=== PATIENT | female | born 1940 | race Caucasian/White ===

== ENCOUNTER 2016-09-11 12:52 | Inpatient (IN) | payer MEDICARE, OTHER ==
[2016-09-11] MEDS ORDERED: SODIUM CHLORIDE 0.9% 1,000 ML IV STA (12:55)
--- NOTE | 2016-09-11 13:20 | ED ---
General Adult HPI - General Chief complaint: Seizure Stated complaint: seizure Time Seen by Provider: 09/11/16 12:54 Source: patient, family, EMS, RN notes reviewed, old records reviewed Mode of arrival: EMS Limitations: no limitations - History of Present Illness Initial comments: This is a 76-year-old female ER for evaluation of seizure. Patient does have positive seizure in doctor's office earlier today. Patient states may have history of a similar issue before. But no new medications no drugs or alcohol medications no stopping of any recent medications or recent illnesses. No nausea vomiting or diarrhea. Patient states otherwise she feels well. He was a little bit weaker earlier in the day. No nausea vomiting, no headache no fevers - Related Data Home Medications Medication Instructions Recorded Confirmed Aspirin 81 mg PO DAILY 11/12/13 09/11/16 Cyclobenzaprine [Flexeril] 10 mg PO TID 11/12/13 09/11/16 Montelukast [Singulair] 10 mg PO HS 11/12/13 09/11/16 Simvastatin [Zocor] 40 mg PO HS 11/12/13 09/11/16 Budesonide-Formot 160-4.5 Mcg 2 puff INHALATION RT-BID 01/15/14 09/11/16 [Symbicort 160-4.5 Mcg Inhaler] Losartan/Hydrochlorothiazide 1 tab PO DAILY 01/15/14 09/11/16 [Losartan-Hctz 100-25 mg Tab] Albuterol Sulfate [Proair Hfa] 2 puff INHALATION RT-Q4H PRN 03/28/14 09/11/16 Cholecalciferol [Vitamin D3] 1,000 unit PO DAILY 03/28/14 09/11/16 Magnesium Oxide [Mag-Ox] 250 mg PO DAILY 03/28/14 09/11/16 ALPRAZolam [Xanax] 0.25 mg PO DAILY PRN 02/13/16 09/11/16 Atenolol 50 mg PO HS 02/13/16 09/11/16 Calcium Citrate 250 mg PO DAILY 02/13/16 09/11/16 Albuterol Nebulized [Ventolin 2.5 mg INHALATION RT-QID PRN 02/19/16 09/11/16 Nebulized] Multivitamins, Thera [Multivitamin 1 tab PO DAILY 02/19/16 09/11/16 (formulary)] Azithromycin [Zithromax Z-pack] See Taper PO DIRECTED 09/11/16 09/11/16 Col-Rite 100 mg PO BID 09/11/16 09/11/16 Denosumab [Prolia] 60 mg SQ ONCE 09/11/16 09/11/16 Fluticasone Nasal [place] [Flonase 1 spray EA NOSTRIL DAILY PRN 09/11/16 09/11/16 Nasal [place]] Mupirocin 2% Oint [Bactroban 2% 1 applic TOPICAL TID PRN 09/11/16 09/11/16 Oint] Tiotropium 18 Mcg/Puff [Spiriva] 1 cap INHALATION RT-DAILY 09/11/16 09/11/16 Allergies Allergy/AdvReac Type Severity Reaction Status Date / Time bupropion HCl Allergy Severe Rash/Hives Verified 09/11/16 13:42 [From Wellbutrin] Penicillins Allergy Severe Rash/Hives Verified 09/11/16 13:42 Review of Systems ROS Statement: Those systems with pertinent positive or pertinent negative responses have been documented in the HPI. ROS Other: All systems not noted in ROS Statement are negative. Past Medical History Past Medical History: Asthma, Cancer, COPD, GERD/Reflux, Hearing Disorder / Deafness, Hyperlipidemia, Hypertension, Thyroid Disorder Additional Past Medical History / Comment(s): CHRONIC BRONCHITIS-copd, SKIN CANCER- BASAL CELL CANCER, HEARING LOSS LEFT EAR; OSTEOPOROSIS; NODULE ON THYROID,endarterectomy on the left The patient was recently hospitalized on 06/2015 for a COPD exacerbation and left lower lobe pneumonia. Hypertension, hypothyroidism, hyperlipidemia, GE reflux History of Any Multi-Drug Resistant Organisms: None Reported Past Surgical History: Appendectomy, Heart Catheterization, Hysterectomy Additional Past Surgical History / Comment(s): BRONCH 01/2014; LEFT CAROTID ENDARTERECTOMY; LISA CATARACTS Past Anesthesia/Blood Transfusion Reactions: No Reported Reaction, Motion Sickness Past Psychological History: No Psychological Hx Reported Additional Psychological History / Comment(s): LIVES AT HOME WITH SPOUSE, RECENTLY STARTED USING A WALKER. Smoking Status: Current some day smoker Past Alcohol Use History: None Reported Additional Past Alcohol Use History / Comment(s): QUIT SMOKING 02-13-16 Past Drug Use History: None Reported - Past Family History Mother Family Medical History: Seizure Disorder Additional Family Medical History / Comment(s): EPILEPTIC Father Family Medical History: Diabetes Mellitus General Exam Limitations: no limitations General appearance: alert, in no apparent distress Head exam: Present: atraumatic, normocephalic, normal inspection Eye exam: Present: normal appearance, PERRL, EOMI. Absent: scleral icterus, conjunctival injection, periorbital swelling ENT exam: Present: normal exam, mucous membranes moist Neck exam: Present: normal inspection. Absent: tenderness, meningismus, lymphadenopathy Respiratory exam: Present: normal lung sounds bilaterally. Absent: respiratory distress, wheezes, rales, rhonchi, stridor Cardiovascular Exam: Present: regular rate, normal rhythm, normal heart sounds. Absent: systolic murmur, diastolic murmur, rubs, gallop, clicks GI/Abdominal exam: Present: soft, normal bowel sounds. Absent: distended, tenderness, guarding, rebound, rigid Extremities exam: Present: normal inspection, full ROM, normal capillary refill. Absent: tenderness, pedal edema, joint swelling, calf tenderness Back exam: Present: normal inspection Neurological exam: Present: alert, oriented X3, CN II-XII intact Psychiatric exam: Present: normal affect, normal mood Skin exam: Present: warm, dry, intact, normal color. Absent: rash Course Vital Signs 09/11/16 12:56 Temperature 98.2 F Pulse Rate 83 Respiratory 18 Rate Blood Pressure 115/56 O2 Sat by Pulse 99 Oximetry - Reevaluation(s) Reevaluation #1: 09/11/16 16:10 Patient without seizure-like activity at this time Reevaluation #2: 09/11/16 16:[address] Abel Diaz prior to transfer, regarding seizure and symptoms, patient did have generalized seizure, less than 15 seconds postictal. EKG Findings - EKG Comments: EKG Findings:: EKG shows sinus rhythm of 84, NH 150, QRS 90, QTc 470 Medical Decision Making - Medical Decision Making Summary for female here with witnessed seizure, patient symptoms were seizure- like did have loss of bladder and no other injury. Witnessed by the Dr. Abel watts, patient sent to ER for evaluation, patient found be hyponatremic and will admit for sodium replacement - Lab Data Result diagrams: 09/11/16 13:11 09/11/16 13:11 Lab Results 09/11/16 09/11/16 Range/Units 13:11 13:11 WBC 10.6 (3.8-10.6) k/uL RBC 3.79 L (3.80-5.40) m/uL Hgb 11.9 (11.4-16.0) gm/dL Hct 34.4 (34.0-46.0) % MCV 90.7 (80.0-100.0) fL MCH 31.4 (25.0-35.0) pg MCHC 34.6 (31.0-37.0) g/dL RDW 13.0 (11.5-15.5) % Plt Count 405 (150-450) k/uL Neutrophils % 71 % Lymphocytes % 18 % Monocytes % 7 % Eosinophils % 2 % Basophils % 1 % Neutrophils # 7.5 (1.3-7.7) k/uL Lymphocytes # 1.9 (1.0-4.8) k/uL Monocytes # 0.8 (0-1.0) k/uL Eosinophils # 0.2 (0-0.7) k/uL Basophils # 0.1 (0-0.2) k/uL Sodium 123 L (137-145) mmol/L Potassium 4.0 (3.5-5.1) mmol/L Chloride 86 L (98-107) mmol/L Carbon Dioxide 23 (22-30) mmol/L Anion Gap 14 mmol/L BUN 23 H (7-17) mg/dL Creatinine 0.92 (0.52-1.04) mg/dL Est GFR (MDRD) Af Amer >60 (>60 ml/min/1.73 sqM) Est GFR (MDRD) Non-Af 60 (>60 ml/min/1.73 sqM) Glucose 105 H (74-99) mg/dL Calcium 9.3 (8.4-10.2) mg/dL Total Bilirubin 0.7 (0.2-1.3) mg/dL AST 24 (14-36) U/L ALT 25 (9-52) U/L Alkaline Phosphatase 84 (38-126) U/L Total Protein 6.6 (6.3-8.2) g/dL Albumin 3.7 (3.5-5.0) g/dL Salicylates <1.0 mg/dL Acetaminophen <10.0 ug/mL Serum Alcohol <10 mg/dL Disposition Clinical Impression: New onset seizure, Hyponatremia Disposition: ADMITTED IP TO THIS HOSP Condition: Fair Referrals: Yefri Melgoza MD [Primary Care Provider] - 1-2 days
[2016-09-11 13:23] LABS: Basophils # (A) 0.1 k/uL (0-0.2); Basophils % (A) 1 %; CH 32.5; Eosinophils # (A) 0.2 k/uL (0-0.7); Eosinophils % (A) 2 %; HCT 34.4 % (34.0-46.0); HDW 2.58; HGB 11.9 gm/dL (11.4-16.0); Luc # (Auto) 0.25; Luc % (Auto) 2; Lymphocytes # (A) 1.9 k/uL (1.0-4.8); Lymphocytes % (A) 18 %; MCH 31.4 pg (25.0-35.0); MCHC 34.6 g/dL (31.0-37.0); MCV 90.7 fL (80.0-100.0); Mean Platelet Volume 7.4; Monocytes # (A) 0.8 k/uL (0-1.0); Monocytes % (A) 7 %; Neutrophils # (A) 7.5 k/uL (1.3-7.7); Neutrophils % (A) 71 %; RBC 3.79 m/uL (3.80-5.40); WBC 10.6 k/uL (3.8-10.6); WBC (Perox) 11.21
[2016-09-11 14:07] LABS: ALT 25 U/L (9-52); AST 24 U/L (14-36); Acetaminophen <10.0 ug/mL; Alcohol <10 mg/dL; Alkaline Phosphatase 84 U/L (38-126); Anion Gap 14 mmol/L; Blood Urea Nitrogen 23 mg/dL (7-17); Calcium 9.3 mg/dL (8.4-10.2); Carbon Dioxide 23 mmol/L (22-30); Chloride 86 mmol/L (98-107); Glucose 105 mg/dL (74-99); Non-African American GFR(MDRD) 60 (>60 ml/min/1.73 sqM); Salicylate <1.0 mg/dL; Sodium 123 mmol/L (137-145); Total Bilirubin 0.7 mg/dL (0.2-1.3); Total Protein 6.6 g/dL (6.3-8.2)
--- NOTE | 2016-09-11 15:08 | CT ---
EXAMINATION TYPE: CT brain wo con DATE OF EXAM: 09/11/2016 3:01 PM COMPARISON: NONE HISTORY: Pt states of PAUL to frontal lobe area. CT DLP: 1022 mGycm Automated exposure control for dose reduction was used. FINDINGS: There are mild, generalized changes of sulcal prominence and ventriculomegaly, compatible with atroph ic change. There is diffuse periventricular white matter lucency, compatible with chronic white matte r ischemic change. There is no acute focal lesion, mass effect or midline shift identified. I do not see evidence of intracranial blood. Visualized portions of the paranasal sinuses and mastoids are clear. No depressed skull fracture is s een. IMPRESSION: 1. NO ACUTE INTRACRANIAL ABNORMALITY. 2. MILD ATROPHIC CHANGE. 3. CHRONIC WHITE MATTER ISCHEMIC CHANGE.
[2016-09-11] MEDS ORDERED: SODIUM CHLORIDE 0.9% 1,000 ML IV ONE (16:08)
[2016-09-11 17:21] LABS: Appearance,Urine Clear (Clear); Bilirubin,Urine Negative (Negative); Glucose,Urine (UA) Negative (Negative); Ketones,Urine Negative (Negative); Leukocyte Esterase,Urine Negative (Negative); Nitrite,Urine Negative (Negative); PH, Urine 6.5 (5.0-8.0); Protein,Urine Negative (Negative); Specific Gravity,Urine 1.005 (1.001-1.035); UA Billing (MACRO vs. MICRO) CHEM; Urobilinogen,Urine <2.0 mg/dL (<2.0)
[2016-09-11] MEDS ORDERED: FLUTICASONE 50MCG/SPRAY NASAL 16GM EA NOSTRIL PRN (17:38)
[2016-09-11] MEDS ORDERED: ALPRAZolam 0.25 MG TAB PO PRN (17:38)
[2016-09-11] MEDS ORDERED: ALBUTEROL NEBULIZED 2.5 MG/3 ML INHALATION PRN (17:38)
[2016-09-11] MEDS: SYMBICORT 160-4.5 MCG INHALER INHALATION SCH (20:14)
[2016-09-11] MEDS: DOCUSATE 100 MG CAP PO SCH (20:28)
[2016-09-11] MEDS: CYCLOBENZAPRINE 10 MG TAB PO SCH (20:28)
[2016-09-11] MEDS: ATORVASTATIN 20 MG TAB PO SCH (20:28)
[2016-09-11] MEDS: ATENOLOL 50 MG TAB PO SCH (20:28)
[2016-09-11] MEDS: MONTELUKAST 10 MG TAB PO SCH (20:28)
--- NOTE | 2016-09-11 20:53 | P.CNNES ---
History of Present Illness Consult date: 09/11/16 Reason for Consult: New onset seizure and hyponatremia. History of Present Illness: This patient is a 76-year-old right-handed white female who was recently diagnosed as having a possible lump in the breast. She was referred to Dr. Abel Diaz for further evaluation. Patient went today to see her surgeon and apparently well in the exam room suddenly developed a new onset of seizure. This was witnessed by Dr. Diaz. Apparently the seizure lasted 1-2 minutes in duration. Patient did not have any bowel or bladder incontinence. Patient was advised to go directly to the emergency room for further evaluation. On further questioning the patient has no memory of this seizure event. She does remember being taken to the hospital today for admission. Patient does mention that she is not feeling well for about a week or 2 prior to this event. She states she has been having diarrhea and sinus problems. Her diarrhea has been ongoing for over a week. Patient was brought into the emergency room at [facility] for further evaluation today. She was seen in the ER by Dr. King. Laboratory testing was done and she was found to have a serum sodium level of 123 suggesting acute hyponatremia. She was started on normal saline by IV drip and admitted to the hospital. Apparently her seizure was generalized as noted by the ER physician. It lasted at least a minute or 2 in duration. Apparently she was postictal for about 20 seconds following the event. Patient denies any previous history of seizures or head injury. She was sent for a computed tomography scan of the brain which revealed no acute intracranial abnormality. There was evidence of mild atrophy noted. Patient is now admitted and neurology has been consulted for further evaluation and recommendations. Review of Systems Constitutional: Denies chills, Denies fever Eyes: denies blurred vision, denies pain Ears, nose, mouth and throat: Denies headache, Denies sore throat Cardiovascular: Denies chest pain, Denies shortness of breath Respiratory: Denies cough Gastrointestinal: Denies abdominal pain, Denies diarrhea, Denies nausea, Denies vomiting Genitourinary: Denies dysuria, Denies hematuria Musculoskeletal: Denies myalgias Integumentary: Denies pruritus, Denies rash Neurological: Reports convulsions, Reports seizures, Denies numbness, Denies weakness Psychiatric: Denies anxiety, Denies depression Endocrine: Denies fatigue, Denies weight change Past Medical History Past Medical History: Asthma, Cancer, COPD, GERD/Reflux, Hearing Disorder / Deafness, Hyperlipidemia, Hypertension, Pneumonia, Thyroid Disorder Additional Past Medical History / Comment(s): 09-11-16-SEIZURE, CHRONIC BRONCHITIS-copd, SKIN CANCER- BASAL CELL CANCER, HEARING LOSS LT EAR; OSTEOPOROSIS; NODULE ON THYROID,endarterectomy on the left The patient was recently hospitalized on 02/13/2016 for a COPD exacerbation and left lower lobe pneumonia. Hypertension, hypothyroidism, hyperlipidemia, GE reflux History of Any Multi-Drug Resistant Organisms: None Reported Past Surgical History: Appendectomy, Heart Catheterization, Hysterectomy Additional Past Surgical History / Comment(s): BRONCH 01/2014; LEFT CAROTID ENDARTERECTOMY; LISA CATARACTS Past Anesthesia/Blood Transfusion Reactions: No Reported Reaction, Motion Sickness Past Psychological History: No Psychological Hx Reported Additional Psychological History / Comment(s): LIVES AT HOME WITH SPOUSE, RECENTLY STARTED USING A WALKER. Smoking Status: Former smoker Past Alcohol Use History: None Reported Additional Past Alcohol Use History / Comment(s): STARTED SMOKING A TEEN, QUIT SMOKING 02-13-16, 1 PPD Past Drug Use History: None Reported - Past Family History Mother Family Medical History: Seizure Disorder Additional Family Medical History / Comment(s): EPILEPTIC Father Family Medical History: Diabetes Mellitus Medications and Allergies Home Medications Medication Instructions Recorded Confirmed Type Aspirin 81 mg PO DAILY 11/12/13 09/11/16 History Cyclobenzaprine [Flexeril] 10 mg PO TID 11/12/13 09/11/16 History Montelukast [Singulair] 10 mg PO HS 11/12/13 09/11/16 History Simvastatin [Zocor] 40 mg PO HS 11/12/13 09/11/16 History Budesonide-Formot 160-4.5 Mcg 2 puff INHALATION RT-BID 01/15/14 09/11/16 History [Symbicort 160-4.5 Mcg Inhaler] Losartan/Hydrochlorothiazide 1 tab PO DAILY 01/15/14 09/11/16 History [Losartan-Hctz 100-25 mg Tab] Albuterol Sulfate [Proair Hfa] 2 puff INHALATION RT-Q4H PRN 03/28/14 09/11/16 History Cholecalciferol [Vitamin D3] 1,000 unit PO DAILY 03/28/14 09/11/16 History Magnesium Oxide [Mag-Ox] 250 mg PO DAILY 03/28/14 09/11/16 History ALPRAZolam [Xanax] 0.25 mg PO DAILY PRN 02/13/16 09/11/16 History Atenolol 50 mg PO HS 02/13/16 09/11/16 History Calcium Citrate 250 mg PO DAILY 02/13/16 09/11/16 History Albuterol Nebulized [Ventolin 2.5 mg INHALATION RT-QID PRN 02/19/16 09/11/16 History Nebulized] Multivitamins, Thera [Multivitamin 1 tab PO DAILY 02/19/16 09/11/16 History (formulary)] Azithromycin [Zithromax Z-pack] See Taper PO DIRECTED 09/11/16 09/11/16 History Col-Rite 100 mg PO BID 09/11/16 09/11/16 History Denosumab [Prolia] 60 mg SQ ONCE 09/11/16 09/11/16 History Fluticasone Nasal [place] [Flonase 1 spray EA NOSTRIL DAILY PRN 09/11/16 09/11/16 History Nasal [place]] Mupirocin 2% Oint [Bactroban 2% 1 applic TOPICAL TID PRN 09/11/16 09/11/16 History Oint] Tiotropium 18 Mcg/Puff [Spiriva] 1 cap INHALATION RT-DAILY 09/11/16 09/11/16 History Allergies Allergy/AdvReac Type Severity Reaction Status Date / Time bupropion HCl Allergy Severe Rash/Hives Verified 09/11/16 13:42 [From Wellbutrin] Penicillins Allergy Severe Rash/Hives Verified 09/11/16 13:42 Physical Examination - Vital Signs Vital Signs: Vital Signs Temp Pulse Pulse Resp BP BP Pulse Ox 09/11/16 17:24 97.9 F 84 20 130/74 99 09/11/16 16:42 98.2 F 90 18 136/66 98 Intake and Output 09/11/16 09/11/16 09/11/16 06:59 14:59 22:59 Other: Voiding Method Toilet - Constitutional General appearance: average body habitus, cooperative - EENT EENT: PERRL, mucous membranes moist - Respiratory Respiratory: lungs clear, normal breath sounds - Cardiovascular Cardiovascular: regular rate, normal S1, normal S2 Extremities: no peripheral edema bilaterally - Gastrointestinal Gastrointestinal: normoactive bowel sounds - Integumentary Integumentary: normal - Neurologic Cranial nerve examination: PERRL, EOMI, VFF, V1/V2/V3 grossly intact, face symmetric, tongue midline, intact gag reflex, intact corneal reflex, normal palatal elevation Speech examination: intact Sensorimotor examination: intact Detailed motor examination: grossly full strength in all extremities Detailed sensory examination: intact Reflex and gait examination: intact Reflexes: 1+: ankle, bicep, knee, tricep - Musculoskeletal Musculoskeletal: no pain - Psychiatric Psychiatric: mood/affect appropriate, cooperative Results - Laboratory Findings CBC and BMP: 09/11/16 13:11 09/11/16 13:11 Assessment and Plan (1) Hyponatremia Status: Acute Code(s): E87.1 - HYPO-OSMOLALITY AND HYPONATREMIA (2) New onset seizure Status: Acute Code(s): R56.9 - UNSPECIFIED CONVULSIONS Plan: This patient is a 76-year-old female who was admitted to hospital today after having a generalized tonic-clonic seizure in her doctor's office this morning. She is being evaluated for recent breast lump. She was seen by Dr. Abel Diaz and apparently had a 1-2 minute seizure. She was postictal for about 20 seconds following this event. She was advised to go directly to the emergency room and was seen in the ER today at [facility] by Dr. King. She underwent computed tomography scan of the brain which failed to reveal any acute changes. Laboratory testing in the ER revealed her to have severe hyponatremia with a serum sodium of 123. She was started on normal saline and admitted to the hospital. Her neurological examination at this time is nonfocal. This patient has had secondary seizure likely from severe hyponatremia. She has no previous history of seizures or head injury. We will obtain a routine EEG for further evaluation. CAT scan of the brain was reviewed and failed to reveal any acute changes. She will require a slow replacement of her sodium level with close monitoring of her electrolyte over the next 24 hours. Her overall prognosis at this time remains guarded. She was advised of the [place] driving law which states she cannot drive for appeared of 6 months following a seizure. She was updated on this restriction. We will continue close neurological follow-up with this patient during this admission. Her overall prognosis at this time remains guarded. Time with Patient: Greater than 30
[2016-09-12] MEDS: DOCUSATE 100 MG CAP PO SCH ×2 (08:43→21:27)
[2016-09-12] MEDS: AZITHROMYCIN 250 MG TAB PO SCH (08:43)
[2016-09-12] MEDS: CALCIUM CARBONATE 500 MG CHEWABLE PO SCH (08:43)
[2016-09-12] MEDS: ENOXAPARIN 40 MG/0.4 ML SYRINGE SQ SCH (08:43)
[2016-09-12] MEDS: MAGNESIUM OXIDE 400 MG TAB PO SCH (08:43)
[2016-09-12] MEDS: CYCLOBENZAPRINE 10 MG TAB PO SCH ×3 (08:43→21:27)
[2016-09-12] MEDS: ASPIRIN 81 MG CHEW PO SCH (08:44)
[2016-09-12] MEDS: SYMBICORT 160-4.5 MCG INHALER INHALATION SCH ×2 (08:54→20:55)
[2016-09-12] MEDS: TIOTROPIUM 18 MCG/PUFF INHALER INHALATION SCH (08:54)
[2016-09-12] MEDS ORDERED: LOSARTAN-HCTZ 50-12.5 MG 1 EACH TAB PO SCH (09:00)
[2016-09-12 09:45] LABS: Anion Gap 9 mmol/L; Blood Urea Nitrogen 12 mg/dL (7-17); Calcium 8.6 mg/dL (8.4-10.2); Carbon Dioxide 25 mmol/L (22-30); Chloride 96 mmol/L (98-107); Glucose 87 mg/dL (74-99); Non-African American GFR(MDRD) >60 (>60 ml/min/1.73 sqM); Potassium 3.8 mmol/L (3.5-5.1); Sodium 130 mmol/L (137-145)
[2016-09-12] MEDS: MULTIVITAMINS, THERA 1 EACH TAB PO SCH (13:45)
[2016-09-12] MEDS: CHOLECALCIFEROL 1,000 UNIT TAB PO SCH (13:45)
[2016-09-12] MEDS: ALBUTEROL NEBULIZED 2.5 MG/3 ML INHALATION PRN (17:05)
--- NOTE | 2016-09-12 19:08 | P.PN ---
Subjective This patient is a 76-year-old female who was admitted to hospital yesterday with new onset seizure and hyponatremia. She was with her primary care physician who referred her to Gen. surgery for evaluation of breast lump. While in the waiting room the patient had a generalized tonic-clonic seizure. She was brought into the emergency room yesterday and was noted to have significant hyponatremia with a serum sodium of 123. She was admitted to hospital for further management. Her serum sodium today is 1:30. She does seem to be doing better in terms of her mental status. She is awaiting EEG testing to be completed. She denies any headache or focal weakness. She has no previous history of seizures. We will continue close neurological follow-up of this patient. Her overall prognosis at this time remains guarded. Objective - Vital Signs Vital signs: Vital Signs Temp 98.2 F 09/12/16 15:00 Pulse 85 09/12/16 17:07 Resp 16 09/12/16 16:00 BP 116/79 09/12/16 15:00 Pulse Ox 96 09/12/16 17:07 Intake & Output 09/12/16 09/12/16 09/13/16 06:59 18:59 06:59 Other: # Voids 3 4 - Exam Physical examination: PHYSICAL EXAMINATION: Patient is resting comfortably in bed. VITAL SIGNS: Blood pressure is [116/79]. Heart rate is [85]. Respiration is [16] . Temperature is [98.2]. HEENT: Head is atraumatic, neck is supple, there were no carotid bruits. CHEST: Lungs are clear to auscultation and percussion. CARDIAC: S1, S2 normal rate and rhythm. There is no murmur. ABDOMEN: Soft and nontender. Bowel sounds are present. EXTREMITIES: There is no pedal edema. Peripheral pulses are present. Neurological examination: Patient has a nonfocal neurological examination. Exam is unchanged from yesterday. - Labs CBC & Chem 7: 09/11/16 13:11 09/12/16 09:09 Labs: Abnormal Lab Results - Last 24 Hours (Table) 09/12/16 Range/Units 09:09 Sodium 130 L (137-145) mmol/L Chloride 96 L (98-107) mmol/L Assessment and Plan (1) Hyponatremia Status: Acute Code(s): E87.1 - HYPO-OSMOLALITY AND HYPONATREMIA (2) New onset seizure Status: Acute Code(s): R56.9 - UNSPECIFIED CONVULSIONS Plan: This patient is a 76-year-old female who was admitted to hospital yesterday with new onset seizure and hyponatremia. She underwent computed tomography scan of the brain which was reported negative for any acute changes. She was treated for the hyponatremia. Her serum sodium today is 1:30. She is awaiting EEG testing to be completed. Her neurological examination at this time is nonfocal. She is once again advised of the [place] driving law which states she cannot drive for 6 months. We will continue close neurological follow-up for the patient during this admission.
--- NOTE | 2016-09-12 21:00 | HP ---
DATE OF ADMISSION: 09/11/2016 H&P and discharge summary: Patient is a 76-year-old gentleman came in after he had a seizure which was evidenced ( ) and the patient had another seizure apparently which appeared to be tonic-clonic activity with postictal confusion lasting for 30 seconds and patient was evaluated by Neurology already. The patient's sodium was found to be 123. Patient had a recent breast lumpectomy although head CT did not show any masses. Neurology believes the patient's seizures are secondary to low sodium, which improved at this point of time. Low sodium with IV fluids and patient low sodium secondary to hydrochlorothiazide on his medication regimen, which is being discontinued. On exam patient was found to be wheezing. Patient does have history of COPD . We will ambulate the patient, if the patient is able to saturate well upon ambulation, we will give him a few doses of tapering dose of steroids and patient will be discharged to follow with Dr. Yefri Melgoza as an outpatient if cleared by neurology. Appreciate their recommendations. REVIEW OF SYSTEMS: CONSTITUTIONAL: No fever, no malaise, no fatigue. HEENT: No recent visual problems or hearing problems. Denied any sore throat. CARDIOVASCULAR: No chest pain, orthopnea, PND, no palpitations, no syncope. PULMONARY: As described in HPI. GASTROINTESTINAL: No diarrhea, no nausea, no vomiting, no abdominal pain. Normoactive bowel sounds. NEUROLOGICAL: As described in HPI. HEMATOLOGICAL: Denies any bleeding or petechiae. GENITOURINARY: Denies any burning micturition, frequency, or urgency. MUSCULOSKELETAL/RHEUMATOLOGICAL: Denies any joint pain, swelling, or any muscle pain. ENDOCRINE: Denies any polyuria or polydipsia. The rest of the 14 point review of systems is negative. PAST MEDICAL HISTORY: Significant for COPD, gastroesophageal reflux disease, hyperlipidemia, hypertension, pneumonia, hypothyroidism, patient had a recent breast lumpectomy, appendectomy, cardiac catheterization, hysterectomy, left carotid surgery, endarterectomy, in the past. SOCIAL HISTORY: Former smoker. Quit smoking in 2015, February 2016, used to smoke 1 pack per day. Denied any alcohol abuse or drug abuse. FAMILY HISTORY: Mother had seizure disorder and father had diabetes mellitus. Home medications are: 1. Aspirin. 2. ( ). 3. Montelukast. 4. Simvastatin. 5. Budesonide. 6. Formoterol. 7. Losartan. 8. Hydrochlorothiazide. 9. Albuterol. 10. Cholecalciferol. 11. Magnesium. 12. Alprazolam. 13. Atenolol. 14. Calcium citrate. 15. Albuterol. 16. Multivitamin. 17. Azithromycin. 18. ( ). 19. Fluticasone. 20. Mupirocin. 21. Tiotropium. ALLERGIES: ALLERGIC TO BUPROPION PENICILLINS. PHYSICAL EXAMINATION: Temperature 97.9, pulse of 85, respiratory rate of 16, blood pressure is 116/70, saturating at 98% on room air. GENERAL: Thin built female, alert and oriented x3. HEENT: Pupils are round and equally reacting to light. EOMI. No scleral icterus. No conjunctival pallor. Normocephalic, atraumatic. No pharyngeal erythema. No thyromegaly. CARDIOVASCULAR: S1 and S2 present. No murmurs, rubs, or gallops. PULMONARY: Lung examination patient has significant expiratory wheezing. No crackles were appreciated. Fairly good air entry into bilateral lung enriquez. ABDOMEN: Soft, nontender, nondistended, normoactive bowel sounds. No palpable organomegaly. MUSCULOSKELETAL: No joint swelling or deformity. EXTREMITIES: No cyanosis, clubbing, or pedal edema. NEUROLOGICAL: Gross neurological examination did not reveal any focal deficits. SKIN: No rashes. LABORATORY DATA: CBC, CMP when she came in her sodium is 123, now 130. ASSESSMENT AND PLAN: 1. New onset seizures believed to be secondary to hyponatremia. Patient is getting an EEG. Further hydrochlorothiazide will be discontinued. 2. Hyponatremia secondary to hydrochlorothiazide. 3. Chronic obstructive pulmonary disease with mild acute exacerbation. 4. Hypertension. 5. Hyperlipidemia. 6. Hypothyroidism. 7. Recent history of breast cancer, status post lumpectomy. For the above mentioned chronic medical problems, patient will continue her home medications. Patient will be discharged today if patient is saturating well and is clear. Patient is cleared by neurology, patient will follow with Dr. Yefri Melgoza in 3 to 7 days. Follow up with neurology as an outpatient. Activity as tolerated. Cardiac diet. This dictation is both H&P and discharge summary.
[2016-09-12] MEDS: MONTELUKAST 10 MG TAB PO SCH (21:27)
[2016-09-12] MEDS: ATORVASTATIN 20 MG TAB PO SCH (21:27)
[2016-09-12] MEDS: ATENOLOL 50 MG TAB PO SCH (21:27)
[2016-09-13] MEDS: CALCIUM CARBONATE 500 MG CHEWABLE PO SCH (08:27)
[2016-09-13] MEDS: AZITHROMYCIN 250 MG TAB PO SCH (08:27)
[2016-09-13] MEDS: CYCLOBENZAPRINE 10 MG TAB PO SCH ×3 (08:27→20:35)
[2016-09-13] MEDS: ASPIRIN 81 MG CHEW PO SCH (08:27)
[2016-09-13] MEDS: DOCUSATE 100 MG CAP PO SCH ×2 (08:28→20:35)
[2016-09-13] MEDS: MAGNESIUM OXIDE 400 MG TAB PO SCH (08:28)
[2016-09-13] MEDS: ENOXAPARIN 40 MG/0.4 ML SYRINGE SQ SCH (08:28)
[2016-09-13] MEDS: TIOTROPIUM 18 MCG/PUFF INHALER INHALATION SCH (08:35)
[2016-09-13] MEDS: SYMBICORT 160-4.5 MCG INHALER INHALATION SCH ×2 (08:35→20:43)
[2016-09-13 10:59] LABS: CHCM 34.9; HCT 30.5 % (34.0-46.0); HGB 10.5 gm/dL (11.4-16.0); MCH 31.8 pg (25.0-35.0); MCHC 34.5 g/dL (31.0-37.0); Mean Platelet Volume 6.8; RBC 3.32 m/uL (3.80-5.40); RDW 12.9 % (11.5-15.5); WBC 7.9 k/uL (3.8-10.6)
[2016-09-13 11:11] LABS: Anion Gap 10 mmol/L; Blood Urea Nitrogen 13 mg/dL (7-17); Calcium 8.8 mg/dL (8.4-10.2); Carbon Dioxide 24 mmol/L (22-30); Chloride 91 mmol/L (98-107); Glucose 127 mg/dL (74-99); Non-African American GFR(MDRD) >60 (>60 ml/min/1.73 sqM); Potassium 3.8 mmol/L (3.5-5.1); Sodium 125 mmol/L (137-145)
[2016-09-13] MEDS: CHOLECALCIFEROL 1,000 UNIT TAB PO SCH (11:57)
[2016-09-13] MEDS: MULTIVITAMINS, THERA 1 EACH TAB PO SCH (11:57)
--- NOTE | 2016-09-13 14:09 | P.PN ---
Subjective This patient is a 76-year-old female who was admitted to hospital yesterday with new onset seizure and hyponatremia. She was with her primary care physician who referred her to Gen. surgery for evaluation of breast lump. While in the waiting room the patient had a generalized tonic-clonic seizure. She was brought into the emergency room yesterday and was noted to have significant hyponatremia with a serum sodium of 123. She was admitted to hospital for further management. Her serum sodium today is 130. She does seem to be doing better in terms of her mental status. She is awaiting EEG testing to be completed. She denies any headache or focal weakness. She has no previous history of seizures. Patient underwent repeat blood testing today revealing her serum sodium to drop began to 125. We are recommending her admitting physician to reevaluate the hyponatremia. She may be considered for possible SIADH. We will continue monitoring the patient closely and will attempt to have EEG testing done tomorrow for further assessment of her new onset seizure. We will continue close neurological follow-up of this patient. Her overall prognosis at this time remains guarded. Objective - Vital Signs Vital signs: Vital Signs Temp 98.5 F 09/13/16 07:00 Pulse 82 09/13/16 07:00 Resp 18 09/13/16 07:00 BP 95/56 09/13/16 07:00 Pulse Ox 95 09/13/16 07:00 Intake & Output 09/12/16 09/13/16 09/13/16 18:59 06:59 18:59 Other: Voiding Method Toilet Toilet # Voids 4 2 - Exam Physical examination: PHYSICAL EXAMINATION: Patient is resting comfortably in bed. VITAL SIGNS: Blood pressure is [95/56]. Heart rate is [82]. Respiration is [18] . Temperature is [98.5]. HEENT: Head is atraumatic, neck is supple, there were no carotid bruits. CHEST: Lungs are clear to auscultation and percussion. CARDIAC: S1, S2 normal rate and rhythm. There is no murmur. ABDOMEN: Soft and nontender. Bowel sounds are present. EXTREMITIES: There is no pedal edema. Peripheral pulses are present. Neurological examination: Patient has a nonfocal neurological examination. Exam is unchanged from yesterday. - Labs CBC & Chem 7: 09/13/16 10:28 09/13/16 10:28 Labs: Abnormal Lab Results - Last 24 Hours (Table) 09/13/16 09/13/16 09/13/16 Range/Units 10:28 10:28 10:28 RBC 3.32 L (3.80-5.40) m/uL Hgb 10.5 L (11.4-16.0) gm/dL Hct 30.5 L (34.0-46.0) % Sodium 125 L (137-145) mmol/L Chloride 91 L (98-107) mmol/L Glucose 127 H (74-99) mg/dL Osmolality 258 L (280-301) mosm/kg Assessment and Plan (1) Hyponatremia Status: Acute Code(s): E87.1 - HYPO-OSMOLALITY AND HYPONATREMIA (2) New onset seizure Status: Acute Code(s): R56.9 - UNSPECIFIED CONVULSIONS Plan: This patient is a 76-year-old female who was admitted to Hospital with new onset seizure activity. She was in her doctor's office and had a witnessed generalized tonic-clonic seizure lasting several minutes. She was slightly postictal. She was subtotally admitted to Hospital. She was found to have evidence of severe hyponatremia with an initial sodium of 123. Was felt that she likely had new onset seizures secondary to the hyponatremia. She is being evaluated for underlying seizure disorder as well. Routine EEG has been ordered and will be done only tomorrow. Her repeat serum sodium today has dropped to 125 from yesterday. We are recommending further evaluation for other causes of hyponatremia in this patient. We will obtain EEG tomorrow for further assessment of underlying seizure disorder. Her overall prognosis at this time remains guarded. We will continue close neurological follow-up of this patient during this admission.
[2016-09-13] MEDS: predniSONE 20 MG TAB PO SCH (14:38)
[2016-09-13] MEDS: SODIUM CHLORIDE 0.9% 1,000 ML IV SCH ×2 (14:38→20:35)
[2016-09-13 15:07] LABS: Creatinine,Urine Random 32.6 mg/dL
[2016-09-13] MEDS: ALBUTEROL NEBULIZED 2.5 MG/3 ML INHALATION PRN (15:58)
--- NOTE | 2016-09-13 17:05 | PN ---
A 76-year-old admitted with seizure secondary to what is believed to hyponatremia. Patient remains hyponatremic today with 125 serum sodium, because I believe it is secondary to hydrochlorothiazide she ended up receiving yesterday morning. Will start her on IV fluids today. Repeat labs for tomorrow and will also do urine osmolality, serum osmolality, urine sodium and urine random creatinine and patient is still wheezing but wheezing improved, though. Patient will be started on low dose of prednisone today. REVIEW OF SYSTEMS: CARDIOVASCULAR: No chest pain, no orthopnea, no PND, no palpitations. PULMONARY: Denied any shortness of breath. No cough or hemoptysis. GASTROINTESTINAL: No diarrhea, nausea or vomiting. No abdominal pain. Normoactive bowel sounds. NEUROLOGIC: No headaches, no weakness, no numbness. Medications were reviewed. PHYSICAL EXAMINATION: Temperature 98.5, pulse of 82, respiratory rate of 18, blood pressure 95/56, saturating at 95% on room air. RESPIRATORY: Minimal expiratory wheezing was appreciated. No crackles were appreciated and fairly good air entry into bilateral lung enriquez. GENERAL: The patient is alert and oriented x3, not in any acute distress. Well developed, well nourished. HEENT: Pupils are round and equally reacting to light. EOMI. No scleral icterus. No conjunctival pallor. Normocephalic, atraumatic. No pharyngeal erythema. No thyromegaly. CARDIOVASCULAR: S1 and S2 present. No murmurs, rubs, or gallops. ABDOMEN: Soft, nontender, nondistended, normoactive bowel sounds. No palpable organomegaly. MUSCULOSKELETAL: No joint swelling or deformity. EXTREMITIES: No cyanosis, clubbing, or pedal edema. NEUROLOGICAL: Gross neurological examination did not reveal any focal deficits. SKIN: No rashes. LABORATORY DATA: Sodium is 125. ASSESSMENT AND PLAN: 1. New onset seizures believed secondary to hyponatremia which is again believed to be secondary to hydrochlorothiazide. Patient may have hypovolemic hyponatremia. Further evaluation of hyponatremia as mentioned above. 2. Chronic obstructive pulmonary disease with mild acute exacerbation, management as mentioned above. 3. Hypertension. 4. Hyperlipidemia. 5. Hypothyroidism. 6. Recent surgery for breast cancer, post lumpectomy. No evidence of brain metastasis at this time. 7. For above mentioned chronic medical problems, will go ahead and continue her home medications.
[2016-09-13] MEDS: MONTELUKAST 10 MG TAB PO SCH (20:35)
[2016-09-13] MEDS: ATORVASTATIN 20 MG TAB PO SCH (20:35)
[2016-09-13] MEDS: ATENOLOL 50 MG TAB PO SCH (20:35)
[2016-09-14] MEDS: SODIUM CHLORIDE 0.9% 1,000 ML IV SCH ×2 (06:04→15:15)
[2016-09-14 07:44] VITALS: BP 129/62; RESP 18; TEMP 97.2
[2016-09-14] MEDS: MAGNESIUM OXIDE 400 MG TAB PO SCH (08:07)
[2016-09-14] MEDS: ASPIRIN 81 MG CHEW PO SCH (08:07)
[2016-09-14] MEDS: CALCIUM CARBONATE 500 MG CHEWABLE PO SCH (08:07)
[2016-09-14] MEDS: predniSONE 20 MG TAB PO SCH (08:07)
[2016-09-14] MEDS: ENOXAPARIN 40 MG/0.4 ML SYRINGE SQ SCH (08:07)
[2016-09-14] MEDS: AZITHROMYCIN 250 MG TAB PO SCH (08:07)
[2016-09-14] MEDS: CYCLOBENZAPRINE 10 MG TAB PO SCH (08:07)
[2016-09-14] MEDS: ALBUTEROL NEBULIZED 2.5 MG/3 ML INHALATION PRN (08:16)
[2016-09-14] MEDS: TIOTROPIUM 18 MCG/PUFF INHALER INHALATION SCH (08:17)
[2016-09-14] MEDS: SYMBICORT 160-4.5 MCG INHALER INHALATION SCH (08:17)
[2016-09-14 08:31] VITALS: PULSE 88
[2016-09-14 09:00] LABS: Anion Gap 11 mmol/L; Blood Urea Nitrogen 11 mg/dL (7-17); Calcium 8.6 mg/dL (8.4-10.2); Carbon Dioxide 21 mmol/L (22-30); Chloride 104 mmol/L (98-107); Glucose 105 mg/dL (74-99); Non-African American GFR(MDRD) >60 (>60 ml/min/1.73 sqM); Sodium 136 mmol/L (137-145)
[2016-09-14] MEDS: DOCUSATE 100 MG CAP PO SCH (09:32)
[2016-09-14 09:57] LABS: CH 31.9; CHCM 34.3; HCT 30.4 % (34.0-46.0); HDW 2.58; HGB 10.6 gm/dL (11.4-16.0); MCH 32.5 pg (25.0-35.0); MCHC 34.7 g/dL (31.0-37.0); MCV 93.4 fL (80.0-100.0); RBC 3.26 m/uL (3.80-5.40); RDW 12.8 % (11.5-15.5)
[2016-09-14] MEDS: CHOLECALCIFEROL 1,000 UNIT TAB PO SCH (14:01)
[2016-09-14] MEDS: MULTIVITAMINS, THERA 1 EACH TAB PO SCH (14:02)
--- NOTE | 2016-09-15 19:55 | DS ---
DATE OF ADMISSION: 09/11/2016 DATE OF DISCHARGE: 09/14/2016 The patient is a 76 -year-old lady admitted secondary to seizures, new onset and the patient was ( ) hypernatremia, improved with discontinuation of hydrochlorothiazide and IV fluids. The patient is being discharged today. Patient has chronic obstructive pulmonary disease with acute exacerbation. Patient is still wheezing, but wanted to go home. ( ) discharge ( ) on systemic steroids with close follow-up with primary care physician. The patient was seen and examined on the day of discharge. Vital signs stable. PHYSICAL EXAMINATION: GENERAL: The patient is alert and oriented x3, not in any acute distress. Well developed, well nourished. HEENT: Pupils are round and equally reacting to light. EOMI. No scleral icterus. No conjunctival pallor. Normocephalic, atraumatic. No pharyngeal erythema. No thyromegaly. CARDIOVASCULAR: S1 and S2 present. No murmurs, rubs, or gallops. PULMONARY: Decreased air entry into bilateral lung enriquez with expiratory wheezing on exam. ABDOMEN: Soft, nontender, nondistended, normoactive bowel sounds. No palpable organomegaly. MUSCULOSKELETAL: No joint swelling or deformity. EXTREMITIES: No cyanosis, clubbing, or pedal edema. NEUROLOGICAL: Gross neurological examination did not reveal any focal deficits. SKIN: No rashes. ASSESSMENT AND PLAN: 1. New onset seizures ( ) secondary to hyponatremia, chronic obstructive pulmonary disease with acute exacerbation. 2. Hypertension. 3. Hyperlipidemia. 4. Hypothyroidism. 5. Recent history of breast cancer with no evidence of brain metastasis. Please refer to my depart for further details of discharge medications. Activity as tolerated. Cardiac diet. Extensive counselling regarding nicotine cessation was provided.
--- NOTE | 2016-09-18 21:51 | EEG ---
DATE OF SERVICE: 09/14/2016 INDICATION FOR EXAMINATION: This patient is a 76-year-old female being evaluated for possible hyponatremic seizure. Patient had generalized seizure lasting 1 to 2 minutes in duration with postictal state. AGE: 76 years. EEG FINDINGS: A routine 21-channel awake digital EEG recording was accomplished utilizing the 10-20 international system with bipolar and referential montages. The background activity in the most alert resting state consists of a low to medium amplitude, fairly well-developed and well-sustained 6-7 Hz activity over the posterior head regions. This posterior rhythm attenuates to eye opening. There is a small amount of low amplitude 18-20 Hz beta activity seen maximally over the anterior head regions. Muscle and movement artifact was observed on a few occasions during the tracing. Hyperventilation was not performed. Photic stimulation at flash frequencies of 2-30 Hz produced a good symmetrical occipital driving response. No epileptiform discharges were seen. IMPRESSION: This EEG is mildly abnormal in diffuse fashion due to slight slowing of the EEG background. The EEG failed to reveal any focal, lateralized or epileptiform abnormalities. Clinical correlation is recommended.
== END 2016-09-14 15:46 | disposition home or self-care (01) | DRG 641 ==
LOC: EC 12:52 → 4MS4W 16:08
PROVIDERS: ADMIT Hospitalist; ATTEND Hospitalist
DX: E87.1 Hypo-osmolality and hyponatremia (principal); G40.89 Other seizures; J44.1 Chronic obstructive pulmonary disease with (acute) exacerbation; I10 Essential (primary) hypertension; E03.9 Hypothyroidism, unspecified; E78.5 Hyperlipidemia, unspecified; F17.200 Nicotine dependence, unspecified, uncomplicated; H91.92 Unspecified hearing loss, left ear; J45.909 Unspecified asthma, uncomplicated; K21.9 Gastro-esophageal reflux disease without esophagitis; M81.0 Age-related osteoporosis without current pathological fracture; T50.2X5A Adverse effect of carbonic-anhydrase inhibitors, benzothiadiazides and other diuretics, initial encounter; E04.1 Nontoxic single thyroid nodule; Z79.82 Long term (current) use of aspirin; Z79.899 Other long term (current) drug therapy; Z85.3 Personal history of malignant neoplasm of breast; Z85.828 Personal history of other malignant neoplasm of skin; Z88.0 Allergy status to penicillin; Z88.8 Allergy status to other drugs, medicaments and biological substances
CPT/HCPCS: 36415; 70450; 80048; 80053; 80306; 80320; 81003; 82570; 83520; 83930; 83935; 84300; 85025; 85027; 93005; 94640; 95816; 96360; 99285

== ENCOUNTER → 2016-10-05 | Outpatient (CLI) | payer MEDICARE, OTHER ==
--- NOTE | 2016-10-05 15:34 | US ---
EXAMINATION TYPE: US thyroid st tissue head/neck DATE OF EXAM: 10/05/2016 3:16 PM COMPARISON: US thyroid ultrasound April 16, 2016. CLINICAL HISTORY: Thyroid nodule E04.1. F/U nodules GLAND SIZE: Right Lobe: 3.7 x 1.4 x 1.4 cm Overall Parenchyma: heterogenous Left Lobe: 3.4 x 1.1 x 1.0 cm Overall Parenchyma: heterogeneous Isthmus Thickness: 0.3 cm NODULES RIGHT: # of nodules measured on right: 1 1. 1.6 X 0.9 x 1.2 cm hypoechoic mixed nodule at the mid pole with well-defined margins This nodul e is wider than tall and shows intranodular vascularity. Prior size: 1.4 x 0.9 x 1.3 cm Other, multiple sub-centimeter nodules visualized LEFT: # of nodules measured on left: 1 1. 0.5 X 0.3 x 0.5 cm hypoechoic mixed nodule at the upper pole with well-defined margins; This no dule is wider than tall and shows no intranodular vascularity. Prior size: 0.8 x 0.3 x 0.5 cm Other, multiple sub-centimeter nodules visualized ISTHMUS: # of nodules measured in the isthmus: 1 1. 0.8 X 0.5 x 0.9 cm cystic nodule with well-defined margins; This nodule is wider than tall and shows no intranodular vascularity. Prior size: 0.9 x 1.0 x 0.6 cm Bilateral neck scanned, no evidence of lymphadenopathy/ Essentially unchanged nodules bilaterally Thyroid gland remains normal in size and heterogeneous appearance, there are stable nodules identifie d bilaterally. IMPRESSION: Thyroid gland is normal in size and heterogeneous in appearance with scattered stable nodules, no new suspicious greater than 1 cm solid or cystic nodules are seen.
== END | disposition home or self-care (01) ==
LOC: RADUSWWP 14:52
PROVIDERS: ATTEND Otolaryngology
DX: E04.2 Nontoxic multinodular goiter (principal)
CPT/HCPCS: 76536

== ENCOUNTER → 2016-10-14 | Day surgery (SDC) | payer MEDICARE, OTHER ==
--- NOTE | 2016-10-14 14:59 | USB ---
EXAMINATION TYPE: US discontinued breast core RT DATE OF EXAM: 10/14/2016 1:15 PM CLINICAL HISTORY: 76-year-old female abnormal mammogram, referred for ultrasound-guided right breast biopsy. TECHNIQUE: The right breast biopsy target was scanned as well as the 6:00 position in the region of t he mammographic finding. COMPARISON: Outside exams were reviewed including ultrasound 09/03/2016 and outside mammograms 09/01/19 17 and 07/22/2015 FINDINGS: Redemonstrated is the heterogeneous, shadowing mass at the 3:00 position for which the patient was re ferred for biopsy. This measures 8 x 7 x 5 mm and contains calcifications. 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 Biopsy is not performe d of this area. Scanning at the 6:00 position shows a 5 x 3 x 4 mm ovoid circumscribed cyst at the 6:00 position clos e to the nipple. This also correlates very well with the questioned new focal asymmetry on patient's mammogram. A six-month mammogram can be performed. Findings and impression were discussed with the patient. IMPRESSION: 1. BI-RADS 3-probably benign. RECOMMENDATION: 1. Six-month follow-up diagnostic right breast mammogram for new anterior 6:00 nodularity which likel y corresponds to a benign 5 mm cyst on ultrasound. 2. The 3:00 shadowing left breast mass was not biopsied as this correlates well with the patient's de generating fibroadenoma. 3. Patient should continue monthly self breast exam. 4. This exam should not preclude additional follow-up of suspicious palpable abnormalities.
== END ==
LOC: RADUSWWP 11:37
PROVIDERS: ATTEND Surgery
DX: R92.8 Other abnormal and inconclusive findings on diagnostic imaging of breast (principal); Z88.0 Allergy status to penicillin; Z88.2 Allergy status to sulfonamides; Z88.8 Allergy status to other drugs, medicaments and biological substances

== ENCOUNTER → 2016-10-30 | Outpatient (CLI) | payer MEDICARE, OTHER ==
[2016-10-30 14:14] LABS: Blood Urea Nitrogen 24 mg/dL (7-17); Non-African American GFR(MDRD) 58 (>60 ml/min/1.73 sqM)
--- NOTE | 2016-10-30 18:16 | CT ---
EXAMINATION TYPE: CT chest w con DATE OF EXAM: 10/30/2016 2:45 PM COMPARISON: 02/24/2016 HISTORY: Difficulty breathing CT DLP: 142.2 mGycm, Automated exposure control for dose reduction was used. CONTRAST: Performed injected with 80 mL of Visipaque 320. TECHNIQUE: Axial images were obtained at 5 mm thick sections. Reconstructed images are reviewed on [employer] computer in the coronal plane. FINDINGS: There is a hypodensity within the anterior right mid thyroid lobe. Additional evaluation wi th ultrasound is recommended. There is a spiculated area of increased density in the posterior lateral left apex. Pneumonitis and u nderlying mass could be considered. On lung windows this measures 2.8 x 1.8 cm. Series 4 image 11. Th is was present on the comparison of 02/24/2016. Previous left lower lobe consolidation is resolved. Th e thickening at the posterior left lung may be residual. Emphysematous changes are present throughout the lung enriquez. Small left area of atelectasis within the lung bases present. No enlarged mediastinal or hilar adenopathy is evident. The ascending aorta diameter at the level o f the main pulmonary artery is 3.7 cm. The main pulmonary artery diameter at the bifurcation is 2.5 cm. There is some fusiform dilatation of the distal descending thoracic aorta with an AP diameter of 3.8 cm. This tapers at the diaphragm. This was present previously. Limited CT sections are obtained through the upper abdomen. There is a 2.0 cm cyst superior pole left kidney measuring 6 Hounsfield units. Tortuosity of the aorta with vascular calcification is noted in the upper abdomen within the [id number]. IMPRESSIONS: 1. Resolution previous left lower lobe consolidation. Mild residual may remain present. 2. Stable right apical scarring. 3. Fusiform prominence of the descending thoracic aorta is stable from prior study.
== END | disposition home or self-care (01) ==
LOC: RADCTMAIN 13:25
PROVIDERS: ATTEND Internal Medicine Hematology & Oncology
DX: J98.4 Other disorders of lung (principal); R06.02 Shortness of breath
CPT/HCPCS: 82565; 84520; 71260; 36415; Q9967

== ENCOUNTER → 2016-11-27 | Outpatient (CLI) | payer MEDICARE, OTHER ==
--- NOTE | 2016-11-28 08:19 | ECHOF ---
Referral Reason:R06.02 Dyspnea MEASUREMENTS -------- HEIGHT: 160.0 cm WEIGHT: 53.5 kg BP: IVSd: 1.2 cm (0.6 - 1.1) LVIDd: 4.3 cm (3.9 - 5.3) LVPWd: 1.1 cm (0.6 - 1.1) IVSs: 1.8 cm LVIDs: 1.7 cm LVPWs: 1.6 cm Ao Diam: 3.4 cm (2.0 - 3.7) AV Cusp: 1.5 cm (1.5 - 2.6) LA Diam: 2.9 cm (2.7 - 3.8) MV EXCURSION: 13.189 mm (> 18.000) MV EF SLOPE: 55 mm/s (70 - 150) EPSS: 0.5 cm MV E Benny: 0.57 m/s MV DecT: 228 ms MV A Benny: 1.01 m/s MV E/A Ratio: 0.56 AR PHT: 3493 ms RAP: 5.00 mmHg RVSP: 29.15 mmHg FINDINGS -------- Sinus rhythm. This was a technically good study. There is mild concentric left ventricular hypertrophy. Overall left ventricular systolic function is normal with, an EF between 55 - 60 %. The right ventricle is normal in size and function. The left atrium is normal in size. The right atrium is normal in size. Aortic valve is trileaflet and is moderately thickened. Trace amount of aortic regurgitation. The mitral valve leaflets are mildly thickened. Mild mitral annular calcification present. Mild mitral regurgitation is present. Moderate tricuspid regurgitation present. The right ventricular systolic pressure, as measured by Doppler, is 29.15mmHg. Pulmonic valve appears structurally normal. The aortic root size is normal. The pericardium is normal. CONCLUSIONS -------- 1. Sinus rhythm. 2. The mitral valve leaflets are mildly thickened. 3. Mild mitral annular calcification present. 4. Mild mitral regurgitation is present. 5. Moderate tricuspid regurgitation present. 6. The right ventricular systolic pressure, as measured by Doppler, is 29.15mmHg. 7. Pulmonic valve appears structurally normal. 8. The aortic root size is normal. 9. The pericardium is normal. 10. This was a technically good study. 11. There is mild concentric left ventricular hypertrophy. 12. Overall left ventricular systolic function is normal with, an EF between 55 - 60 %. 13. The right ventricle is normal in size and function. 14. The left atrium is normal in size. 15. The right atrium is normal in size. 16. Aortic valve is trileaflet and is moderately thickened. 17. Trace amount of aortic regurgitation. DIPLOMATIC COURIER: Betzaida Villa RDCS
== END | disposition home or self-care (01) ==
LOC: RADECHMAIN 12:57
PROVIDERS: ATTEND Family Medicine
DX: I08.3 Combined rheumatic disorders of mitral, aortic and tricuspid valves (principal)
CPT/HCPCS: 93306

== ENCOUNTER 2017-03-28 13:36 | Emergency (ER) | payer MEDICARE, OTHER ==
[2017-03-28 14:06] VITALS: BP 186/86
[2017-03-28] MEDS ORDERED: LIDOCAINE/EPINEPHR/TETRACAINE 5 ML BOTTLE TOPICAL ONE ×2 (14:47)
--- NOTE | 2017-03-28 15:38 | XR ---
EXAMINATION TYPE: XR chest 2V DATE OF EXAM: 03/28/2017 COMPARISON: Chest x-ray October 30, 2016. HISTORY: Pain after fall TECHNIQUE: Frontal and lateral views of the chest are obtained. FINDINGS: There is chronic emphysematous change without suspicious focal air space opacity, pleural effusion, or pneumothorax seen. The cardiac silhouette size is within normal limits with atheroscler otic change in aortic knob. The osseous structures are demineralized. There are mild chronic compre ssion type fractures in the lower thoracic spine. There is displaced fracture through left humeral he ad noted. IMPRESSION: Chronic emphysematous change without acute pulmonary process. Acute left humeral head fr acture noted.
--- NOTE | 2017-03-28 15:41 | XR ---
EXAMINATION TYPE: XR shoulder complete LT DATE OF EXAM: 03/28/2017 CLINICAL HISTORY: Pain after fall TECHNIQUE: Three views of the left shoulder are obtained. COMPARISON: None. FINDINGS: Osseous structures are demineralized. There is acute comminuted minimally displaced fractur e through proximal metaphysis or surgical neck of left proximal humerus. The acromioclavicular and g lenohumeral joint spaces are maintained. The visualized ribs are intact and unremarkable. IMPRESSION: There is acute comminuted minimally displaced fracture through proximal metaphysis or zamarripa rgical neck of left humerus. (Initial encounter closed type post traumatic fracture)
--- NOTE | 2017-03-28 15:48 | CT ---
EXAMINATION TYPE: CT brain cspine wo con, CT facial bones wo con DATE OF EXAM: 03/28/2017 COMPARISON: CT brain September 11, 2016 HISTORY: fell today/swollen nose/bruising headache and neck pain. CT DLP: 1353.50 (accession [id number]), 489.60 (accession [id number]) mGycm. Automated Exposure Control f or Dose Reduction was Utilized. TECHNIQUE: CT scan of the head , facial bones, and cervical spine are all performed without contrast. FINDINGS: There is no acute intracranial hemorrhage or midline shift identified. Mild ventricular a nd sulcal prominence is again seen. Low-attenuation in the deep and periventricular white matter is redemonstrated . The calvarium is intact. There is acute comminuted minimally displaced fracture through nasal bridge. Fracture does extend int o nasal septum which is deviated to right of midline. Zygomatic arches are intact bilaterally. The pterygoid plates are intact bilaterally. The orbital seema ors and fulton are intact bilaterally. The globes are intact bilaterally. Intraconal fat is preserved. The visualized portion of mandible is intact. Temporomandibular joints are maintained bilaterally. There is opacification or hemorrhage into the inferior right ethmoid sinuses and small air-fluid leve l or hemorrhage in the right maxillary sinus. There is fluid or blood product in the posterior nasoph arynx. Vascular calcification of distal internal carotid arteries bilaterally is incidentally noted. Cervical spine is visualized in its entirety from C1 through upper thoracic levels and demonstrates s atisfactory alignment without evidence of acute fracture or dislocation. Prevertebral soft tissue ap pears within normal limits. The C1-C2 articulation is within normal limits on the coronal images. Osseous structures are demineralized. Vertebral body heights and disc space heights are maintained. S ge[place] canal is preserved. Review of axial images shows mild to moderate emphysematous change with mil d to moderate right greater than left apical pleural/parenchymal scarring. There is some low dense no dularity of somewhat small thyroid, greater than 1 cm mid to lower pole nodule is suspected on the ri ght. This correlates with thyroid ultrasound October 05, 2016. IMPRESSION: 1. There is no acute fracture or dislocation evident in the cervical spine. 2. No acute intracranial hemorrhage or midline shift is seen. There is mild diffuse cerebral atrophy and moderate to severe and chronic small vessel ischemic change redemonstrated. 3. Acute comminuted minimally displaced fractures of nasal bones including involvement of septum, shirley e right-sided paranasal sinus hemorrhage is noted as detailed above.
--- NOTE | 2017-03-28 16:06 | ED ---
General Adult HPI - General Chief complaint: Fall Stated complaint: Fell down/Arm Pain Time Seen by Provider: 03/28/17 14:30 Source: patient, RN notes reviewed Mode of arrival: wheelchair Limitations: no limitations - History of Present Illness Initial comments: Patient is a 76-year-old female who presents emergency room today with a chief complaint of fall that occurred just prior to arrival. She does not that she was rushing through her house when she tripped falling forward and landed on the left shoulder and side. Denies denies any loss conscious. Does admit that she did hit her nose and has a little cut over the nasal bridge. Does admit that she had some bleeding coming from left and right side of her nose as well. Patient mitts that she does have some skin abrasions to her right knee. She states she did not lose consciousness was able to get herself back up and has been ambulatory since. This pain greatest in the left shoulder area. Denies any neck or back pain. Denies any other complaints currently. Patient denies any recent fever, chills, shortness of breath, chest pain, back pain, abdominal pain, nausea or vomiting, numbness or tingling, dysuria or hematuria, constipation or diarrhea, headaches or visual changes, or any other complaints. - Related Data Home Medications Medication Instructions Recorded Confirmed Aspirin 81 mg PO DAILY 11/12/13 03/28/17 Cyclobenzaprine [Flexeril] 10 mg PO TID PRN 11/12/13 03/28/17 Montelukast [Singulair] 10 mg PO HS 11/12/13 03/28/17 Simvastatin [Zocor] 40 mg PO HS 11/12/13 03/28/17 Budesonide-Formot 160-4.5 Mcg 2 puff INHALATION RT-BID 01/15/14 03/28/17 [Symbicort 160-4.5 Mcg Inhaler] Albuterol Sulfate [Proair Hfa] 2 puff INHALATION RT-Q4H PRN 03/28/14 03/28/17 Magnesium Oxide [Mag-Ox] 250 mg PO DAILY 03/28/14 03/28/17 ALPRAZolam [Xanax] 0.25 mg PO DAILY PRN 02/13/16 03/28/17 Atenolol 50 mg PO HS 02/13/16 03/28/17 Calcium Citrate 250 mg PO DAILY 02/13/16 03/28/17 Albuterol Nebulized [Ventolin 2.5 mg INHALATION RT-QID PRN 02/19/16 03/28/17 Nebulized] Multivitamins, Thera [Multivitamin 1 tab PO DAILY 02/19/16 03/28/17 (formulary)] Col-Rite 100 mg PO BID 09/11/16 03/28/17 Denosumab [Prolia] 60 mg SQ Q180D 09/11/16 03/28/17 Fluticasone Nasal [place] [Flonase 1 spray EA NOSTRIL DAILY PRN 09/11/16 03/28/17 Nasal [place]] Tiotropium 18 Mcg/Puff [Spiriva] 1 cap INHALATION RT-DAILY 09/11/16 03/28/17 Esomeprazole Magnesium [NexIUM] 40 mg PO DAILY 03/28/17 03/28/17 Losartan Potassium 50 mg PO DAILY 03/28/17 03/28/17 Previous Rx's Medication Instructions Recorded Acetaminophen-Codeine 300-30mg 1 each PO Q6H PRN #20 tablet 03/28/17 [Tylenol #3] Cephalexin [Keflex] 500 mg PO Q12HR 10 Days 03/28/17 Allergies Allergy/AdvReac Type Severity Reaction Status Date / Time bupropion HCl Allergy Severe Rash/Hives Verified 03/28/17 15:34 [From Wellbutrin] Penicillins Allergy Severe Rash/Hives Verified 03/28/17 15:34 Review of Systems ROS Statement: Those systems with pertinent positive or pertinent negative responses have been documented in the HPI. ROS Other: All systems not noted in ROS Statement are negative. Past Medical History Past Medical History: Asthma, Cancer, COPD, GERD/Reflux, Hearing Disorder / Deafness, Hyperlipidemia, Hypertension, Pneumonia, Thyroid Disorder Additional Past Medical History / Comment(s): 09-11-16-SEIZURE, CHRONIC BRONCHITIS-copd, SKIN CANCER- BASAL CELL CANCER, HEARING LOSS LT EAR; OSTEOPOROSIS; NODULE ON THYROID,endarterectomy on the left The patient was recently hospitalized on 02/13/2016 for a COPD exacerbation and left lower lobe pneumonia. Hypertension, hypothyroidism, hyperlipidemia, GE reflux History of Any Multi-Drug Resistant Organisms: None Reported Past Surgical History: Appendectomy, Heart Catheterization, Hysterectomy Additional Past Surgical History / Comment(s): BRONCH 01/2014; LEFT CAROTID ENDARTERECTOMY; LISA CATARACTS Past Anesthesia/Blood Transfusion Reactions: No Reported Reaction, Motion Sickness Past Psychological History: No Psychological Hx Reported Smoking Status: Former smoker Past Alcohol Use History: None Reported Past Drug Use History: None Reported - Past Family History Mother Family Medical History: Seizure Disorder Additional Family Medical History / Comment(s): EPILEPTIC Father Family Medical History: Diabetes Mellitus General Exam Limitations: no limitations Course Vital Signs 03/28/17 14:01 Temperature 98.0 F Pulse Rate 83 Respiratory 18 Rate Blood Pressure 186/86 O2 Sat by Pulse 99 Oximetry Medical Decision Making - Medical Decision Making Patient's CT reviewed and shows 1. No acute fracture-dislocation abdomen cervical spine. 2. No acute intracranial hemorrhage or midline shift seen. There is mild diffuse cerebral atrophy and moderate severe and chronic small vessel ischemic change redemonstrated. 3. Acute comminuted minimally displaced fracture of the nasal bones including involvement of the septum, some right-sided. Nasal sinus hemorrhage. Patient's x-ray of the left shoulder does show comminuted humerus fracture. Results were discussed with the patient. She does see a ENT Dr. Hook. She is advised follow-up with him tomorrow for follow-up appointment. Patient was her on antibiotic. Patient given shoulder sling in the emergency room. She does have a abrasion to the nasal bridge which is been cleaned and has had ointment placed over top. Patient does have a skin tear to the left knee which is superficial cleaned and dressed by nursing staff in the emergency room. Skin tear to the right knee as well was cleaned dressed and closed with Steri-Strips as the skin is too thin for sutures. Patient. To watch for any signs of infection in these areas. Advised follow-up with orthopedics as well tomorrow for follow-up appointment.. Use arm sling when up and moving around. Given pain medication of Tylenol with codeine to use she states she's used this in the past. Patient is advised return to emergency room if any symptoms increase worsen or for any other concerns. Disposition Clinical Impression: Proximal humerus fracture, Nasal fracture, Fall, Skin tear Narrative: Bilateral knee skin tear. Nasal bridge abrasion Disposition: HOME SELF-CARE Condition: Good Instructions: Arm Fracture in Adults (ED) Additional Instructions: Please use medication as discussed. Please follow-up with orthopedics and ENT tomorrow for follow-up appointments. Please use arm sling when up and moving around. Please return to emergency room if the symptoms increase or worsen or for any other concerns. Prescriptions: Acetaminophen-Codeine 300-30mg [Tylenol #3] 1 each PO Q6H PRN #20 tablet PRN Reason: Pain Cephalexin [Keflex] 500 mg PO Q12HR 10 Days Referrals: Yefri Melgoza MD [Primary Care Provider] - 1-2 days Time of Disposition: 16:27
[2017-03-28 16:48] VITALS: PULSE 75; RESP 16; TEMP 98.8
== END 2017-03-28 17:30 | disposition home or self-care (01) ==
LOC: EC 13:36 → SUPCPDRO 13:36 → EC 17:30
DX: S42.202A Unspecified fracture of upper end of left humerus, initial encounter for closed fracture (principal); S02.2XXA Fracture of nasal bones, initial encounter for closed fracture; S81.011A Laceration without foreign body, right knee, initial encounter; S81.012A Laceration without foreign body, left knee, initial encounter; J44.9 Chronic obstructive pulmonary disease, unspecified; E78.5 Hyperlipidemia, unspecified; I10 Essential (primary) hypertension; K21.9 Gastro-esophageal reflux disease without esophagitis; Z85.828 Personal history of other malignant neoplasm of skin; Z87.891 Personal history of nicotine dependence; Z79.51 Long term (current) use of inhaled steroids; Z79.1 Long term (current) use of non-steroidal anti-inflammatories (NSAID); Z88.8 Allergy status to other drugs, medicaments and biological substances; Z88.0 Allergy status to penicillin; Z79.82 Long term (current) use of aspirin; Z79.899 Other long term (current) drug therapy; W01.198A Fall on same level from slipping, tripping and stumbling with subsequent striking against other object, initial encounter; Y92.009 Unspecified place in unspecified non-institutional (private) residence as the place of occurrence of the external cause
CPT/HCPCS: 70450; 70486; 71020; 72125; 99284

== ENCOUNTER → 2017-04-20 | Outpatient (CLI) | payer MEDICARE, OTHER ==
--- NOTE | 2017-04-20 11:31 | MM ---
Reason for exam: follow-up at short interval from prior study. Last mammogram was performed 8 months ago. History: US discontinued breast core RT of the right breast, October 14, 2016. Physical Findings: Nurse did not find any significant physical abnormalities on exam. MG 3D Diag Mammo W/Cad RT CC, MLO, and ML view(s) were taken of the right breast. Prior study comparison: August 31, 2016, mammogram. August 11, 2015, mammogram. There are scattered fibroglandular densities. Degenerating fibroadenoma 3 o'clock position is stable and benign. The 6 mm mass anterior 6 o'clock position in unchanged from 08/31/16 and likely corresponds to a cyst seen on ultrasound at that time. As the mammographic finding was not present on older priors, additional follow up is recommended. These results were verbally communicated with the patient and result sheet given to the patient on 04/20/17. ASSESSMENT: Probably benign, BI-RAD 3 RECOMMENDATION: Follow-up diagnostic mammogram of both breasts in 4 months. Back on schedule August 2017.
== END | disposition home or self-care (01) ==
LOC: RADMAMWWP 10:28
PROVIDERS: ATTEND Surgery
DX: R92.8 Other abnormal and inconclusive findings on diagnostic imaging of breast (principal)
CPT/HCPCS: G0206; G0279

== ENCOUNTER 2017-04-30 12:38 | Inpatient (IN) | payer MEDICARE, OTHER ==
--- NOTE | 2017-04-30 13:23 | ED ---
Wound/Laceration HPI - General Chief Complaint: Wound/Laceration Stated Complaint: Poss Infection on Right Knee Time Seen by Provider: 04/30/17 13:01 Source: patient, RN notes reviewed Mode of arrival: ambulatory Limitations: no limitations - History of Present Illness Initial Comments: This is a 76-year-old female presented to the emergency department with chief complaint of right knee infection. Patient states that she fell approximate 4 weeks ago and had a cut to her right knee. Patient states that she's been receiving home health care nursing for the wound and states that they felt that was worse today and case discussed with Dr. Melgoza her PCP who sent her to the emergency department. Patient does have some discomfort with range of motion. She states there is some increased redness to the surrounding area. She states the wound itself seems similar in size. Patient denies fever, chills. Patient states that she was on oral antibiotics for 10 days but recently's has stopped after completing course - Related Data Home Medications Medication Instructions Recorded Confirmed Aspirin 81 mg PO DAILY 11/12/13 04/30/17 Cyclobenzaprine [Flexeril] 10 mg PO TID PRN 11/12/13 04/30/17 Montelukast [Singulair] 10 mg PO HS 11/12/13 04/30/17 Simvastatin [Zocor] 40 mg PO HS 11/12/13 04/30/17 Budesonide-Formot 160-4.5 Mcg 2 puff INHALATION RT-BID 01/15/14 04/30/17 [Symbicort 160-4.5 Mcg Inhaler] Albuterol Sulfate [Proair Hfa] 2 puff INHALATION RT-Q4H PRN 03/28/14 04/30/17 Magnesium Oxide [Mag-Ox] 250 mg PO DAILY 03/28/14 04/30/17 ALPRAZolam [Xanax] 0.25 mg PO DAILY PRN 02/13/16 04/30/17 Atenolol 50 mg PO HS 02/13/16 04/30/17 Calcium Citrate 250 mg PO DAILY 02/13/16 04/30/17 Albuterol Nebulized [Ventolin 2.5 mg INHALATION RT-QID PRN 02/19/16 04/30/17 Nebulized] Multivitamins, Thera [Multivitamin 1 tab PO DAILY 02/19/16 04/30/17 (formulary)] Col-Rite 100 mg PO BID 09/11/16 04/30/17 Denosumab [Prolia] 60 mg SQ Q180D 09/11/16 04/30/17 Fluticasone Nasal [place] [Flonase 1 spray EA NOSTRIL DAILY PRN 09/11/16 04/30/17 Nasal [place]] Tiotropium 18 Mcg/Puff [Spiriva] 1 cap INHALATION RT-DAILY 09/11/16 04/30/17 Esomeprazole Magnesium [NexIUM] 40 mg PO DAILY 03/28/17 04/30/17 Losartan Potassium 50 mg PO DAILY 03/28/17 04/30/17 Acetaminophen-Codeine 300-30mg 1 tab PO Q6H PRN 04/30/17 04/30/17 [Tylenol #3] Allergies Allergy/AdvReac Type Severity Reaction Status Date / Time bupropion HCl Allergy Severe Rash/Hives Verified 04/30/17 13:06 [From Wellbutrin] Penicillins Allergy Severe Rash/Hives Verified 04/30/17 13:06 Review of Systems ROS Statement: Those systems with pertinent positive or pertinent negative responses have been documented in the HPI. ROS Other: All systems not noted in ROS Statement are negative. Past Medical History Past Medical History: Asthma, Cancer, COPD, GERD/Reflux, Hearing Disorder / Deafness, Hyperlipidemia, Hypertension, Pneumonia, Thyroid Disorder Additional Past Medical History / Comment(s): 09-11-16-SEIZURE, CHRONIC BRONCHITIS-copd, SKIN CANCER- BASAL CELL CANCER, HEARING LOSS LT EAR; OSTEOPOROSIS; NODULE ON THYROID,endarterectomy on the left The patient was recently hospitalized on 02/13/2016 for a COPD exacerbation and left lower lobe pneumonia. Hypertension, hypothyroidism, hyperlipidemia, GE reflux History of Any Multi-Drug Resistant Organisms: None Reported Past Surgical History: Appendectomy, Heart Catheterization, Hysterectomy Additional Past Surgical History / Comment(s): BRONCH 01/2014; LEFT CAROTID ENDARTERECTOMY; LISA CATARACTS Past Anesthesia/Blood Transfusion Reactions: No Reported Reaction, Motion Sickness Past Psychological History: No Psychological Hx Reported Smoking Status: Former smoker Past Alcohol Use History: None Reported Past Drug Use History: None Reported - Past Family History Mother Family Medical History: Seizure Disorder Additional Family Medical History / Comment(s): EPILEPTIC Father Family Medical History: Diabetes Mellitus General Exam Limitations: no limitations General appearance: alert, in no apparent distress Respiratory exam: Present: normal lung sounds bilaterally. Absent: respiratory distress, wheezes, rales, rhonchi, stridor Cardiovascular Exam: Present: regular rate, normal rhythm, normal heart sounds. Absent: systolic murmur, diastolic murmur, rubs, gallop, clicks Extremities exam: Present: other (Right knee there is a wound that is irregular at the borders approximately 2 x 3 cm with surrounding erythema patient has some discomfort range of motion though has full range of motion, neurovascular intact) Skin exam: Present: warm, dry, intact, normal color. Absent: rash Course Vital Signs 04/30/17 12:49 Temperature 97.6 F Pulse Rate 91 Respiratory 16 Rate Blood Pressure 139/68 O2 Sat by Pulse 96 Oximetry Medical Decision Making - Lab Data Result diagrams: 04/30/17 13:24 04/30/17 13:24 Lab Results 04/30/17 04/30/17 04/30/17 Range/Units 13:24 13:24 13:24 WBC 16.2 H (3.8-10.6) k/uL RBC 3.98 (3.80-5.40) m/uL Hgb 12.3 (11.4-16.0) gm/dL Hct 38.2 (34.0-46.0) % MCV 95.9 (80.0-100.0) fL MCH 30.9 (25.0-35.0) pg MCHC 32.2 (31.0-37.0) g/dL RDW 14.5 (11.5-15.5) % Plt Count 354 (150-450) k/uL Neutrophils % 89 % Lymphocytes % 5 % Monocytes % 4 % Eosinophils % 0 % Basophils % 0 % Neutrophils # 14.5 H (1.3-7.7) k/uL Lymphocytes # 0.9 L (1.0-4.8) k/uL Monocytes # 0.7 (0-1.0) k/uL Eosinophils # 0.1 (0-0.7) k/uL Basophils # 0.0 (0-0.2) k/uL Sodium 130 L (137-145) mmol/L Potassium 4.5 (3.5-5.1) mmol/L Chloride 95 L (98-107) mmol/L Carbon Dioxide 23 (22-30) mmol/L Anion Gap 12 mmol/L BUN 18 H (7-17) mg/dL Creatinine 1.19 H (0.52-1.04) mg/dL Est GFR (MDRD) Af Amer 54 (>60 ml/min/1.73 sqM) Est GFR (MDRD) Non-Af 44 (>60 ml/min/1.73 sqM) Glucose 150 H (74-99) mg/dL Plasma Lactic Acid Ravindra 2.2 H* (0.7-2.0) mmol/L Calcium 9.6 (8.4-10.2) mg/dL Total Bilirubin 0.5 (0.2-1.3) mg/dL AST 23 (14-36) U/L ALT 24 (9-52) U/L Alkaline Phosphatase 108 (38-126) U/L Total Protein 6.7 (6.3-8.2) g/dL Albumin 3.8 (3.5-5.0) g/dL Disposition Clinical Impression: Cellulitis of right knee, Failure of outpatient treatment Disposition: ADMITTED IP TO THIS [facility] Condition: Stable Referrals: Yefri Melgoza MD [Primary Care Provider] - 1-2 days
[2017-04-30 13:37] LABS: Basophils % (A) 0 %; CHCM 32.5; Eosinophils # (A) 0.1 k/uL (0-0.7); Eosinophils % (A) 0 %; HCT 38.2 % (34.0-46.0); HDW 2.51; HGB 12.3 gm/dL (11.4-16.0); Luc # (Auto) 0.07; Luc % (Auto) 0; Lymphocytes # (A) 0.9 k/uL (1.0-4.8); Lymphocytes % (A) 5 %; MCH 30.9 pg (25.0-35.0); MCHC 32.2 g/dL (31.0-37.0); MCV 95.9 fL (80.0-100.0); Mean Platelet Volume 7.4; Monocytes # (A) 0.7 k/uL (0-1.0); Monocytes % (A) 4 %; Neutrophils # (A) 14.5 k/uL (1.3-7.7); Neutrophils % (A) 89 %; RBC 3.98 m/uL (3.80-5.40); RDW 14.5 % (11.5-15.5); WBC 16.2 k/uL (3.8-10.6); WBC (Perox) 16.86
--- NOTE | 2017-04-30 13:46 | XR ---
Right knee HISTORY: Pain, erythema, fall 4 weeks ago 3 views of the right knee No comparisons Mineralization is reduced. Vascular calcifications are noted incidentally. Alignment and joint spaces are maintained. No sizable joint effusion. Soft tissue swelling noted. No fracture or dislocation. IMPRESSION: Osteopenia, soft tissue swelling.
[2017-04-30 13:49] LABS: Calcium 9.6 mg/dL (8.4-10.2); Potassium 4.5 mmol/L (3.5-5.1); Total Bilirubin 0.5 mg/dL (0.2-1.3); Total Protein 6.7 g/dL (6.3-8.2)
[2017-04-30] MEDS ORDERED: VANCOMYCIN IV PER PHARMACY 1 EACH MISC MISCELLANE PRN (14:27)
[2017-04-30] MEDS ORDERED: VANCOMYCIN 1,000 MG in SODIUM CHLORIDE 0.9% 250 ML IVPB STA (14:33)
[2017-04-30] MEDS ORDERED: LEVOFLOXACIN 750MG-D5W PMX 750 MG in DEXTROSE/WATER 1 150ML.BAG IVPB STA (14:39)
[2017-04-30] MEDS ORDERED: ACETAMINOPHEN TAB 325 MG TAB PO PRN (14:45)
[2017-04-30] MEDS ORDERED: NALOXONE 0.4 MG/ML 1 ML VIAL IV PRN (14:45)
[2017-04-30] MEDS ORDERED: ALPRAZolam 0.25 MG TAB PO PRN (14:46)
[2017-04-30] MEDS ORDERED: Acetaminophen-Codeine 300-30mg TAB PO PRN (14:46)
[2017-04-30] MEDS ORDERED: CYCLOBENZAPRINE 10 MG TAB PO PRN (14:46)
[2017-04-30] MEDS ORDERED: FLUTICASONE 50MCG/SPRAY NASAL 16GM EA NOSTRIL PRN (14:46)
[2017-04-30] MEDS ORDERED: ALBUTEROL NEBULIZED 2.5 MG/3 ML INHALATION PRN (14:46)
--- NOTE | 2017-04-30 19:50 | HP ---
HISTORY AND PHYSICAL DATE OF ADMISSION: 04/30/2017 PRESENTING COMPLAINT: Right knee wound. HISTORY OF PRESENTING COMPLAINT: This is a very pleasant 76-year-old patient of Dr. Melgoza. Chronic stable medical conditions include seizures, hypertension, hyperlipidemia, thyroid nodule, COPD and GERD. Short while ago patient tripped in the living room and fell with injury to her left shoulder and had a gash in the right knee. Over a period of time it has not really improved and getting worse, being followed by family doctor. She had a nurse visiting her. Today the nurse took pictures and sent it to the family doctor, Dr. Melgoza, who directed the patient come down to the ER. The patient has some local pain. No fever. Slight drainage is present. The patient's left arm is in a sling. REVIEW OF SYSTEMS: CONSTITUTIONAL: None. HEENT: Decreased hearing. RESPIRATORY: Baseline some shortness of breath. CARDIOVASCULAR: None. GASTROINTESTINAL: None. GENITOURINARY: None. MUSCULOSKELETAL: Aches and pains in different joints. DERMATOLOGICAL: Some diffuse bruising and as above. LYMPHATICS: None. PSYCHIATRY: None. NEUROLOGICAL: None. PAST HISTORY: Seizures, hypertension, hyperlipidemia, breast cancer, COPD, thyroid nodule, GERD and chronic bronchitis, basal cell cancer, hearing loss in the left ear, osteoporosis. PAST SURGICAL HISTORY: Appendectomy, cardiac catheterization, hysterectomy, left carotid endarterectomy, bilateral cataract. SOCIAL HISTORY: . The patient smoked for about 45 years, stopped 16 years ago. Alcohol none. FAMILY HISTORY: Seizures. HOME MEDICATIONS: 1. Atenolol 50 mg p.o. q.h.s. 2. Ventolin 2.5 q.i.d. p.r.n. 3. Tylenol 3 one tab q.6h p.r.n. 4. Xanax 0.25 p.o. daily p.r.n. 5. 1 capsule p.o. daily. 6. Zocor 40 mg q.h.s. 7. Multivitamin 1 tab p.o. daily. 8. Singulair 10 mg q.h.s. 9. Magnesium oxide 250 mg p.o. daily. 10.Losartan 50 mg p.o. daily. 11.Flonase 1 spray each nostril daily p.r.n. 12.Nexium 40 mg p.o. daily. 13.Flexeril 10 mg p.o. daily p.r.n. 14.Folate 100 mg p.o. b.i.d. 15.Calcium 250 mg p.o. daily. 16.Symbicort 160/4.5, 2 puffs b.i.d. 17.ProAir 2 puffs q.4 p.r.n. 18.Prolia 60 mg subcu every 180 days. ALLERGIES: WELLBUTRIN and PENICILLIN. PHYSICAL EXAMINATION: Temperature 97.6, pulse 91, respirations 16, blood pressure 136/80, pulse ox 96% on room air. GENERAL APPEARANCE: Sitting up awake. EYES: Pupils equal. Conjunctivae normal. HEENT: Oral cavity normal. The patient has some periorbital bruising from the previous fall. NECK: JVD not raised. Mass not palpable. RESPIRATORY: Effort, lungs decreased breath sounds. CARDIOVASCULAR: 1st and 2nd sounds, no edema. ABDOMEN: Soft, nontender. Liver and spleen not palpable. LYMPHATIC: No lymph palpable in neck and axillae. PSYCHIATRY: Alert and oriented x3. Mood and affect normal. NEUROLOGICAL: Pupils equal. Cranial nerves grossly intact. Power and sensation grossly intact. EXTREMITIES: Left arm in a sling. Extremity slight DERMATOLOGICAL: Patient has wound on top of the right knee with slight granulation tissue and some discharge is present. There is also redness around the wound. Wound is about 2 cm x 2 cm. INVESTIGATIONS: White count 16.2, hemoglobin 12.3, potassium 4.5, sodium 130, BUN 8, creatinine 1.19. Lactic acid 2.2. ASSESSMENT: 1. Right knee wound from recent local trauma from fall, infected, having failed outpatient treatment. 2. Seizure disorder. 3. Hypoosmolar hyponatremia. 4. Essential hypertension. 5. Hyperlipidemia. 6. Chronic obstructive pulmonary disease in an ex-smoker. 7. Thyroid nodule. 8. Gastroesophageal reflux disease. 9. Left arm in a sling. 10.Lactic acidosis from above. PLAN: Patient is put on IV vancomycin, Levaquin from the ER. Home medications resumed. Dr. Khan, Infectious Disease, was consulted. So will be Orthopedics in case this wound needs to be debrided because it is not necessarily near the joint but is on top of the patella. Care was discussed with the patient. Questions were answered. MMODL / IJN: [id number] /
[2017-04-30] MEDS: SYMBICORT 160-4.5 MCG INHALER INHALATION SCH (20:24)
[2017-04-30] MEDS: ATENOLOL 50 MG TAB PO SCH (21:44)
[2017-04-30] MEDS: ATORVASTATIN 20 MG TAB PO SCH (21:44)
[2017-04-30] MEDS: DOCUSATE 100 MG CAP PO SCH (21:44)
[2017-04-30] MEDS: ENOXAPARIN 40 MG/0.4 ML SYRINGE SQ SCH (21:44)
[2017-04-30] MEDS: MONTELUKAST 10 MG TAB PO SCH (21:45)
[2017-05-01] MEDS: HYDROcodone/APAP 5-325MG 1 EACH TAB PO PRN ×3 (07:36→23:13)
[2017-05-01] MEDS: LOSARTAN 50 MG TAB PO SCH (07:36)
[2017-05-01] MEDS: PANTOPRAZOLE 40 MG TABLET PO SCH (07:36)
[2017-05-01] MEDS: ASPIRIN 81 MG PO SCH (07:36)
[2017-05-01] MEDS: ENOXAPARIN 40 MG/0.4 ML SYRINGE SQ SCH (07:37)
[2017-05-01] MEDS: VANCOMYCIN 1,000 MG in SODIUM CHLORIDE 0.9% 250 ML IVPB SCH (07:37)
[2017-05-01] MEDS: SYMBICORT 160-4.5 MCG INHALER INHALATION SCH ×2 (08:38→20:01)
[2017-05-01] MEDS: IPRATROPIUM 0.5 MG/2.5 ML NEBU INHALATION SCH ×3 (08:38→15:25)
[2017-05-01] MEDS: DOCUSATE 100 MG CAP PO SCH ×2 (09:44→23:14)
[2017-05-01] MEDS: CALCIUM CARBONATE 500 MG CHEWABLE PO SCH (11:05)
[2017-05-01] MEDS: MAGNESIUM OXIDE 400 MG TAB PO SCH (11:05)
--- NOTE | 2017-05-01 12:21 | PN ---
PROGRESS NOTE DATE OF SERVICE: 05/01/2017 PRESENTING COMPLAINT: Right knee wound. INTERVAL HISTORY: This is a patient with the right knee wound following local trauma, has not healed over a period of time, looking infected. Pain is present. Left arm is in a sling from recent injury. Did tolerate some breakfast. Some family is present at the bedside. REVIEW OF SYSTEMS: Done for constitutional, cardiovascular, GI, pulmonary, dermatological; relevant findings as above. CURRENT MEDICATIONS: Reviewed that include IV vancomycin. PHYSICAL EXAMINATION: Temperature 97.3 pulse 82, respirations 16, blood pressure 130/76, pulse ox 96% on room air. GENERAL APPEARANCE; Lying in bed, tired-appearing. EYES: Pupils equal, conjunctivae normal. HEENT: Oral cavity normal. NECK: JVD not raised. Mass not palpable. RESPIRATORY: Effort normal. Lungs slightly decreased breath sounds. Left arm in a sling. There is bruising from the fall. Right knee wound is present with some staining of the dressing. INVESTIGATIONS: Blood work is pending from today. ASSESSMENT: 1. Right knee wound from recent local trauma from fall, infected having failed outpatient treatment, slow to respond. 2. Seizure disorder. 3. Hypoosmolar hyponatremia. 4. Essential hypertension. 5. Hyperlipidemia. 6. Chronic obstructive pulmonary disease in an ex-smoker. 7. Thyroid nodule. 8. Gastroesophageal reflux disease. 9. Left arm in a sling. 10.Lactic acidosis from above, improved. PLAN: Care was discussed with the patient. Await input from Orthopedics to see if this needs to be debrided. Also await Dr. Khan input. Will also add ceftriaxone for gram- negative coverage. Will follow. MMODL / IJN: [id number] /
[2017-05-01] MEDS: cefTRIAXone IN SWFI 1,000 MG/10 ML SYRINGE IVP SCH (12:45)
[2017-05-01] MEDS ORDERED: IPRATROPIUM-ALBUTEROL 3 ML NEB INHALATION PRN (15:31)
[2017-05-01] MEDS: IPRATROPIUM-ALBUTEROL 3 ML NEB INHALATION SCH (20:01)
[2017-05-01] MEDS: MONTELUKAST 10 MG TAB PO SCH (22:34)
[2017-05-01] MEDS: ATENOLOL 50 MG TAB PO SCH (22:34)
[2017-05-01] MEDS: ATORVASTATIN 20 MG TAB PO SCH (22:34)
--- NOTE | 2017-05-02 01:31 | P.CONS ---
History of Present Illness - Reason for Consult Consult date: 05/01/17 - Chief Complaint Fall - History of Present Illness 76-year-old female relates that now several weeks ago she suffered a fall. This resulted in facial trauma, left humerus fracture, and injury to her right knee resulting in a nonhealing ulceration. For the outpatient setting. The site has worsened. She developed some cellulitis at that area. In consequently she was admitted to the hospital for further evaluation. She's been seen by orthopedics and infectious diseases consult was requested because of a large open ulceration and concerns for wound care and antibiotic therapy. The patient relates that the site is painful. She is still somewhat miserable from the fall. Denies a loss of consciousness as the etiology of her fall. She believes she just tripped. Review of Systems HEENT:Denies headache or acute visual change. Denies sinus or mouth discomforts. Denies neck stiffness or pain. Denies significant oral cavity pain. Denies difficulty on swallowing. Lungs: Denies significant shortness of breath, cough, sputum production, or hemoptysis. Cardiovascular: Denies significant shortness of breath, chest pain, chest wall pain, orthopnea, dyspnea on exertion, syncope Gastrointestinal:Denies nausea, vomiting, diarrhea, constipation, hematemesis, melena, hematochezia. No no significant change of bowel habit noticed. Musculoskeletal: denies significant myalgias or arthralgias. No new joint swelling. Denies new back pain. Skin: As per the HPI Neuro: Denies headache or visual change. Denies any new onset weakness or difficulty with ambulation. Denies falls or seizures. Psychiatric:Denies anxiety or depression. Endocrine: Patient relates that she does have fatigue and malaise but no weight loss. Past Medical History Past Medical History: Asthma, Cancer, COPD, GERD/Reflux, Hearing Disorder / Deafness, Hyperlipidemia, Hypertension, Pneumonia, Thyroid Disorder Additional Past Medical History / Comment(s): 09-11-16-SEIZURE, CHRONIC BRONCHITIS-copd, SKIN CANCER- BASAL CELL CANCER, HEARING LOSS LT EAR; OSTEOPOROSIS; NODULE ON THYROID,endarterectomy on the left The patient was recently hospitalized on 02/13/2016 for a COPD exacerbation and left lower lobe pneumonia. Hypertension, hypothyroidism, hyperlipidemia, GE reflux, fall-fx lt elbow wearing sling and wound rt knee History of Any Multi-Drug Resistant Organisms: None Reported Past Surgical History: Appendectomy, Heart Catheterization, Hysterectomy Additional Past Surgical History / Comment(s): BRONCH 01/2014; LEFT CAROTID ENDARTERECTOMY; LISA CATARACTS Past Anesthesia/Blood Transfusion Reactions: No Reported Reaction, Motion Sickness Additional Psychological History / Comment(s): . Lives with children. Stopped smoking several years ago. 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 No experience. Travel history. Son has a pet dog Smoking Status: Former smoker - Past Family History Mother Family Medical History: Seizure Disorder Additional Family Medical History / Comment(s): EPILEPTIC Father Family Medical History: Diabetes Mellitus Medications and Allergies Home Medications and Allergies Comment(s): Current Medications Acetaminophen (Tylenol Tab) 650 mg PO Q6HR PRN PRN Reason: Mild Pain or Fever > 100.5 Acetaminophen/Codeine Phosphate (Tylenol #3) 1 each PO Q6H PRN PRN Reason: Pain Hydrocodone Bitart/Acetaminophen (Carroll 5-325) 1 each PO Q4HR PRN PRN Reason: Moderate Pain Last Admin: 05/01/17 23:13 Dose: 1 each Albuterol/Ipratropium (Duoneb 0.5 Mg-3 Mg/3 Ml Soln) 3 ml INHALATION RT-QID [facility] Last Admin: 05/01/17 20:01 Dose: 3 ml Albuterol/Ipratropium (Duoneb 0.5 Mg-3 Mg/3 Ml Soln) 3 ml INHALATION RT-Q2H PRN PRN Reason: Shortness Of Breath Or Wheezing Alprazolam (Xanax) 0.25 mg PO DAILY PRN PRN Reason: Anxiety Last Admin: 04/30/17 23:05 Dose: 0.25 mg Aspirin (Aspirin) 81 mg PO DAILY [facility] Last Admin: 05/01/17 07:36 Dose: 81 mg Atenolol (Tenormin) 50 mg PO HS [facility] Last Admin: 05/01/17 22:34 Dose: 50 mg Atorvastatin Calcium (Lipitor) 20 mg PO HS [facility] Last Admin: 05/01/17 22:34 Dose: 20 mg Budesonide/Formoterol Fumarate (Symbicort 160-4.5 Mcg Inhaler) 2 puff INHALATION RT-BID [facility] Last Admin: 05/01/17 20:01 Dose: 2 puff Calcium Carbonate/Glycine (Tums) 500 mg PO 1200 [facility] Last Admin: 05/01/17 11:05 Dose: 500 mg Ceftriaxone Sodium (Rocephin) 1,000 mg IVP Q24HR [facility] Last Admin: 05/01/17 12:45 Dose: 1,000 mg Cyclobenzaprine HCl (Flexeril) 10 mg PO TID PRN PRN Reason: BACK PAIN Docusate Sodium (Colace) 100 mg PO BID [facility] Last Admin: 05/01/17 23:14 Dose: 100 mg Enoxaparin Sodium (Lovenox) 40 mg SQ DAILY [facility] Last Admin: 05/01/17 07:37 Dose: 40 mg Fluticasone Propionate (Flonase Nasal [place]) 1 spray EA NOSTRIL DAILY PRN PRN Reason: Allergy Symptoms Vancomycin HCl 1,000 mg/ (Sodium Chloride) 250 mls @ 125 mls/hr IVPB Q24HR [facility] Last Admin: 05/01/17 07:37 Dose: 125 mls/hr Losartan Potassium (Cozaar) 50 mg PO DAILY [facility] Last Admin: 05/01/17 07:36 Dose: 50 mg Magnesium Oxide (Mag-Ox) 400 mg PO 1200 [facility] Last Admin: 05/01/17 11:05 Dose: 400 mg Montelukast Sodium (Singulair) 10 mg PO [facility] Last Admin: 05/01/17 22:34 Dose: 10 mg Naloxone HCl (Narcan) 0.2 mg IV Q2M PRN PRN Reason: Opioid Reversal Pantoprazole Sodium (Protonix) 40 mg PO AC-BRKFST [facility] Last Admin: 05/01/17 07:36 Dose: 40 mg Silver Sulfadiazine (Silvadene Cream) 1 applic TOPICAL BID [facility] Last Admin: 05/01/17 22:35 Dose: 1 applic Home Medications Medication Instructions Recorded Confirmed Type Aspirin 81 mg PO DAILY 11/12/13 04/30/17 History Cyclobenzaprine [Flexeril] 10 mg PO TID PRN 11/12/13 04/30/17 History Montelukast [Singulair] 10 mg PO HS 11/12/13 04/30/17 History Simvastatin [Zocor] 40 mg PO HS 11/12/13 04/30/17 History Budesonide-Formot 160-4.5 Mcg 2 puff INHALATION RT-BID 01/15/14 04/30/17 History [Symbicort 160-4.5 Mcg Inhaler] Albuterol Sulfate [Proair Hfa] 2 puff INHALATION RT-Q4H PRN 03/28/14 04/30/17 History Magnesium Oxide [Mag-Ox] 250 mg PO DAILY 03/28/14 04/30/17 History ALPRAZolam [Xanax] 0.25 mg PO DAILY PRN 02/13/16 04/30/17 History Atenolol 50 mg PO HS 02/13/16 04/30/17 History Calcium Citrate 250 mg PO DAILY 02/13/16 04/30/17 History Albuterol Nebulized [Ventolin 2.5 mg INHALATION RT-QID PRN 02/19/16 04/30/17 History Nebulized] Multivitamins, Thera [Multivitamin 1 tab PO DAILY 02/19/16 04/30/17 History (formulary)] Col-Rite 100 mg PO BID 09/11/16 04/30/17 History Denosumab [Prolia] 60 mg SQ Q180D 09/11/16 04/30/17 History Fluticasone Nasal [place] [Flonase 1 spray EA NOSTRIL DAILY PRN 09/11/16 04/30/17 History Nasal [place]] Tiotropium 18 Mcg/Puff [Spiriva] 1 cap INHALATION RT-DAILY 09/11/16 04/30/17 History Esomeprazole Magnesium [NexIUM] 40 mg PO DAILY 03/28/17 04/30/17 History Losartan Potassium 50 mg PO DAILY 03/28/17 04/30/17 History Acetaminophen-Codeine 300-30mg 1 tab PO Q6H PRN 04/30/17 04/30/17 History [Tylenol #3] Allergies Allergy/AdvReac Type Severity Reaction Status Date / Time bupropion HCl Allergy Severe Rash/Hives Verified 04/30/17 13:06 [From Wellbutrin] Penicillins Allergy Severe Rash/Hives Verified 04/30/17 13:06 Physical Exam Vitals: Vital Signs Temp Pulse Pulse Resp BP Pulse Ox 05/01/17 20:13 82 05/01/17 20:02 80 05/01/17 15:36 82 05/01/17 15:25 81 05/01/17 15:00 98.0 F 81 16 131/69 97 05/01/17 12:24 86 05/01/17 12:17 82 05/01/17 08:50 82 05/01/17 08:40 80 05/01/17 07:00 97.3 F L 82 16 138/76 96 Intake and Output 05/01/17 05/01/17 05/02/17 14:59 22:59 06:59 Intake Total 240 Balance 240 Intake: Oral 240 Other: Voiding Method Toilet Toilet # Voids 2 76 woman who looks older than her stated age. As evidence of the facial ecchymosis that's improving. Sling is in place to her left arm where the fractures been. HEENT: Anicteric conjunctiva are pink and moist nasal mucosa grossly intact without significant lesions, there is no thrush. Dentures in place evidence of cataract surgery Neck: The neck is supple without significant lymphadenopathy or thyromegaly. Lungs: Symmetrical air entry with expiratory wheezes no rene bronchial sounds Heart: Regular rate and rhythm with an audible S1-S2, no S3 no S4. There is no significant murmur click or rub, PMI was nondisplaced. Abdomen: Positive bowel sounds soft and nontender without palpable masses or organomegaly. There was no guarding or rebound. Extremities: The left arm is in the sling because of the fracture from her recent fall. Right arm without acute changes. The lower extremities show evidence of the lower extremity edema bilaterally. the right knee shows No expressible purulence.evidence of the ulceration. Measuring 3 x 3 x 0.centimeters with 1 cm of undermining between 3 and 9 o'clock positio Neuro: Awake alert oriented to person place and time. There are no acute new gross focal sensory motor deficits. Results CBC & Chem 7: 04/30/17 13:24 04/30/17 13:24 Labs: Microbiology - Last 24 Hours (Table) 04/30/17 13:24 Blood Culture - Preliminary Blood No Growth after 24 hours Laboratory Results WBC 16.2 k/uL (3.8-10.6) H 04/30/17 13:24 RBC 3.98 m/uL (3.80-5.40) 04/30/17 13:24 Hgb 12.3 gm/dL (11.4-16.0) 04/30/17 13:24 Hct 38.2 % (34.0-46.0) 04/30/17 13:24 MCV 95.9 fL (80.0-100.0) 04/30/17 13:24 MCH 30.9 pg (25.0-35.0) 04/30/17 13:24 MCHC 32.2 g/dL (31.0-37.0) 04/30/17 13:24 RDW 14.5 % (11.5-15.5) 04/30/17 13:24 Plt Count 354 k/uL (150-450) 04/30/17 13:24 Neutrophils % 89 % 04/30/17 13:24 Lymphocytes % 5 % 04/30/17 13:24 Monocytes % 4 % 04/30/17 13:24 Eosinophils % 0 % 04/30/17 13:24 Basophils % 0 % 04/30/17 13:24 Neutrophils # 14.5 k/uL (1.3-7.7) H 04/30/17 13:24 Lymphocytes # 0.9 k/uL (1.0-4.8) L 04/30/17 13:24 Monocytes # 0.7 k/uL (0-1.0) 04/30/17 13:24 Eosinophils # 0.1 k/uL (0-0.7) 04/30/17 13:24 Basophils # 0.0 k/uL (0-0.2) 04/30/17 13:24 Sodium 130 mmol/L (137-145) L 04/30/17 13:24 Potassium 4.5 mmol/L (3.5-5.1) 04/30/17 13:24 Chloride 95 mmol/L (98-107) L 04/30/17 13:24 Carbon Dioxide 23 mmol/L (22-30) 04/30/17 13:24 Anion Gap 12 mmol/L 04/30/17 13:24 BUN 18 mg/dL (7-17) H 04/30/17 13:24 Creatinine 1.19 mg/dL (0.52-1.04) H 04/30/17 13:24 Est GFR (MDRD) Af Amer 54 (>60 ml/min/1.73 sqM) 04/30/17 13:24 Est GFR (MDRD) Non-Af 44 (>60 ml/min/1.73 sqM) 04/30/17 13:24 Glucose 150 mg/dL (74-99) H 04/30/17 13:24 Lactic Ac Sepsis Rflx Y 04/30/17 14:20 Plasma Lactic Acid Ravindra 1.7 mmol/L (0.7-2.0) 04/30/17 19:10 Calcium 9.6 mg/dL (8.4-10.2) 04/30/17 13:24 Total Bilirubin 0.5 mg/dL (0.2-1.3) 04/30/17 13:24 AST 23 U/L (14-36) 04/30/17 13:24 ALT 24 U/L (9-52) 04/30/17 13:24 Alkaline Phosphatase 108 U/L (38-126) 04/30/17 13:24 Total Protein 6.7 g/dL (6.3-8.2) 04/30/17 13:24 Albumin 3.8 g/dL (3.5-5.0) 04/30/17 13:24 Microbiology 04/30/17 13:24 Blood Blood Culture - Preliminary No Growth after 24 hours Assessment and Plan (1) Fall Narrative/Plan: 76-year-old woman who suffered a fall several weeks ago. She's has taken difficulties including the fracture to the left humerus. However she is presenting with worsening difficulties to the right knee. She has an ulceration this posttraumatic it is nonhealing. She been seen by orthopedics and no plan for surgical intervention. The plan at this time will be to follow the cultures. Local wound care with the up to sell silver will be utilized. Elevate the leg while she is at rest. Surgical input we'll determine her ability to mobilize the knee. Limited use will help the ulceration heal more quickly. She should follow wound healing center after discharge to help with the significant issue. Currently antibiotic saline utilize with vancomycin and Rocephin pending culture results. Evaluation for depression infection is in process. Current Visit: No Status: Acute Code(s): W19.XXXA - UNSPECIFIED FALL, INITIAL ENCOUNTER SNOMED Code(s): 0484286 (2) Leukocytosis Current Visit: Yes Status: Acute Code(s): D72.829 - ELEVATED WHITE BLOOD CELL COUNT, UNSPECIFIED SNOMED Code(s): 326577363
[2017-05-02 07:51] LABS: Basophils # (A) 0.1 k/uL (0-0.2); Basophils % (A) 1 %; CH 30.9; CHCM 31.1; Eosinophils # (A) 0.1 k/uL (0-0.7); Eosinophils % (A) 1 %; HCT 40.6 % (34.0-46.0); HDW 2.54; HGB 12.7 gm/dL (11.4-16.0); Hypochromasia Slight; Luc # (Auto) 0.15; Luc % (Auto) 1; Lymphocytes # (A) 3.2 k/uL (1.0-4.8); Lymphocytes % (A) 29 %; MCH 31.2 pg (25.0-35.0); MCHC 31.2 g/dL (31.0-37.0); Macrocytosis Slight; Mean Platelet Volume 7.7; Monocytes # (A) 0.9 k/uL (0-1.0); Monocytes % (A) 8 %; Neutrophils # (A) 6.4 k/uL (1.3-7.7); Neutrophils % (A) 60 %; RBC 4.06 m/uL (3.80-5.40); RDW 14.8 % (11.5-15.5); WBC 10.8 k/uL (3.8-10.6); WBC (Perox) 11.04
[2017-05-02 08:04] LABS: Anion Gap 11 mmol/L; Blood Urea Nitrogen 17 mg/dL (7-17); Calcium 9.3 mg/dL (8.4-10.2); Carbon Dioxide 21 mmol/L (22-30); Chloride 103 mmol/L (98-107); Glucose 94 mg/dL (74-99); Non-African American GFR(MDRD) 55 (>60 ml/min/1.73 sqM); Potassium 4.6 mmol/L (3.5-5.1); Sodium 135 mmol/L (137-145)
[2017-05-02] MEDS: cefTRIAXone IN SWFI 1,000 MG/10 ML SYRINGE IVP SCH (08:06)
[2017-05-02] MEDS: LOSARTAN 50 MG TAB PO SCH (08:06)
[2017-05-02] MEDS: VANCOMYCIN 1,000 MG in SODIUM CHLORIDE 0.9% 250 ML IVPB SCH (08:06)
[2017-05-02] MEDS: ENOXAPARIN 40 MG/0.4 ML SYRINGE SQ SCH (08:07)
[2017-05-02] MEDS: PANTOPRAZOLE 40 MG TABLET PO SCH (08:07)
[2017-05-02] MEDS: DOCUSATE 100 MG CAP PO SCH ×2 (08:07→22:01)
[2017-05-02] MEDS: ASPIRIN 81 MG PO SCH (08:07)
[2017-05-02] MEDS: SYMBICORT 160-4.5 MCG INHALER INHALATION SCH ×2 (08:16→20:28)
[2017-05-02] MEDS: IPRATROPIUM-ALBUTEROL 3 ML NEB INHALATION SCH ×4 (08:16→20:29)
[2017-05-02] MEDS: HYDROcodone/APAP 5-325MG 1 EACH TAB PO PRN ×2 (08:45→22:01)
[2017-05-02] MEDS: CALCIUM CARBONATE 500 MG CHEWABLE PO SCH (11:09)
[2017-05-02] MEDS: MAGNESIUM OXIDE 400 MG TAB PO SCH (11:09)
--- NOTE | 2017-05-02 17:40 | P.PN ---
Progress Note - Text Progress Note Date: 05/02/17 DATE OF SERVICE: 05/02/2017 PRESENTING COMPLAINT: Right knee wound HISTORY OF PRESENT ILLNESS: 76-year-old female who has a right knee wound following trauma after a fall, wound has not healed well over a period of time, looks infected. Admitted for the same area INTERVAL HISTORY: 05/02/2017: Patient lying in bed appears comfortable. Afebrile, tolerating her diet ambulatory with some assistance, knee is bothersome but not unbearable. Moved her bowels today. REVIEW OF SYSTEMS: Done for constitutional ,cardiovascular, GI, pulmonary integument, musculoskeletal with relevant findings as above. CURRENT MEDICATIONS Tylenol, Tylenol No. 3, [place], DuoNeb, Xanax 0.25 mg by mouth daily when necessary, aspirin 81 mg by mouth daily, Tenormin 50 mg by mouth at bedtime, Lipitor 20 mg by mouth at bedtime, Symbicort 2 puffs inhalation twice a day, Tums 500 mg by mouth 12 noon, Rocephin 1 g IV piggyback, Flexeril 10 mg by mouth 3 times a day when necessary, Colace 100 mg by mouth twice a day, Lovenox 40 mg subcu daily, Cozaar 50 g by mouth daily, mag oxide 400 mg by mouth 12 noon , Singulair 10 mg by mouth at bedtime, Protonix 40 mg by mouth before meals breakfast, so eating cream 1 application twice a day, vancomycin 1 g IV piggyback. PHYSICAL EXAM VITAL SIGNS: Temperature 96.6, pulse 96, respiratory rate 20, blood pressure 128/81, oxygen saturation 96% on room air. GENERAL APPEARANCE: Lying in bed, not in distress. EYES: Pupils equal. Conjunctiva normal. NECK: JVD not raised. Mass not palpable. RESPIRATORY: Respiratory effort normal. Lungs diminished to auscultation. CARDIOVASCULAR: First and second sounds normal. No edema. ABDOMEN: Soft. Liver and spleen not palpable. No tenderness. No mass palpable. PSYCHIATRY: Alert and oriented x3. Mood and affect normal. Musculoskeletal: Left arm in sling from previous fall. INTEGUMENT: Ecchymosis on the right side of the face around the eye from a fall , right knee looks infected, draining, wound dressing has staining from drainage on it. INVESTIGATIONS: White blood cell count 10.8, sodium 135, carbon dioxide 21 ASSESSMENT: -Right knee wound from recent local trauma from a fall, infected having failed outpatient treatment, slow to respond. -Seizure disorder. -Hypoosmolar hyponatremia. -Essential hypertension. -Hyperlipidemia. -Chronic obstructive pulmonary disease in an ex-smoker. -Thyroid nodule. -Gastroesophageal reflux disease. -Left arm in a sling. -Lactic acidosis from above, resolved. PLAN: Await additional input from orthopedic surgery regarding the wound on the right knee. Continue current antibiotic therapy of Rocephin and vancomycin await culture results. Local wound care Aquasol Silver. Plan of care discussed with the patient the bedside we will follow closely. CUSTOMER ENGAGEMENT MANAGER statement: Patient was seen and examined by nurse practitioner Kat Kaufman and all elements of the case discussed with attending Dr. Molina
--- NOTE | 2017-05-02 20:20 | P.PN ---
Subjective Progress Note Date: 05/02/17 Principal diagnosis: Right knee wound Patient is 76 yo female seen at bedside this am. Orthopedics was consulted for her right knee wound. Dr. Murdock saw her yesterday, May 01 and doesn't feel that she requires surgical intervention. She has no new complaints today. She has mild pain at the right knee. She is denying fever, chills, calf pain or other. Objective - Vital Signs Vital signs: Vital Signs Temp 98.4 F 05/02/17 14:57 Pulse 84 05/02/17 16:06 Resp 20 05/02/17 14:57 BP 128/66 05/02/17 14:57 Pulse Ox 97 05/02/17 14:57 Intake & Output 05/02/17 05/02/17 05/03/17 06:59 18:59 06:59 Intake Total 500 480 Balance 500 480 Intake: Oral 500 480 Other: Voiding Method Toilet # Voids 2 3 # Bowel Movements 0 - Exam Inspection of the right knee shows a granulating ulceration type wound with no active bleeding or drainage. There is no progressing erythema. There is no joint pain with ROM of the knee. The knee is ligamentously stable. Calf is soft and nontender. 2+ DP pulse and capillary refill is present. NVI throughout the RLE. - Constitutional General appearance: Present: no acute distress - Labs CBC & Chem 7: 05/02/17 07:01 05/02/17 07:01 Labs: Abnormal Lab Results - Last 24 Hours (Table) 05/02/17 05/02/17 Range/Units 07:01 07:01 WBC 10.8 H (3.8-10.6) k/uL Sodium 135 L (137-145) mmol/L Carbon Dioxide 21 L (22-30) mmol/L Microbiology - Last 24 Hours (Table) 04/30/17 13:24 Blood Culture - Preliminary Blood No Growth after 48 hours Assessment and Plan (1) Cellulitis of right knee Narrative/Plan: Currently no orthopedic surgical intervention required. Recommend continued wound care and antibiotics per infectious disease. Will sign off for now. Current Visit: Yes Status: Acute Priority: Medium Code(s): L03.115 - CELLULITIS OF RIGHT LOWER LIMB SNOMED Code(s): 90650637 Time with Patient: Less than 30
[2017-05-02] MEDS: ATENOLOL 50 MG TAB PO SCH (22:01)
[2017-05-02] MEDS: ATORVASTATIN 20 MG TAB PO SCH (22:01)
[2017-05-02] MEDS: MONTELUKAST 10 MG TAB PO SCH (22:01)
--- NOTE | 2017-05-02 22:51 | PN ---
PROGRESS NOTE DATE OF SERVICE: May 02, 2017. ATTENDING NOTE: This patient is seen and examined by me. I discussed with nurse practitioner, Ms. Kaufman. The patient is seen and examined by me. The patient is getting wound care to the right knee, per surgery, not for any intervention. PHYSICAL EXAMINATION: Afebrile. Lungs fair entry. Cardiovascular first and second sounds normal. INVESTIGATIONS: Blood cultures pending. ASSESSMENT: Right knee wound from local trauma, failed outpatient treatment, not for surgical intervention. PLAN: Continue antibiotic as per Dr. Khan. Care was discussed. Patient's sodium has come up to 135. White count is 10.8. MMODL / IJN: [id number] /
--- NOTE | 2017-05-03 00:59 | P.PN ---
Subjective Progress Note Date: 05/02/17 Principal diagnosis: Fall 76-year-old female relates that now several weeks ago she suffered a fall. This resulted in facial trauma, left humerus fracture, and injury to her right knee resulting in a nonhealing ulceration. For the outpatient setting. The site has worsened. She developed some cellulitis at that area. In consequently she was admitted to the hospital for further evaluation. She's been seen by orthopedics and infectious diseases consult was requested because of a large open ulceration and concerns for wound care and antibiotic therapy. The patient relates that the site is painful. She is still somewhat miserable from the fall. Denies a loss of consciousness as the etiology of her fall. She believes she just tripped. She has no new complaints today. Is tolerating the local wound care to the right knee ulceration well. Drainage is improved Objective - Vital Signs Vital signs: Vital Signs Temp 99.8 F H 05/02/17 23:00 Pulse 101 H 05/02/17 23:00 Resp 16 05/02/17 23:00 BP 139/59 05/02/17 23:00 Pulse Ox 94 L 05/02/17 23:00 Intake & Output 05/02/17 05/02/17 05/03/17 06:59 18:59 06:59 Intake Total 500 480 Balance 500 480 Intake: Oral 500 480 Other: Voiding Method Toilet # Voids 2 3 1 # Bowel Movements 0 - Exam 76 woman who looks older than her stated age. As evidence of the facial ecchymosis that's improving. Sling is in place to her left arm where the fractures been. HEENT: Anicteric conjunctiva are pink and moist nasal mucosa grossly intact without significant lesions, there is no thrush. Dentures in place evidence of cataract surgery Neck: The neck is supple without significant lymphadenopathy or thyromegaly. Lungs: Symmetrical air entry with expiratory wheezes no rene bronchial sounds Heart: Regular rate and rhythm with an audible S1-S2, no S3 no S4. There is no significant murmur click or rub, PMI was nondisplaced. Abdomen: Positive bowel sounds soft and nontender without palpable masses or organomegaly. There was no guarding or rebound. Extremities: The left arm is in the sling because of the fracture from her recent fall. Right arm without acute changes. The lower extremities show evidence of the lower extremity edema bilaterally. the right knee shows No expressible purulence.evidence of the ulceration. Measuring 3 x 3 x 0.centimeters with 1 cm of undermining between 3 and 9 o'clock position Neuro: Awake alert oriented to person place and time. There are no acute new gross focal sensory motor deficits. - Labs CBC & Chem 7: 05/02/17 07:01 05/02/17 07:01 Labs: Abnormal Lab Results - Last 24 Hours (Table) 05/02/17 05/02/17 Range/Units 07:01 07:01 WBC 10.8 H (3.8-10.6) k/uL Sodium 135 L (137-145) mmol/L Carbon Dioxide 21 L (22-30) mmol/L Microbiology - Last 24 Hours (Table) 04/30/17 13:24 Blood Culture - Preliminary Blood No Growth after 48 hours Laboratory Results WBC 10.8 k/uL (3.8-10.6) H 05/02/17 07:01 RBC 4.06 m/uL (3.80-5.40) 05/02/17 07:01 Hgb 12.7 gm/dL (11.4-16.0) 05/02/17 07:01 Hct 40.6 % (34.0-46.0) 05/02/17 07:01 MCV 100.0 fL (80.0-100.0) 05/02/17 07:01 MCH 31.2 pg (25.0-35.0) 05/02/17 07:01 MCHC 31.2 g/dL (31.0-37.0) 05/02/17 07:01 RDW 14.8 % (11.5-15.5) 05/02/17 07:01 Plt Count 352 k/uL (150-450) 05/02/17 07:01 Neutrophils % 60 % 05/02/17 07:01 Lymphocytes % 29 % 05/02/17 07:01 Monocytes % 8 % 05/02/17 07:01 Eosinophils % 1 % 05/02/17 07:01 Basophils % 1 % 05/02/17 07:01 Neutrophils # 6.4 k/uL (1.3-7.7) 05/02/17 07:01 Lymphocytes # 3.2 k/uL (1.0-4.8) 05/02/17 07:01 Monocytes # 0.9 k/uL (0-1.0) 05/02/17 07:01 Eosinophils # 0.1 k/uL (0-0.7) 05/02/17 07:01 Basophils # 0.1 k/uL (0-0.2) 05/02/17 07:01 Hypochromasia Slight 05/02/17 07:01 Macrocytosis Slight 05/02/17 07:01 Sodium 135 mmol/L (137-145) L 05/02/17 07:01 Potassium 4.6 mmol/L (3.5-5.1) 05/02/17 07:01 Chloride 103 mmol/L (98-107) 05/02/17 07:01 Carbon Dioxide 21 mmol/L (22-30) L 05/02/17 07:01 Anion Gap 11 mmol/L 05/02/17 07:01 BUN 17 mg/dL (7-17) 05/02/17 07:01 Creatinine 0.99 mg/dL (0.52-1.04) 05/02/17 07:01 Est GFR (MDRD) Af Amer >60 (>60 ml/min/1.73 sqM) 05/02/17 07:01 Est GFR (MDRD) Non-Af 55 (>60 ml/min/1.73 sqM) 05/02/17 07:01 Glucose 94 mg/dL (74-99) 05/02/17 07:01 Lactic Ac Sepsis Rflx Y 04/30/17 14:20 Plasma Lactic Acid Ravindra 1.7 mmol/L (0.7-2.0) 04/30/17 19:10 Calcium 9.3 mg/dL (8.4-10.2) 05/02/17 07:01 Total Bilirubin 0.5 mg/dL (0.2-1.3) 04/30/17 13:24 AST 23 U/L (14-36) 04/30/17 13:24 ALT 24 U/L (9-52) 04/30/17 13:24 Alkaline Phosphatase 108 U/L (38-126) 04/30/17 13:24 Total Protein 6.7 g/dL (6.3-8.2) 04/30/17 13:24 Albumin 3.8 g/dL (3.5-5.0) 04/30/17 13:24 Microbiology 04/30/17 13:24 Blood Blood Culture - Preliminary No Growth after 48 hours Assessment and Plan (1) Fall Narrative/Plan: 76-year-old woman who suffered a fall several weeks ago. She's has taken difficulties including the fracture to the left humerus. However she is presenting with worsening difficulties to the right knee. She has an ulceration this posttraumatic it is nonhealing. She been seen by orthopedics and no plan for surgical intervention. The plan at this time will be to follow the cultures. Local wound care with the up to sell silver will be utilized. Elevate the leg while she is at rest. Surgical input we'll determine her ability to mobilize the knee. Limited use will help the ulceration heal more quickly. She should follow wound healing center after discharge to help with the significant issue. Currently antibiotic saline utilize with vancomycin and Rocephin pending culture results. Evaluation for infection is in process. Current Visit: No Status: Acute Code(s): W19.XXXA - UNSPECIFIED FALL, INITIAL ENCOUNTER SNOMED Code(s): 8937560 (2) Leukocytosis Current Visit: Yes Status: Acute Code(s): D72.829 - ELEVATED WHITE BLOOD CELL COUNT, UNSPECIFIED SNOMED Code(s): 578158960
[2017-05-03 07:48] VITALS: RESP 20
[2017-05-03] MEDS ORDERED: VANCOMYCIN TROUGH DUE 1 EACH MISC MISCELLANE ONE (08:00)
[2017-05-03] MEDS: SYMBICORT 160-4.5 MCG INHALER INHALATION SCH (08:34)
[2017-05-03] MEDS: IPRATROPIUM-ALBUTEROL 3 ML NEB INHALATION SCH ×2 (08:35→12:01)
[2017-05-03] MEDS: PANTOPRAZOLE 40 MG TABLET PO SCH (08:38)
[2017-05-03] MEDS: ASPIRIN 81 MG PO SCH (08:38)
[2017-05-03] MEDS: ENOXAPARIN 40 MG/0.4 ML SYRINGE SQ SCH (08:39)
[2017-05-03] MEDS: DOCUSATE 100 MG CAP PO SCH (08:39)
[2017-05-03] MEDS: cefTRIAXone IN SWFI 1,000 MG/10 ML SYRINGE IVP SCH (08:39)
[2017-05-03] MEDS: LOSARTAN 50 MG TAB PO SCH (08:39)
[2017-05-03] MEDS: HYDROcodone/APAP 5-325MG 1 EACH TAB PO PRN (09:05)
[2017-05-03] MEDS ORDERED: VANCOMYCIN 1,000 MG in SODIUM CHLORIDE 0.9% 250 ML IVPB SCH (10:00)
[2017-05-03] MEDS: VANCOMYCIN 1,000 MG in SODIUM CHLORIDE 0.9% 250 ML IVPB SCH (10:18)
[2017-05-03] MEDS ORDERED: DOXYCYCLINE 50 MG CAP PO SCH (11:30)
[2017-05-03] MEDS: CALCIUM CARBONATE 500 MG CHEWABLE PO SCH (11:41)
[2017-05-03] MEDS: MAGNESIUM OXIDE 400 MG TAB PO SCH (11:41)
[2017-05-03 15:10] VITALS: BP 146/93; PULSE 99; TEMP 96.7
--- NOTE | 2017-05-03 18:05 | P.DS ---
Providers Date of admission: 04/30/17 15:22 Expected date of discharge: 05/03/17 Attending physician: Will Molina Consults: 04/30/17 19:05 Consult Physician Routine Consulting Provider: Yefri Khan Consult Reason/Comments: knee wound Do you want consulting provider notified?: Yes 04/30/17 19:06 Consult Physician Routine Consulting Provider: Riki Loaiza Consult Reason/Comments: knee wound Do you want consulting provider notified?: Yes Primary care physician: Yefri Linares [facility] Course: FINAL DIAGNOSES: Right knee wound from recent local trauma from a fall, infected having failed outpatient treatment, slow to respond. -Seizure disorder. -Hypoosmolar hyponatremia. -Essential hypertension. -Hyperlipidemia. -Chronic obstructive pulmonary disease in an ex-smoker. -Thyroid nodule. -Gastroesophageal reflux disease. -Left arm in a sling. -Lactic acidosis from above, resolved. HOSPTIAL COURSE: 76-year-old female who is admitted with the right knee wound following up traumatic fall, wound is not healed well infected looking. Home medications reordered, infectious disease and orthopedics consulted. Orthopedics felt there was no surgical intervention required, continue local wound care and antibiotics per infectious disease. Infectious disease ordered Aquasol Silver, elevation and limited use of the right knee will assist in quick healing. Outpatient antibiotic therapy to include doxycycline monohydrate for 4 weeks, patient should follow-up in the wound care center. Patient is tolerating her diet up with assistance and walker. Anxious to go home. Overall condition is improved consultants agree patient is stable for discharge. PHYSICAL EXAM: CARDIOVASCULAR: First and second sounds noted no edema RESPIRATORY: Effort normal, lung sounds diminished bilaterally with some mild expiratory wheezing noted MUSKULOSKELETAL: Right knee wound with Aquasol silver, wound improving granulation tissue noted. PSYCHIATRY: Alert and oriented 3 mood and affect appropriate for the situation. Patient was seen and examined by nurse practitioner Kat Kaufman in all elements of the case discussed with attending Dr. Molina DISPOSITION: Home to the care of her family, [facility] to see the patient. Patient Condition at Discharge: Stable Plan - Discharge Summary Discharge Rx Participant: Yes New Discharge Prescriptions: New Doxycycline Monohydrate [Monodox] 100 mg PO Q12HR #28 cap SILVER sulfADIAZINE CREAM [Silvadene Cream] 1 applic TOPICAL BID #1 tube Continue Aspirin 81 mg PO DAILY Simvastatin [Zocor] 40 mg PO HS Montelukast [Singulair] 10 mg PO HS Cyclobenzaprine [Flexeril] 10 mg PO TID PRN PRN Reason: BACK PAIN Budesonide-Formot 160-4.5 Mcg [Symbicort 160-4.5 Mcg Inhaler] 2 puff INHALATION RT-BID Magnesium Oxide [Mag-Ox] 250 mg PO DAILY Albuterol Sulfate [Proair Hfa] 2 puff INHALATION RT-Q4H PRN PRN Reason: Shortness Of Breath ALPRAZolam [Xanax] 0.25 mg PO DAILY PRN PRN Reason: Anxiety Calcium Citrate 250 mg PO DAILY Atenolol 50 mg PO HS Multivitamins, Thera [Multivitamin (formulary)] 1 tab PO DAILY Albuterol Nebulized [Ventolin Nebulized] 2.5 mg INHALATION RT-QID PRN PRN Reason: Shortness Of Breath Tiotropium 18 Mcg/Puff [Spiriva] 1 cap INHALATION RT-DAILY Denosumab [Prolia] 60 mg SQ Q180D Fluticasone Nasal [place] [Flonase Nasal [place]] 1 spray EA NOSTRIL DAILY PRN PRN Reason: Allergy Symptoms Col-Rite 100 mg PO BID Losartan Potassium 50 mg PO DAILY Esomeprazole Magnesium [NexIUM] 40 mg PO DAILY Acetaminophen-Codeine 300-30mg [Tylenol w/codeine #3] 1 tab PO Q6H PRN PRN Reason: Pain Discharge Medication List Aspirin 81 mg PO DAILY 11/12/13 [History] Cyclobenzaprine [Flexeril] 10 mg PO TID PRN 11/12/13 [History] Montelukast [Singulair] 10 mg PO HS 11/12/13 [History] Simvastatin [Zocor] 40 mg PO HS 11/12/13 [History] Budesonide-Formot 160-4.5 Mcg [Symbicort 160-4.5 Mcg Inhaler] 2 puff INHALATION RT-BID 01/15/14 [History] Albuterol Sulfate [Proair Hfa] 2 puff INHALATION RT-Q4H PRN 03/28/14 [History] Magnesium Oxide [Mag-Ox] 250 mg PO DAILY 03/28/14 [History] ALPRAZolam [Xanax] 0.25 mg PO DAILY PRN 02/13/16 [History] Atenolol 50 mg PO HS 02/13/16 [History] Calcium Citrate 250 mg PO DAILY 02/13/16 [History] Albuterol Nebulized [Ventolin Nebulized] 2.5 mg INHALATION RT-QID PRN 02/19/16 [ History] Multivitamins, Thera [Multivitamin (formulary)] 1 tab PO DAILY 02/19/16 [History ] Col-Rite 100 mg PO BID 09/11/16 [History] Denosumab [Prolia] 60 mg SQ Q180D 09/11/16 [History] Fluticasone Nasal [place] [Flonase Nasal [place]] 1 spray EA NOSTRIL DAILY PRN 09/11 [History] Tiotropium 18 Mcg/Puff [Spiriva] 1 cap INHALATION RT-DAILY 09/11/16 [History] Esomeprazole Magnesium [NexIUM] 40 mg PO DAILY 03/28/17 [History] Losartan Potassium 50 mg PO DAILY 03/28/17 [History] Acetaminophen-Codeine 300-30mg [Tylenol w/codeine #3] 1 tab PO Q6H PRN 04/30/17 [History] Doxycycline Monohydrate [Monodox] 100 mg PO Q12HR #28 cap 05/03/17 [Rx] SILVER sulfADIAZINE CREAM [Silvadene Cream] 1 applic TOPICAL BID #1 tube [Rx] Follow up Appointment(s)/Referral(s): Yefri Khan MD [STAFF PHYSICIAN] - 1 Week (Office will call with appointment) Yefri Melgoza MD [Primary Care Provider] - 05/10/17 11:30 am [facility], [NON-STAFF] - Ambulatory/Diagnostic Orders: Complete Blood Count w/diff [LAB.AMB] Location: Determined By Patient Patient Instructions/Handouts: Cellulitis (DC) Activity/Diet/Wound Care/Special Instructions: Should follow up in the wound care center and wound should be dressed per Dr Khan orders activity as tolerated regular diet Discharge Disposition: HOME WITH HOME HEALTH SERVICES
--- NOTE | 2017-05-03 18:09 | CONS ---
CONSULTATION DATE OF CONSULTATION: May 01, 2017. REASON FOR CONSULTATION: Right knee nonhealing laceration. HISTORY: Chato is a very pleasant, 76-year-old female, who 4 weeks ago fell onto her right knee. She had a laceration just above the patella. She did not seek medical attention. Over the last 4 weeks this somewhat worsened. She has had a small amount of erythema around this area. She then presented to the [facility] emergency department. She is noted to have a area of wound on the anterior superior knee. She was admitted to the medical service for treatment of right knee superficial cellulitis. We are consulted for evaluation. PHYSICAL EXAM: She is afebrile. Her vital signs were stable. She has a 2.5 x 2.5 cm wound just superior to the patella near the superior pole of the patella. There is excellent granulation tissue in the bed of the wound. She does have some mild erythema around the edges but is not spreading much around the knee. There is no deep fluid collection. She does not have an effusion in her knee at all. She has full range of motion about the knee without any pain. There is no evidence of a deep infection into the knee. Her neurovascular exam is intact distally. IMPRESSION: 1. Superficial wound right knee. 2. Right knee superficial wound cellulitis. RECOMMENDATIONS: The wound has excellent granulation tissue in the bed. There is no focal fluid collection or any area that in my opinion would require drainage. Certainly she would benefit from wet-to-dry dressing changes and appropriate wound management. This will in my opinion heal very nicely with secondary intention. I do not believe it will require skin grafting or anything more aggressive than good local wound care. Antibiotics will be directed as per infectious disease team. We will continue to follow in case any need for surgical debridement or evacuation of any fluid collection but at this time I said I do not believe he is a candidate for any surgical intervention at this time. All of Chato's questions with regards to the plan at this point, were answered to her satisfaction. MMODL / IJN: [id number] /
--- NOTE | 2017-05-04 07:25 | DS ---
DISCHARGE SUMMARY ATTENDING NOTE: Patient was seen and examined by me. I discussed with my nurse practitioner, Austinmariano. Doing much better. No intervention on the surgical wound on the knee. LUNGS: Slightly decreased breath sounds. CARDIOVASCULAR: First and second sounds are normal. Wound is healing well. White count was coming down. ASSESSMENT: Right knee wound from trauma, infected. Doing well. Blood cultures were negative. Okayed by Dr. Khan to be discharged. Care was discussed with the patient. Questions were answered. The patient is being discharged on doxycycline. Discussion and discharge planning more than 35 minutes. MMODL / IJN: [id number] /
== END 2017-05-03 15:48 | disposition home health service (06) | DRG 603 ==
LOC: EC 12:38 → 4MS4W 15:22
PROVIDERS: ADMIT Hospitalist; ATTEND Hospitalist
DX: L03.115 Cellulitis of right lower limb (principal); E87.2 Acidosis; G40.909 Epilepsy, unspecified, not intractable, without status epilepticus; J44.9 Chronic obstructive pulmonary disease, unspecified; E87.1 Hypo-osmolality and hyponatremia; I10 Essential (primary) hypertension; E78.5 Hyperlipidemia, unspecified; H91.92 Unspecified hearing loss, left ear; M81.0 Age-related osteoporosis without current pathological fracture; E03.9 Hypothyroidism, unspecified; S81.011A Laceration without foreign body, right knee, initial encounter; E04.1 Nontoxic single thyroid nodule; K21.9 Gastro-esophageal reflux disease without esophagitis; Z87.891 Personal history of nicotine dependence; Z79.899 Other long term (current) drug therapy; Z79.51 Long term (current) use of inhaled steroids; Z82.0 Family history of epilepsy and other diseases of the nervous system; Z88.0 Allergy status to penicillin; Z88.8 Allergy status to other drugs, medicaments and biological substances; Z79.82 Long term (current) use of aspirin; Z85.828 Personal history of other malignant neoplasm of skin; Z83.3 Family history of diabetes mellitus; Z90.89 Acquired absence of other organs; Z90.710 Acquired absence of both cervix and uterus; Z98.41 Cataract extraction status, right eye; Z98.42 Cataract extraction status, left eye; W01.0XXA Fall on same level from slipping, tripping and stumbling without subsequent striking against object, initial encounter
CPT/HCPCS: 36415; 80048; 80053; 80202; 83605; 85025; 87040; 94640; 96365; 99284

== ENCOUNTER 2017-07-05 12:08 | Inpatient (IN) | payer MEDICARE, OTHER ==
--- NOTE | 2017-07-05 14:02 | ED ---
General Adult HPI - General Chief complaint: Upper Respiratory Infection Stated complaint: Cough/Aches Time Seen by Provider: 07/05/17 13:50 Source: patient, RN notes reviewed Mode of arrival: wheelchair Limitations: no limitations - History of Present Illness Initial comments: Patient 77-year-old female who presents emergency room today with a chief complaint of cough congestion over the last 3 days. She does been some bodyaches. Denies chills denies any recorded temperatures. She states she's had cough congestion or sputum production as been clear in color. Does admit to a history of COPD. States she does do breathing treatments at home as needed but is not felt the need to do these over the last few days. She states she was worried about a pneumonia numbness or reason for coming in because of the cough and congestion. She denies any other complaints. Patient denies any recent fever, chills, shortness of breath, chest pain, back pain, abdominal pain , nausea or vomiting, constipation or diarrhea, headaches or visual changes, or any other complaints. - Related Data Home Medications Medication Instructions Recorded Confirmed Aspirin 81 mg PO DAILY 11/12/13 04/30/17 Cyclobenzaprine [Flexeril] 10 mg PO TID PRN 11/12/13 04/30/17 Montelukast [Singulair] 10 mg PO HS 11/12/13 04/30/17 Simvastatin [Zocor] 40 mg PO HS 11/12/13 04/30/17 Budesonide-Formot 160-4.5 Mcg 2 puff INHALATION RT-BID 01/15/14 04/30/17 [Symbicort 160-4.5 Mcg Inhaler] Albuterol Sulfate [Proair Hfa] 2 puff INHALATION RT-Q4H PRN 03/28/14 04/30/17 Magnesium Oxide [Mag-Ox] 250 mg PO DAILY 03/28/14 04/30/17 ALPRAZolam [Xanax] 0.25 mg PO DAILY PRN 02/13/16 04/30/17 Atenolol 50 mg PO HS 02/13/16 04/30/17 Calcium Citrate 250 mg PO DAILY 02/13/16 04/30/17 Albuterol Nebulized [Ventolin 2.5 mg INHALATION RT-QID PRN 02/19/16 04/30/17 Nebulized] Multivitamins, Thera [Multivitamin 1 tab PO DAILY 02/19/16 04/30/17 (formulary)] Col-Rite 100 mg PO BID 09/11/16 04/30/17 Denosumab [Prolia] 60 mg SQ Q180D 09/11/16 04/30/17 Fluticasone Nasal [place] [Flonase 1 spray EA NOSTRIL DAILY PRN 09/11/16 04/30/17 Nasal [place]] Tiotropium 18 Mcg/Puff [Spiriva] 1 cap INHALATION RT-DAILY 09/11/16 04/30/17 Esomeprazole Magnesium [NexIUM] 40 mg PO DAILY 03/28/17 04/30/17 Losartan Potassium 50 mg PO DAILY 03/28/17 04/30/17 Acetaminophen-Codeine 300-30mg 1 tab PO Q6H PRN 04/30/17 04/30/17 [Tylenol w/codeine #3] Previous Rx's Medication Instructions Recorded Doxycycline Monohydrate [Monodox] 100 mg PO Q12HR #28 cap 05/03/17 SILVER sulfADIAZINE CREAM 1 applic TOPICAL BID #1 tube 05/03/17 [Silvadene Cream] Allergies Allergy/AdvReac Type Severity Reaction Status Date / Time bupropion HCl Allergy Severe Rash/Hives Verified 07/05/17 12:56 [From Wellbutrin] Penicillins Allergy Severe Rash/Hives Verified 07/05/17 12:56 Review of Systems ROS Statement: Those systems with pertinent positive or pertinent negative responses have been documented in the HPI. ROS Other: All systems not noted in ROS Statement are negative. Past Medical History Past Medical History: Asthma, Cancer, COPD, GERD/Reflux, Hearing Disorder / Deafness, Hyperlipidemia, Hypertension, Pneumonia, Thyroid Disorder Additional Past Medical History / Comment(s): 09-11-16-SEIZURE, CHRONIC BRONCHITIS-copd, SKIN CANCER- BASAL CELL CANCER, HEARING LOSS LT EAR; OSTEOPOROSIS; NODULE ON THYROID,endarterectomy on the left The patient was recently hospitalized on 02/13/2016 for a COPD exacerbation and left lower lobe pneumonia. Hypertension, hypothyroidism, hyperlipidemia, GE reflux, fall-fx lt elbow wearing sling and wound rt knee History of Any Multi-Drug Resistant Organisms: None Reported Past Surgical History: Appendectomy, Heart Catheterization, Hysterectomy Additional Past Surgical History / Comment(s): BRONCH 01/2014; LEFT CAROTID ENDARTERECTOMY; LISA CATARACTS Past Anesthesia/Blood Transfusion Reactions: No Reported Reaction, Motion Sickness Past Psychological History: No Psychological Hx Reported Smoking Status: Former smoker - Past Family History Mother Family Medical History: Seizure Disorder Additional Family Medical History / Comment(s): EPILEPTIC Father Family Medical History: Diabetes Mellitus General Exam - General Exam Comments Initial Comments: General: The patient is awake and alert, in no distress, and does not appear acutely ill. Eye: Pupils are equal, round and reactive to light, extra-ocular movements are intact. No nystagmus. There is normal conjunctiva bilaterally. No signs of icterus. Ears, nose, mouth and throat: There are moist mucous membranes and no oral lesions. Neck: The neck is supple, there is no tenderness or JVD. Cardiovascular: There is a regular rate and rhythm. No murmur, rub or gallop is appreciated. Respiratory: Bilateral expiratory wheeze. respirations are non-labored, breath sounds are equal. No stridor, rales, or rhonchi. Musculoskeletal: Normal ROM, no tenderness. Strength 5/5. Sensation intact. Pulses equal bilaterally 2+. Neurological: A&O x 3. CN II-XII intact, There are no obvious motor or sensory deficits. Coordination appears grossly intact. Speech is normal. Skin: Skin is warm and dry and no rashes or lesions are noted. Psychiatric: Cooperative, appropriate mood & affect, normal judgment. Limitations: no limitations Course Vital Signs 07/05/17 12:53 Temperature 99.4 F Pulse Rate 88 Respiratory 18 Rate Blood Pressure 103/61 O2 Sat by Pulse 98 Oximetry Medical Decision Making - Medical Decision Making 1425: Patient's chest x-ray reviewed and does show evidence of possible pneumonia. Patient is influenza a positive with a history of COPD. Patient's vital stable at this time. Case was discussed and seen with attending physician Dr. Rene. Patient will be IV antibiotics. Blood work and cultures currently pending at this time. No evidence for sepsis. - Lab Data Lab Results 07/05/17 Range/Units 12:58 Influenza Type A RNA Detected H (Not Detectd) Influenza Type B (PCR) Not Detected (Not Detectd) Disposition Clinical Impression: CAP (community acquired pneumonia), Influenza A Disposition: ADMITTED IP TO THIS HOSP Condition: Good Referrals: Yefri Melgoza MD [Primary Care Provider] - 1-2 days Time of Disposition: 14:34
--- NOTE | 2017-07-05 14:17 | XR ---
EXAMINATION TYPE: XR chest 2V DATE OF EXAM: 07/05/2017 COMPARISON: 06/22/2017 HISTORY: 77-year-old female with cough TECHNIQUE: Frontal and lateral views FINDINGS: Heart normal size. Atherosclerotic arch calcifications. The medial right apical density appears decre ased from prior. Some patchy posterior basilar opacity is seen on the current exam. Mild diffuse inte rstitial prominence is unchanged. IMPRESSION: 1. Similar to slightly decreased medial right apical density, possible residual infiltrate and pleura l parenchymal scarring. Considering 6 - 8 week follow-up to reassess. 2. Patchy posterior basilar atelectasis or infiltrate on the lateral view. 3. Left proximal humeral surgical neck fracture was present previously.
[2017-07-05] MEDS ORDERED: AZITHROMYCIN 500 MG in SODIUM CHLORIDE 0.9% 250 ML IVPB STA (14:26)
[2017-07-05] MEDS ORDERED: cefTRIAXone IN SWFI 1,000 MG/10 ML SYRINGE IVP STA (14:26)
[2017-07-05] MEDS ORDERED: PNEUMONIA PROTOCOL UTILIZED 1 EACH MISC PO PRN (15:10)
[2017-07-05] MEDS ORDERED: IPRATROPIUM-ALBUTEROL 3 ML NEB INHALATION PRN (15:12)
[2017-07-05 15:14] LABS: HCT 37.4 % (34.0-46.0); HGB 12.1 gm/dL (11.4-16.0); MCH 29.7 pg (25.0-35.0); MCHC 32.3 g/dL (31.0-37.0); MCV 92.1 fL (80.0-100.0); Mean Platelet Volume 6.8; Platelet Count 385 k/uL (150-450); RBC 4.07 m/uL (3.80-5.40)
[2017-07-05 15:18] LABS: Albumin 3.7 g/dL (3.5-5.0); Calcium 9.4 mg/dL (8.4-10.2); Potassium 5.1 mmol/L (3.5-5.1); Total Bilirubin 0.5 mg/dL (0.2-1.3); Total Protein 6.3 g/dL (6.3-8.2)
[2017-07-05] MEDS ORDERED: SODIUM CHLORIDE 0.9% 1,000 ML IV STA (15:54)
[2017-07-05 15:57] LABS: Band Neutrophils % 14 %; Eosinophils # (M) 0.26 k/uL (0-0.7); Lymphocytes # (M) 0.52 k/uL (1.0-4.8); Metamyelocytes # (M) 0.26 k/uL (0); Metamyelocytes % 1 %; Monocytes # (M) 1.04 k/uL (0-1.0); Myelocytes # (M) 0.26 k/uL (0); Myelocytes % 1 %; Neutrophils % (M) 79 %; Nucleated Red Blood Cells 0 /100 WBC (0-0); Total Cells Counted 200
[2017-07-05] MEDS ORDERED: FLUTICASONE 50MCG/SPRAY NASAL 16GM EA NOSTRIL PRN (19:33)
[2017-07-05] MEDS ORDERED: CYCLOBENZAPRINE 10 MG TAB PO PRN (19:33)
[2017-07-05] MEDS ORDERED: SODIUM CHLORIDE 0.9% 500 ML IV ONE (19:56)
[2017-07-05] MEDS: SYMBICORT 160-4.5 MCG INHALER INHALATION SCH (20:00)
[2017-07-05] MEDS: OSELTAMIVIR 60 MG/10 ML ORAL SYRINGE PO SCH (22:16)
[2017-07-05] MEDS: SODIUM CHLORIDE 0.9% 1,000 ML IV SCH (22:16)
[2017-07-05] MEDS: MONTELUKAST 10 MG TAB PO SCH (22:17)
[2017-07-05] MEDS: ATENOLOL 50 MG TAB PO SCH (22:17)
[2017-07-05] MEDS: ATORVASTATIN 20 MG TAB PO SCH (22:17)
[2017-07-05] MEDS: HEPARIN SODIUM,PORCINE 5,000 UNIT/ML 1 ML VIAL SQ SCH (22:23)
[2017-07-06] MEDS: SODIUM CHLORIDE 0.9% 1,000 ML IV SCH ×2 (05:27→15:07)
[2017-07-06] MEDS ORDERED: ACETAMINOPHEN TAB 325 MG TAB PO PRN (06:02)
[2017-07-06] MEDS: ALPRAZolam 0.25 MG TAB PO PRN (06:13)
[2017-07-06] MEDS: HEPARIN SODIUM,PORCINE 5,000 UNIT/ML 1 ML VIAL SQ SCH ×2 (07:49→21:43)
[2017-07-06] MEDS: PANTOPRAZOLE 40 MG TABLET PO SCH (07:49)
[2017-07-06] MEDS: ASPIRIN 81 MG PO SCH (07:49)
[2017-07-06] MEDS: LOSARTAN 50 MG TAB PO SCH (07:50)
[2017-07-06] MEDS: MAGNESIUM OXIDE 400 MG TAB PO SCH (07:50)
[2017-07-06] MEDS: OSELTAMIVIR 60 MG/10 ML ORAL SYRINGE PO SCH ×2 (07:50→21:44)
--- NOTE | 2017-07-06 08:01 | HP ---
HISTORY AND PHYSICAL CHIEF COMPLAINT: The chief complaints are cough and aches and pain. HISTORY OF PRESENT ILLNESS: This 77-year-old woman with a past medical history of history of asthma, COPD, GERD, hypertension, hyperlipidemia, being followed by Dr. Melgoza in the outpatient setting is complaining of some aches and pains and shortness of breath with cough and sputum. The patient came to [facility]. The patient was found to have elevated white count and influenza A and the patient's lactic acid also elevated. Patient admitted for further evaluation and treatment. There is no history of any fever, any rigors, chills. No history of headache, loss consciousness or seizures at this time. The patient is not feeling well. PAST MEDICAL HISTORY: History of asthma, COPD, history of GERD, hard of hearing, hypertension, hyperlipidemia, history pneumonia, history of motion sickness. MEDICATIONS: Medications prior to admission include home medications are: 1. Spiriva 1 puff daily. 2. Zocor 40 mg q.h.s. 3. Singulair 10 mg q.h.s. 4. Magnesium oxide 250 mg daily. 5. Losartan 50 mg p.o. daily. 6. Flonase 1 spray daily p.r.n. 7. Nexium 40 mg daily. 8. Prolia 60 mg q.180 days. 9. Flexeril 10 mg t.i.d. p.r.n. 10.Col-Rite 100 mg p.o. b.i.d. 11.Symbicort 160/4.5, two puffs b.i.d. 12.Atenolol 50 mg q.h.s. 13.Aspirin 81 mg p.o. daily. 14.ProAir HFA 2 puffs q.4 p.r.n. 15.Ventolin HFA 2.5 q.i.d. p.r.n. 16.Xanax 0.25 daily p.r.n. ALLERGIES: Allergies are WELLBUTRIN and PENICILLIN. FAMILY HISTORY: History of seizure disorder, epilepsy. SOCIAL HISTORY: Previous history of smoking. No history of alcohol intake. REVIEW OF SYSTEMS: ENT: Diminished hearing and diminished vision. CARDIOVASCULAR SYSTEM: No angina. RESPIRATORY SYSTEM: As mentioned earlier. GI: No nausea. : No dysuria. NERVOUS SYSTEM: No numbness or weakness. ALLERGY/IMMUNOLOGY: As mentioned earlier. MUSCULOSKELETAL: As mentioned earlier. HEMATOLOGY/ONCOLOGY: No history of anemia. ENDOCRINE:neg CONSTITUTIONAL: As mentioned earlier. DERMATOLOGY: Negative. RHEUMATOLOGY: Negative. PSYCHIATRY: As mentioned earlier. PHYSICAL EXAMINATION: The patient is alert and oriented x3. Pulse is 85, blood pressure 135/69, respiration 20, temperature 98 degrees, pulse ox 93% on room air. HEENT: Conjunctivae normal. Oral mucosa moist. Neck is no jugular venous distention. No carotid bruit. No lymph node enlargement. CARDIOVASCULAR: S1 and S2 muffled. No S3, no S4. RESPIRATORY: Breath sounds diminished in the bases. Bilateral scattered rhonchi. Expiratory wheezing and crackles heard. ABDOMEN: Soft, nontender. No mass palpable. LEGS: No edema, no swelling. NERVOUS SYSTEM: Higher functions as mentioned earlier. Moves all 4 limbs. No focal motor and sensory deficits. LYMPHATICS: No lymphadenopathy of the neck, axillae or groin. SKIN: No ulcer, rash or bleeding. LABS: Labs are WBC 26 and sodium 126. Lactic acid 2.2. Influenza A positive. ASSESSMENT: 1. Acute chronic obstructive pulmonary disease exacerbation with acute influenza A with sepsis. 2. Possible bibasilar pneumonia, bronchopneumonia. 3. Increased WBC. 4. Hyponatremia. 5. Increased creatinine with mild acute renal failure. 6. History of asthma. 7. History of chronic obstructive pulmonary disease. 8. History of gastroesophageal reflux disease. 9. Hard of hearing. 10.Hypertension. 11.Hyperlipidemia. 12.Hypothyroidism. 13.History of chronic bronchitis. 14.History of osteoporosis. 15.History of cardiac catheterization. 16.History of left carotid endarterectomy. 17.Remote history of nicotine dependence. RECOMMENDATIONS AND DISCUSSION: This 77-year-old woman who presented with multiple complex medical issues, will monitor the patient closely. Continue the current medications and symptomatic treatment. Otherwise I would recommend intensive bronchodilator treatment. Otherwise also obtain pulmonary and infectious disease evaluations. Broad-spectrum IV antibiotics will be initiated. Tamiflu is also given. Resume the home medications. DVT prophylaxis. Otherwise, prognosis guarded because of multiple complex medical issues. Further recommendations to follow. See orders for further details. MMODL / IJN: [id number] / MTDD
[2017-07-06] MEDS ORDERED: IPRATROPIUM-ALBUTEROL 3 ML NEB INHALATION PRN ×2 (08:03→08:07)
[2017-07-06] MEDS ORDERED: FUROSEMIDE 10 MG/ML 4 ML VIAL IV STA (08:10)
[2017-07-06] MEDS: methylPREDNISolone SOD SUCCI 125 MG/2 ML VIAL IV SCH ×4 (08:27→22:51)
--- NOTE | 2017-07-06 08:53 | P.CONS ---
History of Present Illness - Reason for Consult Consult date: 07/06/17 sepsis - History of Present Illness This is a 77-year-old female familiar to ID service as she was seen on her April admission due to cellulitis of the right knee this was sustained from a fall and also treated for left humerus fracture. Patient was stabilized and was discharged home with [facility]. Patient currently lives with her son and . Patient developed cough with clear sputum, congestion and body aches and been going on for 3 days and came into [address] [place] [address] for evaluation. Initial lactic acid was 2.25 x 3.2 and now 1.3. Patient is status post IV fluid boluses. She was found to have a sodium of 126 and chloride 89 with BUN 28 and creatinine 1.17. Her temperature maximum 101.9 with a white count of 26. Influenza testing a was positive. Blood cultures status received in sputum was collected. Chest x-ray was compared to June 22 chest x-ray done as an outpatient that shows slightly decreased medial right apical density. Possible residual infiltrate and pleural potential scarring. Patchy posterior basilar atelectasis or infiltrate. Left axillary humeral neck fracture. Patient states she is not coughing up sputum. Patient has had increased wheezing this morning. Patient states that she has been using her nebulizer machine at home without any improvement. Patient is currently on azithromycin, Rocephin and Tamiflu and has been admitted to the [facility] floor. Consult in place with Dr. Bassett. Review of Systems All systems: negative Constitutional: Reports anorexia, Reports chills, Reports fatigue, Reports fever , Reports poor appetite Eyes: denies blurred vision, denies pain Ears, nose, mouth and throat: Denies headache, Denies sore throat Cardiovascular: Reports shortness of breath, Denies chest pain, Denies lightheadedness, Denies syncope Respiratory: Reports cough, Reports dyspnea, Reports wheezing, Denies excessive sputum, Denies hemoptysis, Denies home oxygen Gastrointestinal: Denies abdominal pain, Denies diarrhea, Denies nausea, Denies vomiting Genitourinary: Denies dysuria, Denies hematuria Musculoskeletal: Reports myalgias Integumentary: Denies pruritus, Denies rash Neurological: Denies numbness, Denies weakness Psychiatric: Denies anxiety, Denies depression Endocrine: Denies fatigue, Denies weight change Past Medical History Past Medical History: Asthma, Cancer, COPD, GERD/Reflux, Hearing Disorder / Deafness, Hyperlipidemia, Hypertension, Pneumonia, Thyroid Disorder Additional Past Medical History / Comment(s): 09-11-16-SEIZURE, CHRONIC BRONCHITIS-copd, SKIN CANCER- BASAL CELL CANCER, HEARING LOSS LT EAR; OSTEOPOROSIS; NODULE ON THYROID,endarterectomy on the left The patient was recently hospitalized on 02/13/2016 for a COPD exacerbation and left lower lobe pneumonia. Hypertension, hypothyroidism, hyperlipidemia, GE reflux, falls, rt knee cellulitis History of Any Multi-Drug Resistant Organisms: None Reported Past Surgical History: Appendectomy, Heart Catheterization, Hysterectomy Additional Past Surgical History / Comment(s): BRONCH 01/2014; LEFT CAROTID ENDARTERECTOMY; LISA CATARACTS Past Anesthesia/Blood Transfusion Reactions: Motion Sickness Smoking Status: Former smoker Additional Past Alcohol Use History / Comment(s): Patient lives with her son and . She stopped smoking several years ago. 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 No experience. No travel history. Son has a pet dog. - Past Family History Mother Family Medical History: Seizure Disorder Additional Family Medical History / Comment(s): EPILEPTIC Father Family Medical History: Diabetes Mellitus Medications and Allergies Home Medications Medication Instructions Recorded Confirmed Type Aspirin 81 mg PO DAILY 11/12/13 07/05/17 History Cyclobenzaprine [Flexeril] 10 mg PO TID PRN 11/12/13 07/05/17 History Montelukast [Singulair] 10 mg PO HS 11/12/13 07/05/17 History Simvastatin [Zocor] 40 mg PO HS 11/12/13 07/05/17 History Budesonide-Formot 160-4.5 Mcg 2 puff INHALATION RT-BID 01/15/14 07/05/17 History [Symbicort 160-4.5 Mcg Inhaler] Albuterol Sulfate [Proair Hfa] 2 puff INHALATION RT-Q4H PRN 03/28/14 07/05/17 History Magnesium Oxide [Mag-Ox] 250 mg PO DAILY 03/28/14 07/05/17 History ALPRAZolam [Xanax] 0.25 mg PO DAILY PRN 02/13/16 07/05/17 History Atenolol 50 mg PO HS 02/13/16 07/05/17 History Albuterol Nebulized [Ventolin 2.5 mg INHALATION RT-QID PRN 02/19/16 07/05/17 History Nebulized] Col-Rite 100 mg PO BID 09/11/16 07/05/17 History Denosumab [Prolia] 60 mg SQ Q180D 09/11/16 07/05/17 History Fluticasone Nasal [place] [Flonase 1 spray EA NOSTRIL DAILY PRN 09/11/16 07/05/17 History Nasal [place]] Tiotropium 18 Mcg/Puff [Spiriva] 1 cap INHALATION RT-DAILY 09/11/16 07/05/17 History Esomeprazole Magnesium [NexIUM] 40 mg PO DAILY 03/28/17 07/05/17 History Losartan Potassium 50 mg PO DAILY 03/28/17 07/05/17 History Allergies Allergy/AdvReac Type Severity Reaction Status Date / Time bupropion HCl Allergy Severe Rash/Hives Verified 07/05/17 14:59 [From Wellbutrin] Penicillins Allergy Severe Rash/Hives Verified 07/05/17 14:59 Physical Exam Vitals: Vital Signs Temp Pulse Pulse Resp BP BP Pulse Ox 07/06/17 07:00 101.0 F H 90 34 H 126/57 93 L 07/06/17 06:09 101.9 F H 07/06/17 00:00 105 H 24 07/05/17 23:00 98.7 F 105 H 24 153/90 95 07/05/17 20:11 88 07/05/17 20:00 84 07/05/17 16:27 98.0 F 85 20 135/69 93 L 07/05/17 15:15 98.5 F 84 20 108/66 97 07/05/17 14:39 16 07/05/17 12:53 99.4 F 88 18 103/61 98 Intake and Output 07/05/17 07/06/17 07/06/17 22:59 06:59 14:59 Intake Total 300 100 Balance 300 100 Intake: Oral 300 100 Other: # Voids 1 2 Weight 57.153 kg Gen: This is a 77-year-old female. She is sitting in bed and appears to be in very mild respiratory distress. HEENT: Head is atraumatic, normocephalic. Pupils equal, round. Sclerae is anicteric. Conjunctiva pink. Oral mucous membranes are slightly dry. White coating on the back of the tongue and soft palate. NECK: Supple. No JVD. No lymphadenopathy. No thyromegaly. LUNGS: Expiratory wheezes noted throughout lung enriquez.. No intercostal retractions. Tachypnea noted. HEART: Regular rate and rhythm. No murmur. ABDOMEN: Soft. Bowel sounds are present. No masses. No tenderness. EXTREMITIES: No pedal edema. No calf tenderness. No wounds noted to the right pretibial area which patient states is from hitting the car when she was getting an. NEUROLOGICAL: Patient is awake, alert and oriented x3. Cranial nerves 2 through 12 are grossly intact. Results Results: Laboratory Results WBC 26.0 k/uL (3.8-10.6) H* 07/05/17 14:57 RBC 4.07 m/uL (3.80-5.40) 07/05/17 14:57 Hgb 12.1 gm/dL (11.4-16.0) 07/05/17 14:57 Hct 37.4 % (34.0-46.0) 07/05/17 14:57 MCV 92.1 fL (80.0-100.0) 07/05/17 14:57 MCH 29.7 pg (25.0-35.0) 07/05/17 14:57 MCHC 32.3 g/dL (31.0-37.0) 07/05/17 14:57 RDW 14.0 % (11.5-15.5) 07/05/17 14:57 Plt Count 385 k/uL (150-450) 07/05/17 14:57 Neutrophils % (Manual) 79 % 07/05/17 14:57 Band Neutrophils % 14 % 07/05/17 14:57 Lymphocytes % (Manual) 2 % 07/05/17 14:57 Monocytes % (Manual) 4 % 07/05/17 14:57 Eosinophils % (Manual) 1 % 07/05/17 14:57 Metamyelocytes % 1 % 07/05/17 14:57 Myelocytes % 1 % 07/05/17 14:57 Neutrophils # (Manual) 24.10 k/uL (1.3-7.7) H 07/05/17 14:57 Lymphocytes # (Manual) 0.52 k/uL (1.0-4.8) L 07/05/17 14:57 Monocytes # (Manual) 1.04 k/uL (0-1.0) H 07/05/17 14:57 Eosinophils # (Manual) 0.26 k/uL (0-0.7) 07/05/17 14:57 Metamyelocytes # (Man) 0.26 k/uL (0) H 07/05/17 14:57 Myelocytes # (Manual) 0.26 k/uL (0) H 07/05/17 14:57 Nucleated RBCs 0 /100 WBC (0-0) 07/05/17 14:57 Manual Slide Review Performed 07/05/17 14:57 RBC Morphology Normal 07/05/17 14:57 Sodium 126 mmol/L (137-145) L 07/05/17 14:57 Potassium 5.1 mmol/L (3.5-5.1) 07/05/17 14:57 Chloride 89 mmol/L (98-107) L 07/05/17 14:57 Carbon Dioxide 26 mmol/L (22-30) 07/05/17 14:57 Anion Gap 11 mmol/L 07/05/17 14:57 BUN 28 mg/dL (7-17) H 07/05/17 14:57 Creatinine 1.17 mg/dL (0.52-1.04) H 07/05/17 14:57 Est GFR (MDRD) Af Amer 55 (>60 ml/min/1.73 sqM) 07/05/17 14:57 Est GFR (MDRD) Non-Af 45 (>60 ml/min/1.73 sqM) 07/05/17 14:57 Glucose 146 mg/dL (74-99) H 07/05/17 14:57 Lactic Ac Sepsis Rflx Y 07/05/17 15:35 Plasma Lactic Acid Ravindra 1.3 mmol/L (0.7-2.0) 07/06/17 00:27 Calcium 9.4 mg/dL (8.4-10.2) 07/05/17 14:57 Total Bilirubin 0.5 mg/dL (0.2-1.3) 07/05/17 14:57 AST 27 U/L (14-36) 07/05/17 14:57 ALT 29 U/L (9-52) 07/05/17 14:57 Alkaline Phosphatase 78 U/L (38-126) 07/05/17 14:57 Total Protein 6.3 g/dL (6.3-8.2) 07/05/17 14:57 Albumin 3.7 g/dL (3.5-5.0) 07/05/17 14:57 Influenza Type A RNA Detected (Not Detectd) H 07/05/17 12:58 Influenza Type B (PCR) Not Detected (Not Detectd) 07/05/17 12:58 CBC & Chem 7: 07/05/17 14:57 07/05/17 14:57 Labs: Abnormal Lab Results - Last 24 Hours (Table) 07/05/17 07/05/17 07/05/17 Range/Units 12:58 14:57 14:57 WBC 26.0 H* (3.8-10.6) k/uL Neutrophils # (Manual) 24.10 H (1.3-7.7) k/uL Lymphocytes # (Manual) 0.52 L (1.0-4.8) k/uL Monocytes # (Manual) 1.04 H (0-1.0) k/uL Metamyelocytes # (Man) 0.26 H (0) k/uL Myelocytes # (Manual) 0.26 H (0) k/uL Sodium 126 L (137-145) mmol/L Chloride 89 L (98-107) mmol/L BUN 28 H (7-17) mg/dL Creatinine 1.17 H (0.52-1.04) mg/dL Glucose 146 H (74-99) mg/dL Plasma Lactic Acid Ravindra (0.7-2.0) mmol/L Influenza Type A RNA Detected H (Not Detectd) 07/05/17 07/05/17 Range/Units 14:57 19:05 WBC (3.8-10.6) k/uL Neutrophils # (Manual) (1.3-7.7) k/uL Lymphocytes # (Manual) (1.0-4.8) k/uL Monocytes # (Manual) (0-1.0) k/uL Metamyelocytes # (Man) (0) k/uL Myelocytes # (Manual) (0) k/uL Sodium (137-145) mmol/L Chloride (98-107) mmol/L BUN (7-17) mg/dL Creatinine (0.52-1.04) mg/dL Glucose (74-99) mg/dL Plasma Lactic Acid Ravindra 2.2 H* 3.2 H* (0.7-2.0) mmol/L Influenza Type A RNA (Not Detectd) Assessment and Plan Plan: This is a 77-year-old female patient who presented to the hospital with sepsis, influenza A and concern for pneumonia. Patient is currently on azithromycin, Rocephin and Tamiflu. DuoNeb treatments, Pulmicort and Solu- Medrol will be added. IV Lasix has been ordered. Patient is status post fluid resuscitation for lactic acidosis. Cultures are in process. Continue supportive care. Further recommendations as patient presses. The above dictated assessment and findings were discussed with Dr. Khan. The impression and plan of care have been directed as dictated. Rochelle Rubio nurse practitioner acting as scribe for Dr. Khan.
[2017-07-06] MEDS ORDERED: NON-FORMULARY DRUG (Esomeprazole Magnesium [Nexium] 40 MG) PO SCH (09:00)
[2017-07-06 09:18] LABS: Anion Gap 9 mmol/L; Blood Urea Nitrogen 20 mg/dL (7-17); Calcium 8.1 mg/dL (8.4-10.2); Carbon Dioxide 22 mmol/L (22-30); Chloride 94 mmol/L (98-107); Glucose 96 mg/dL (74-99); Potassium 3.9 mmol/L (3.5-5.1); Sodium 125 mmol/L (137-145)
[2017-07-06] MEDS: IPRATROPIUM-ALBUTEROL 3 ML NEB INHALATION SCH ×4 (09:30→19:08)
[2017-07-06] MEDS: SYMBICORT 160-4.5 MCG INHALER INHALATION SCH (09:37)
--- NOTE | 2017-07-06 09:53 | XR ---
EXAMINATION TYPE: XR chest 1V portable DATE OF EXAM: 07/06/2017 COMPARISON: 07/05/2017 HISTORY: Shortness of breath TECHNIQUE: Single frontal view of the chest is obtained. FINDINGS: Hyperinflation suggests COPD. Arthropathy of the shoulder noted with calcific tendinosis o n the right and evidence of previous trauma on the left. Diffuse osteopenia noted. Subsegmental right basilar atelectasis or draped. Tiny granuloma right upper lobe. Atherosclerotic change aorta. IMPRESSION: COPD with right basilar atelectasis or early infiltrate stable in appearance.
[2017-07-06 10:17] LABS: Basophils # (A) 0.1 k/uL (0-0.2); Basophils % (A) 1 %; Eosinophils % (A) 0 %; HCT 34.3 % (34.0-46.0); Lymphocytes # (A) 1.5 k/uL (1.0-4.8); Lymphocytes % (A) 10 %; MCH 30.2 pg (25.0-35.0); MCHC 32.2 g/dL (31.0-37.0); MCV 93.7 fL (80.0-100.0); Mean Platelet Volume 8.5; Monocytes # (A) 0.7 k/uL (0-1.0); Monocytes % (A) 5 %; Neutrophils # (A) 13.5 k/uL (1.3-7.7); Neutrophils % (A) 85 %; Platelet Count 275 k/uL (150-450); RBC 3.66 m/uL (3.80-5.40); RDW 15.4 % (11.5-15.5); WBC 15.9 k/uL (3.8-10.6)
[2017-07-06] MEDS: INSULIN ASPART 100 UNIT/ML 1 ML 10 ML VIAL SQ SCH ×3 (13:13→21:43)
[2017-07-06] MEDS: AZITHROMYCIN 500 MG in SODIUM CHLORIDE 0.9% 250 ML IVPB SCH (15:06)
[2017-07-06] MEDS ORDERED: AZITHROMYCIN 500 MG TAB PO SCH (16:00)
[2017-07-06] MEDS: cefTRIAXone IN SWFI 1,000 MG/10 ML SYRINGE IVP SCH (16:05)
--- NOTE | 2017-07-06 16:33 | P.CNPUL ---
History of Present Illness Consult date: 07/06/17 Requesting physician: Julius Banks Reason for consult: dyspnea, cough Chief complaint: Cough, congestion, body aches and chills History of present illness: Chato is a 77-year-old white female patient with history of advanced COPD, with a baseline FEV1 of 46% of predicted, who presented to the ED on 07/05/2017 at 1208 with complaints of cough, congestion, body aches, no fevers but night sweats. She states she started getting sick last Wednesday, or the weekend her shortness of breath and cough got progressively worse. Her phlegm has been clear in color. Denies any chest pain, back pain, nausea vomiting, diarrhea, headache. Chest x-ray taken in the ED on 07/05/2017 shows medial right apical density which seems to have slightly decreased from prior exam on 06/22/2017. There is possible residual infiltrates and pleural parenchymal scarring. Patchy posterior basilar atelectasis or infiltrate on the lateral view. Patient initially presented with low-grade fevers of 99.4, this morning she had a fever spike of 101.9. Evidence of leukocytosis with a WBC of 26, serum sodium of 126, chloride is 89, B UN of 28, creatinine of 1.17, lactic acid of 2.2 which had subsequently went up to 3.2, and came down to 0.7 after fluid resuscitation. Her influenza a screen was positive. Patient was started on IV Rocephin and Zithromax, Tamiflu, IV fluids, nebulized treatments and admitted for further management. At the time of my evaluation patient is seen resting in bed, somewhat lethargic, but arousable to verbal stimuli, somewhat diaphoretic. Lung sounds show diminished air entry bilaterally with faint expiratory wheezing scattered throughout the lung enriquez. She was given a dose of 40 of Lasix in the morning after she was noted to be tachypneic, and positive for crackles. Follow-up chest x-ray shows COPD with right basilar atelectasis or early infiltrate. Review of Systems All systems: negative Constitutional: Denies chills, Denies fever Eyes: denies blurred vision, denies pain Ears, nose, mouth and throat: Denies headache, Denies sore throat Cardiovascular: Denies chest pain, Denies shortness of breath Respiratory: Denies cough Gastrointestinal: Denies abdominal pain, Denies diarrhea, Denies nausea, Denies vomiting Genitourinary: Denies dysuria, Denies hematuria Musculoskeletal: Denies myalgias Integumentary: Denies pruritus, Denies rash Neurological: Denies numbness, Denies weakness Psychiatric: Denies anxiety, Denies depression Endocrine: Denies fatigue, Denies weight change Past Medical History Past Medical History: Asthma, Cancer, COPD, GERD/Reflux, Hearing Disorder / Deafness, Hyperlipidemia, Hypertension, Pneumonia, Thyroid Disorder Additional Past Medical History / Comment(s): 09-11-16-SEIZURE, CHRONIC BRONCHITIS-copd, SKIN CANCER- BASAL CELL CANCER, HEARING LOSS LT EAR; OSTEOPOROSIS; NODULE ON THYROID,endarterectomy on the left The patient was recently hospitalized on 02/13/2016 for a COPD exacerbation and left lower lobe pneumonia. Hypertension, hypothyroidism, hyperlipidemia, GE reflux, falls, rt knee cellulitis History of Any Multi-Drug Resistant Organisms: None Reported Past Surgical History: Appendectomy, Heart Catheterization, Hysterectomy Additional Past Surgical History / Comment(s): BRONCH 01/2014; LEFT CAROTID ENDARTERECTOMY; LISA CATARACTS Past Anesthesia/Blood Transfusion Reactions: Motion Sickness Smoking Status: Former smoker Additional Past Alcohol Use History / Comment(s): Patient lives with her son and . She stopped smoking several years ago. 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 No experience. No travel history. Son has a pet dog. - Past Family History Mother Family Medical History: Seizure Disorder Additional Family Medical History / Comment(s): EPILEPTIC Father Family Medical History: Diabetes Mellitus Medications and Allergies Home Medications Medication Instructions Recorded Confirmed Type Aspirin 81 mg PO DAILY 11/12/13 07/05/17 History Cyclobenzaprine [Flexeril] 10 mg PO TID PRN 11/12/13 07/05/17 History Montelukast [Singulair] 10 mg PO HS 11/12/13 07/05/17 History Simvastatin [Zocor] 40 mg PO HS 11/12/13 07/05/17 History Budesonide-Formot 160-4.5 Mcg 2 puff INHALATION RT-BID 01/15/14 07/05/17 History [Symbicort 160-4.5 Mcg Inhaler] Albuterol Sulfate [Proair Hfa] 2 puff INHALATION RT-Q4H PRN 03/28/14 07/05/17 History Magnesium Oxide [Mag-Ox] 250 mg PO DAILY 03/28/14 07/05/17 History ALPRAZolam [Xanax] 0.25 mg PO DAILY PRN 02/13/16 07/05/17 History Atenolol 50 mg PO HS 02/13/16 07/05/17 History Albuterol Nebulized [Ventolin 2.5 mg INHALATION RT-QID PRN 02/19/16 07/05/17 History Nebulized] Col-Rite 100 mg PO BID 09/11/16 07/05/17 History Denosumab [Prolia] 60 mg SQ Q180D 09/11/16 07/05/17 History Fluticasone Nasal [place] [Flonase 1 spray EA NOSTRIL DAILY PRN 09/11/16 07/05/17 History Nasal [place]] Tiotropium 18 Mcg/Puff [Spiriva] 1 cap INHALATION RT-DAILY 09/11/16 07/05/17 History Esomeprazole Magnesium [NexIUM] 40 mg PO DAILY 03/28/17 07/05/17 History Losartan Potassium 50 mg PO DAILY 03/28/17 07/05/17 History Allergies Allergy/AdvReac Type Severity Reaction Status Date / Time bupropion HCl Allergy Severe Rash/Hives Verified 07/05/17 14:59 [From Wellbutrin] Penicillins Allergy Severe Rash/Hives Verified 07/05/17 14:59 Physical Exam Vitals: Vital Signs Temp Pulse Pulse Resp BP Pulse Ox 07/06/17 15:47 88 07/06/17 09:40 92 07/06/17 09:30 92 07/06/17 08:33 98.6 F 07/06/17 08:00 96 31 H 07/06/17 07:00 101.0 F H 90 34 H 126/57 93 L 07/06/17 06:09 101.9 F H 07/06/17 00:00 105 H 24 07/05/17 23:00 98.7 F 105 H 24 153/90 95 07/05/17 20:11 88 07/05/17 20:00 84 07/05/17 16:27 98.0 F 85 20 135/69 93 L Intake and Output 07/06/17 07/06/17 07/06/17 06:59 14:59 22:59 Intake Total 100 Balance 100 Intake: Oral 100 Other: # Voids 2 1 # Bowel Movements 0 Weight 57.153 kg GENERAL EXAM: Lethargic but easily arousable, 77-year-old white female in no apparent distress. HEAD: Normocephalic/atraumatic. EYES: Normal reaction of pupils, equal size. Conjunctiva pink, sclera white. NOSE: Clear with pink turbinates. THROAT: No erythema or exudates. NECK: No masses, no JVD, no thyroid enlargement, no adenopathy. CHEST: No chest wall deformity. Symmetrical expansion. LUNGS: Diminished air entry bilaterally, with end expiratory wheezes. CVS: Regular rate and rhythm, normal S1 and S2, no gallops, no murmurs, no rubs ABDOMEN: Soft, nontender. No hepatosplenomegaly, normal bowel sounds, no guarding or rigidity. EXTREMITIES: No clubbing, no edema, no cyanosis, 2+ pulses and upper and lower extremities. MUSCULOSKELETAL: Muscle strength and tone normal. SPINE: No scoliosis or deformity SKIN: No rashes CENTRAL NERVOUS SYSTEM: Lethargic but arousable, oriented 3. No focal deficits , tone is normal in all 4 extremities. PSYCHIATRIC: Appropriate affect. Intact judgment and insight. Results - Laboratory Findings CBC and BMP: 07/06/17 08:29 07/06/17 08:29 Abnormal lab findings: Abnormal Labs 07/05/17 07/05/17 07/05/17 12:58 14:57 14:57 WBC 26.0 H* RBC Hgb Neutrophils # Neutrophils # (Manual) 24.10 H Lymphocytes # (Manual) 0.52 L Monocytes # (Manual) 1.04 H Metamyelocytes # (Man) 0.26 H Myelocytes # (Manual) 0.26 H Sodium 126 L Chloride 89 L BUN 28 H Creatinine 1.17 H Glucose 146 H Plasma Lactic Acid Ravindra Calcium Influenza Type A RNA Detected H 07/05/17 07/05/17 07/06/17 14:57 19:05 08:29 WBC 15.9 H RBC 3.66 L Hgb 11.0 L Neutrophils # 13.5 H Neutrophils # (Manual) Lymphocytes # (Manual) Monocytes # (Manual) Metamyelocytes # (Man) Myelocytes # (Manual) Sodium Chloride BUN Creatinine Glucose Plasma Lactic Acid Ravindra 2.2 H* 3.2 H* Calcium Influenza Type A RNA 07/06/17 08:29 WBC RBC Hgb Neutrophils # Neutrophils # (Manual) Lymphocytes # (Manual) Monocytes # (Manual) Metamyelocytes # (Man) Myelocytes # (Manual) Sodium 125 L Chloride 94 L BUN 20 H Creatinine Glucose Plasma Lactic Acid Ravindra Calcium 8.1 L Influenza Type A RNA - Diagnostic Findings Chest x-ray: report reviewed Assessment and Plan Plan: Assessment: #1. Acute COPD exacerbation secondary to influenza A tracheobronchitis, chest x -ray from 07/05/2017 shows patchy posterior basilar atelectasis or infiltrate, cannot rule out pneumonia #2. Acute sepsis, possibly related to possible right lower lobe pneumonia, patient has a febrile illness, leukocytosis, and lactic acidosis #3. Leukocytosis related to the above #4. Lactic acidosis, related to the above, responded well to IV fluid bolus, her initial lactic acid was 2.2, peaked at 3.2 and came down to 1.3 and 0.7 on follow-up lab draws after fluid resuscitation. #5. Hyponatremia, possibly hypovolemic. Initial serum sodium was 126, on today 's lab work is 125 #6. Acute kidney injury, possibly due to ATN #7. Advanced COPD, with a baseline FEV1 of 46% #8. Hypertension, hyperlipidemia #9. 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 Osteoporosis Plan: Continue IV 0.9 normal saline at 50 ML per hour, continue Tamiflu, Rocephin and Zithromax, nebulized treatments, Pulmicort, Perforomist. GI/DVT prophylaxis. Repeat blood work in the morning. Further recommendations to follow. We'll obtain sputum culture. Blood culture results are pending. I performed a history & physical examination of the patient and discussed their management with my nurse practitioner, Ann Tavarez. I reviewed the nurse practitioner's note and agree with the documented findings and plan of care. Lung sounds are diminished with faint expiratory wheezes. The findings and the impression was discussed with the patient. I attest to the documentation by the nurse practitioner. Time with Patient: Greater than 30
[2017-07-06 17:37] LABS: Glucose,Whole Blood 185 mg/dL (75-99)
[2017-07-06] MEDS: BUDESONIDE 1 MG/2 ML NEBU INHALATION SCH (19:08)
[2017-07-06] MEDS: FORMOTEROL FUMARATE 20 MCG/2 ML NEBU INHALATION SCH (19:08)
[2017-07-06 20:58] LABS: Glucose,Whole Blood 253 mg/dL (75-99)
[2017-07-06] MEDS: ATENOLOL 50 MG TAB PO SCH (21:43)
[2017-07-06] MEDS: MONTELUKAST 10 MG TAB PO SCH (21:43)
[2017-07-06] MEDS: ATORVASTATIN 20 MG TAB PO SCH (21:43)
--- NOTE | 2017-07-06 22:07 | P.CON ---
Consult Note - . Consult date: 07/06/17 Assessment/Plan:: This is a 77-year-old female familiar to ID service as she was seen on her April admission due to cellulitis of the right knee this was sustained from a fall and also treated for left humerus fracture. Patient was stabilized and was discharged home with [facility] care. Patient currently lives with her son and . Patient developed cough with clear sputum, congestion and body aches and been going on for 3 days and came into emergency center for evaluation. Initial lactic acid was 2.25 x 3.2 and now 1.3. Patient is status post IV fluid boluses. She was found to have a sodium of 126 and chloride 89 with BUN 28 and creatinine 1.17. Her temperature maximum 101.9 with a white count of 26. Influenza testing a was positive. Blood cultures status received in sputum was collected. Chest x-ray was compared to June 22 chest x-ray done as an outpatient that shows slightly decreased medial right apical density. Possible residual infiltrate and pleural potential scarring. Patchy posterior basilar atelectasis or infiltrate. Left axillary humeral neck fracture. Patient states she is not coughing up sputum. Patient has had increased wheezing this morning. Patient states that she has been using her nebulizer machine at home without any improvement. Patient is currently on azithromycin, Rocephin and Tamiflu and has been admitted to the [facility] floor. Please see the consult note as dictated by nurse practitioner Mrs. Rochelle Rubio This pleasant 77-year-old woman relates that she routinely is quite healthy except for her degenerative joint disease. This is the worst she has felt in her whole life. Fortunately with current treatment she's feeling slightly better. It is noted she has influenza a and does have pneumonic infiltration on her chest x-ray. The patient is improving with current intervention. Will receive her full course of Tamiflu. He currently is receiving antibiotic therapy. Does not appear that she has staph pneumonia and that she is improving with current interventions. At the time of discharge would complete her course of Tamiflu as well as cefuroxime 500 mg every 12 hours for 5 days with respiratory treatments as needed. Her fever is resolving and she is feeling better. I agree with evaluation, assessment and plan for Florence Rubio.
[2017-07-07] MEDS: methylPREDNISolone SOD SUCCI 125 MG/2 ML VIAL IV SCH ×3 (05:57→18:13)
[2017-07-07] MEDS: FORMOTEROL FUMARATE 20 MCG/2 ML NEBU INHALATION SCH ×2 (07:45→18:54)
[2017-07-07] MEDS: BUDESONIDE 1 MG/2 ML NEBU INHALATION SCH ×2 (07:45→18:54)
[2017-07-07] MEDS: IPRATROPIUM-ALBUTEROL 3 ML NEB INHALATION SCH ×4 (07:45→18:53)
[2017-07-07 07:52] LABS: Glucose,Whole Blood 176 mg/dL (75-99)
[2017-07-07] MEDS: PANTOPRAZOLE 40 MG TABLET PO SCH (08:31)
[2017-07-07] MEDS: INSULIN ASPART 100 UNIT/ML 1 ML 10 ML VIAL SQ SCH ×4 (08:31→21:43)
[2017-07-07] MEDS: ASPIRIN 81 MG PO SCH (08:32)
[2017-07-07] MEDS: LOSARTAN 50 MG TAB PO SCH (08:32)
[2017-07-07] MEDS: HEPARIN SODIUM,PORCINE 5,000 UNIT/ML 1 ML VIAL SQ SCH ×2 (08:32→21:43)
[2017-07-07] MEDS: MAGNESIUM OXIDE 400 MG TAB PO SCH (08:33)
[2017-07-07] MEDS: SODIUM CHLORIDE 0.9% 1,000 ML IV SCH (08:36)
[2017-07-07] MEDS: OSELTAMIVIR 60 MG/10 ML ORAL SYRINGE PO SCH ×2 (09:28→21:42)
[2017-07-07 10:30] LABS: Basophils % (A) 0 %; Eosinophils % (A) 0 %; HCT 36.5 % (34.0-46.0); HGB 11.1 gm/dL (11.4-16.0); Lymphocytes # (A) 0.6 k/uL (1.0-4.8); Lymphocytes % (A) 4 %; MCHC 30.4 g/dL (31.0-37.0); MCV 95.3 fL (80.0-100.0); Mean Platelet Volume 7.4; Monocytes # (A) 0.4 k/uL (0-1.0); Monocytes % (A) 3 %; Neutrophils # (A) 15.3 k/uL (1.3-7.7); Neutrophils % (A) 94 %; Platelet Count 339 k/uL (150-450); RBC 3.83 m/uL (3.80-5.40); RDW 15.2 % (11.5-15.5); WBC 16.3 k/uL (3.8-10.6)
[2017-07-07 10:37] LABS: Anion Gap 13 mmol/L; Blood Urea Nitrogen 26 mg/dL (7-17); Calcium 8.8 mg/dL (8.4-10.2); Carbon Dioxide 24 mmol/L (22-30); Chloride 97 mmol/L (98-107); Glucose 160 mg/dL (74-99); Potassium 3.8 mmol/L (3.5-5.1); Sodium 134 mmol/L (137-145)
[2017-07-07] MEDS: guaiFENesin 600 MG TABLET.ER PO SCH ×2 (12:05→21:42)
[2017-07-07 12:34] LABS: Glucose,Whole Blood 135 mg/dL (75-99)
--- NOTE | 2017-07-07 15:10 | P.PN ---
<Ann Tavarez M - Last Filed: 07/07/17 15:04> Subjective Progress Note Date: 07/07/17 Principal diagnosis: Acute COPD exacerbation secondary to influenza a tracheobronchitis, acute sepsis , dehydration, lactic acidosis,VIDAL Chato is a 77-year-old white female patient with history of advanced COPD, with a baseline FEV1 of 46% of predicted, who presented to the ED on 07/05/2017 at 1208 with complaints of cough, congestion, body aches, no fevers but night sweats. She states she started getting sick last Wednesday, or the weekend her shortness of breath and cough got progressively worse. Her phlegm has been clear in color. Denies any chest pain, back pain, nausea vomiting, diarrhea, headache. Chest x-ray taken in the ED on 07/05/2017 shows medial right apical density which seems to have slightly decreased from prior exam on 06/22/2017. There is possible residual infiltrates and pleural parenchymal scarring. Patchy posterior basilar atelectasis or infiltrate on the lateral view. Patient initially presented with low-grade fevers of 99.4, this morning she had a fever spike of 101.9. Evidence of leukocytosis with a WBC of 26, serum sodium of 126, chloride is 89, B UN of 28, creatinine of 1.17, lactic acid of 2.2 which had subsequently went up to 3.2, and came down to 0.7 after fluid resuscitation. Her influenza a screen was positive. Patient was started on IV Rocephin and Zithromax, Tamiflu, IV fluids, nebulized treatments and admitted for further management. At the time of my evaluation patient is seen resting in bed, somewhat lethargic, but arousable to verbal stimuli, somewhat diaphoretic. Lung sounds show diminished air entry bilaterally with faint expiratory wheezing scattered throughout the lung enriquez. She was given a dose of 40 of Lasix in the morning after she was noted to be tachypneic, and positive for crackles. Follow-up chest x-ray shows COPD with right basilar atelectasis or early infiltrate. On 07/07/2017 patient seen in follow-up on medical surgical floor. She looks and feels much better today, awake, alert, conversant, with no evidence of diaphoresis. No febrile episodes in the last 24 hours. Culture shows no growth at the 24-hour robinson. 3 L per nasal cannula at 97%. Vital signs are stable, lung sounds are diminished, with some scattered wheezes, but this is improved from previous exam. His lab work shows WBC of 16.3, hemoglobin of 11.1 , serum sodium is 134, chloride is 97, B1 is 26, and creatinine is 0.95. Lactic acidosis has recovered, the most recent lactic acid level of 0.7 on 07/06 at 0829. Is tolerating oral intake, continue with current medical treatment. Objective - Vital Signs Vital signs: Vital Signs Temp 96.7 F L 07/07/17 07:00 Pulse 76 07/07/17 11:43 Resp 18 07/07/17 07:00 BP 148/75 07/07/17 07:00 Pulse Ox 97 07/07/17 07:48 Intake & Output 07/06/17 07/07/17 07/07/17 18:59 06:59 18:59 Weight 57.153 kg Other: Voiding Method Bedside Commode Bedside Commode # Voids 1 2 3 # Bowel Movements 0 - Exam GENERAL EXAM: Awake, alert, pleasant 77-year-old white female in no apparent distress. HEAD: Normocephalic/atraumatic. EYES: Normal reaction of pupils, equal size. Conjunctiva pink, sclera white. NOSE: Clear with pink turbinates. THROAT: No erythema or exudates. NECK: No masses, no JVD, no thyroid enlargement, no adenopathy. CHEST: No chest wall deformity. Symmetrical expansion. LUNGS: Diminished air entry bilaterally, with end expiratory wheezes. CVS: Regular rate and rhythm, normal S1 and S2, no gallops, no murmurs, no rubs ABDOMEN: Soft, nontender. No hepatosplenomegaly, normal bowel sounds, no guarding or rigidity. EXTREMITIES: No clubbing, no edema, no cyanosis, 2+ pulses and upper and lower extremities. MUSCULOSKELETAL: Muscle strength and tone normal. SPINE: No scoliosis or deformity SKIN: No rashes CENTRAL NERVOUS SYSTEM: Awake, oriented 3. No focal deficits, tone is normal in all 4 extremities. PSYCHIATRIC: Appropriate affect. Intact judgment and insight. - Labs CBC & Chem 7: 07/07/17 09:58 07/07/17 09:58 Labs: Abnormal Lab Results - Last 24 Hours (Table) 07/06/17 07/06/17 07/07/17 Range/Units 17:32 20:50 07:47 WBC (3.8-10.6) k/uL Hgb (11.4-16.0) gm/dL MCHC (31.0-37.0) g/dL Neutrophils # (1.3-7.7) k/uL Lymphocytes # (1.0-4.8) k/uL Sodium (137-145) mmol/L Chloride (98-107) mmol/L BUN (7-17) mg/dL Glucose (74-99) mg/dL POC Glucose (mg/dL) 185 H 253 H 176 H (75-99) mg/dL 07/07/17 07/07/17 07/07/17 Range/Units 09:58 09:58 12:26 WBC 16.3 H (3.8-10.6) k/uL Hgb 11.1 L (11.4-16.0) gm/dL MCHC 30.4 L (31.0-37.0) g/dL Neutrophils # 15.3 H (1.3-7.7) k/uL Lymphocytes # 0.6 L (1.0-4.8) k/uL Sodium 134 L (137-145) mmol/L Chloride 97 L (98-107) mmol/L BUN 26 H (7-17) mg/dL Glucose 160 H (74-99) mg/dL POC Glucose (mg/dL) 135 H (75-99) mg/dL Microbiology - Last 24 Hours (Table) 07/05/17 14:57 Blood Culture - Preliminary Blood No Growth after 24 hours Assessment and Plan Plan: Assessment: #1. Acute COPD exacerbation secondary to influenza A tracheobronchitis, chest x -ray from 07/05/2017 shows patchy posterior basilar atelectasis or infiltrate, cannot rule out pneumonia #2. Acute sepsis, possibly related to possible right lower lobe pneumonia, patient has a febrile illness, leukocytosis, and lactic acidosis #3. Leukocytosis related to the above, improving #4. Lactic acidosis, related to the above, responded well to IV fluid bolus, her initial lactic acid was 2.2, peaked at 3.2 and came down to 1.3 and 0.7 on follow-up lab draws after fluid resuscitation. #5. Hyponatremia, possibly hypovolemic. Initial serum sodium was 126, on today 's lab work is 125. Proving, on 07/07/2017 serum sodium is up to 134 #6. Acute kidney injury, possibly due to ATN, improving, on 07/07/2017 BUN is 26, and creatinine is 0.95 #7. Advanced COPD, with a baseline FEV1 of 46% #8. Hypertension, hyperlipidemia #9. 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 Osteoporosis Plan: Patient looks and feels much better, much more awake, no diaphoresis or febrile episodes. Blood cultures show no growth. Continue IV 0.9 normal saline at 50 ML per hour, continue Tamiflu, Rocephin and Zithromax, nebulized treatments, Pulmicort, Perforomist. GI/DVT prophylaxis. Repeat blood work in the morning. Further recommendations to follow. I performed a history & physical examination of the patient and discussed their management with my nurse practitioner, Ann Tavarez. I reviewed the nurse practitioner's note and agree with the documented findings and plan of care. Lung sounds are diminished with faint expiratory wheezes. The findings and the impression was discussed with the patient. I attest to the documentation by the nurse practitioner. Time with Patient: Less than 30 <Myriam Bassett - Last Filed: 07/07/17 18:24> Objective - Vital Signs Vital signs: Vital Signs Temp 96.7 F L 07/07/17 15:00 Pulse 80 07/07/17 15:54 Resp 16 07/07/17 15:00 BP 151/82 07/07/17 15:00 Pulse Ox 97 07/07/17 15:00 Intake & Output 07/06/17 07/07/17 07/07/17 18:59 06:59 18:59 Weight 57.153 kg Other: Voiding Method Bedside Commode Bedside Commode # Voids 1 2 3 # Bowel Movements 0 - Labs CBC & Chem 7: 07/07/17 09:58 07/07/17 09:58 Labs: Abnormal Lab Results - Last 24 Hours (Table) 07/06/17 07/07/17 07/07/17 Range/Units 20:50 07:47 09:58 WBC 16.3 H (3.8-10.6) k/uL Hgb 11.1 L (11.4-16.0) gm/dL MCHC 30.4 L (31.0-37.0) g/dL Neutrophils # 15.3 H (1.3-7.7) k/uL Lymphocytes # 0.6 L (1.0-4.8) k/uL Sodium (137-145) mmol/L Chloride (98-107) mmol/L BUN (7-17) mg/dL Glucose (74-99) mg/dL POC Glucose (mg/dL) 253 H 176 H (75-99) mg/dL 07/07/17 07/07/17 07/07/17 Range/Units 09:58 12:26 17:35 WBC (3.8-10.6) k/uL Hgb (11.4-16.0) gm/dL MCHC (31.0-37.0) g/dL Neutrophils # (1.3-7.7) k/uL Lymphocytes # (1.0-4.8) k/uL Sodium 134 L (137-145) mmol/L Chloride 97 L (98-107) mmol/L BUN 26 H (7-17) mg/dL Glucose 160 H (74-99) mg/dL POC Glucose (mg/dL) 135 H 208 H (75-99) mg/dL Microbiology - Last 24 Hours (Table) 07/05/17 14:57 Blood Culture - Preliminary Blood No Growth after 48 hours Assessment and Plan Plan: A joint evaluation along with [employer]. I tested above-mentioned formation. Clinically improving. Leukocytosis improving. Lactic acidosis improving. Renal function is improving. Less short of breath compared to yesterday. We' ll follow.
[2017-07-07] MEDS: AZITHROMYCIN 500 MG in SODIUM CHLORIDE 0.9% 250 ML IVPB SCH (15:31)
--- NOTE | 2017-07-07 16:34 | P.PN ---
Subjective Progress Note Date: 07/06/17 Progress note being dictated for Dr. Banks. Interval history: This is a 77-year-old female admitted with acute COPD exacerbation, acute influenza a with sepsis, possible bibasilar pneumonia, bronchopneumonia, hyponatremia and multiple other medical issues. Maintained on Tamiflu, broad-spectrum IV antibiotics, nebulized bronchodilators, with breathing improving. This is listed had increased last night up to 3.2, received another fluid bolus. Earlier this morning became diaphoretic, tachypneic, respiratory rate in the 30s, received a dose of Lasix IV push. Chest x-ray, Lasix, reporting COPD with right basilar atelectasis or early infiltrate-stable. Antibiotics as per infectious disease. T-max 101.9, WBC 15.9, improving. Objective - Vital Signs Vital signs: Vital Signs Temp 96.8 F L 07/06/17 15:00 Pulse 88 07/06/17 16:02 Resp 22 07/06/17 16:00 BP 106/64 07/06/17 15:00 Pulse Ox 96 07/06/17 15:00 Intake & Output 07/05/17 07/06/17 07/06/17 18:59 06:59 18:59 Intake Total 400 Balance 400 Weight 57.153 kg 57.153 kg Intake: Oral 400 Other: Voiding Method Bedside Commode # Voids 2 1 # Bowel Movements 0 - Exam PHYSICAL EXAM: VITAL SIGNS: As above GENERAL: Sitting up in bed, tired appearing, arousable HEENT: Conjunctivae normal. eyes normal. NECK: No JVD. No thyroid enlargement. No LNs CARDIOVASCULAR: S1, S2 muffled. No murmur RESPIRATION: Breath sounds diminished in the bases. No rhonchi or crackles. Fine expiratory wheezing ABDOMEN: Soft, nontender . No guarding. no masses palpable. Bowel sounds heard. LEGS: No edema. no swelling PSYCHIATRY: Alert and oriented -3, mood and affect normal. NERVOUS SYSTEM: Cranial N 2-12 grossly normal. Moves all 4 limbs. Diffuse weakness No focal deficits. No sensory deficit. Skin: no ulcer no rash Joints: No active swelling. No inflammation. Lymphatic system. No LN neck axilla or groin. - Labs CBC & Chem 7: 07/07/17 09:58 07/07/17 09:58 Labs: Abnormal Lab Results - Last 24 Hours (Table) 07/05/17 07/06/17 07/06/17 Range/Units 19:05 08:29 08:29 WBC 15.9 H (3.8-10.6) k/uL RBC 3.66 L (3.80-5.40) m/uL Hgb 11.0 L (11.4-16.0) gm/dL Neutrophils # 13.5 H (1.3-7.7) k/uL Sodium 125 L (137-145) mmol/L Chloride 94 L (98-107) mmol/L BUN 20 H (7-17) mg/dL POC Glucose (mg/dL) (75-99) mg/dL Plasma Lactic Acid Ravindra 3.2 H* (0.7-2.0) mmol/L Calcium 8.1 L (8.4-10.2) mg/dL 07/06/17 Range/Units 17:32 WBC (3.8-10.6) k/uL RBC (3.80-5.40) m/uL Hgb (11.4-16.0) gm/dL Neutrophils # (1.3-7.7) k/uL Sodium (137-145) mmol/L Chloride (98-107) mmol/L BUN (7-17) mg/dL POC Glucose (mg/dL) 185 H (75-99) mg/dL Plasma Lactic Acid Ravindra (0.7-2.0) mmol/L Calcium (8.4-10.2) mg/dL Microbiology - Last 24 Hours (Table) 07/05/17 14:57 Blood Culture - Preliminary Blood No Growth after 24 hours Assessment and Plan Assessment: 1. [ Acute COPD exacerbation secondary to acute influenza a with sepsis]. 2. [ Possible bibasilar pneumonia, bronchopneumonia]. 3. Leukocytosis secondary to the above, improving 4. [ Hyponatremia]. 5. [ Acute renal failure]. 6. [ History of COPD, asthma]. 7. [ Gastroesophageal reflux disease]. Plan: Continue on current medication regime ,monitoring and symptomatic treatment. Maintain IV fluid hydration, Zithromax, Rocephin, Tamiflu, nebulized bronchodilators. Blood cultures pending. The impression and plan of care has been dictated as directed. : I performed a history and examination of this patient, discussed the same with the dictator. I agree with the dictator's note ,documented as a scribe. Any additional findings or plans will be noted.
--- NOTE | 2017-07-07 16:41 | P.PN ---
Subjective Progress Note Date: 07/07/17 Progress note being dictated for Dr. Banks. Interval history: This is a 77-year-old female admitted with acute COPD exacerbation, acute influenza a with sepsis, possible bibasilar pneumonia, bronchopneumonia, hyponatremia and multiple other medical issues. Maintained on Tamiflu, broad-spectrum IV antibiotics, nebulized bronchodilators, with breathing improving. This is listed had increased last night up to 3.2, received another fluid bolus. Earlier this morning became diaphoretic, tachypneic, respiratory rate in the 30s, received a dose of Lasix IV push. Chest x-ray, Lasix, reporting COPD with right basilar atelectasis or early infiltrate-stable. Antibiotics as per infectious disease. T-max 101.9, WBC 15.9, improving. 07/07/2017 feels much better today, much more alert with less congestion and improvement in wheezing. Afebrile. Pulmonary blood cultures negative. Lactic acidosis resolved. 18 O2 sats in the high 90s on 3 L nasal cannula. Good diet intake with no nausea vomiting or diarrhea. Objective - Vital Signs Vital signs: Vital Signs Temp 96.7 F L 07/07/17 07:00 Pulse 80 07/07/17 15:54 Resp 18 07/07/17 07:00 BP 148/75 07/07/17 07:00 Pulse Ox 97 07/07/17 07:48 Intake & Output 07/06/17 07/07/17 07/07/17 18:59 06:59 18:59 Weight 57.153 kg Other: Voiding Method Bedside Commode Bedside Commode # Voids 1 2 3 # Bowel Movements 0 - Exam PHYSICAL EXAM: VITAL SIGNS: As above GENERAL: Sitting up in bed, alert, no acute distress HEENT: Conjunctivae normal. eyes normal. NECK: No JVD. No thyroid enlargement. No LNs CARDIOVASCULAR: S1, S2 muffled. No murmur RESPIRATION: Breath sounds diminished in the bases. No rhonchi or crackles. Fine expiratory wheezing-improving ABDOMEN: Soft, nontender . No guarding. no masses palpable. Bowel sounds heard. LEGS: No edema. no swelling PSYCHIATRY: Alert and oriented -3, mood and affect normal. NERVOUS SYSTEM: Cranial N 2-12 grossly normal. Moves all 4 limbs. Diffuse weakness No focal deficits. No sensory deficit. Skin: no ulcer no rash Joints: No active swelling. No inflammation. Lymphatic system. No LN neck axilla or groin. - Labs CBC & Chem 7: 07/07/17 09:58 07/07/17 09:58 Labs: Abnormal Lab Results - Last 24 Hours (Table) 07/06/17 07/06/17 07/07/17 Range/Units 17:32 20:50 07:47 WBC (3.8-10.6) k/uL Hgb (11.4-16.0) gm/dL MCHC (31.0-37.0) g/dL Neutrophils # (1.3-7.7) k/uL Lymphocytes # (1.0-4.8) k/uL Sodium (137-145) mmol/L Chloride (98-107) mmol/L BUN (7-17) mg/dL Glucose (74-99) mg/dL POC Glucose (mg/dL) 185 H 253 H 176 H (75-99) mg/dL 07/07/17 07/07/17 07/07/17 Range/Units 09:58 09:58 12:26 WBC 16.3 H (3.8-10.6) k/uL Hgb 11.1 L (11.4-16.0) gm/dL MCHC 30.4 L (31.0-37.0) g/dL Neutrophils # 15.3 H (1.3-7.7) k/uL Lymphocytes # 0.6 L (1.0-4.8) k/uL Sodium 134 L (137-145) mmol/L Chloride 97 L (98-107) mmol/L BUN 26 H (7-17) mg/dL Glucose 160 H (74-99) mg/dL POC Glucose (mg/dL) 135 H (75-99) mg/dL Microbiology - Last 24 Hours (Table) 07/05/17 14:57 Blood Culture - Preliminary Blood No Growth after 24 hours Assessment and Plan Assessment: 1. [ Acute COPD exacerbation secondary to acute influenza a with sepsis]. 2. [ Possible bibasilar pneumonia, bronchopneumonia]. 3. Leukocytosis secondary to the above, improving 4. [ Hyponatremia, improving]. 5. [ Acute renal failure]. 6. [ History of COPD, asthma]. 7. [ Gastroesophageal reflux disease]. 8. History of seizure disorder, epilepsy Plan: Continue on current medication regime ,monitoring and symptomatic treatment. Continue IV fluid hydration, Zithromax, Rocephin, Tamiflu, nebulized bronchodilators. Follow cultures closely, preliminary currently reporting no growth. Antibiotics as per infectious disease. The impression and plan of care has been dictated as directed. : I performed a history and examination of this patient, discussed the same with the dictator. I agree with the dictator's note ,documented as a scribe. Any additional findings or plans will be noted.
[2017-07-07 17:50] LABS: Glucose,Whole Blood 208 mg/dL (75-99)
[2017-07-07] MEDS: cefTRIAXone IN SWFI 1,000 MG/10 ML SYRINGE IVP SCH (18:11)
[2017-07-07 20:52] LABS: Glucose,Whole Blood 122 mg/dL (75-99)
[2017-07-07] MEDS: ALPRAZolam 0.25 MG TAB PO PRN (21:42)
[2017-07-07] MEDS: ATORVASTATIN 20 MG TAB PO SCH (21:42)
[2017-07-07] MEDS: MONTELUKAST 10 MG TAB PO SCH (21:42)
[2017-07-07] MEDS: ATENOLOL 50 MG TAB PO SCH (21:42)
[2017-07-08] MEDS: methylPREDNISolone SOD SUCCI 125 MG/2 ML VIAL IV SCH ×3 (00:35→10:59)
[2017-07-08] MEDS: SODIUM CHLORIDE 0.9% 1,000 ML IV SCH (06:54)
[2017-07-08 07:47] VITALS: RESP 18
[2017-07-08] MEDS: BUDESONIDE 1 MG/2 ML NEBU INHALATION SCH (07:54)
[2017-07-08] MEDS: FORMOTEROL FUMARATE 20 MCG/2 ML NEBU INHALATION SCH (07:54)
[2017-07-08] MEDS: IPRATROPIUM-ALBUTEROL 3 ML NEB INHALATION SCH ×3 (07:54→16:16)
[2017-07-08 08:05] LABS: Glucose,Whole Blood 151 mg/dL (75-99)
[2017-07-08] MEDS: INSULIN ASPART 100 UNIT/ML 1 ML 10 ML VIAL SQ SCH ×2 (08:46→12:59)
[2017-07-08] MEDS: guaiFENesin 600 MG TABLET.ER PO SCH (08:47)
[2017-07-08] MEDS: HEPARIN SODIUM,PORCINE 5,000 UNIT/ML 1 ML VIAL SQ SCH (08:48)
[2017-07-08] MEDS: ASPIRIN 81 MG PO SCH (08:48)
[2017-07-08] MEDS: PANTOPRAZOLE 40 MG TABLET PO SCH (08:48)
[2017-07-08] MEDS: MAGNESIUM OXIDE 400 MG TAB PO SCH (08:48)
[2017-07-08] MEDS: LOSARTAN 50 MG TAB PO SCH (08:48)
[2017-07-08] MEDS: OSELTAMIVIR 60 MG/10 ML ORAL SYRINGE PO SCH (09:24)
[2017-07-08 10:59] LABS: Basophils % (A) 0 %; Eosinophils % (A) 0 %; HCT 34.3 % (34.0-46.0); HGB 10.6 gm/dL (11.4-16.0); Lymphocytes # (A) 0.3 k/uL (1.0-4.8); Lymphocytes % (A) 3 %; MCH 28.9 pg (25.0-35.0); MCHC 30.8 g/dL (31.0-37.0); MCV 93.8 fL (80.0-100.0); Mean Platelet Volume 7.1; Monocytes # (A) 0.2 k/uL (0-1.0); Monocytes % (A) 2 %; Neutrophils # (A) 12.8 k/uL (1.3-7.7); Neutrophils % (A) 95 %; Platelet Count 346 k/uL (150-450); RBC 3.66 m/uL (3.80-5.40); RDW 14.1 % (11.5-15.5); WBC 13.5 k/uL (3.8-10.6)
[2017-07-08 11:04] LABS: Anion Gap 11 mmol/L; Blood Urea Nitrogen 27 mg/dL (7-17); Calcium 8.7 mg/dL (8.4-10.2); Carbon Dioxide 26 mmol/L (22-30); Chloride 99 mmol/L (98-107); Glucose 214 mg/dL (74-99); Potassium 3.8 mmol/L (3.5-5.1); Sodium 136 mmol/L (137-145)
[2017-07-08 11:19] LABS: Glucose,Whole Blood 200 mg/dL (75-99)
[2017-07-08] MEDS: AZITHROMYCIN 500 MG in SODIUM CHLORIDE 0.9% 250 ML IVPB SCH (12:58)
[2017-07-08 14:57] VITALS: BP 156/74; PULSE 81; TEMP 97.7
--- NOTE | 2017-07-08 15:09 | P.PN ---
Subjective Progress Note Date: 07/08/17 Principal diagnosis: Acute COPD exacerbation secondary to influenza a tracheobronchitis, acute sepsis , dehydration, lactic acidosis,VIDAL Chato is a 77-year-old white female patient with history of advanced COPD, with a baseline FEV1 of 46% of predicted, who presented to the ED on 07/05/2017 at 1208 with complaints of cough, congestion, body aches, no fevers but night sweats. She states she started getting sick last Wednesday, or the weekend her shortness of breath and cough got progressively worse. Her phlegm has been clear in color. Denies any chest pain, back pain, nausea vomiting, diarrhea, headache. Chest x-ray taken in the ED on 07/05/2017 shows medial right apical density which seems to have slightly decreased from prior exam on 06/22/2017. There is possible residual infiltrates and pleural parenchymal scarring. Patchy posterior basilar atelectasis or infiltrate on the lateral view. Patient initially presented with low-grade fevers of 99.4, this morning she had a fever spike of 101.9. Evidence of leukocytosis with a WBC of 26, serum sodium of 126, chloride is 89, B UN of 28, creatinine of 1.17, lactic acid of 2.2 which had subsequently went up to 3.2, and came down to 0.7 after fluid resuscitation. Her influenza a screen was positive. Patient was started on IV Rocephin and Zithromax, Tamiflu, IV fluids, nebulized treatments and admitted for further management. At the time of my evaluation patient is seen resting in bed, somewhat lethargic, but arousable to verbal stimuli, somewhat diaphoretic. Lung sounds show diminished air entry bilaterally with faint expiratory wheezing scattered throughout the lung enriquez. She was given a dose of 40 of Lasix in the morning after she was noted to be tachypneic, and positive for crackles. Follow-up chest x-ray shows COPD with right basilar atelectasis or early infiltrate. On 07/07/2017 patient seen in follow-up on medical surgical floor. She looks and feels much better today, awake, alert, conversant, with no evidence of diaphoresis. No febrile episodes in the last 24 hours. Culture shows no growth at the 24-hour robinson. 3 L per nasal cannula at 97%. Vital signs are stable, lung sounds are diminished, with some scattered wheezes, but this is improved from previous exam. His lab work shows WBC of 16.3, hemoglobin of 11.1 , serum sodium is 134, chloride is 97, B1 is 26, and creatinine is 0.95. Lactic acidosis has recovered, the most recent lactic acid level of 0.7 on 07/06 at 0829. Is tolerating oral intake, continue with current medical treatment. On 07/08/2017 patient seen in follow-up on medical surgical floor. Continues to improve, has been ambulating in the room, tolerating well. Vital signs are stable, she is on room air pulse ox 94%. Lung sounds reveal better air entry bilaterally, with a few faint wheezes. Her cough is now becoming productive. Today's lab work was reviewed, WBC is now down to 13.5, hemoglobin is 10.6, serum sodium is 136, BUN 27, creatinine 1.0. From pulmonary standpoint patient is stable for discharge home today. Objective - Vital Signs Vital signs: Vital Signs Temp 97.7 F 07/08/17 14:56 Pulse 81 07/08/17 14:56 Resp 18 07/08/17 14:56 BP 156/74 07/08/17 14:56 Pulse Ox 94 L 07/08/17 14:56 Intake & Output 07/07/17 07/08/17 07/08/17 18:59 06:59 18:59 Output Total 1 Balance -1 Output: Stool 1 Other: Voiding Method Bedside Commode # Voids 3 3 2 - Exam GENERAL EXAM: Awake, alert, pleasant 77-year-old white female in no apparent distress. HEAD: Normocephalic/atraumatic. EYES: Normal reaction of pupils, equal size. Conjunctiva pink, sclera white. NOSE: Clear with pink turbinates. THROAT: No erythema or exudates. NECK: No masses, no JVD, no thyroid enlargement, no adenopathy. CHEST: No chest wall deformity. Symmetrical expansion. LUNGS: Diminished air entry bilaterally, with end expiratory wheezes. CVS: Regular rate and rhythm, normal S1 and S2, no gallops, no murmurs, no rubs ABDOMEN: Soft, nontender. No hepatosplenomegaly, normal bowel sounds, no guarding or rigidity. EXTREMITIES: No clubbing, no edema, no cyanosis, 2+ pulses and upper and lower extremities. MUSCULOSKELETAL: Muscle strength and tone normal. SPINE: No scoliosis or deformity SKIN: No rashes CENTRAL NERVOUS SYSTEM: Awake, oriented 3. No focal deficits, tone is normal in all 4 extremities. PSYCHIATRIC: Appropriate affect. Intact judgment and insight. - Labs CBC & Chem 7: 07/08/17 09:48 07/08/17 09:48 Labs: Abnormal Lab Results - Last 24 Hours (Table) 07/07/17 07/07/17 07/08/17 Range/Units 17:35 20:45 07:37 WBC (3.8-10.6) k/uL RBC (3.80-5.40) m/uL Hgb (11.4-16.0) gm/dL MCHC (31.0-37.0) g/dL Neutrophils # (1.3-7.7) k/uL Lymphocytes # (1.0-4.8) k/uL Sodium (137-145) mmol/L BUN (7-17) mg/dL Glucose (74-99) mg/dL POC Glucose (mg/dL) 208 H 122 H 151 H (75-99) mg/dL 07/08/17 07/08/17 07/08/17 Range/Units 09:48 09:48 11:14 WBC 13.5 H (3.8-10.6) k/uL RBC 3.66 L (3.80-5.40) m/uL Hgb 10.6 L (11.4-16.0) gm/dL MCHC 30.8 L (31.0-37.0) g/dL Neutrophils # 12.8 H (1.3-7.7) k/uL Lymphocytes # 0.3 L (1.0-4.8) k/uL Sodium 136 L (137-145) mmol/L BUN 27 H (7-17) mg/dL Glucose 214 H (74-99) mg/dL POC Glucose (mg/dL) 200 H (75-99) mg/dL Microbiology - Last 24 Hours (Table) 07/07/17 08:00 Gram Stain - Preliminary Sputum 07/05/17 14:57 Blood Culture - Preliminary Blood No Growth after 48 hours Assessment and Plan Plan: Assessment: #1. Acute COPD exacerbation secondary to influenza A tracheobronchitis, chest x -ray from 07/05/2017 shows patchy posterior basilar atelectasis or infiltrate, cannot rule out pneumonia. #2. Acute sepsis, possibly related to possible right lower lobe pneumonia, patient has a febrile illness, leukocytosis, and lactic acidosis #3. Leukocytosis related to the above, improving #4. Lactic acidosis, related to the above, responded well to IV fluid bolus, her initial lactic acid was 2.2, peaked at 3.2 and came down to 1.3 and 0.7 on follow-up lab draws after fluid resuscitation. #5. Hyponatremia, possibly hypovolemic. Initial serum sodium was 126, on today 's lab work is 125. Proving, on 07/07/2017 serum sodium is up to 134 #6. Acute kidney injury, possibly due to ATN, improving, on 07/07/2017 BUN is 26, and creatinine is 0.95 #7. Advanced COPD, with a baseline FEV1 of 46% #8. Hypertension, hyperlipidemia #9. 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 Osteoporosis Plan: Patient continues to improve, has been able to ambulate, without any respiratory distress. Afebrile, vital signs are stable, today's lab work shows continued downward trend of WBC. Her cough is nonproductive, no worsening dyspnea, sputum culture are negative. No diaphoresis, chest pain or febrile episodes. From pulmonary standpoint she is stable for discharge home today, finish the 5 day course of Tamiflu, Ceftin, Zithromax and prednisone taper. Continue maintenance inhalers and nebulized treatments. Follow-up with Dr. Bassett in one week. I performed a history & physical examination of the patient and discussed their management with my nurse practitioner, Ann Tavarez. I reviewed the nurse practitioner's note and agree with the documented findings and plan of care. Lung sounds are diminished with faint expiratory wheezes. The findings and the impression was discussed with the patient. I attest to the documentation by the nurse practitioner. Time with Patient: Less than 30
--- NOTE | 2017-07-09 09:04 | DS ---
DISCHARGE SUMMARY DATE OF SERVICE: 07/08/2017 FINAL DIAGNOSES: 1. Chronic obstructive pulmonary disease acute exacerbation as well as acute influenza A with sepsis, present on admission. 2. Possible bibasilar pneumonia, bronchopneumonia. 3. Leukocytosis secondary to above. 4. Hyponatremia. 5. Acute renal failure. 6. History of chronic obstructive pulmonary disease. 7. History of gastroesophageal reflux disease. 8. History of seizure disorder, epilepsy. DISCHARGE DISPOSITION: The patient is being discharged in stable condition with guarded prognosis. Total time taken 35 minutes. HISTORY OF PRESENT ILLNESS: This 77-year-old woman with past medical history of multiple medical problems admitted with COPD and acute influenza A. The patient had features of sepsis present on admission. Patient extremely sick. Patient had bibasilar pneumonia and bronchopneumonia, but however because IV antibiotics and other medications patient improved significantly and the patient was discharged in stable condition with guarded prognosis. During the hospitalization, patient was seen by Dr. Bassett as well as Dr. Khan also. History of Rocephin and Tamiflu. On exam, vitals are stable. CARDIOVASCULAR: S1, S2. ABDOMEN: Soft. NERVOUS SYSTEM: No focal deficits. RESPIRATORY: A few bilateral scattered rhonchi. DISCHARGE ADVICE AND MEDICATIONS: 1. Diet is cardiac diet. 2. Activity limited until followup. 3. Follow up with Dr. Melgoza in 2-3 days. 4. Follow up with Dr. Bassett as recommended. 5. Home care is also being arranged. MEDICATIONS: 1. Albuterol 2.5 q.i.d. and p.r.n. 2. ProAir HFA p.r.n. 3. Xanax 0.5 daily p.r.n. 4. Aspirin 81 mg daily. 5. atenolol 50 mg p.o. q.h.s. 6. Zithromax 500 mg p.o. daily for 5 days. 7. Symbicort 160/4.5 two puffs b.i.d. 8. Ceftin 500 mg p.o. b.i.d. for 5 days. 9. Flexeril 10 mg p.o. t.i.d. p.r.n. 10.Col-Rite 100 mg p.o. b.i.d. 11.Prolia 60 mg subcu 1 q.180 days. 12.ISMO 40 mg p.o. daily. 13.Fluticasone nasal one spray each nostril daily p.r.n. 14.Mucinex 600 mg p.o. b.i.d. 15.Losartan 50 mg p.o. daily. 16.Magnesium oxide 250 mg p.o. daily. 17.Singulair 10 mg p.o. q.h.s. 18.Prednisone taper of 40 mg daily for 3 days, 30 for 3 days, 20 for 3 days, 10 for 3 days and then stop. 19.Zocor 40 mg q.h.s. 20.Spiriva 1 puff daily. MMODL / IJN: [id number] / MTDD
[2017-07-09] MEDS ORDERED: AZITHROMYCIN 500 MG TAB PO SCH (15:00)
== END 2017-07-08 16:23 | disposition home health service (06) | DRG 871 ==
LOC: EC 12:08 → 4MS4W 14:26
PROVIDERS: ADMIT Hospitalist; ATTEND Hospitalist
DX: A41.9 Sepsis, unspecified organism (principal); J10.08 Influenza due to other identified influenza virus with other specified pneumonia; N17.0 Acute kidney failure with tubular necrosis; J18.0 Bronchopneumonia, unspecified organism; E86.0 Dehydration; G40.909 Epilepsy, unspecified, not intractable, without status epilepticus; E87.1 Hypo-osmolality and hyponatremia; J44.0 Chronic obstructive pulmonary disease with (acute) lower respiratory infection; J44.1 Chronic obstructive pulmonary disease with (acute) exacerbation; E03.9 Hypothyroidism, unspecified; E78.5 Hyperlipidemia, unspecified; H91.92 Unspecified hearing loss, left ear; I10 Essential (primary) hypertension; J10.1 Influenza due to other identified influenza virus with other respiratory manifestations; K21.9 Gastro-esophageal reflux disease without esophagitis; M19.90 Unspecified osteoarthritis, unspecified site; M81.0 Age-related osteoporosis without current pathological fracture; E04.1 Nontoxic single thyroid nodule; H54.7 Unspecified visual loss; F17.201 Nicotine dependence, unspecified, in remission; Z79.51 Long term (current) use of inhaled steroids; Z79.82 Long term (current) use of aspirin; Z79.899 Other long term (current) drug therapy; Z90.710 Acquired absence of both cervix and uterus; Z85.828 Personal history of other malignant neoplasm of skin; Z88.0 Allergy status to penicillin; Z88.8 Allergy status to other drugs, medicaments and biological substances
CPT/HCPCS: 36415; 71045; 71046; 80048; 80053; 83605; 85025; 87040; 87070; 87205; 87502; 94640; 94760; 96365; 96375; 99284

== ENCOUNTER → 2017-10-14 | Outpatient (CLI) | payer MEDICARE, OTHER ==
--- NOTE | 2017-10-14 12:23 | CT ---
EXAMINATION TYPE: CT chest w con DATE OF EXAM: 10/14/2017 COMPARISON: 10/30/2016 HISTORY: Abnormal finding of lung imaging, flu (August) trouble breathing since CT DLP: 149.5 mGycm Automated exposure control for dose reduction was used. CONTRAST: CT scan of the chest is performed with IV Contrast, patient injected with 80 mL of Isovue 300. FINDINGS: LUNGS: Emphysematous changes are again noted. Apical irregular density measuring 2.8 x 1.8 cm in the right apex is stable on the axial images appears somewhat planar on the coronal and sagittal images a nd may be related to scar. Blunting tree appearance with micronodular pattern in the right lower lobe is stable. This can be sometimes associated with granulomatous disease. No focal pneumonia. There is subsegmental consolidation the left lung base felt more typical of atelectasis. Stable 2 mm nodule l ateral segment left lower lobe. Pleural-based 6 mm nodule stable left lower lobe. MEDIASTINUM: Main pulmonary artery measures 3.7 cm. Distal descending thoracic aorta measures 3.8 cm Stable. Atherosclerotic changes noted. Extensive atherosclerotic change of the aorta including the me senteric vasculature noted. Suspect a significant stenosis or short segmental occlusion of the SMA. Coronary artery calcification noted. There is apparent occlusion of the origin of the left subclavian artery. Correlate for subclavian steal phenomenon. OTHER: Upper pole renal cyst left kidney stable. Nodular thickening of the left adrenal gland noted. Chronic rib deformities are seen. Correlate for remote fractures. Hypertrophic and degenerative fan ge of the spine IMPRESSION: 1. Stable right apical spiculated density most likely related to scar. 2. Correlate for COPD. 3. Stable pulmonary nodules measuring 6 mm or less. 4. Subsegmental areas of consolidation are stable most typical of atelectasis. 5. Suspect occlusion of the origin of the left subclavian artery correlate for subclavian steal pheno juan. 6. 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 #7 mild a neurysmal dilation or ectasia of the descending thoracic aorta
== END | disposition home or self-care (01) ==
LOC: RADCTMAIN 10:54
PROVIDERS: ATTEND Nurse Practitioner Adult Health
DX: R91.8 Other nonspecific abnormal finding of lung field (principal)
CPT/HCPCS: 82565; 84520; 71260; 36415; Q9967

== ENCOUNTER → 2017-10-25 | Outpatient (CLI) | payer MEDICARE, OTHER ==
--- NOTE | 2017-10-25 15:54 | US ---
EXAMINATION TYPE: US thyroid st tissue head/neck DATE OF EXAM: 10/25/2017 COMPARISON: US 2017 CLINICAL HISTORY: E04.1 Thyroid Nodule. GLAND SIZE: Right Lobe: 4.3 x 2.1 x 1.8 cm Overall Parenchyma: heterogenous Left Lobe: 3.7 x 1.3 x 1.1 cm Overall Parenchyma: heterogeneous Isthmus Thickness: 0.6 cm NODULES RIGHT: # of nodules measured on right: 2 largest of multiple 1. 1.8 X 1.5 x 1.1 cm hypoechoic mixed nodule at the lower pole with well-defined margins. This no dule is wider than tall and shows intranodular vascularity. Prior size: 1.9 x 1.1 x 1.1 cm 2. 0.8 X 0.5 x 0.4 cm hypoechoic mixed nodule at the upper pole with well-defined margins. This nod ule is wider than tall and shows intranodular vascularity. Prior size: 0.6 x 0.5 x 0.4 cm LEFT: # of nodules measured on left: 2 1. 0.5 X 0.4 x 0.3 cm hypoechoic mixed nodule at the upper pole with well-defined margins. This no dule is wider than tall and shows no intranodular vascularity. Prior size: 0.5 x 0.5 x 0.3 cm 2. 0.5 X 0.4 x 0.4 cm hypoechoic cystic nodule at the mid pole with well-defined margins. This nodu le is wide as is tall and shows no intranodular vascularity. Prior size: not seen ISTHMUS: # of nodules measured in the isthmus: 2 1. 1.0 X 1.0 x 0.7 cm hypoechoic mixed nodule at the lower right medial pole with well-defined michael ins; present with microcalcifications. This nodule is wider than tall and shows no intranodular vasc ularity. Prior size: 1.0 x 0.9 x 0.7 cm 2. 0.5 X 0.3 x 0.4 cm hypoechoic mixed nodule at the lower right later pole with well-defined margin s; present with microcalcifications. This nodule is taller than wide and shows no intranodular vascu larity. Prior size: 0.8 x 0.3 x 0.3 cm Bilateral neck scanned, no evidence of lymphadenopathy. IMPRESSION: Multiple thyroid nodules are similar to prior, there are likely associated colloid cysts.
== END | disposition home or self-care (01) ==
LOC: RADUSWWP 14:59
PROVIDERS: ATTEND Otolaryngology
DX: E04.2 Nontoxic multinodular goiter (principal)
CPT/HCPCS: 76536

== ENCOUNTER → 2017-11-02 | Outpatient (CLI) | payer MEDICARE, OTHER ==
--- NOTE | 2017-11-02 11:27 | MM ---
Reason for exam: follow-up at short interval from prior study. Last mammogram was performed 6 months ago. History: US discontinued breast core RT of the right breast, October 14, 2016. Physical Findings: Nurse Summary: 0.5cm nodule in the right breast at 10 o'clock (nurse ms). MG 3D Diag Mammo W/Cad LISA Bilateral CC and MLO view(s) were taken. Prior study comparison: April 20, 2017, right breast MG 3d diag mammo w/cad RT. August 31, 2016, mammogram. Nodularity approximately 4 o'clock anterior right breast unchanged from 08/31/16. Additional short interval follow up recommended. Palpable marker right upper outer quadrant. These results were verbally communicated with the patient and result sheet given to the patient on 11/02/17. ASSESSMENT: Incomplete: need additional imaging evaluation, BI-RAD 0 RECOMMENDATION: Ultrasound of the right breast. (palpable)
--- NOTE | 2017-11-02 11:28 | USB ---
Reason for exam: additional evaluation requested from abnormal screening. History: US discontinued breast core RT of the right breast, October 14, 2016. US Breast Limited RT Right limited breast ultrasound including focal area of concern, retroareolar and axilla demonstrates a 0.4 x 0.4 x 0.5cm solid lesion at 1 o'clock, correlates with mammographic findings. These results were verbally communicated with the patient and result sheet given to the patient on 11/02/17. ASSESSMENT: Probably benign, BI-RAD 3 RECOMMENDATION: Follow-up diagnostic mammogram of the right breast in 6 months. Manage on a clinical basis with regard to palpable abnormality.
== END | disposition home or self-care (01) ==
LOC: RADMAMWWP 09:08
PROVIDERS: ATTEND Family Medicine
DX: R92.8 Other abnormal and inconclusive findings on diagnostic imaging of breast (principal)
CPT/HCPCS: 77066; 76642; G0279; 77062

== ENCOUNTER → 2017-11-25 | Outpatient (CLI) | payer MEDICARE, OTHER ==
--- NOTE | 2017-11-25 12:55 | CT ---
EXAMINATION TYPE: CT abdomen pelvis w con DATE OF EXAM: 11/25/2017 HISTORY: Abdominal distention CT DLP: 1096mGycm Automated Exposure Control for Dose Reduction was Utilized. CONTRAST: CT scan of the abdomen and pelvis is performed with IV Contrast, patient injected with 100 mL of Isov ue 300. COMPARISON: None. FINDINGS: LUNG BASES: Nodular focal pleural thickening is seen along the right lung base measuring 9 mm on marc nal image 50. Mild centrilobular emphysematous change is also seen at the lung bases with second area of focal pleural thickening on the left measuring 4 mm on image 7 of series 4. LIVER/GB: There is a 3 mm too small to accurately characterize left hepatic lobe lesion on series 3 i mage 15. Remainder the liver is unremarkable. Gallbladder is partially contracted. No radiopaque calc nat. PANCREAS: No significant abnormality is seen. No ductal dilatation. SPLEEN: No significant abnormality is seen. No splenomegaly. ADRENALS: No significant abnormality is seen. No nodularity. KIDNEYS: There are bilateral renal cyst in addition to subcentimeter renal lesions that are too small to accurately characterize. No hydronephrosis. BOWEL: There is incomplete distention of the transverse colon and hepatic flexure. This results in mi ld bowel wall thickening which could relate to early colitis or incomplete distention. No large or sm all bowel dilation. UTERUS/ADNEXA: Surgically absent or significantly atrophic. LYMPH NODES: No greater than 1cm abdominal or pelvic lymph nodes are appreciated. OSSEOUS STRUCTURES: Old healed fracture deformity of the right inferior pubic ramus and superior pubi c ramus are noted. Asymmetric sacroiliac joint degenerative change with old prior sacral healed fract ures are also seen. OTHER: There is extensive atherosclerosis of the abdominal aorta and its branches that is both calcif ic and noncalcific. In addition to the fusiform infrarenal abdominal aortic aneurysm measuring 3.0 x 3.2 cm there is a saccular additional smaller aneurysm versus pseudoaneurysm right paracentrally karena uring 1.6 x 1.0 cm on series 3 image 29. Thoracic aortic aneurysm also is seen in the descending thor acic aorta measuring 3.9 x 3.8 cm. IMPRESSION: 1. Mild thickening of the transverse colon and hepatic flexure that may relate to nondistention or ea rly colitis. Differential includes infectious, inflammatory, and ischemic colitis given the extensive atheromatous changes of the abdominal aorta. Correlation with lactic acid level. 2. Infrarenal abdominal aortic aneurysm measuring 3.0 x 3.2 cm, saccular infrarenal pseudoaneurysm ve rsus smaller right paracentral shallow aneurysm of the infrarenal abdominal aorta with the outpouchin g measuring 1.6 x 1.0 cm and descending thoracic aortic aneurysm measuring 3.9 x 3.8 cm.
== END | disposition home or self-care (01) ==
LOC: RADCTMAIN 10:19
PROVIDERS: ATTEND Internal Medicine Hematology & Oncology
DX: I71.4 Abdominal aortic aneurysm, without rupture (principal); K63.89 Other specified diseases of intestine; K76.89 Other specified diseases of liver
CPT/HCPCS: 74177; Q9967

== ENCOUNTER 2018-01-05 08:34 | Day surgery (SDC) | payer MEDICARE, OTHER ==
[2017-12-31 10:34] VITALS: BMI 23.0
[~2018-01-05 08:34] MED LIST: LACTATED RINGERS 1,000 ML IV SCH
[2018-01-05 09:00] VITALS: RESP 18; TEMP 98.5
[2018-01-05] MEDS ORDERED: LIDOCAINE 1% 20 ML VIAL (10MG/ML) FOR IV START INTRADERMA ONE (09:20)
[2018-01-05] MEDS ORDERED: PROPOFOL 10 MG/ML 20 ML VIAL IV ONE (09:42)
[2018-01-05] MEDS ORDERED: LIDOCAINE 1% INJ 10MG/ML (20 ML MDV) ONE (09:42)
--- NOTE | 2018-01-05 10:16 | P.PCN ---
Date of Procedure: 01/05/18 Procedure(s) Performed: Brief history: Patient is a pleasant 77-year-old white female, scheduled for an elective upper endoscopy as well as colonoscopy as a part of evaluation of epigastric pain, abdominal bloating and iron deficiency anemia. Procedure performed: Esophagogastroduodenoscopy with biopsy Colonoscopy Preoperative diagnosis: Epigastric pain/abdominal bloating Iron deficiency anemia Anesthesia: MAC Procedure: After informed consent was obtained from the patient was brought into the endoscopy unit and IV sedation was administered by anesthesia under continuous monitoring. Initially upper endoscopy was done. The Olympus GF 160 video endoscope was inserted inserted into the mouth and esophagus intubated without any difficulty and was gradually advanced into the stomach and duodenum and carefully examined. The bulb and second part of the duodenum appeared normal. Biopsies were done from the duodenum to rule out celiac disease. The scope was then withdrawn into the stomach adequately insufflated with air and upon careful examination the antrum had some erythema in the prepyloric area and biopsies were done from this area. The body, cardia and fundus appeared normal. Small sliding Hiatal hernia noted. The scope was then withdrawn into the esophagus. The GE junction was located at 40 cm to the incisors. It appeared regular with no erythema erosions or ulcerations. Rest of the esophagus appeared normal. Patient tolerated the procedure well. At this time the patient continued to remain sedation. Initial digital rectal examination was normal. Olympus CF 160 video colonoscope was then inserted into the rectum and gradually advanced to the cecum without any difficulty. Careful examination was performed as the scope was gradually being withdrawn. The prep was excellent. The cecum, ascending colon, transverse colon, descending colon, sigmoid colon and rectum appeared normal. Retroflexion was performed in the rectum and small internal hemorrhoids were noted. Patient tolerated the procedure well. Impression: 1.Upper endoscopy revealed minimal antral gastritis and a small sliding-type hiatal hernia 2.Colonoscopy was essentially within normal limits with no evidence of colitis or colorectal neoplasia Recommendations: Findings of this examination were discussed with the patient as well gela family. She was advised to follow with the biopsy results. She'll follow with the biopsy results. She'll be seen in office in 2-3 weeks.
[2018-01-05 10:59] VITALS: BP 149/65; PULSE 91
== END 2018-01-05 11:48 | disposition home or self-care (01) ==
LOC: ORWHC2ENDO 08:34
PROVIDERS: ATTEND Internal Medicine Gastroenterology
DX: K29.50 Unspecified chronic gastritis without bleeding (principal); D50.9 Iron deficiency anemia, unspecified; K44.9 Diaphragmatic hernia without obstruction or gangrene; E78.5 Hyperlipidemia, unspecified; J44.9 Chronic obstructive pulmonary disease, unspecified; K21.9 Gastro-esophageal reflux disease without esophagitis; I10 Essential (primary) hypertension; K64.8 Other hemorrhoids; Z88.0 Allergy status to penicillin; Z88.2 Allergy status to sulfonamides; Z88.8 Allergy status to other drugs, medicaments and biological substances; Z87.891 Personal history of nicotine dependence; Z79.51 Long term (current) use of inhaled steroids; Z79.82 Long term (current) use of aspirin; Z79.899 Other long term (current) drug therapy
CPT/HCPCS: 88305; 45378; 43239; J2001; J2704

== ENCOUNTER 2018-02-14 15:08 | Emergency (ER) | payer MEDICARE, OTHER ==
[2018-02-14 15:31] VITALS: TEMP 98.5
[2018-02-14 16:07] LABS: Anisocytosis Slight; Basophils % (A) 0 %; Eosinophils # (A) 0.1 k/uL (0-0.7); Eosinophils % (A) 0 %; HCT 33.5 % (34.0-46.0); HGB 10.7 gm/dL (11.4-16.0); Hypochromasia Slight; Lymphocytes # (A) 2.3 k/uL (1.0-4.8); Lymphocytes % (A) 14 %; MCV 81.3 fL (80.0-100.0); Mean Platelet Volume 6.8; Monocytes # (A) 0.7 k/uL (0-1.0); Monocytes % (A) 4 %; Neutrophils # (A) 12.9 k/uL (1.3-7.7); Neutrophils % (A) 80 %; Platelet Count 339 k/uL (150-450); RBC 4.13 m/uL (3.80-5.40); RDW 17.8 % (11.5-15.5); WBC 16.1 k/uL (3.8-10.6)
[2018-02-14 16:16] LABS: Albumin 3.7 g/dL (3.5-5.0); Calcium 9.3 mg/dL (8.4-10.2); Potassium 4.6 mmol/L (3.5-5.1); Total Bilirubin 0.8 mg/dL (0.2-1.3); Total Protein 6.4 g/dL (6.3-8.2)
[2018-02-14] MEDS ORDERED: SODIUM CHLORIDE 0.9% 500 ML IV STA (16:20)
[2018-02-14] MEDS ORDERED: MORPHINE SULFATE 4 MG/ML SYRINGE IV STA (16:21)
[2018-02-14] MEDS ORDERED: ONDANSETRON 4 MG/2 ML VIAL IVP STA (16:21)
--- NOTE | 2018-02-14 16:24 | ED ---
General Adult HPI - General Source: patient, RN notes reviewed, old records reviewed Mode of arrival: ambulatory Limitations: no limitations <Popeye Ruiz - Last Filed: 02/14/18 16:22> <Michelle Casey - Last Filed: 02/14/18 22:00> - General Chief complaint: Abdominal Pain Stated complaint: abdominal pain Time Seen by Provider: 02/14/18 16:13 - History of Present Illness Initial comments: Patient 77-year-old female presenting to the emergency room today with a chief complaint of abdominal pain over the last 3 days. She does admit that she's had increased abdominal pain with some symptoms of nausea and vomiting at times. She states she's had diarrhea. She does admit that she was on antibiotics recently. Patient does admit that she's felt that her abdomen has been giving her problems ever since a month ago when she had both colonoscopy and EGD. Patient denies any other complaints or symptoms currently. She does admit that she uses oxygen at home at night. Patient denies any recent fever, chills, shortness of breath, chest pain, back pain, abdominal pain, nausea or vomiting, numbness or tingling, dysuria or hematuria, constipation or diarrhea, headaches or visual changes, or any other complaints. (Popeye Ruiz) - Related Data Home Medications Medication Instructions Recorded Confirmed Aspirin 81 mg PO DAILY 11/12/13 01/05/18 Cyclobenzaprine [Flexeril] 10 mg PO DAILY PRN 11/12/13 01/05/18 Montelukast [Singulair] 10 mg PO HS 11/12/13 01/05/18 Budesonide-Formot 160-4.5 Mcg 2 puff INHALATION BID 01/15/14 01/05/18 [Symbicort 160-4.5 Mcg Inhaler] Albuterol Sulfate [Proair Hfa] 2 puff INHALATION Q4HR PRN 03/28/14 01/05/18 ALPRAZolam [Xanax] 0.25 mg PO DAILY PRN 02/13/16 01/05/18 Atenolol 50 mg PO HS 02/13/16 01/05/18 Denosumab [Prolia] 60 mg SQ DIRECTED 09/11/16 01/05/18 Fluticasone Nasal [place] [Flonase 1 spray EA NOSTRIL DAILY PRN 09/11/16 01/05/18 Nasal [place]] Tiotropium 18 Mcg/Puff [Spiriva] 1 cap INHALATION DAILY 09/11/16 01/05/18 Esomeprazole Magnesium [NexIUM] 40 mg PO DAILY 03/28/17 01/05/18 Albuterol Nebulized [Ventolin 2.5 mg INHALATION BID 12/31/17 01/05/18 Nebulized] Losartan/Hydrochlorothiazide 1 each PO HS 12/31/17 01/05/18 [Losartan-Hctz 100-25 mg Tab] Minocycline [Minocin] 50 mg PO DAILY 12/31/17 01/05/18 Ranitidine HCl [Zantac] 150 mg PO DAILY 12/31/17 01/05/18 guaiFENesin [Mucinex] 600 mg PO Q12HR PRN 12/31/17 01/05/18 Previous Rx's Medication Instructions Recorded Nitrofurantoin Monohyd/M-Cryst 100 mg PO Q12HR #8 cap 02/14/18 [Macrobid] Allergies Allergy/AdvReac Type Severity Reaction Status Date / Time bupropion HCl Allergy Severe Rash/Hives Verified 02/14/18 15:31 [From Wellbutrin] Penicillins Allergy Severe Rash/Hives Verified 02/14/18 15:31 Sulfa (Sulfonamide Allergy Rash/Hives Verified 02/14/18 15:31 Antibiotics) Review of Systems ROS Other: All systems not noted in ROS Statement are negative. <Popeye Ruiz - Last Filed: 02/14/18 16:22> ROS Other: All systems not noted in ROS Statement are negative. <Michelle Casey - Last Filed: 02/14/18 22:00> ROS Statement: Those systems with pertinent positive or pertinent negative responses have been documented in the HPI. Past Medical History Past Medical History: Asthma, Cancer, COPD, GERD/Reflux, Hearing Disorder / Deafness, Hyperlipidemia, Hypertension, Pneumonia, Thyroid Disorder Additional Past Medical History / Comment(s): 09-11-16- one SEIZURE from low sodium, hx SKIN CANCER- BASAL CELL, HEARING LOSS LT EAR, OSTEOPOROSIS, NODULE ON THYROID, hx migraines, diarrhea, constipation,abdominal pain, iron deficiency anemia, has scrape on rt arm that is bandaged History of Any Multi-Drug Resistant Organisms: None Reported Past Surgical History: Appendectomy, Heart Catheterization, Hysterectomy Additional Past Surgical History / Comment(s): LEFT CAROTID ENDARTERECTOMY, LISA CATARACTS, colonoscopy, EGD, brochoscopy Past Anesthesia/Blood Transfusion Reactions: Motion Sickness Past Psychological History: Anxiety Smoking Status: Former smoker Past Alcohol Use History: None Reported Past Drug Use History: None Reported - Past Family History Mother Family Medical History: Seizure Disorder Additional Family Medical History / Comment(s): EPILEPTIC Father Family Medical History: Diabetes Mellitus Brother(s) Family Medical History: Cancer Son(s) Family Medical History: Deep Vein Thrombosis (DVT) <Popeye Ruiz - Last Filed: 02/14/18 16:22> General Exam Limitations: no limitations <Popeye Ruiz - Last Filed: 02/14/18 16:22> <Michelle Casey - Last Filed: 02/14/18 22:00> - General Exam Comments Initial Comments: General: The patient is awake and alert, in no distress, and does not appear acutely ill. Eye: Pupils are equal, round and reactive to light, extra-ocular movements are intact. No nystagmus. There is normal conjunctiva bilaterally. No signs of icterus. Ears, nose, mouth and throat: There are moist mucous membranes and no oral lesions. Neck: The neck is supple, there is no tenderness or JVD. Cardiovascular: There is a regular rate and rhythm. No murmur, rub or gallop is appreciated. Respiratory: Lungs are clear to auscultation, respirations are non-labored, breath sounds are equal. No wheezes, stridor, rales, or rhonchi. Gastrointestinal: On palpation. Mild tenderness in upper quadrants. No rebound , guarding or CVA tenderness. Musculoskeletal: Normal ROM, no tenderness. Strength 5/5. Sensation intact. Pulses equal bilaterally 2+. Neurological: A&O x 3. CN II-XII intact, There are no obvious motor or sensory deficits. Coordination appears grossly intact. Speech is normal. Skin: Skin is warm and dry and no rashes or lesions are noted. Psychiatric: Cooperative, appropriate mood & affect, normal judgment. (Popeye Ruiz) Vital Signs 02/14/18 02/14/18 02/14/18 15:28 17:12 21:21 Temperature 98.5 F Pulse Rate 89 82 92 Respiratory 18 18 20 Rate Blood Pressure 115/64 117/53 117/64 O2 Sat by Pulse 94 L 100 99 Oximetry Medical Decision Making - Lab Data Result diagrams: 02/14/18 15:38 02/14/18 15:38 <RuizPopeye - Last Filed: 02/14/18 16:22> - Lab Data Result diagrams: 02/14/18 15:38 02/14/18 15:38 <Michelle Casey - Last Filed: 02/14/18 22:00> - Medical Decision Making I took over care from Popeye Ruiz. Patient presented with abdominal pain and diarrhea, he has undergone a very thorough GI workup in the past month including EGD and colonoscopy. She presented today with acute abdominal pain. Labs revealed mild leukocytosis which appears to be the patient's baseline. Mildly worsening kidney function appears to be prerenal and likely related to dehydration, IV fluids were given. Urinalysis suggestive of an early urinary tract infection. CT scan results were pending I reviewed the computed tomography scan which revealed no acute findings. Results were discussed with the patient and family at bedside. I advised the patient that we will treat her urinary tract infection, first dose of antibiotics given in the emergency department. . I encouraged supportive care for the diarrhea including oral rehydration therapy. Return parameters were discussed. All questions pertaining care were answered best my ability the patient was discharged home in stable condition. (Michelle Casey) - Lab Data Lab Results 02/14/18 02/14/18 02/14/18 Range/Units 15:38 15:38 15:57 WBC 16.1 H (3.8-10.6) k/uL RBC 4.13 (3.80-5.40) m/uL Hgb 10.7 L (11.4-16.0) gm/dL Hct 33.5 L (34.0-46.0) % MCV 81.3 (80.0-100.0) fL MCH 26.0 (25.0-35.0) pg MCHC 32.0 (31.0-37.0) g/dL RDW 17.8 H (11.5-15.5) % Plt Count 339 (150-450) k/uL Neutrophils % 80 % Lymphocytes % 14 % Monocytes % 4 % Eosinophils % 0 % Basophils % 0 % Neutrophils # 12.9 H (1.3-7.7) k/uL Lymphocytes # 2.3 (1.0-4.8) k/uL Monocytes # 0.7 (0-1.0) k/uL Eosinophils # 0.1 (0-0.7) k/uL Basophils # 0.0 (0-0.2) k/uL Hypochromasia Slight Anisocytosis Slight PT 9.8 (9.0-12.0) sec INR 1.0 (<1.2) APTT 23.9 (22.0-30.0) sec Sodium 129 L (137-145) mmol/L Potassium 4.6 (3.5-5.1) mmol/L Chloride 92 L (98-107) mmol/L Carbon Dioxide 26 (22-30) mmol/L Anion Gap 11 mmol/L BUN 26 H (7-17) mg/dL Creatinine 1.60 H (0.52-1.04) mg/dL Est GFR (CKD-EPI)AfAm 36 (>60 ml/min/1.73 sqM) Est GFR (CKD-EPI)NonAf 31 (>60 ml/min/1.73 sqM) Glucose 131 H (74-99) mg/dL Calcium 9.3 (8.4-10.2) mg/dL Total Bilirubin 0.8 (0.2-1.3) mg/dL AST 25 (14-36) U/L ALT 26 (9-52) U/L Alkaline Phosphatase 78 (38-126) U/L Total Protein 6.4 (6.3-8.2) g/dL Albumin 3.7 (3.5-5.0) g/dL Amylase 66 (30-110) U/L Lipase 38 (23-300) U/L Urine Color Urine Appearance (Clear) Urine pH (5.0-8.0) Ur Specific [place] (1.001-1.035) Urine Protein (Negative) Urine Glucose (UA) (Negative) Urine Ketones (Negative) Urine Blood (Negative) Urine Nitrite (Negative) Urine Bilirubin (Negative) Urine Urobilinogen (<2.0) mg/dL Ur Leukocyte Esterase (Negative) Urine RBC (0-5) /hpf Urine WBC (0-5) /hpf Ur Squamous Epith Cells (0-4) /hpf Urine Bacteria (None) /hpf Hyaline Casts (0-2) /lpf Urine Mucus (None) /hpf 02/14/18 Range/Units 19:44 WBC (3.8-10.6) k/uL RBC (3.80-5.40) m/uL Hgb (11.4-16.0) gm/dL Hct (34.0-46.0) % MCV (80.0-100.0) fL MCH (25.0-35.0) pg MCHC (31.0-37.0) g/dL RDW (11.5-15.5) % Plt Count (150-450) k/uL Neutrophils % % Lymphocytes % % Monocytes % % Eosinophils % % Basophils % % Neutrophils # (1.3-7.7) k/uL Lymphocytes # (1.0-4.8) k/uL Monocytes # (0-1.0) k/uL Eosinophils # (0-0.7) k/uL Basophils # (0-0.2) k/uL Hypochromasia Anisocytosis PT (9.0-12.0) sec INR (<1.2) APTT (22.0-30.0) sec Sodium (137-145) mmol/L Potassium (3.5-5.1) mmol/L Chloride (98-107) mmol/L Carbon Dioxide (22-30) mmol/L Anion Gap mmol/L BUN (7-17) mg/dL Creatinine (0.52-1.04) mg/dL Est GFR (CKD-EPI)AfAm (>60 ml/min/1.73 sqM) Est GFR (CKD-EPI)NonAf (>60 ml/min/1.73 sqM) Glucose (74-99) mg/dL Calcium (8.4-10.2) mg/dL Total Bilirubin (0.2-1.3) mg/dL AST (14-36) U/L ALT (9-52) U/L Alkaline Phosphatase (38-126) U/L Total Protein (6.3-8.2) g/dL Albumin (3.5-5.0) g/dL Amylase (30-110) U/L Lipase (23-300) U/L Urine Color Yellow Urine Appearance Cloudy H (Clear) Urine pH 6.0 (5.0-8.0) Ur Specific [place] 1.014 (1.001-1.035) Urine Protein 1+ H (Negative) Urine Glucose (UA) Negative (Negative) Urine Ketones Trace H (Negative) Urine Blood Trace H (Negative) Urine Nitrite Negative (Negative) Urine Bilirubin Negative (Negative) Urine Urobilinogen <2.0 (<2.0) mg/dL Ur Leukocyte Esterase Moderate H (Negative) Urine RBC 3 (0-5) /hpf Urine WBC 5 (0-5) /hpf Ur Squamous Epith Cells 3 (0-4) /hpf Urine Bacteria Rare H (None) /hpf Hyaline Casts 7 H (0-2) /lpf Urine Mucus Rare H (None) /hpf Disposition <Popeye Ruiz - Last Filed: 02/14/18 16:22> Is patient prescribed a controlled substance at d/c from ED?: No <Michelle Casey - Last Filed: 02/14/18 22:00> Clinical Impression: UTI (urinary tract infection), Diarrhea, Abdominal pain Disposition: HOME SELF-CARE Condition: Good Prescriptions: Nitrofurantoin Monohyd/M-Cryst [Macrobid] 100 mg PO Q12HR #8 cap Referrals: Yefri Melgoza MD [Primary Care Provider] - 1-2 days
[2018-02-14 16:54] LABS: Partial Thromboplastin Time 23.9 sec (22.0-30.0); Prothrombin Time 9.8 sec (9.0-12.0)
--- NOTE | 2018-02-14 19:33 | CT ---
EXAMINATION TYPE: CT abdomen pelvis wo con DATE OF EXAM: 02/14/2018 COMPARISON: 11/25/2017 HISTORY: Generalized pain with diarrhea today CT DLP: 604 mGycm Automated exposure control for dose reduction was used. TECHNIQUE: Helical acquisition of images was performed from the lung bases through the pelvis. FINDINGS: There is subsegmental atelectasis at the lung bases. There is no pleural effusion. There is lower tho racic aortic aneurysm that measures 3.7 cm. Liver and spleen appear normal. Bile ducts are not dilated. There is no pancreatic mass. Gallbladder is absent. There is no adrenal mass. Kidneys have normal size and contour. There is no hydronephrosis. Abdominal aorta is atheromatous. There is 3.2 cm aneurysm of the lower abdominal aorta. There is extensive ath erosclerotic vascular calcification. There is no retroperitoneal adenopathy. There is no ascites. There is no intestinal wall thickening. There are no dilated loops. Bladder dist ends smoothly. There is no pelvic mass. Lumbar spine is intact. There is 1.5 cm hypodensity that is p robably a cyst on the lateral left kidney. IMPRESSION: ATHEROSCLEROTIC VASCULAR DISEASE. THORACIC AND ABDOMINAL AORTIC ANEURYSM. ANEURYSM IS STABLE COMPARED TO OLD CT SCAN. NO SIGN OF ACUTE ABDOMEN AND PELVIS. STABLE LEFT RENAL CORTICAL CYST.
[2018-02-14 19:59] LABS: Appearance,Urine Cloudy (Clear); Bacteria,Urine Rare /hpf; Bilirubin,Urine Negative (Negative); Blood,Urine Trace (Negative); Color,Urine Yellow; Glucose,Urine (UA) Negative (Negative); Hyaline Casts,Urine 7 /lpf (0-2); Ketones,Urine Trace (Negative); Leukocyte Esterase,Urine Moderate (Negative); Mucus,Urine Rare /hpf; Nitrite,Urine Negative (Negative); Protein,Urine 1+ (Negative); RBC,Urine 3 /hpf (0-5); Specific Gravity,Urine 1.014 (1.001-1.035); Squamous Epithelial Cell,Urine 3 /hpf (0-4); Urobilinogen,Urine <2.0 mg/dL (<2.0); WBC,Urine 5 /hpf (0-5)
[2018-02-14 21:22] VITALS: BP 117/64; PULSE 92; RESP 20
[2018-02-14] MEDS ORDERED: NITROFURANTOIN MONOHYD/M-CRYST 100 MG CAP PO STA (21:46)
== END 2018-02-14 22:32 | disposition home or self-care (01) ==
LOC: EC 15:08
DX: N39.0 Urinary tract infection, site not specified (principal); R19.7 Diarrhea, unspecified; D72.829 Elevated white blood cell count, unspecified; J44.9 Chronic obstructive pulmonary disease, unspecified; K21.9 Gastro-esophageal reflux disease without esophagitis; E78.5 Hyperlipidemia, unspecified; I10 Essential (primary) hypertension; Z87.891 Personal history of nicotine dependence; Z85.828 Personal history of other malignant neoplasm of skin; Z90.49 Acquired absence of other specified parts of digestive tract; Z95.818 Presence of other cardiac implants and grafts; Z90.710 Acquired absence of both cervix and uterus; Z79.82 Long term (current) use of aspirin; Z79.51 Long term (current) use of inhaled steroids; Z79.899 Other long term (current) drug therapy; Z88.8 Allergy status to other drugs, medicaments and biological substances; Z88.0 Allergy status to penicillin; Z88.2 Allergy status to sulfonamides
CPT/HCPCS: 36415; 80053; 82150; 83690; 85025; 85610; 85730; 81001; 74176; 99284; 96374; 96375; 96361; J2270; J2405

== ENCOUNTER → 2018-05-03 | Outpatient (CLI) | payer MEDICARE, OTHER ==
--- NOTE | 2018-05-03 15:55 | US ---
EXAMINATION TYPE: US thyroid st tissue head/neck DATE OF EXAM: 05/03/2018 COMPARISON: 10/25/2017 CLINICAL HISTORY: E04.1 Thyroid Nodule. GLAND SIZE: Right Lobe: 3.9 x 1.5 x 1.9 cm Overall Parenchyma: homogenous Left Lobe: 3.3 x 1.2 x 1.0 cm Overall Parenchyma: homogeneous Isthmus Thickness: 0.6 cm NODULES RIGHT: # of nodules measured on right: 2 1. 1.8 X 1.1 x 1.0 cm mixed nodule at the lower pole with well-defined margins; . This nodule is w ider than tall and shows intranodular vascularity. Prior size: 1.9 x 1.1 x 1.1 cm 2. 0.5 X 0.5 x 0.3 cm mixed nodule at the upper pole with well-defined margins; . This nodule is [place] than tall and shows intranodular vascularity. Prior size: 0.6 x 0.5 x 0.4 cm LEFT: # of nodules measured on left: 2 1. 0.4 X 0.3 x 0.4 cm mixed nodule at the upper pole with well-defined margins; . This nodule is w ider than tall and shows no intranodular vascularity. Prior size: 0.4 x 0.5 x 0.3 cm 2. 0.4 X 0.3 x 0.4 cm mixed nodule at the upper pole with well-defined margins; . This nodule is wi [place] than tall and shows no intranodular vascularity. Prior size: 0.5 x 0.5 x 0.3 cm ISTHMUS: # of nodules measured in the isthmus: 2 1. 1.0 X 0.9 x 0.9 cm cystic nodule at the lower pole with well-defined margins; . This nodule is wider than tall and shows no intranodular vascularity. Prior size: 1.0 x 1.0 x 0.7 cm 2. 0.9 x 0.6 x 0.6 cystic nodule medial pole well defined margins, wider than tall no intranodular va scularity Bilateral neck scanned, no evidence of lymphadenopathy. IMPRESSION: Bilateral thyroid nodules overall unchanged in size in comparison to the prior exam of 10/25/2017. The re is slight interval growth of the dominant right thyroid nodule in comparison to the remote exam of 03/07/2015 (3 mm in long axis). Fine-needle aspiration could be considered for this nodule versus con tinued surveillance.
== END | disposition home or self-care (01) ==
LOC: RADUSWWP 14:52
PROVIDERS: ATTEND Otolaryngology
DX: E04.2 Nontoxic multinodular goiter (principal)
CPT/HCPCS: 76536

== ENCOUNTER → 2018-05-24 | Outpatient (CLI) | payer MEDICARE, OTHER ==
--- NOTE | 2018-05-24 10:17 | MM ---
Reason for exam: additional evaluation requested from prior study. Last mammogram was performed 7 months ago. History: US discontinued breast core RT of the right breast, October 14, 2016. Physical Findings: Nurse did not find any significant physical abnormalities on exam. MG 3D Diag Mammo W/Cad LISA Bilateral CC and MLO view(s) were taken. Prior study comparison: November 02, 2017, bilateral MG 3d diag mammo w/cad LISA. April 20, 2017, right breast MG 3d diag mammo w/cad RT. The breast tissue is heterogeneously dense. This may lower the sensitivity of mammography. There are benign appearing dystrophic round calcifications bilaterally. There is chronic nodularity in the right breast. There is no discrete abnormality. These results were verbally communicated with the patient and result sheet given to the patient on 05/24/18. ASSESSMENT: Benign, BI-RAD 2 RECOMMENDATION: Routine screening mammogram of both breasts in 1 year.
== END | disposition home or self-care (01) ==
LOC: RADMAMWWP 09:14
PROVIDERS: ATTEND Family Medicine
DX: R92.8 Other abnormal and inconclusive findings on diagnostic imaging of breast (principal)
CPT/HCPCS: 77066; G0279; 77062

== ENCOUNTER 2018-06-22 09:09 | Inpatient (IN) | payer MEDICARE, OTHER ==
--- NOTE | 2018-06-22 09:15 | ED ---
SOB HPI - General Stated Complaint: Diff Breathing Time Seen by Provider: 06/22/18 09:11 Source: RN notes reviewed, old records reviewed - History of Present Illness Initial Comments: This is a 78-year-old female the ER for evaluation she presents today for evaluation of significant shortness of breath cough congestion. Patient has no recent travel history no sick contacts. Patient is coming in from home with significant worsening of symptoms 3 days. States she cannot catch her breath as heaviness over her chest and able to expand her lungs and feels very anxious. Denies fever, does have increased cough and congestion, history of similar issues with both COPD and underlying CHF. MD Complaint: shortness of breath, cough -: days(s) Severity: mild Severity scale (1-10): 2 Quality: aching Consistency: constant Improves With: oxygen, bronchodilators, upright position Worsens With: exertion, movement Known History Of: COPD, congestive heart failure Context: recent URI Associated Symptoms: chest pain, pain with inspiration, cough, sputum production Treatments Prior to Arrival: oxygen - Related Data Home Medications Medication Instructions Recorded Confirmed Aspirin 81 mg PO DAILY 11/12/13 06/22/18 Cyclobenzaprine [Flexeril] 10 mg PO TID PRN 11/12/13 06/22/18 Montelukast [Singulair] 10 mg PO HS 11/12/13 06/22/18 Budesonide-Formot 160-4.5 Mcg 2 puff INHALATION RT-BID 01/15/14 06/22/18 [Symbicort 160-4.5 Mcg Inhaler] Albuterol Sulfate [Proair Hfa] 2 puff INHALATION RT-QID PRN 03/28/14 06/22/18 ALPRAZolam [Xanax] 0.25 mg PO DAILY PRN 02/13/16 06/22/18 Atenolol 50 mg PO HS 02/13/16 06/22/18 Denosumab [Prolia] 60 mg SQ Q180D 09/11/16 06/22/18 Fluticasone Nasal [place] [Flonase 1 spray EA NOSTRIL DAILY 09/11/16 06/22/18 Nasal [place]] Tiotropium 18 Mcg/Puff [Spiriva] 1 cap INHALATION RT-DAILY 09/11/16 06/22/18 Esomeprazole Magnesium [NexIUM] 40 mg PO DAILY 03/28/17 06/22/18 Albuterol Nebulized [Ventolin 2.5 mg INHALATION RT-QID 12/31/17 06/22/18 Nebulized] Minocycline [Minocin] 50 mg PO DAILY 12/31/17 06/22/18 Azelastine HCl [Astepro] 1 spray NASAL BID 06/22/18 06/22/18 L.acidoph,Paracasei, B.lactis 1 cap PO DAILY 06/22/18 06/22/18 [Probiotic] Losartan Potassium 50 mg PO DAILY 06/22/18 06/22/18 Magnesium Oxide [Mag-Ox] 250 mg PO DAILY 06/22/18 06/22/18 Mirabegron [Myrbetriq] 50 mg PO DAILY 06/22/18 06/22/18 Simvastatin [Zocor] 40 mg PO HS 06/22/18 06/22/18 Sucralfate [Carafate] 1 gram PO TID-W/MEALS 06/22/18 06/22/18 Allergies Allergy/AdvReac Type Severity Reaction Status Date / Time bupropion HCl Allergy Severe Rash/Hives Verified 06/22/18 10:26 [From Wellbutrin] Penicillins Allergy Severe Rash/Hives Verified 06/22/18 10:26 Sulfa (Sulfonamide Allergy Rash/Hives Verified 06/22/18 10:26 Antibiotics) Review of Systems ROS Statement: Those systems with pertinent positive or pertinent negative responses have been documented in the HPI. ROS Other: All systems not noted in ROS Statement are negative. Past Medical History Past Medical History: Asthma, Cancer, COPD, GERD/Reflux, Hearing Disorder / Deafness, Hyperlipidemia, Hypertension, Pneumonia, Thyroid Disorder Additional Past Medical History / Comment(s): 09-11-16- one SEIZURE from low sodium, hx SKIN CANCER- BASAL CELL, HEARING LOSS LT EAR, OSTEOPOROSIS, NODULE ON THYROID, hx migraines, diarrhea, constipation,abdominal pain, iron deficiency anemia, has scrape on rt arm that is bandaged History of Any Multi-Drug Resistant Organisms: None Reported Past Surgical History: Appendectomy, Heart Catheterization, Hysterectomy Additional Past Surgical History / Comment(s): LEFT CAROTID ENDARTERECTOMY, LISA CATARACTS, colonoscopy, EGD, brochoscopy Past Anesthesia/Blood Transfusion Reactions: Motion Sickness Past Psychological History: Anxiety Smoking Status: Former smoker Past Alcohol Use History: None Reported Past Drug Use History: None Reported - Past Family History Mother Family Medical History: Seizure Disorder Additional Family Medical History / Comment(s): EPILEPTIC Father Family Medical History: Diabetes Mellitus Brother(s) Family Medical History: Cancer Son(s) Family Medical History: Deep Vein Thrombosis (DVT) General Exam General appearance: alert, anxious, in distress Head exam: Present: atraumatic, normocephalic, normal inspection Eye exam: Present: normal appearance, PERRL, EOMI. Absent: scleral icterus, conjunctival injection, periorbital swelling ENT exam: Present: normal exam, mucous membranes moist Neck exam: Present: normal inspection. Absent: tenderness, meningismus, lymphadenopathy Respiratory exam: Present: wheezes, accessory muscle use, decreased breath sounds, prolonged expiratory. Absent: respiratory distress, rales, rhonchi, stridor Cardiovascular Exam: Present: regular rate, normal rhythm, normal heart sounds. Absent: systolic murmur, diastolic murmur, rubs, gallop, clicks GI/Abdominal exam: Present: soft, normal bowel sounds. Absent: distended, tenderness, guarding, rebound, rigid Extremities exam: Present: normal inspection, full ROM, normal capillary refill. Absent: tenderness, pedal edema, joint swelling, calf tenderness Back exam: Present: normal inspection Neurological exam: Present: alert, oriented X3, CN II-XII intact Psychiatric exam: Present: normal affect, normal mood Skin exam: Present: warm, dry, intact, normal color. Absent: rash Course Vital Signs 06/22/18 06/22/18 06/22/18 09:15 09:40 10:00 Temperature 97.9 F Pulse Rate 79 137 H 147 H Respiratory 24 Rate Blood Pressure 174/94 O2 Sat by Pulse 78 L Oximetry 06/22/18 11:31 Temperature Pulse Rate 122 H Respiratory 27 H Rate Blood Pressure 143/82 O2 Sat by Pulse 100 Oximetry - Reevaluation(s) Reevaluation #1: 06/22/18 10:40 Medical record is reviewed Medical Decision Making - Medical Decision Making 78 female the ER for evaluation severe shortness of breath severe COPD exacerbation no significant failure. Patient will be admitted for continued breathing treatments and continued BiPAP - Lab Data Result diagrams: 06/22/18 10:30 06/22/18 10:30 Lab Results 06/22/18 06/22/18 06/22/18 Range/Units 10:30 10:30 10:30 WBC 17.9 H (3.8-10.6) k/uL RBC 4.09 (3.80-5.40) m/uL Hgb 13.3 (11.4-16.0) gm/dL Hct 39.5 (34.0-46.0) % MCV 96.5 (80.0-100.0) fL MCH 32.4 (25.0-35.0) pg MCHC 33.6 (31.0-37.0) g/dL RDW 14.3 (11.5-15.5) % Plt Count 356 (150-450) k/uL Neutrophils % 84 % Lymphocytes % 11 % Monocytes % 4 % Eosinophils % 0 % Basophils % 0 % Neutrophils # 15.0 H (1.3-7.7) k/uL Lymphocytes # 1.9 (1.0-4.8) k/uL Monocytes # 0.8 (0-1.0) k/uL Eosinophils # 0.1 (0-0.7) k/uL Basophils # 0.0 (0-0.2) k/uL PT (9.0-12.0) sec INR (<1.2) APTT (22.0-30.0) sec Sodium 135 L (137-145) mmol/L Potassium 4.4 (3.5-5.1) mmol/L Chloride 96 L (98-107) mmol/L Carbon Dioxide 29 (22-30) mmol/L Anion Gap 10 mmol/L BUN 21 H (7-17) mg/dL Creatinine 0.87 (0.52-1.04) mg/dL Est GFR (CKD-EPI)AfAm 75 (>60 ml/min/1.73 sqM) Est GFR (CKD-EPI)NonAf 65 (>60 ml/min/1.73 sqM) Glucose 119 H (74-99) mg/dL Calcium 9.4 (8.4-10.2) mg/dL Magnesium 2.1 (1.6-2.3) mg/dL Total Bilirubin 0.7 (0.2-1.3) mg/dL AST 30 (14-36) U/L ALT 37 (9-52) U/L Alkaline Phosphatase 78 (38-126) U/L Total Creatine Kinase 54 (30-135) U/L Total Protein 6.2 L (6.3-8.2) g/dL Albumin 3.7 (3.5-5.0) g/dL 06/22/18 Range/Units 10:30 WBC (3.8-10.6) k/uL RBC (3.80-5.40) m/uL Hgb (11.4-16.0) gm/dL Hct (34.0-46.0) % MCV (80.0-100.0) fL MCH (25.0-35.0) pg MCHC (31.0-37.0) g/dL RDW (11.5-15.5) % Plt Count (150-450) k/uL Neutrophils % % Lymphocytes % % Monocytes % % Eosinophils % % Basophils % % Neutrophils # (1.3-7.7) k/uL Lymphocytes # (1.0-4.8) k/uL Monocytes # (0-1.0) k/uL Eosinophils # (0-0.7) k/uL Basophils # (0-0.2) k/uL PT 9.7 (9.0-12.0) sec INR 0.9 (<1.2) APTT 21.8 L (22.0-30.0) sec Sodium (137-145) mmol/L Potassium (3.5-5.1) mmol/L Chloride (98-107) mmol/L Carbon Dioxide (22-30) mmol/L Anion Gap mmol/L BUN (7-17) mg/dL Creatinine (0.52-1.04) mg/dL Est GFR (CKD-EPI)AfAm (>60 ml/min/1.73 sqM) Est GFR (CKD-EPI)NonAf (>60 ml/min/1.73 sqM) Glucose (74-99) mg/dL Calcium (8.4-10.2) mg/dL Magnesium (1.6-2.3) mg/dL Total Bilirubin (0.2-1.3) mg/dL AST (14-36) U/L ALT (9-52) U/L Alkaline Phosphatase (38-126) U/L Total Creatine Kinase (30-135) U/L Total Protein (6.3-8.2) g/dL Albumin (3.5-5.0) g/dL - EKG Data -: EKG Interpreted by Me (EKG shows sinus tachycardia rate of 145, AL 128, QRS 74, QTC 413) - Radiology Data Radiology results: report reviewed (Chest x-rays negative for acute disease), image reviewed Critical Care Time Critical Care Time: Yes Total Critical Care Time: 31 Disposition Clinical Impression: Acute exacerbation of chronic obstructive airways disease, Acute respiratory failure Disposition: ADMITTED IP TO THIS HOSP Condition: Fair Is patient prescribed a controlled substance at d/c from ED?: No Referrals: Yefri Melgoza MD [Primary Care Provider] - 1-2 days
[2018-06-22] MEDS ORDERED: IPRATROPIUM-ALBUTEROL 3 ML NEB INHALATION STA (09:33)
[2018-06-22] MEDS ORDERED: methylPREDNISolone SOD SUCCI 125 MG/2 ML VIAL IV STA (09:33)
[2018-06-22] MEDS ORDERED: LORazepam 2 MG/ML INJ IV STA (09:34)
[2018-06-22] MEDS ORDERED: MORPHINE SULFATE 2 MG/ML SYRINGE IVP STA (09:34)
--- NOTE | 2018-06-22 10:16 | XR ---
EXAMINATION TYPE: XR chest 1V portable DATE OF EXAM: 06/22/2018 COMPARISON: Chest x-ray July 06, 2017. CT chest October 14, 2017. HISTORY: Shortness of breath today TECHNIQUE: Single AP portable frontal upright view of the chest is obtained. FINDINGS: There is underlying moderate to advanced emphysematous change with scattered parenchymal s carring most prominent in the bases. No pleural effusion or pneumothorax is seen bilaterally. The ca rdiac silhouette size is stable and upper limits of normal with atherosclerotic thoracic aorta. The osseous structures are demineralized. Healing fracture left proximal humerus with interval sclerosis is now noted. IMPRESSION: Moderate to advanced emphysematous and chronic parenchymal changes without definitive ac agdaagux focal infiltrate.
[2018-06-22 11:13] LABS: Basophils % (A) 0 %; Eosinophils # (A) 0.1 k/uL (0-0.7); Eosinophils % (A) 0 %; HCT 39.5 % (34.0-46.0); HGB 13.3 gm/dL (11.4-16.0); Lymphocytes # (A) 1.9 k/uL (1.0-4.8); Lymphocytes % (A) 11 %; MCH 32.4 pg (25.0-35.0); MCHC 33.6 g/dL (31.0-37.0); MCV 96.5 fL (80.0-100.0); Mean Platelet Volume 6.9; Monocytes # (A) 0.8 k/uL (0-1.0); Monocytes % (A) 4 %; Neutrophils % (A) 84 %; Platelet Count 356 k/uL (150-450); RBC 4.09 m/uL (3.80-5.40); RDW 14.3 % (11.5-15.5); WBC 17.9 k/uL (3.8-10.6)
[2018-06-22 11:26] LABS: Albumin 3.7 g/dL (3.5-5.0); Calcium 9.4 mg/dL (8.4-10.2); Magnesium 2.1 mg/dL (1.6-2.3); Potassium 4.4 mmol/L (3.5-5.1); Total Bilirubin 0.7 mg/dL (0.2-1.3); Total Protein 6.2 g/dL (6.3-8.2)
[2018-06-22 11:54] LABS: INR 0.9 (<1.2); Prothrombin Time 9.7 sec (9.0-12.0)
[2018-06-22 11:59] LABS: Partial Thromboplastin Time 21.8 sec (22.0-30.0)
[2018-06-22 12:07] LABS: Creatine Kinase MB 1.9 ng/mL (0.0-2.4)
[2018-06-22 12:22] LABS: Troponin I 0.055 ng/mL (0.000-0.034)
[2018-06-22] MEDS: SODIUM CHLORIDE 0.9% 1,000 ML IV SCH ×2 (13:10→19:27)
[2018-06-22] MEDS: IPRATROPIUM-ALBUTEROL 3 ML NEB INHALATION SCH ×2 (15:35→19:36)
[2018-06-22] MEDS: Mirabegron [Myrbetriq] 50 MG PO SCH (15:35)
[2018-06-22] MEDS: LACTOBACILLUS ACIDOPH & BULGAR 1 EACH PACKET PO SCH (16:02)
[2018-06-22] MEDS: PANTOPRAZOLE 40 MG TABLET PO SCH (16:13)
[2018-06-22] MEDS: MINOCYCLINE 50 MG CAP PO SCH (16:13)
[2018-06-22] MEDS: AZELASTINE 137MCG/SPRAY NASAL SCH ×2 (16:14→20:15)
[2018-06-22] MEDS: ASPIRIN 81 MG PO SCH (16:14)
[2018-06-22] MEDS: MAGNESIUM OXIDE 400 MG TAB PO SCH (17:33)
[2018-06-22] MEDS: LOSARTAN 50 MG TAB PO SCH (17:33)
[2018-06-22] MEDS: SUCRALFATE 1 GM TAB PO SCH (18:32)
[2018-06-22] MEDS: methylPREDNISolone SOD SUCCI 125 MG/2 ML VIAL IV SCH ×2 (18:33→22:24)
[2018-06-22] MEDS: MONTELUKAST 10 MG TAB PO SCH (19:27)
[2018-06-22] MEDS: ATORVASTATIN 20 MG TAB PO SCH (19:27)
[2018-06-22] MEDS: ATENOLOL 50 MG TAB PO SCH (19:27)
[2018-06-22] MEDS ORDERED: SYMBICORT 160-4.5 MCG INHALER INHALATION SCH (20:00)
[2018-06-22 21:00] LABS: Glucose,Whole Blood 217 mg/dL (75-99)
[2018-06-22] MEDS: INSULIN ASPART 100 UNIT/ML 1 ML 10 ML VIAL SQ SCH (21:24)
[2018-06-22] MEDS: FORMOTEROL FUMARATE 20 MCG/2 ML NEBU INHALATION SCH (22:19)
[2018-06-22] MEDS: BUDESONIDE 1 MG/2 ML NEBU INHALATION SCH (22:19)
--- NOTE | 2018-06-22 23:12 | HP ---
HISTORY AND PHYSICAL DATE OF ADMISSION AND SERVICE: 06/22/2018. PRESENTING COMPLAINT: Short of breath. HISTORY OF PRESENTING COMPLAINT: This is a pleasant 78-year-old patient who follows with Dr. Melgoza and outside medical sales representative Dr. Mathias. Chronic stable medical conditions include GERD, hyperlipidemia, hypertension, hypothyroid, hearing loss in the left ear, nodule on the thyroid. Patient has diarrhea and constipation, some abdominal pain, and she does follow up with Dr. Kimble for the same. The patient is an ex-smoker. The patient for one week has been having worsening shortness of breath, wheezing, cough with yellow sputum. No obvious fever or chills. Congestion in the chest. Very short of breath, decreased appetite, tired and rundown. Patient presented to the ER. Admitted with COPD exacerbation. Pulmonary was consulted. REVIEW OF SYSTEMS: CONSTITUTIONAL: Weak and tired. HEENT: Decreased hearing in the left ear. RESPIRATORY: As above. CARDIOVASCULAR: None. GASTROINTESTINAL: Heartburn. GENITOURINARY: None. MUSCULOSKELETAL: Some aches in joints. DERMATOLOGICAL: Diffuse bruising. HEMATOLOGICAL: As above. LYMPHATICS: None. PSYCHIATRY: A bit anxious. NEUROLOGICAL: None. PAST MEDICAL HISTORY: 1. COPD. 2. GERD. 3. Hard of hearing. 4. Hyperlipidemia. 5. Hypertension. 6. Hypothyroid. 7. Seizure previously from low sodium. 8. Basal cell skin cancer. 9. Hearing loss in the left ear. 10.Osteoporosis. 11.Nodule on the thyroid. 12.Migraine. 13.Iron deficiency anemia. PAST SURGICAL HISTORY: 1. Appendectomy. 2. Cardiac catheterization. 3. Hysterectomy. 4. Left carotid endarterectomy. 5. Bilateral cataracts. PSYCH HISTORY: Anxiety. SOCIAL HISTORY: Patient lives with her and son. 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 Smoked less than a pack a day for close to 40 years, stopped in 2016. FAMILY HISTORY: Seizure. HOME MEDICATIONS: 1. Carafate 1 gram p.o. t.i.d. with meals. 2. Symbicort 160/4.5 two puffs b.i.d. 3. Spiriva 1 capsule daily. 4. Zocor 40 mg at bedtime. 5. Myrbetriq 50 mg p.o. daily. 6. Probiotic 1 capsule p.o. daily. 7. Prolia 60 mg subcutaneously every 6 months. 8. ProAir 2 puffs q.i.d. p.r.n. 9. Singulair 10 mg at bedtime. 10.Minocycline 50 mg p.o. daily. 11.Magnesium oxide 250 mg p.o. daily. 12.Losartan 50 mg a day. 13.Flonase 1 spray each nostril daily. 14.Nexium 40 mg daily. 15.Flexeril 10 mg t.i.d. p.r.n. 16.Astepro 1 spray nasally b.i.d. 17.Atenolol 50 mg at bedtime. 18.Aspirin 81 mg a day. 19.Ventolin 2.5 q.i.d. 20.Xanax 0.25 p.o. daily p.r.n. ALLERGIES: 1. WELLBUTRIN. 2. PENICILLIN. 3. SULFA. PHYSICAL EXAMINATION: VITAL SIGNS ON PRESENTATION: Temperature 97.9, pulse 137, respiration 24, blood pressure 174/94, pulse ox 98% on 2 L. GENERAL APPEARANCE: Thin build. Sitting up, short of breath, tired. EYES: Pupils equal. Conjunctivae pale. HEENT: External appearance of nose and ears normal. Oral cavity normal. NECK: JVD unable to assess. Mass not palpable. RESPIRATORY: Effort increased. Accessory muscles are working. Not able to speak in full sentences. LUNGS: Diminished breath sounds. Prolonged expiration and wheezing. CARDIOVASCULAR: First and second sounds normal. No edema. ABDOMEN: Soft, nontender. Liver and spleen not palpable. LYMPHATIC: No lymph node palpable in neck or axillae. PSYCHIATRY: Alert and oriented x3. Mood and affect a bit anxious-appearing. NEUROLOGICAL: Pupils equal. Cranial nerves grossly intact. Power and sensation grossly intact. MUSCULOSKELETAL: Evidence of osteoarthritis, in the hands and knees. DERMATOLOGICAL: Diffuse bruising. INVESTIGATIONS: White count 17.9, hemoglobin 13.3, potassium 4.4, BUN 21, creatinine 0.87. Troponin 0.055. EKG tracing personally reviewed by me shows sinus tachycardia, some P-pulmonale, nonspecific ST-segment changes with some depression in the inferolateral leads. Chest x- ray film personally reviewed by me shows hyperinflation, some infiltrate, especially on the right base. ASSESSMENT: 1. Acute severe chronic obstructive pulmonary disease exacerbation in an ex-smoker. 2. Acute hypoxic respiratory failure from above. 3. Right lower lobe pneumonia. Suspect gram-negative organism. 4. Essential hypertension. 5. Hyperlipidemia. 6. Gastroesophageal reflux disease. 7. Left ear hard of hearing. 8. Chronic thyroid nodule. 9. Troponin leak, likely from hemodynamic mismatch. No obvious evidence of acute coronary syndrome. 10.Abnormal EKG. Given the troponin leak, need to rule out a cardiac cause. PLAN: Patient is put on bronchodilators, inhaled and IV steroids. Home medications are resumed. Patient will be put on antibiotic in the form of ceftriaxone. Sputum will be sent off for Gram stain and culture. Care was discussed with the patient. Questions were answered. The patient is already on aspirin and beta mary. Will get a cardiology opinion. We will also order a 2D echocardiogram to look for any wall motion abnormality. Prognosis is guarded. MMODL / IJN: [id number] /
[2018-06-23] MEDS: IPRATROPIUM-ALBUTEROL 3 ML NEB INHALATION SCH ×7 (00:17→23:53)
[2018-06-23 06:00] LABS: Glucose,Whole Blood 188 mg/dL (75-99)
[2018-06-23] MEDS: INSULIN ASPART 100 UNIT/ML 1 ML 10 ML VIAL SQ SCH ×4 (06:09→22:02)
[2018-06-23] MEDS: SUCRALFATE 1 GM TAB PO SCH ×3 (06:09→17:29)
[2018-06-23] MEDS: methylPREDNISolone SOD SUCCI 125 MG/2 ML VIAL IV SCH ×3 (06:09→17:29)
[2018-06-23] MEDS: PANTOPRAZOLE 40 MG TABLET PO SCH (06:09)
[2018-06-23] MEDS: MINOCYCLINE 50 MG CAP PO SCH (06:21)
[2018-06-23] MEDS: BUDESONIDE 1 MG/2 ML NEBU INHALATION SCH ×2 (07:24→19:40)
[2018-06-23] MEDS: FORMOTEROL FUMARATE 20 MCG/2 ML NEBU INHALATION SCH ×2 (07:24→19:40)
[2018-06-23] MEDS: LOSARTAN 50 MG TAB PO SCH (08:22)
[2018-06-23] MEDS: Mirabegron [Myrbetriq] 50 MG PO SCH (08:22)
[2018-06-23] MEDS: ENOXAPARIN 40 MG/0.4 ML SYRINGE SQ SCH (08:22)
[2018-06-23] MEDS: ASPIRIN 81 MG PO SCH (08:22)
[2018-06-23] MEDS: AZELASTINE 137MCG/SPRAY NASAL SCH ×2 (08:22→22:02)
--- NOTE | 2018-06-23 09:40 | CONS ---
CONSULTATION CHIEF COMPLAINT: Elevated troponin. Chato is a 78-year-old lady with history of severe COPD, hypertension, dyslipidemia, hypothyroidism, carotid stenosis, status post left carotid endarterectomy, who presented to the hospital with symptoms of worsening shortness of breath, wheezing, cough and yellowish sputum. Cardiology had been consulted because of mildly elevated troponin. She did not have any episodes of chest pain. The patient apparently had been evaluated by a parts order and stock clerk recently and had a stress test that was abnormal. Her current clinical presentation is primarily related to chronic obstructive pulmonary disease exacerbation. EKG shows sinus tachycardia with nonspecific ST-T wave changes. The troponin elevation may be related to supply-demand mismatch secondary to severe COPD and hypoxia. I will obtain a 2D echo to evaluate her LV function. PAST MEDICAL HISTORY: Past medical history is significant for COPD, hypertension, dyslipidemia, hypothyroidism, osteoporosis, migraine and iron deficiency anemia. PAST SURGICAL HISTORY: Past surgical history is significant for appendectomy, hysterectomy, left carotid endarterectomy and cataract surgery. SOCIAL HISTORY: Significant for smoking that she quit in 2016. There is no history of EtOH abuse or drug abuse. MEDICATIONS: Medications at home included Carafate, Symbicort, Spiriva, Zocor, probiotic, ProAir, Singulair, losartan, Flonase, Nexium, Flexeril, atenolol, aspirin. ALLERGIES: Allergic to WELLBUTRIN, PENICILLIN and SULFA. FAMILY HISTORY: Family history is negative for premature coronary artery disease. REVIEW OF SYSTEMS: HEENT is significant for diminished hearing in left ear. RESPIRATORY: As described above. CARDIAC: Negative. GI: Significant for heartburn. GENITOURINARY: Negative. MUSCULOSKELETAL: Significant for joint pain. SKIN: Negative. HEMATOLOGICAL: Negative. CONSTITUTIONAL: Significant for weak and tired. LYMPHATIC: Negative. PSYCH: Negative. NEUROLOGICAL: Negative. Rest of the system review is not relevant. PHYSICAL EXAMINATION: On exam, she is comfortable at rest. Vital signs are stable. There is no jugular venous distention. Chest exam reveals diffuse bilateral rhonchi. Heart exam reveals first and second heart sounds. No gallop. No murmur. Abdomen is soft, nontender. Examination of extremities did not reveal any edema. Peripheral pulses are palpable. EKG shows sinus rhythm with nonspecific ST-T wave changes. LABS: Labs show a hemoglobin of 13.3, platelet count is 356, potassium is 4.4 creatinine is 0.8. ASSESSMENT: 1. Troponin elevation probably related to supply-demand mismatch. 2. Chronic obstructive pulmonary disease exacerbation. 3. Hypertension. 4. Dyslipidemia. PLAN: I will obtain a 2D echo to assess her LV function and wall motion. Get another set of troponin. Review her outpatient records. The plan at this stage is to treat her with optimal medical therapy and whenever her respiratory status stabilizes, she should follow up with her own parts order and stock clerk and may consider continuation of the outpatient testing that has already been initiated by her own parts order and stock clerk. At the moment, she is not having acute myocardial ischemia and she is stable clinically. MMODL / IJN: [id number] /
[2018-06-23 12:08] LABS: Glucose,Whole Blood 136 mg/dL (75-99)
[2018-06-23] MEDS: LACTOBACILLUS ACIDOPH & BULGAR 1 EACH PACKET PO SCH (12:25)
[2018-06-23] MEDS: MAGNESIUM OXIDE 400 MG TAB PO SCH (12:25)
[2018-06-23] MEDS: SODIUM CHLORIDE 0.9% 1,000 ML IV SCH ×2 (12:30→19:39)
[2018-06-23] MEDS: ALPRAZolam 0.25 MG TAB PO PRN (12:47)
--- NOTE | 2018-06-23 16:58 | CONS ---
CONSULTATION PULMONARY CRITICAL CARE CONSULTATION: DATE OF SERVICE: 06/23/2018 This is a 78-year-old female who presented to the emergency department on June 22, 2018, for complaints of increasing shortness of breath, chest congestion, cough, wheezing and phlegm production. The patient was seen in our office on June 10, 2018, by our nurse practitioner, Dr. Sharon Navarro. She has stage III COPD. Her FEV1 therefore is less than 50% of predicted but greater than 30% of predicted. Her primary doctor is Dr. Yefri Melgoza. The patient was treated with steroids and antibiotics by our nurse practitioner. She received at that time Depo-Medrol 80 mg IM, a full prednisone burst and taper beginning with 40 mg a day for 4 days and tapering downward. It does not appear the patient received any antibiotics. The patient apparently had not been feeling well for at least 3 or 4 days prior to admission. The patient states that she has had increasing shortness of breath, chest congestion, coughing, wheezing and phlegm production. The patient was evaluated in the emergency room and admitted with the diagnosis of acute exacerbation of COPD and acute respiratory failure. The patient is only feeling marginally better today. She is still very short of breath. She is on nasal oxygen at a couple of liters. ALLERGIES: Her allergies include: 1. PENICILLIN. 2. SULFA. 3. WELLBUTRIN. MEDICAL HISTORY: Includes: 1. Hyperlipidemia. 2. Hypertension. 3. Severe COPD. 4. Irritable bowel syndrome. 5. History of seizures. 6. History of gastroesophageal reflux disease. 7. Deafness. 8. Hypothyroidism. 9. She also suffers from migraine cephalgia. 10.Chronic constipation. 11.She also has a history of anemia. SURGICAL HISTORY: Includes: 1. Appendectomy. 2. Heart catheterization. 3. Hysterectomy. 4. Left carotid endarterectomy. 5. Bilateral cataract surgery. 6. EGD. 7. Bronchoscopy. 8. Colonoscopy. SOCIAL HISTORY: Positive for previous heavy tobacco use. She states she quit 3 years ago. Denies any illicit drug use or alcohol use. FAMILY HISTORY: Positive for cancer, diabetes, DVT and seizure. REVIEW OF SYSTEMS: CONSTITUTIONAL: Weakness. NEUROLOGIC: Negative. HEENT: Negative. CARDIOVASCULAR: Negative. PULMONARY: Shortness of breath, chest tightness, wheezing, cough, chest congestion and phlegm production. GI/: Negative. RHEUMATOLOGIC/IMMUNOLOGIC: Negative. ENDOCRINOLOGIC: Negative. DERMATOLOGIC: Negative. PHYSICAL EXAMINATION: Current vital signs include a temperature which is 97.8, heart rate 104, respiratory rate 20, blood pressure 114/79, mean 90. Three-liter saturation 97%. She is mildly tachypneic and dyspneic. HEENT examination is grossly unremarkable. Mucous membranes are moist. Nasal oxygen in place. NECK: Supple. Full range of motion. No adenopathy or thyromegaly. Cardiovascular examination reveals regular rhythm and rate. Heart rate about 80 beats per minute. S1, S2 normal. No murmur. Lungs reveal diffuse inspiratory and expiratory wheezes and rhonchi. Breath sounds are coarse. There is prolongation on forced maneuver. Adventitious lung sounds are more prominent on forced maneuver. Breath sounds are equal bilaterally but diminished throughout. ABDOMEN: Soft. Bowel sounds are heard. Extremities are intact. No cyanosis, clubbing or edema. Skin is without rash. Neurologic examination is brief but nonfocal. CURRENT HOME MEDICATIONS: Include: 1. Aspirin. 2. Flexeril. 3. Singulair. 4. Symbicort. 5. Albuterol inhaler. 6. Xanax. 7. Atenolol. 8. Prolia. 9. Flonase nasal spray. 10.Spiriva. 11.Nexium. 12.Albuterol updrafts. 13.Minocin. 14.Astepro. 15.Probiotics. 16.Losartan. 17.Magnesium. 18.Myrbetriq. 19.Zocor. 20.Carafate. CURRENT LABORATORY DATA: Include white count of 17.9, hemoglobin 13.3, hematocrit 39.5, platelet count 356,000. PT 9.7, INR 0.9, PTT 21.8. Sodium 135, potassium 4.4, chloride 96, CO2 29. Anion gap is 10. BUN and creatinine were 21 and 0.87. Troponins were 0.055 and 0.032. N- terminal proBNP was 1100. Chest x-ray shows primarily chronic parenchymal changes. There is some underlying COPD. No definite acute abnormality is noted. Medications have been reviewed and adjusted accordingly. She is on: 1. Pulmicort 1 mg mixed with Perforomist twice a day. 2. DuoNeb q.i.d. and p.r.n. 3. Solu-Medrol 60 mg q.6. 4. Azithromycin 500 mg a day. ASSESSMENT: 1. Acute hypoxemic respiratory failure secondary to acute exacerbation of severe chronic obstructive pulmonary disease. 2. Severe/stage III chronic obstructive pulmonary disease. 3. History of skin cancer. 4. Gastroesophageal reflux disease. 5. Deafness. 6. Hyperlipidemia. 7. Hypertension. 8. Previous history of pneumonia. 9. Hypothyroidism. 10.Seizure disorder. 11.History of migraine cephalgia. 12.Chronic constipation. 13.Iron deficiency anemia. PLAN: The patient's medications were adjusted appropriately. She is on a short-acting beta agonist, a short-acting muscarinic antagonist, a long-acting beta agonist, an inhaled corticosteroid, systemic corticosteroids, and oral antibiotics. Additional recommendations and suggestions are forthcoming. The patient quit smoking 3 years ago. Prognosis is guarded. Additional recommendations and suggestions will be made where appropriate. Medications, labs and x-rays are reviewed. I believe her mildly elevated troponins related to supply/demand mismatch, given her severe COPD. MMODL / IJN: [id number] /
[2018-06-23] MEDS: AZITHROMYCIN 500 MG TAB PO SCH (17:29)
[2018-06-23 17:39] LABS: Glucose,Whole Blood 195 mg/dL (75-99)
--- NOTE | 2018-06-23 18:10 | PN ---
PROGRESS NOTE DATE OF SERVICE: June 23, 2018. PRESENTING COMPLAINT: Short of breath. INTERVAL HISTORY: The patient presents with acute severe chronic obstructive pulmonary disease exacerbation, pneumonia. Still short of breath. Has got a cough. Did tolerate some diet, felt to have troponin leak from hemodynamic mismatch. Seen earlier by Dr. Mathias and Dr. Kimble. Lying in bed, tired, short of breath. REVIEW OF SYSTEMS: Done for constitutional, cardiovascular, GI, pulmonary; relevant findings as above. CURRENT MEDICATIONS: Reviewed that include DuoNeb, IV Solu-Medrol, aspirin and Zithromax. PHYSICAL EXAMINATION: VITAL SIGNS: Temperature 98.4, pulse 95, respiration 20, blood pressure 119/75, pulse ox 98% on 3 L. GENERAL APPEARANCE: Lying in bed, tired-appearing, short of breath. EYES: Pupils equal. Conjunctivae pale. NECK: JVD unable to assess. Mass not palpable. RESPIRATORY: Effort increased. LUNGS: Decreased breath sounds. Prolonged expiration and wheezing. CARDIOVASCULAR: First and second sounds normal. No edema. ABDOMEN: Soft, nontender. Liver and spleen not palpable. DERMATOLOGICAL: Diffuse bruising. PSYCHIATRY: Alert and oriented x3. Mood and affect anxious-appearing. INVESTIGATIONS: Troponin 0.055 and 0.032. ASSESSMENT: 1. Acute severe chronic obstructive pulmonary disease exacerbation in an ex-smoker, slow to respond. 2. Acute hypoxic respiratory failure from above. 3. Right lower lobe pneumonia suspect gram-negative organism. 4. Essential hypertension. 5. Hyperlipidemia. 6. Gastroesophageal reflux disease. 7. Left ear hard of hearing. 8. Thyroid nodule. 9. Troponin leak from hemodynamic mismatch. No evidence of acute coronary syndrome. PLAN: Continue with bronchodilators, steroids, antibiotics. Care was discussed with the patient. Follow. MMODL / IJN: [id number] /
[2018-06-23] MEDS: ATORVASTATIN 20 MG TAB PO SCH (19:41)
[2018-06-23] MEDS: ATENOLOL 50 MG TAB PO SCH (19:41)
[2018-06-23] MEDS: CYCLOBENZAPRINE 10 MG TAB PO PRN (19:41)
[2018-06-23] MEDS: MONTELUKAST 10 MG TAB PO SCH (19:41)
[2018-06-23 21:20] LABS: Glucose,Whole Blood 202 mg/dL (75-99)
[2018-06-24] MEDS: methylPREDNISolone SOD SUCCI 40 MG/ML 1 ML VIAL IV SCH ×4 (00:06→22:54)
[2018-06-24] MEDS: IPRATROPIUM-ALBUTEROL 3 ML NEB INHALATION SCH ×6 (04:03→23:34)
[2018-06-24 06:07] LABS: Glucose,Whole Blood 167 mg/dL (75-99)
[2018-06-24] MEDS: SUCRALFATE 1 GM TAB PO SCH ×3 (06:48→17:27)
[2018-06-24] MEDS: PANTOPRAZOLE 40 MG TABLET PO SCH (06:48)
[2018-06-24] MEDS: MINOCYCLINE 50 MG CAP PO SCH (06:49)
[2018-06-24] MEDS: INSULIN ASPART 100 UNIT/ML 1 ML 10 ML VIAL SQ SCH ×4 (06:49→21:25)
--- NOTE | 2018-06-24 07:53 | ECHOF ---
Referral Reason:pos trops/abnoral ekg MEASUREMENTS -------- HEIGHT: 160.0 cm WEIGHT: 51.7 kg BP: 135/62 IVSd: 1.4 cm (0.6 - 1.1) LVIDd: 3.5 cm (3.9 - 5.3) LVPWd: 1.6 cm (0.6 - 1.1) IVSs: 1.6 cm LVIDs: 3.0 cm LVPWs: 1.2 cm LAESV Index (A-L): 21.92 ml/m Ao Diam: 3.2 cm (2.0 - 3.7) LA Diam: 4.0 cm (2.7 - 3.8) MV EXCURSION: 14.230 mm (> 18.000) MV EF SLOPE: 49 mm/s (70 - 150) EPSS: 1.1 cm MV E Benny: 0.44 m/s MV DecT: 232 ms MV A Benny: 1.12 m/s MV E/A Ratio: 0.39 RAP: 5.00 mmHg RVSP: 29.32 mmHg FINDINGS -------- Sinus rhythm. This was a technically adequate study. The left ventricular size is normal. There is moderate concentric left ventricular hypertrophy. O verall left ventricular systolic function is normal with, an EF between 55 - 60 %. The right ventricle is normal in size. The left atrial size is normal. Normal LA size by volume 22+/-6 ml/m2. The right atrial size is normal. There is mild aortic valve sclerosis. There is no evidence of aortic regurgitation. Mild mitral annular calcification present. Mild mitral regurgitation is present. Mild tricuspid regurgitation present. There is no evidence of pulmonary hypertension. The right v entricular systolic pressure, as measured by Doppler, is 29.32mmHg. The pulmonic valve was not well visualized. The aortic root size is normal. Echo free space may represent effusion or a pericardial fat pad. CONCLUSIONS -------- 1. The left ventricular size is normal. 2. There is moderate concentric left ventricular hypertrophy. 3. Overall left ventricular systolic function is normal with, an EF between 55 - 60 %. 4. The right ventricle is normal in size. 5. The left atrial size is normal. 6. The right atrial size is normal. 7. There is mild aortic valve sclerosis. 8. Mild mitral annular calcification present. 9. Mild mitral regurgitation is present. 10. Mild tricuspid regurgitation present. 11. There is no evidence of pulmonary hypertension. 12. The right ventricular systolic pressure, as measured by Doppler, is 29.32mmHg. 13. The pulmonic valve was not well visualized. 14. The aortic root size is normal. 15. Echo free space may represent effusion or a pericardial fat pad. [employer] MANAGER: Ranjana Lynch RDCS
[2018-06-24] MEDS: BUDESONIDE 1 MG/2 ML NEBU INHALATION SCH ×2 (08:37→19:47)
[2018-06-24] MEDS: FORMOTEROL FUMARATE 20 MCG/2 ML NEBU INHALATION SCH ×2 (08:37→19:47)
[2018-06-24] MEDS: LOSARTAN 50 MG TAB PO SCH (09:18)
[2018-06-24] MEDS: AZITHROMYCIN 500 MG TAB PO SCH (09:18)
[2018-06-24] MEDS: ENOXAPARIN 40 MG/0.4 ML SYRINGE SQ SCH (09:18)
[2018-06-24] MEDS: AZELASTINE 137MCG/SPRAY NASAL SCH ×2 (09:18→19:56)
[2018-06-24] MEDS: ASPIRIN 81 MG PO SCH (09:18)
[2018-06-24] MEDS: SODIUM CHLORIDE 0.9% 1,000 ML IV SCH ×3 (09:19→22:52)
[2018-06-24] MEDS: Mirabegron [Myrbetriq] 50 MG PO SCH (12:07)
--- NOTE | 2018-06-24 12:23 | PN ---
PROGRESS NOTE This is a 78-year-old lady with history of COPD, hypertension, dyslipidemia, hypothyroidism, carotid stenosis, status post left carotid endarterectomy, who presented to hospital with shortness of breath and elevated troponin. On an echocardiogram I performed her LV function and wall motion are normal. This morning, she appears comfortable at rest and her breathing has improved. Denies any chest pain. PHYSICAL EXAM: Heart rate is 90 beats per minute. Blood pressure is 131/72, respiratory rate is 18. Chest exam reveals bilateral rhonchi. Heart exam reveals first and second heart sounds. No gallop. Exam of extremities did not reveal any edema. Current medications include aspirin, Tenormin, Lovenox, Cozaar. ASSESSMENT: 1. Elevated troponin probably related to supply-demand mismatch. 2. Dyslipidemia. 3. Chronic obstructive pulmonary disease exacerbation. 4. Hypertension. PLAN: Echo looks normal. Continue with current medications. Patient may need stress test once the respiratory status improves. MMODL / IJN: [id number] /
[2018-06-24] MEDS: MAGNESIUM OXIDE 400 MG TAB PO SCH (12:50)
[2018-06-24] MEDS: LACTOBACILLUS ACIDOPH & BULGAR 1 EACH PACKET PO SCH (12:50)
[2018-06-24] MEDS: ALPRAZolam 0.25 MG TAB PO PRN ×2 (14:14→19:56)
--- NOTE | 2018-06-24 14:51 | P.PN ---
Subjective Progress Note Date: 06/24/18 Principal diagnosis: Exacerbation of COPD Patient is 78-year-old white female follows with Dr. Melgoza, was admitted to the hospital on 06/22/2018 for acute exacerbation of severe chronic obstructive pulmonary disease. Chest x-ray showed chronic proximal changes, no definite acute abnormality was seen. She is receiving oral antibiotics, IV steroids, nebulized bronchodilators, Pulmicort and Perforomist. Does have a history of underlying stage III COPD with FEV1 50% of predicted. Patient was treated on an outpatient basis in the pulmonary clinic, with IM Depo-Medrol, prednisone burst and taper, and failed to improve. Patient is coming in with complaints of shortness of breath, chest congestion, coughing, wheezing and phlegm production. They she seen again in follow-up on selective care unit, still congested and bronchospastic, states she is feeling slightly better. Currently on 2 L per nasal cannula with a pulse ox of 94%, afebrile, hemodynamically stable. Objective - Vital Signs Vital signs: Vital Signs Temp 97.1 F L 06/24/18 04:52 Pulse 100 06/24/18 11:59 Resp 22 06/24/18 04:52 BP 113/73 06/24/18 04:52 Pulse Ox 94 L 06/24/18 04:52 Intake & Output 06/23/18 06/24/18 06/24/18 18:59 06:59 18:59 Intake Total 760 240 Output Total 400 Balance 760 -160 Weight 52 kg Intake: IV 400 Sodium Chloride 0.9% 1, 400 000 ml @ 100 mls/hr IV . Q10H [facility] Rx#:[id number] Oral 360 240 Output: Urine 400 Other: Voiding Method Bedpan # Voids 1 1 - Exam GENERAL EXAM: Alert, pleasant, 78-year-old white female, extremely hard of hearing comfortable in no apparent distress. HEAD: Normocephalic/atraumatic. EYES: Normal reaction of pupils, equal size. Conjunctiva pink, sclera white. NOSE: Clear with pink turbinates. THROAT: No erythema or exudates. NECK: No masses, no JVD, no thyroid enlargement, no adenopathy. CHEST: No chest wall deformity. Symmetrical expansion. LUNGS: Equal air entry with diffuse wheezes and rhonchi. Patient has a wet congestive cough CVS: Regular rate and rhythm, normal S1 and S2, no gallops, no murmurs, no rubs ABDOMEN: Soft, nontender. No hepatosplenomegaly, normal bowel sounds, no guarding or rigidity. EXTREMITIES: No clubbing, no edema, no cyanosis, 2+ pulses and upper and lower extremities. MUSCULOSKELETAL: Muscle strength and tone normal. SPINE: No scoliosis or deformity SKIN: No rashes CENTRAL NERVOUS SYSTEM: Alert and oriented -3. No focal deficits, tone is normal in all 4 extremities. PSYCHIATRIC: Alert and oriented -3. Appropriate affect. Intact judgment and insight. - Labs CBC & Chem 7: 06/22/18 10:30 06/22/18 10:30 Labs: Abnormal Lab Results - Last 24 Hours (Table) 06/23/18 06/23/18 06/24/18 Range/Units 17:22 21:19 06:06 POC Glucose (mg/dL) 195 H 202 H 167 H (75-99) mg/dL Assessment and Plan Plan: Assessment: #1. Acute hypoxemic respiratory failure secondary to acute exacerbation of severe chronic obstructive pulmonary disease purulent tracheal bronchitis with failed outpatient treatment #2. 3 of severe stage III COPD #3. Hypertension #4. Hyperlipidemia #5. Episodes of pneumonia #6. Hypothyroidism #7. Seizure disorder #8. History of migraine cephalgia #9. Any constipation #10. Iron deficiency anemia Plan: Continue current dose of IV steroids, oral antibiotics, Pulmicort, Perforomist and nebulized bronchodilators. Patient still quiet bronchospastic and congested , although feels slightly better today. Continue current plan of treatment. Chest x-ray was reviewed did not show any acute pulmonary process. No fever or chills. I performed a history & physical examination of the patient and discussed their management with my nurse practitioner, Ann Tavarez. I reviewed the nurse practitioner's note and agree with the documented findings and plan of care. Lung sounds are positive for diffuse wheezes and rhonchi. The findings and the impression was discussed with the patient. I attest to the documentation by the nurse practitioner. Time with Patient: Less than 30
[2018-06-24] MEDS ORDERED: ALPRAZolam 0.25 MG TAB PO SCH (16:00)
[2018-06-24 16:43] LABS: Glucose,Whole Blood 166 mg/dL (75-99)
[2018-06-24] MEDS: ATORVASTATIN 20 MG TAB PO SCH (19:56)
[2018-06-24] MEDS: ATENOLOL 50 MG TAB PO SCH (19:56)
[2018-06-24] MEDS: MONTELUKAST 10 MG TAB PO SCH (19:56)
[2018-06-24 21:01] LABS: Glucose,Whole Blood 205 mg/dL (75-99)
--- NOTE | 2018-06-25 01:59 | PN ---
PROGRESS NOTE DATE OF SERVICE: 06/24/2018 PRESENTING COMPLAINT: Short of breath. INTERVAL HISTORY: The patient presented with acute severe chronic obstructive pulmonary disease exacerbation, pneumonia. A shade better. Still remains quite a bit short of breath. She has a congested cough, not able to expectorate. Did tolerate some diet. Does feel weak and tired, short of breath at rest. REVIEW OF SYSTEMS: Done for constitutional, cardiovascular, GI, pulmonary and findings as above. CURRENT MEDICATIONS: Reviewed that include IV Solu-Medrol, bronchodilators, Zithromax, minocycline. PHYSICAL EXAMINATION: Temperature 97.6, pulse 98, respiratory 20, blood pressure 114/77, pulse ox 92% on 2 L. GENERAL APPEARANCE: Lying in bed, tired-appearing, short of breath. GENERAL APPEARANCE: More comfortable. EYES: Pupils equal. Conjunctivae pale. NECK: JVD unable to assess. Mass not palpable. Respiratory effort increased. LUNGS: Decreased breath sounds. Prolonged inspiration and expiratory crackles. CARDIOVASCULAR: First and second sounds normal. No edema. ABDOMEN: Soft, nontender. Liver and spleen not palpable. PSYCHIATRY: Alert and oriented x3. Mood and affect anxious. DERMATOLOGICAL: Diffuse bruising. INVESTIGATIONS: Accu-Cheks are noted. ASSESSMENT: 1. Acute severe chronic obstructive pulmonary disease exacerbation in an ex-smoker, slow to respond. 2. Acute hypoxic respiratory failure from above, slow to respond. 3. Right lower lobe pneumonia, suspect gram-negative organism. 4. Essential hypertension. 5. Hyperlipidemia. 6. Gastroesophageal reflux disease. 7. Left ear hard of hearing. 8. Thyroid nodule. 9. Troponin leak due to hemodynamic mismatch. PLAN: Prognosis remains guarded. Continue current medication and treatment plan. Will use a flutter valve. Cut back on IV fluids. Prognosis guarded. MMODL / IJN: [id number] /
[2018-06-25] MEDS: IPRATROPIUM-ALBUTEROL 3 ML NEB INHALATION SCH ×6 (03:53→23:58)
[2018-06-25 06:16] LABS: Glucose,Whole Blood 148 mg/dL (75-99)
[2018-06-25] MEDS: PANTOPRAZOLE 40 MG TABLET PO SCH (06:29)
[2018-06-25] MEDS: SUCRALFATE 1 GM TAB PO SCH ×3 (06:29→17:37)
[2018-06-25] MEDS: MINOCYCLINE 50 MG CAP PO SCH (06:29)
[2018-06-25] MEDS: INSULIN ASPART 100 UNIT/ML 1 ML 10 ML VIAL SQ SCH ×4 (06:29→20:54)
[2018-06-25] MEDS: FORMOTEROL FUMARATE 20 MCG/2 ML NEBU INHALATION SCH ×2 (08:21→20:31)
[2018-06-25] MEDS: BUDESONIDE 1 MG/2 ML NEBU INHALATION SCH ×2 (08:21→20:31)
[2018-06-25] MEDS: methylPREDNISolone SOD SUCCI 40 MG/ML 1 ML VIAL IV SCH ×3 (09:06→23:49)
[2018-06-25] MEDS: LOSARTAN 50 MG TAB PO SCH (09:06)
[2018-06-25] MEDS: AZITHROMYCIN 500 MG TAB PO SCH (09:06)
[2018-06-25] MEDS: ASPIRIN 81 MG PO SCH (09:06)
[2018-06-25] MEDS: AZELASTINE 137MCG/SPRAY NASAL SCH ×2 (09:06→20:14)
[2018-06-25] MEDS: ENOXAPARIN 40 MG/0.4 ML SYRINGE SQ SCH (09:06)
[2018-06-25] MEDS: Mirabegron [Myrbetriq] 50 MG PO SCH (09:06)
[2018-06-25] MEDS: ALPRAZolam 0.25 MG TAB PO PRN ×3 (09:06→20:15)
[2018-06-25 12:19] LABS: Glucose,Whole Blood 157 mg/dL (75-99)
--- NOTE | 2018-06-25 12:35 | P.PN ---
Subjective Progress Note Date: 06/25/18 Principal diagnosis: Acute exacerbation of severe oxygen dependent end-stage chronic obstructive pulmonary disease. This is a very pleasant 78-year-old white female follows with Dr. Melgoza, was admitted to the hospital on 06/22/2018 for acute exacerbation of severe chronic obstructive pulmonary disease. Chest x-ray showed chronic proximal changes, no definite acute abnormality was seen. She is receiving oral antibiotics, IV steroids, nebulized bronchodilators, Pulmicort and Perforomist. Does have a history of underlying stage III COPD with FEV1 50% of predicted. Patient was treated on an outpatient basis in the pulmonary clinic, with IM Depo-Medrol, prednisone burst and taper, and failed to improve. Patient is coming in with complaints of shortness of breath, chest congestion, coughing, wheezing and phlegm production. They she seen again in follow-up on selective care unit, still congested and bronchospastic, states she is feeling slightly better. Currently on 2 L per nasal cannula with a pulse ox of 94%, afebrile, hemodynamically stable. The patient is seen today 06/25/2018 in follow-up on the selective care unit. She is currently resting quite comfortably in bed. Awake and alert in no acute distress. She is feeling a bit better today compared to yesterday but still not back to her baseline. She is quite dyspneic on minimal exertion. Dyspneic with conversation. She continues to maintain good O2 saturations in the mid 90s on 2 L/m per nasal cannula. She's afebrile. Hemodynamically stable. He is continued on DuoNeb inhalations, Pulmicort and Perforomist inhalations, IV Solu-Medrol, Singulair. Objective - Vital Signs Vital signs: Vital Signs Temp 97.6 F 06/25/18 08:00 Pulse 94 06/25/18 11:56 Resp 20 06/25/18 08:00 BP 147/84 06/25/18 08:00 Pulse Ox 97 06/25/18 08:00 Intake & Output 06/24/18 06/25/18 06/25/18 18:59 06:59 18:59 Intake Total 600 530 240 Output Total 700 600 Balance -100 -70 240 Intake: Oral 600 530 240 Output: Urine 700 600 Other: Voiding Method Bedpan Bedpan Bedpan # Voids 1 1 - Exam GENERAL EXAM: Alert, pleasant, 78-year-old female, extremely hard of hearing comfortable in no apparent distress. On 2 L nasal cannula HEAD: Normocephalic/atraumatic. EYES: Normal reaction of pupils, equal size. Conjunctiva pink, sclera white. NOSE: Clear with pink turbinates. THROAT: No erythema or exudates. NECK: No masses, no JVD, no thyroid enlargement, no adenopathy. CHEST: No chest wall deformity. Symmetrical expansion. LUNGS: Equal air entry with diffuse wheezes and rhonchi. Patient has a wet congestive cough CVS: Regular rate and rhythm, normal S1 and S2, no gallops, no murmurs, no rubs ABDOMEN: Soft, nontender. No hepatosplenomegaly, normal bowel sounds, no guarding or rigidity. EXTREMITIES: No clubbing, no edema, no cyanosis, 2+ pulses and upper and lower extremities. MUSCULOSKELETAL: Muscle strength and tone normal. SPINE: No scoliosis or deformity SKIN: No rashes CENTRAL NERVOUS SYSTEM: Alert and oriented -3. No focal deficits, tone is normal in all 4 extremities. PSYCHIATRIC: Alert and oriented -3. Appropriate affect. Intact judgment and insight. - Labs CBC & Chem 7: 06/22/18 10:30 06/22/18 10:30 Labs: Abnormal Lab Results - Last 24 Hours (Table) 06/24/18 06/24/18 06/25/18 Range/Units 16:42 21:00 06:14 POC Glucose (mg/dL) 166 H 205 H 148 H (75-99) mg/dL 06/25/18 Range/Units 12:03 POC Glucose (mg/dL) 157 H (75-99) mg/dL Assessment and Plan Assessment: Assessment: #1. Acute hypoxemic respiratory failure secondary to acute exacerbation of severe chronic obstructive pulmonary disease purulent tracheal bronchitis with failed outpatient treatment #2. 3 of severe stage III COPD #3. Hypertension #4. Hyperlipidemia #5. Episodes of pneumonia #6. Hypothyroidism #7. Seizure disorder #8. History of migraine cephalgia #9. Any constipation #10. Iron deficiency anemia Plan: The patient was seen and evaluated by Dr. Mathias. She has been slow to progress. We'll continue with the current treatment plan. Increase activity as tolerated. We'll continue to follow. Her overall prognosis remains quite guarded and poor. I, the cosigning physician, performed a history & physical examination of the patient. Lungs sounds lateral wheezing, diminished. Maintaining good O2 saturations in the 90s on 2 L/m per nasal cannula. I discussed the assessment and plan of care with my nurse practitioner, Sharon Nvaarro. I attest to the above note as dictated by her.
[2018-06-25] MEDS: MAGNESIUM OXIDE 400 MG TAB PO SCH (12:40)
[2018-06-25] MEDS: LACTOBACILLUS ACIDOPH & BULGAR 1 EACH PACKET PO SCH (12:41)
--- NOTE | 2018-06-25 13:56 | P.PN ---
Subjective This is a 89-year-old female past medical history significant for hypertension, dyslipidemia, COPD, peripheral vascular disease status post left carotid endarterectomy and hypothyroidism. She presented to the hospital with shortness of breath and elevated troponin. Echocardiogram reveals preserved left ventricular systolic function with ejection fraction 55-60%. She states she follows with a cornetist Dr. Sandesr who did a nuclear stress test in the office that was abnormal and she is scheduled for elective heart catheterization 07/07. She states she is feeling a bit better today compared to yesterday with Soma back to her baseline. She continues to become dyspneic with exertion even with simple conversation as well as with a productive cough. She denies symptoms of chest discomfort, dizziness or palpitations. Blood pressure 142/78 heart rate 93 afebrile maintaining oxygen saturation on room air. Currently maintained on aspirin 81 mg daily, atenolol 50 mg daily, atorvastatin 20 mg daily, losartan 50 mg daily. GENERAL: Well-appearing, well-nourished and in no acute distress. NECK: Supple without JVD or thyromegaly. LUNGS: Coarse rhonchi noted throughout with faint expiratory wheeze. No rales. Respiration equal and unlabored. HEART: Regular rate and rhythm without murmurs, rubs or gallops. S1 and S2 heard. EXTREMITIES: Normal range of motion, no edema. No clubbing or cyanosis. Peripheral pulses intact. ASSESSMENT Acute hypoxic respiratory failure secondary to exacerbation of severe COPD with tracheobronchitis failed outpatient treatment Elevated troponin secondary to supply demand mismatch Dyslipidemia COPD Hypertension PLAN Continue current medical regimen. Once her respiratory status has improved we will consider coronary angiography either here or with her primary cornetist. The above impression and plan of care have been discussed and directed by the signing physician. Manuela Ibanez, nurse practitioner, acting as scribe for signing physician. Objective - Vital Signs Vital signs: Vital Signs Temp 97.6 F 06/25/18 12:00 Pulse 93 06/25/18 12:00 Resp 22 06/25/18 12:00 BP 142/78 06/25/18 12:00 Pulse Ox 97 06/25/18 12:00 Intake & Output 06/24/18 06/25/18 06/25/18 18:59 06:59 18:59 Intake Total 600 530 240 Output Total 700 600 Balance -100 -70 240 Intake: Oral 600 530 240 Output: Urine 700 600 Other: Voiding Method Bedpan Bedpan Bedpan # Voids 1 1 - Labs CBC & Chem 7: 06/22/18 10:30 06/22/18 10:30 Labs: Abnormal Lab Results - Last 24 Hours (Table) 06/24/18 06/24/18 06/25/18 Range/Units 16:42 21:00 06:14 POC Glucose (mg/dL) 166 H 205 H 148 H (75-99) mg/dL 06/25/18 Range/Units 12:03 POC Glucose (mg/dL) 157 H (75-99) mg/dL
[2018-06-25 17:27] LABS: Glucose,Whole Blood 193 mg/dL (75-99)
[2018-06-25] MEDS: ATENOLOL 50 MG TAB PO SCH (20:15)
[2018-06-25] MEDS: MONTELUKAST 10 MG TAB PO SCH (20:15)
[2018-06-25] MEDS: ATORVASTATIN 20 MG TAB PO SCH (20:15)
[2018-06-25] MEDS: SODIUM CHLORIDE 0.9% 1,000 ML IV SCH (20:15)
[2018-06-25] MEDS: CYCLOBENZAPRINE 10 MG TAB PO PRN (20:15)
[2018-06-25 20:40] LABS: Glucose,Whole Blood 151 mg/dL (75-99)
[2018-06-26] MEDS: IPRATROPIUM-ALBUTEROL 3 ML NEB INHALATION SCH ×5 (04:07→19:26)
[2018-06-26 05:53] LABS: Glucose,Whole Blood 183 mg/dL (75-99)
[2018-06-26] MEDS: SUCRALFATE 1 GM TAB PO SCH ×3 (07:04→16:42)
[2018-06-26] MEDS: PANTOPRAZOLE 40 MG TABLET PO SCH (07:04)
[2018-06-26] MEDS: INSULIN ASPART 100 UNIT/ML 1 ML 10 ML VIAL SQ SCH ×4 (07:04→21:19)
[2018-06-26] MEDS: MINOCYCLINE 50 MG CAP PO SCH (07:04)
--- NOTE | 2018-06-26 07:04 | PN ---
PROGRESS NOTE DATE OF SERVICE: 06/25/2018 PRESENTING COMPLAINT: Short of breath. INTERVAL HISTORY: Patient presented with acute severe chronic obstructive pulmonary disease exacerbation, pneumonia. Somewhat tearful today. Feels low. Short of breath, cough is present not, bringing up much. Eating some diet. Lying in bed. Respiratory as above. REVIEW OF SYSTEMS: Done for constitutional, cardiovascular, GI, pulmonary, respiratory with findings as above. CURRENT MEDICATIONS: Reviewed that include DuoNeb, aspirin, Zithromax, IV Solu-Medrol. PHYSICAL EXAMINATION: Temperature 98.2, pulse 80 respiratory 20, blood pressure 137/86, pulse 88, 98% on 2 L. GENERAL APPEARANCE: Lying in bed tired-appearing, awake. EYES: Pupils equal. Conjunctivae normal. NECK: JVD not raised. Mass not palpable. Respiratory effort normal. LUNGS: Decreased breath sounds. Prolonged expiration with expiratory crackles. CARDIOVASCULAR: First and second sounds normal. No edema. ABDOMEN: Soft, nontender. Liver and spleen not palpable. PSYCHIATRY: Alert and oriented x3. Mood and affect normal. INVESTIGATIONS: Accu-Cheks are noted. ASSESSMENT: 1. Acute severe chronic obstructive pulmonary disease exacerbation in an ex-smoker, slow to respond. 2. Acute hypoxic respiratory failure from above. 3. Right lobe pneumonia, suspect gram-negative organism. 4. Essential hypertension. 5. Hyperlipidemia. 6. Gastroesophageal reflux disease. 7. Left ear hard of hearing. 8. Thyroid nodule. 9. Troponin leak due to hemodynamic mismatch. PLAN: Prognosis remains guarded. The patient definitely slow to respond. Continue with current treatment plan. Prognosis overall to not too good given the advanced stage of COPD. MMODL / IJN: [id number] /
[2018-06-26] MEDS: BUDESONIDE 1 MG/2 ML NEBU INHALATION SCH ×2 (07:25→19:26)
[2018-06-26] MEDS: FORMOTEROL FUMARATE 20 MCG/2 ML NEBU INHALATION SCH ×2 (07:25→19:26)
[2018-06-26] MEDS: AZELASTINE 137MCG/SPRAY NASAL SCH ×2 (08:28→22:09)
[2018-06-26] MEDS: methylPREDNISolone SOD SUCCI 40 MG/ML 1 ML VIAL IV SCH ×3 (08:28→22:56)
[2018-06-26] MEDS: AZITHROMYCIN 500 MG TAB PO SCH (08:28)
[2018-06-26] MEDS: LOSARTAN 50 MG TAB PO SCH (08:28)
[2018-06-26] MEDS: ALPRAZolam 0.25 MG TAB PO PRN ×3 (08:28→22:12)
[2018-06-26] MEDS: ENOXAPARIN 40 MG/0.4 ML SYRINGE SQ SCH (08:28)
[2018-06-26] MEDS: ASPIRIN 81 MG PO SCH (08:28)
[2018-06-26] MEDS: Mirabegron [Myrbetriq] 50 MG PO SCH (11:28)
[2018-06-26 11:30] LABS: Glucose,Whole Blood 163 mg/dL (75-99)
[2018-06-26] MEDS: LACTOBACILLUS ACIDOPH & BULGAR 1 EACH PACKET PO SCH (12:43)
[2018-06-26] MEDS: MAGNESIUM OXIDE 400 MG TAB PO SCH (12:44)
--- NOTE | 2018-06-26 13:13 | PN ---
PROGRESS NOTE DATE OF SERVICE: June 26, 2018 This is a 78-year-old female with a history of severe COPD. The patient was admitted with diagnosis of acute hypoxemic respiratory failure secondary to an acute exacerbation of severe COPD. The patient was also complicated by purulent tracheobronchitis. She has stage III COPD. She also suffers from hypertension, hyperlipidemia, pneumonia, hypothyroidism, seizure disorder, migraine cephalgia, constipation and iron deficiency anemia. Today, the patient is a bit better. We did order a flutter valve for her so she could cough up secretions. The patient is profoundly deaf and you have to really talk very loudly to her for her to hear anything. The patient does clinically look better. Current vital signs are reviewed. Temperature 97.6, heart rate 80. Respiratory rate 20, blood pressure 145/89, mean 107. 2 L saturation 99%. Appears in no acute distress. HEENT examination is grossly unremarkable. Mucous membranes are moist. No oral lesions. Neck is supple. Full range of motion. No adenopathy or thyromegaly. Neck veins are flat. Cardiovascular examination reveals regular rhythm and rate. S1, S2 normal. No S3, S4, or murmur. Lungs reveal coarse inspiratory and expiratory rhonchi and wheezes. Breath sounds are diminished. There is prolongation on forced maneuver. The patient coughs on forced maneuver. Breath sounds are maybe marginally improved. Breath sounds are rather coarse though. Abdomen is soft. Bowel sounds are heard. Extremities are intact. No cyanosis, clubbing, or edema. Skin without rash. Neurologic examination is brief but nonfocal. Labs are reviewed. Nothing new to report. Microbiologic studies are negative. No chest x-ray to report. Medications are reviewed. ASSESSMENT: 1. Acute hypoxemic respiratory failure, secondary to an acute chronic obstructive pulmonary disease exacerbation complicated by purulent tracheobronchitis. 2. Stage 3/severe chronic obstructive pulmonary disease. 3. Benign essential hypertension. 4. Hyperlipidemia. 5. Previous episodes of pneumonia. 6. Hypothyroidism. 7. History of seizure disorder. 8. History of migraine cephalgia. 9. Chronic constipation. 10.Iron deficiency anemia. PLAN: The patient's medications are reviewed. Everything seems to be in order. We will continue to follow. She remains on antibiotics in form of Zithromax. She is also on 1 mg Pulmicort mixed with formoterol twice a day. She remains on updrafts with albuterol and Atrovent q.i.d. and p.r.n. In addition, she is on Solu-Medrol 40 mg q.8h. Additional recommendations and suggestions are forthcoming. Prognosis is guarded. We will continue to follow. AMY / THOMASN: [id number] /
--- NOTE | 2018-06-26 13:56 | P.PN ---
Subjective This is a 89-year-old female past medical history significant for hypertension, dyslipidemia, COPD, peripheral vascular disease status post left carotid endarterectomy and hypothyroidism. She presented to the hospital with shortness of breath and elevated troponin. Echocardiogram reveals preserved left ventricular systolic function with ejection fraction 55-60%. She states she follows with a human resources administrator Dr. Sanders who did a nuclear stress test in the office that was abnormal and she is scheduled for elective heart catheterization 07/07. She states she is feeling a bit better today compared to yesterday with Soma back to her baseline. She continues to become dyspneic with exertion even with simple conversation as well as with a productive cough. She denies symptoms of chest discomfort, dizziness or palpitations. Blood pressure 145/89 heart rate 98 afebrile maintaining oxygen saturation on nasal cannula. GENERAL: Well-appearing, well-nourished and in no acute distress. NECK: Supple without JVD or thyromegaly. LUNGS: Ongoing rhonchi noted throughout with expiratory wheeze. No rales. Respiration equal and unlabored. HEART: Regular rate and rhythm without murmurs, rubs or gallops. S1 and S2 heard. EXTREMITIES: Normal range of motion, no edema. No clubbing or cyanosis. Peripheral pulses intact. ASSESSMENT Acute hypoxic respiratory failure secondary to exacerbation of severe COPD with tracheobronchitis failed outpatient treatment Elevated troponin secondary to supply demand mismatch Dyslipidemia COPD Hypertension PLAN Stable from a cardiac perspective. Follow up with her primary human resources administrator upon discharge. We will continue to follow as needed, please feel free to call with further questions or concerns. The above impression and plan of care have been discussed and directed by the signing physician. Manuela Ibanez, nurse practitioner, acting as scribe for signing physician. Objective - Vital Signs Vital signs: Vital Signs Temp 97.6 F 06/26/18 08:00 Pulse 98 06/26/18 08:00 Resp 20 06/26/18 08:00 BP 145/89 06/26/18 08:00 Pulse Ox 99 06/26/18 08:00 Intake & Output 06/25/18 06/26/18 06/26/18 18:59 06:59 18:59 Intake Total 480 240 270 Output Total 350 Balance 480 -110 270 Weight 53.3 kg Intake: Oral 480 240 270 Output: Urine 350 Other: Voiding Method Bedpan Bedpan Bedpan # Voids 1 1 - Labs CBC & Chem 7: 06/22/18 10:30 06/22/18 10:30 Labs: Abnormal Lab Results - Last 24 Hours (Table) 06/25/18 06/25/18 06/25/18 Range/Units 12:03 17:06 20:39 POC Glucose (mg/dL) 157 H 193 H 151 H (75-99) mg/dL 06/26/18 Range/Units 05:52 POC Glucose (mg/dL) 183 H (75-99) mg/dL
[2018-06-26] MEDS ORDERED: MAGNESIUM HYDROXIDE 2,400 MG/10 ML CUP PO PRN ×2 (15:01→15:34)
[2018-06-26 17:19] LABS: Glucose,Whole Blood 146 mg/dL (75-99)
[2018-06-26 21:17] LABS: Glucose,Whole Blood 201 mg/dL (75-99)
[2018-06-26] MEDS: SODIUM CHLORIDE 0.9% 1,000 ML IV SCH (22:05)
[2018-06-26] MEDS: ATORVASTATIN 20 MG TAB PO SCH (22:09)
[2018-06-26] MEDS: ATENOLOL 50 MG TAB PO SCH (22:09)
[2018-06-26] MEDS: MONTELUKAST 10 MG TAB PO SCH (22:09)
[2018-06-26] MEDS: CYCLOBENZAPRINE 10 MG TAB PO PRN (22:12)
[2018-06-27] MEDS: IPRATROPIUM-ALBUTEROL 3 ML NEB INHALATION SCH ×6 (00:23→21:15)
--- NOTE | 2018-06-27 01:39 | PN ---
PROGRESS NOTE DATE OF SERVICE: June 26, 2018. PRESENTING COMPLAINT: Short of breath. INTERVAL HISTORY: This patient with advanced COPD exacerbation, pneumonia. Feeling a bit better today though rather constipated, was given laxatives earlier. Did tolerate some diet. Tired, short of breath. REVIEW OF SYSTEMS: Done for constitutional, cardiovascular, GI, pulmonary and relevant findings as above. CURRENT MEDICATIONS: Reviewed include and DuoNeb and Zithromax IV Solu-Medrol. PHYSICAL EXAMINATION: VITAL SIGNS: Temperature 98.1, pulse 98, respiratory 20, blood pressure 130/81, pulse ox 98% on 2 L. GENERAL APPEARANCE: Lying in bed, tired, short of breath. EYES: Pupils equal. Cranial nerves normal. NECK: JVD not raised. Mass not palpable. RESPIRATORY: Effort increased. LUNGS: Decreased breath sounds on prolonged and expiration wheezing. CARDIOVASCULAR: 1st and 2nd sounds, no edema. ABDOMEN: Distended, soft. Liver and spleen not palpable. PSYCHIATRY: Alert and oriented x3. Mood and affect normal. INVESTIGATIONS: Accu-Cheks are noted. ASSESSMENT: 1. Acute severe chronic obstructive pulmonary disease exacerbation in an ex-smoker, slow to respond. 2. Acute hypoxic respiratory failure from above. 3. Right lower lobe pneumonia suspect gram-negative organism. 4. Essential hypertension. 5. Hyperlipidemia. 6. Gastroesophageal reflux disease. 7. Left ear hard of hearing. 8. Thyroid nodule. 9. Troponin leak due to hemodynamic mismatch. 10.Constipation, received laxatives today. PLAN: The patient did receive laxatives. Cut back to Solu-Medrol to 40 q.12h. Prognosis remains guarded due to advanced COPD stage. We will take it day by day. MMODL / IJN: [id number] /
[2018-06-27 06:11] LABS: Glucose,Whole Blood 151 mg/dL (75-99)
[2018-06-27] MEDS: MINOCYCLINE 50 MG CAP PO SCH (06:45)
[2018-06-27] MEDS: PANTOPRAZOLE 40 MG TABLET PO SCH (06:45)
[2018-06-27] MEDS: SUCRALFATE 1 GM TAB PO SCH ×3 (06:45→17:45)
[2018-06-27] MEDS: INSULIN ASPART 100 UNIT/ML 1 ML 10 ML VIAL SQ SCH ×4 (06:46→19:47)
[2018-06-27] MEDS: Mirabegron [Myrbetriq] 50 MG PO SCH (07:52)
[2018-06-27] MEDS: AZITHROMYCIN 500 MG TAB PO SCH (07:57)
[2018-06-27] MEDS: ASPIRIN 81 MG PO SCH (07:57)
[2018-06-27] MEDS: methylPREDNISolone SOD SUCCI 40 MG/ML 1 ML VIAL IV SCH ×3 (07:57→22:45)
[2018-06-27] MEDS: MAGNESIUM OXIDE 400 MG TAB PO SCH (07:57)
[2018-06-27] MEDS: LOSARTAN 50 MG TAB PO SCH (07:57)
[2018-06-27] MEDS: AZELASTINE 137MCG/SPRAY NASAL SCH ×2 (07:58→19:37)
[2018-06-27] MEDS: ENOXAPARIN 40 MG/0.4 ML SYRINGE SQ SCH (07:58)
[2018-06-27] MEDS: FORMOTEROL FUMARATE 20 MCG/2 ML NEBU INHALATION SCH ×2 (08:38→21:15)
[2018-06-27] MEDS: BUDESONIDE 1 MG/2 ML NEBU INHALATION SCH ×2 (08:38→21:15)
[2018-06-27] MEDS: LACTOBACILLUS ACIDOPH & BULGAR 1 EACH PACKET PO SCH (11:28)
[2018-06-27 12:25] LABS: Glucose,Whole Blood 195 mg/dL (75-99)
--- NOTE | 2018-06-27 15:14 | P.PN ---
Subjective Progress Note Date: 06/27/18 Principal diagnosis: Exacerbation of COPD Patient is 78-year-old white female follows with Dr. Melgoza, was admitted to the hospital on 06/22/2018 for acute exacerbation of severe chronic obstructive pulmonary disease. Chest x-ray showed chronic proximal changes, no definite acute abnormality was seen. She is receiving oral antibiotics, IV steroids, nebulized bronchodilators, Pulmicort and Perforomist. Does have a history of underlying stage III COPD with FEV1 50% of predicted. Patient was treated on an outpatient basis in the pulmonary clinic, with IM Depo-Medrol, prednisone burst and taper, and failed to improve. Patient is coming in with complaints of shortness of breath, chest congestion, coughing, wheezing and phlegm production. They she seen again in follow-up on selective care unit, still congested and bronchospastic, states she is feeling slightly better. Currently on 2 L per nasal cannula with a pulse ox of 94%, afebrile, hemodynamically stable. On 06/27/2018 patient seen again in follow-up on selective care unit, she is resting comfortably in bed, states her breathing is better, and lung sounds are positive for some scattered wheezing, but overall improving, currently on 2 L per nasal cannula and her pulse ox 100%, she is afebrile, patient continues on oral Zithromax, nebulized bronchodilators,IV steroids. Objective - Vital Signs Vital signs: Vital Signs Temp 98.7 F 06/27/18 11:57 Pulse 81 06/27/18 12:00 Resp 20 06/27/18 12:00 BP 143/73 06/27/18 11:57 Pulse Ox 100 06/27/18 11:57 Intake & Output 06/26/18 06/27/18 06/27/18 18:59 06:59 18:59 Intake Total 750 520 Output Total 450 Balance 750 -450 520 Weight 52 kg Intake: Intake, IV Titration 40 Amount Sodium Chloride 0.9% 1, 40 000 ml @ 20 mls/hr IV . Q24H [facility] Rx#:[id number] Oral 750 480 Output: Urine 450 Other: Voiding Method Bedpan Bedpan Bedpan # Voids 1 1 # Bowel Movements 2 - Exam GENERAL EXAM: Alert, pleasant, 78-year-old white female, extremely hard of hearing comfortable in no apparent distress. HEAD: Normocephalic/atraumatic. EYES: Normal reaction of pupils, equal size. Conjunctiva pink, sclera white. NOSE: Clear with pink turbinates. THROAT: No erythema or exudates. NECK: No masses, no JVD, no thyroid enlargement, no adenopathy. CHEST: No chest wall deformity. Symmetrical expansion. LUNGS: Equal air entry with scattered wheezes, Patient has a wet congestive cough CVS: Regular rate and rhythm, normal S1 and S2, no gallops, no murmurs, no rubs ABDOMEN: Soft, nontender. No hepatosplenomegaly, normal bowel sounds, no guarding or rigidity. EXTREMITIES: No clubbing, no edema, no cyanosis, 2+ pulses and upper and lower extremities. MUSCULOSKELETAL: Muscle strength and tone normal. SPINE: No scoliosis or deformity SKIN: No rashes CENTRAL NERVOUS SYSTEM: Alert and oriented -3. No focal deficits, tone is normal in all 4 extremities. PSYCHIATRIC: Alert and oriented -3. Appropriate affect. Intact judgment and insight. - Labs CBC & Chem 7: 06/22/18 10:30 06/22/18 10:30 Labs: Abnormal Lab Results - Last 24 Hours (Table) 06/26/18 06/26/18 06/27/18 Range/Units 17:17 21:15 06:10 POC Glucose (mg/dL) 146 H 201 H 151 H (75-99) mg/dL 06/27/18 Range/Units 11:46 POC Glucose (mg/dL) 195 H (75-99) mg/dL Assessment and Plan Plan: Assessment: #1. Acute hypoxemic respiratory failure secondary to acute exacerbation of severe chronic obstructive pulmonary disease purulent tracheal bronchitis with failed outpatient treatment #2. Stage 3 of severe stage III COPD #3. Hypertension #4. Hyperlipidemia #5. Episodes of pneumonia #6. Hypothyroidism #7. Seizure disorder #8. History of migraine cephalgia #9. Any constipation #10. Iron deficiency anemia Plan: Continue current medical treatment, IV steroids, nebulized bronchodilators, Pulmicort, Perforomist and oral antibiotics, patient is improving, but slowly, still has some scattered wheezes, but overall improving. We'll continue to follow I performed a history & physical examination of the patient and discussed their management with my nurse practitioner, Ann Tavarez. I reviewed the nurse practitioner's note and agree with the documented findings and plan of care. Lung sounds are positive for diffuse wheezes and rhonchi. The findings and the impression was discussed with the patient. I attest to the documentation by the nurse practitioner. Time with Patient: Less than 30
[2018-06-27] MEDS: NYSTATIN 100,000 UNIT/ML SUSP 500,000 UNIT/5 ML CUP PO SCH ×3 (15:33→19:37)
[2018-06-27 17:16] LABS: Glucose,Whole Blood 117 mg/dL (75-99)
[2018-06-27] MEDS: ATORVASTATIN 20 MG TAB PO SCH (19:37)
[2018-06-27] MEDS: ATENOLOL 50 MG TAB PO SCH (19:37)
[2018-06-27] MEDS: MONTELUKAST 10 MG TAB PO SCH (19:37)
[2018-06-27] MEDS: SODIUM CHLORIDE 0.9% 1,000 ML IV SCH (19:37)
[2018-06-27 19:54] LABS: Glucose,Whole Blood 220 mg/dL (75-99)
--- NOTE | 2018-06-28 00:05 | PN ---
PROGRESS NOTE DATE OF SERVICE: June 27, 2018. PRESENTING COMPLAINT: Short of breath. INTERVAL HISTORY: This patient has advanced COPD exacerbation, pneumonia. Feels a shade better today. Did have a good bowel movement yesterday. Did tolerate some diet, was seen by Physical therapy. They put her up to the chair. Still short of breath. Wheezing at rest though a shade better. REVIEW OF SYSTEMS: Done for constitutional, cardiovascular, GI, pulmonary; relevant findings as above. CURRENT MEDICATIONS: Reviewed that include bronchodilators, Zithromax, IV Solu-Medrol. PHYSICAL EXAMINATION: VITAL SIGNS: Temperature 99.7, pulse 81, respiration rate 20, blood pressure 146/87, pulse ox 98% on 2 L. GENERAL APPEARANCE: Lying in bed. A shade more resting. EYES: Pupils equal. Conjunctivae normal. NECK: JVD not raised. Mass not palpable. RESPIRATORY: Effort increased. Lungs, decreased breath sounds. Prolonged expiration. Less wheezing. CARDIOVASCULAR: 1st and 2nd sounds no edema. ABDOMEN: Soft, nontender. Liver and spleen not palpable. PSYCHIATRY: Alert and oriented times three. Anxious. INVESTIGATIONS: Accu-Cheks are noted. ASSESSMENT: 1. Acute severe chronic obstructive pulmonary disease exacerbation in an ex-smoker, slow to respond. 2. Acute hypoxic respiratory failure from above. 3. Right lobe pneumonia suspect gram-negative organism. 4. Essential hypertension. 5. Hyperlipidemia. 6. Gastroesophageal reflux disease. 7. Left ear hard of hearing. 8. Thyroid nodule. 9. Troponin leak due to hemodynamic mismatch. 10.Constipation responded well to laxatives. 11.Medical debility, able to transfer to the chair today. PLAN: Prognosis remains guarded. Continue current medication and treatment plan. Long-term prognosis does not look good. MMODL / IJN: [id number] /
[2018-06-28] MEDS: IPRATROPIUM-ALBUTEROL 3 ML NEB INHALATION SCH ×7 (01:04→23:24)
[2018-06-28 05:42] LABS: Glucose,Whole Blood 128 mg/dL (75-99)
[2018-06-28] MEDS: SUCRALFATE 1 GM TAB PO SCH ×3 (06:16→16:31)
[2018-06-28] MEDS: MINOCYCLINE 50 MG CAP PO SCH (06:16)
[2018-06-28] MEDS: PANTOPRAZOLE 40 MG TABLET PO SCH (06:16)
[2018-06-28] MEDS: INSULIN ASPART 100 UNIT/ML 1 ML 10 ML VIAL SQ SCH ×4 (06:16→19:51)
[2018-06-28 07:06] LABS: Calcium 7.5 mg/dL (8.4-10.2); Potassium 4.3 mmol/L (3.5-5.1)
[2018-06-28 07:33] LABS: Basophils % (A) 0 %; Eosinophils % (A) 0 %; HCT 27.2 % (34.0-46.0); Lymphocytes # (A) 0.3 k/uL (1.0-4.8); Lymphocytes % (A) 2 %; MCHC 33.2 g/dL (31.0-37.0); MCV 96.5 fL (80.0-100.0); Monocytes # (A) 0.5 k/uL (0-1.0); Monocytes % (A) 4 %; Neutrophils # (A) 12.2 k/uL (1.3-7.7); Neutrophils % (A) 93 %; Platelet Count 298 k/uL (150-450); RBC 2.82 m/uL (3.80-5.40); RDW 13.8 % (11.5-15.5)
[2018-06-28] MEDS: Mirabegron [Myrbetriq] 50 MG PO SCH (07:49)
[2018-06-28] MEDS: AZELASTINE 137MCG/SPRAY NASAL SCH ×2 (07:54→19:51)
[2018-06-28] MEDS: LOSARTAN 50 MG TAB PO SCH (07:58)
[2018-06-28] MEDS: AZITHROMYCIN 500 MG TAB PO SCH (07:58)
[2018-06-28] MEDS: methylPREDNISolone SOD SUCCI 40 MG/ML 1 ML VIAL IV SCH ×2 (07:59→19:52)
[2018-06-28] MEDS: ASPIRIN 81 MG PO SCH (07:59)
[2018-06-28] MEDS: MAGNESIUM OXIDE 400 MG TAB PO SCH (07:59)
[2018-06-28] MEDS: ENOXAPARIN 40 MG/0.4 ML SYRINGE SQ SCH (07:59)
[2018-06-28] MEDS: NYSTATIN 100,000 UNIT/ML SUSP 500,000 UNIT/5 ML CUP PO SCH ×4 (08:00→19:51)
[2018-06-28] MEDS: BUDESONIDE 1 MG/2 ML NEBU INHALATION SCH ×2 (09:36→20:29)
[2018-06-28] MEDS: FORMOTEROL FUMARATE 20 MCG/2 ML NEBU INHALATION SCH ×2 (09:37→20:32)
[2018-06-28] MEDS: LACTOBACILLUS ACIDOPH & BULGAR 1 EACH PACKET PO SCH (11:14)
[2018-06-28 12:12] LABS: Glucose,Whole Blood 156 mg/dL (75-99)
--- NOTE | 2018-06-28 13:11 | P.PN ---
Subjective Progress Note Date: 06/28/18 Principal diagnosis: Acute exacerbation of severe oxygen dependent end-stage chronic obstructive pulmonary disease. This is a very pleasant 78-year-old white female follows with Dr. Melgoza, was admitted to the hospital on 06/22/2018 for acute exacerbation of severe chronic obstructive pulmonary disease. Chest x-ray showed chronic proximal changes, no definite acute abnormality was seen. She is receiving oral antibiotics, IV steroids, nebulized bronchodilators, Pulmicort and Perforomist. Does have a history of underlying stage III COPD with FEV1 50% of predicted. Patient was treated on an outpatient basis in the pulmonary clinic, with IM Depo-Medrol, prednisone burst and taper, and failed to improve. Patient is coming in with complaints of shortness of breath, chest congestion, coughing, wheezing and phlegm production. They she seen again in follow-up on selective care unit, still congested and bronchospastic, states she is feeling slightly better. Currently on 2 L per nasal cannula with a pulse ox of 94%, afebrile, hemodynamically stable. The patient is seen again today 06/28/2017 in follow-up on the selective care unit. She is currently sitting up in a chair at the bedside. She is awake and alert in no acute distress. Maintaining good O2 saturations in the high 90s on 2 L/m per nasal cannula. She's been afebrile. Hemodynamically stable. White count 13.0. Hemoglobin 9.0. Creatinine 0.87. Raza on DuoNeb inhalations, Pulmicort and Perforomist inhalations, IV Solu-Medrol and Singulair. Objective - Vital Signs Vital signs: Vital Signs Temp 98.0 F 06/28/18 12:00 Pulse 84 06/28/18 13:00 Resp 20 06/28/18 13:00 BP 167/80 06/28/18 12:00 Pulse Ox 99 06/28/18 12:00 Intake & Output 06/27/18 06/28/18 06/28/18 18:59 06:59 18:59 Intake Total 740 240 Balance 740 240 Weight 61.6 kg Intake: Intake, IV Titration 140 Amount Sodium Chloride 0.9% 1, 140 000 ml @ 20 mls/hr IV . Q24H [facility] Rx#:[id number] Oral 600 240 Other: Voiding Method Bedpan Bedpan # Voids 1 1 1 # Bowel Movements 1 - Exam GENERAL EXAM: Alert, pleasant, 78-year-old female, extremely hard of hearing comfortable in no apparent distress. On 2 L nasal cannula HEAD: Normocephalic/atraumatic. EYES: Normal reaction of pupils, equal size. Conjunctiva pink, sclera white. NOSE: Clear with pink turbinates. THROAT: No erythema or exudates. NECK: No masses, no JVD, no thyroid enlargement, no adenopathy. CHEST: No chest wall deformity. Symmetrical expansion. LUNGS: Equal air entry with diffuse wheezes and rhonchi. Patient has a wet congestive cough CVS: Regular rate and rhythm, normal S1 and S2, no gallops, no murmurs, no rubs ABDOMEN: Soft, nontender. No hepatosplenomegaly, normal bowel sounds, no guarding or rigidity. EXTREMITIES: No clubbing, no edema, no cyanosis, 2+ pulses and upper and lower extremities. MUSCULOSKELETAL: Muscle strength and tone normal. SPINE: No scoliosis or deformity SKIN: No rashes CENTRAL NERVOUS SYSTEM: Alert and oriented -3. No focal deficits, tone is normal in all 4 extremities. PSYCHIATRIC: Alert and oriented -3. Appropriate affect. Intact judgment and insight. - Labs CBC & Chem 7: 06/28/18 05:42 06/28/18 05:42 Labs: Abnormal Lab Results - Last 24 Hours (Table) 06/27/18 06/27/18 06/28/18 Range/Units 17:10 19:42 05:42 WBC 13.0 H (3.8-10.6) k/uL RBC 2.82 L (3.80-5.40) m/uL Hgb 9.0 L D (11.4-16.0) gm/dL Hct 27.2 L (34.0-46.0) % Neutrophils # 12.2 H (1.3-7.7) k/uL Lymphocytes # 0.3 L (1.0-4.8) k/uL Sodium (137-145) mmol/L Chloride (98-107) mmol/L Carbon Dioxide (22-30) mmol/L BUN (7-17) mg/dL Glucose (74-99) mg/dL POC Glucose (mg/dL) 117 H 220 H (75-99) mg/dL Calcium (8.4-10.2) mg/dL 06/28/18 06/28/18 06/28/18 Range/Units 05:42 05:42 11:43 WBC (3.8-10.6) k/uL RBC (3.80-5.40) m/uL Hgb (11.4-16.0) gm/dL Hct (34.0-46.0) % Neutrophils # (1.3-7.7) k/uL Lymphocytes # (1.0-4.8) k/uL Sodium 136 L (137-145) mmol/L Chloride 97 L (98-107) mmol/L Carbon Dioxide 36 H (22-30) mmol/L BUN 35 H (7-17) mg/dL Glucose 114 H (74-99) mg/dL POC Glucose (mg/dL) 128 H 156 H (75-99) mg/dL Calcium 7.5 L (8.4-10.2) mg/dL Assessment and Plan Assessment: Assessment: #1. Acute hypoxemic respiratory failure secondary to acute exacerbation of severe chronic obstructive pulmonary disease purulent tracheal bronchitis with failed outpatient treatment #2. History of severe stage III oxygen dependent COPD from significant chronic tobacco dependence. #3. Hypertension #4. Hyperlipidemia #5. Episodes of pneumonia #6. Hypothyroidism #7. Seizure disorder #8. History of migraine cephalgia #9. Any constipation #10. Iron deficiency anemia Plan: The patient was seen and evaluated by Dr. Bassett. She is improved from the pulmonary standpoint. We'll convert her to prednisone burst and taper. Increase activity as tolerated. We'll continue to follow. Her overall prognosis remains quite guarded and poor. I, the cosigning physician, performed a history & physical examination of the patient. Lungs sounds lateral wheezing, diminished. Maintaining good O2 saturations in the 90s on 2 L/m per nasal cannula. I discussed the assessment and plan of care with my nurse practitioner, Sharon Navarro. I attest to the above note as dictated by her.
[2018-06-28] MEDS: ALPRAZolam 0.25 MG TAB PO PRN ×2 (15:21→23:23)
[2018-06-28] MEDS: CYCLOBENZAPRINE 10 MG TAB PO PRN ×2 (15:21→23:22)
[2018-06-28 16:22] LABS: Glucose,Whole Blood 129 mg/dL (75-99)
[2018-06-28] MEDS ORDERED: DICYCLOMINE 10 MG CAP PO SCH (18:00)
--- NOTE | 2018-06-28 18:00 | PN ---
PROGRESS NOTE DATE OF SERVICE: 06/28/2018. PRESENTING COMPLAINT: Short of breath. INTERVAL HISTORY: Patient has advanced COPD exacerbation, pneumonia. Breathing was bit better. At baseline, still short of breath, having some abdominal cramping did tolerate some diet. REVIEW OF SYSTEMS: Done for constitutional, cardiovascular, GI, pulmonary; relevant findings as above. CURRENT MEDICATIONS: Reviewed. They include DuoNeb, IV Solu-Medrol. PHYSICAL EXAMINATION: Temperature 98, pulse 91, respiration 20, blood pressure 160/90, pulse ox 97% on 2 L. GENERAL APPEARANCE: Lying in bed, tired. Awake. EYES: Pupils equal. Conjunctivae normal. NECK: JVD not raised. Mass not palpable. RESPIRATORY: Effort increased. LUNGS: Decreased breath sounds. Prolonged expiration. Less wheezing. CARDIOVASCULAR: First and second sounds normal. No edema. ABDOMEN: Soft, non-tender. Liver and spleen not palpable. PSYCHIATRY: Alert and oriented x3. Mood and affect less anxious-appearing. INVESTIGATIONS: White count 13, hemoglobin 9, potassium 4.3. BUN 35, creatinine 0.87. Accu-Chek is noted. ASSESSMENT: 1. Acute severe chronic obstructive pulmonary disease exacerbation in an ex-smoker with some improvement, though overall still advanced disease. 2. Acute hypoxic respiratory failure from above. 3. Right lower lobe pneumonia. Suspect gram-negative organism. 4. Essential hypertension. 5. Hyperlipidemia. 6. Gastroesophageal reflux disease. 7. Left ear hard of hearing. 8. Thyroid nodule. 9. Troponin leak due to hemodynamic mismatch. 10.Abdominal cramping. Has had this on and off for quite some time. 11.Medical debility. Able to transfer to the chair today. PLAN: Patient's steroids have been scaled back. Will discontinue the Carafate, as it is probably interfering with absorption of the medications. The patient has been put on scheduled Bentyl. Will follow. MMODL / IJN: [id number] /
[2018-06-28] MEDS: DICYCLOMINE 20 MG TAB PO SCH ×2 (18:04→21:52)
[2018-06-28] MEDS: ATENOLOL 25 MG TAB PO SCH (19:51)
[2018-06-28] MEDS: PSYLLIUM HUSK 100% 6 GM PACKET PO SCH (19:51)
[2018-06-28] MEDS: ATORVASTATIN 20 MG TAB PO SCH (19:51)
[2018-06-28 19:52] LABS: Glucose,Whole Blood 151 mg/dL (75-99)
[2018-06-28] MEDS: MONTELUKAST 10 MG TAB PO SCH (19:52)
[2018-06-28] MEDS: SODIUM CHLORIDE 0.9% 1,000 ML IV SCH (21:38)
[2018-06-29] MEDS: IPRATROPIUM-ALBUTEROL 3 ML NEB INHALATION SCH ×6 (03:51→23:33)
[2018-06-29] MEDS: MINOCYCLINE 50 MG CAP PO SCH (05:04)
[2018-06-29] MEDS: PANTOPRAZOLE 40 MG TABLET PO SCH (05:04)
[2018-06-29 05:47] LABS: Glucose,Whole Blood 155 mg/dL (75-99)
[2018-06-29] MEDS: INSULIN ASPART 100 UNIT/ML 1 ML 10 ML VIAL SQ SCH ×3 (05:49→23:01)
[2018-06-29 07:18] LABS: Calcium 7.7 mg/dL (8.4-10.2); Potassium 4.1 mmol/L (3.5-5.1)
[2018-06-29] MEDS: Mirabegron [Myrbetriq] 50 MG PO SCH (07:52)
[2018-06-29] MEDS: methylPREDNISolone SOD SUCCI 40 MG/ML 1 ML VIAL IV SCH (08:00)
[2018-06-29] MEDS: PSYLLIUM HUSK 100% 6 GM PACKET PO SCH ×2 (08:01→23:02)
[2018-06-29] MEDS: AZITHROMYCIN 500 MG TAB PO SCH (08:01)
[2018-06-29] MEDS: NYSTATIN 100,000 UNIT/ML SUSP 500,000 UNIT/5 ML CUP PO SCH ×3 (08:01→23:01)
[2018-06-29] MEDS: ASPIRIN 81 MG PO SCH (08:01)
[2018-06-29] MEDS: DICYCLOMINE 20 MG TAB PO SCH ×4 (08:01→23:03)
[2018-06-29] MEDS: MAGNESIUM OXIDE 400 MG TAB PO SCH (08:01)
[2018-06-29] MEDS: LOSARTAN 50 MG TAB PO SCH (08:01)
[2018-06-29] MEDS: ATENOLOL 25 MG TAB PO SCH ×2 (08:01→23:02)
[2018-06-29] MEDS: ENOXAPARIN 40 MG/0.4 ML SYRINGE SQ SCH (08:02)
[2018-06-29] MEDS: AZELASTINE 137MCG/SPRAY NASAL SCH (08:03)
[2018-06-29] MEDS: CYCLOBENZAPRINE 10 MG TAB PO PRN (08:07)
[2018-06-29] MEDS: ALPRAZolam 0.25 MG TAB PO PRN (08:07)
[2018-06-29] MEDS: FORMOTEROL FUMARATE 20 MCG/2 ML NEBU INHALATION SCH ×2 (09:26→20:44)
[2018-06-29] MEDS: BUDESONIDE 1 MG/2 ML NEBU INHALATION SCH ×2 (09:26→20:44)
[2018-06-29 09:58] LABS: Glucose,Whole Blood 206 mg/dL (75-99)
--- NOTE | 2018-06-29 11:22 | CT ---
EXAMINATION TYPE: CT brain wo con DATE OF EXAM: 06/29/2018 HISTORY: COPD, Respiratory failure, hypoxia. Altered mental status per order. CT DLP: 1082.4 mGycm. Automated Exposure Control for Dose Reduction was Utilized. TECHNIQUE: CT scan of the head is performed without contrast. COMPARISON: CT brain March 28, 2017. FINDINGS: There is no acute intracranial hemorrhage or midline shift identified. There is diffuse v entricular and sulcal prominence consistent with diffuse age-related cerebral atrophy. There is low- attenuation in the periventricular white matter consistent with chronic small vessel ischemic change. There is new tiny air-fluid level in the left maxillary sinus. There is patchy fluid in the inferior left frontal sinus in the anterior left ethmoid sinuses on current study. There are air-fluid levels in the bilateral sphenoid sinuses on current study. Cerebellar tonsil is slightly low lying but not greater than 5 mm inferior distended at level of foramen magnum. IMPRESSION: No acute intracranial hemorrhage or midline shift. There is mild to moderate diffuse ag e-related cerebral atrophy and moderate to severe chronic small vessel ischemic change redemonstrated without significant interval change. Acute paranasal sinus disease is noted as detailed above. Sarah elate clinically.
--- NOTE | 2018-06-29 11:36 | XR ---
2 view abdomen HISTORY: Abdominal pain 2 views the abdomen submitted on [address] abdomen pelvis 02/14/2018 There is distended loops of small and large bowel present. Lung bases are clear. Old healed pubic paresh i fractures are again seen. Vascular calcifications are noted. There are air-fluid levels in the upri ght exam. Lucency at the level of the medial aspect of the left hemidiaphragm may be related to hiata l hernia, no evident pneumoperitoneum. IMPRESSION: Correlate for possible underlying ileus, follow-up as indicated if obstruction is suspect ed. Appearance of the medial aspect of the left hemidiaphragm as described, left lateral decubitus vi ew, or CT abdomen pelvis may be of benefit to exclude pneumoperitoneum. A Red level critical message alert has been initiated for Will Molina MD via the [employer] Critical Results System on 06/29/2018 11:33 AM. This message alert has been sent to Will Molina MD via the preferences provided by the clinician for the receipt of Radiology Critical Findings. [employer] e ID [id number].
[2018-06-29 11:38] LABS: Glucose,Whole Blood 233 mg/dL (75-99)
[2018-06-29] MEDS: LACTOBACILLUS ACIDOPH & BULGAR 1 EACH PACKET PO SCH (11:43)
[2018-06-29] MEDS: IOPAMIDOL-300 CONTRAST 30 ML VIAL (ORAL USE) PO PRN ×2 (12:00→13:05)
[2018-06-29 12:20] LABS: HCT 29.2 % (34.0-46.0); HGB 9.1 gm/dL (11.4-16.0); MCH 30.6 pg (25.0-35.0); MCHC 31.2 g/dL (31.0-37.0); MCV 98.1 fL (80.0-100.0); Mean Platelet Volume 7.1; Platelet Count 363 k/uL (150-450); RBC 2.98 m/uL (3.80-5.40); RDW 13.9 % (11.5-15.5); WBC 17.9 k/uL (3.8-10.6)
[2018-06-29 12:48] LABS: Band Neutrophils % 5 %; Lymphocytes # (M) 0.18 k/uL (1.0-4.8); Metamyelocytes # (M) 0.18 k/uL (0); Metamyelocytes % 1 %; Monocytes # (M) 0.36 k/uL (0-1.0); Myelocytes # (M) 0.18 k/uL (0); Myelocytes % 1 %; Neutrophils % (M) 91 %; Nucleated Red Blood Cells 0 /100 WBC (0-0); Total Cells Counted 200
[2018-06-29 12:49] LABS: Anisocytosis (M) Present; Poikilocytosis (M) Present; Toxic Granulation Present; Toxic Vacuolation Present
--- NOTE | 2018-06-29 14:15 | CT ---
EXAMINATION TYPE: CT abdomen pelvis w con DATE OF EXAM: 06/29/2018 HISTORY: Abdominal pain not further specified. CT DLP: 777.7mGycm Automated Exposure Control for Dose Reduction was Utilized. CONTRAST: CT scan of the abdomen and pelvis is performed with oral and with IV Contrast, patient injected with 100 mL of Isovue 300. COMPARISON: Prior CT abdomen pelvis February 14, 2018 FINDINGS: LUNG BASES: There are scattered linear scarring and/or atelectasis in both bases with some chronic pa renchymal change redemonstrated. Coronary artery calcification is again seen. LIVER/GB: No significant abnormality is appreciated. PANCREAS: No significant abnormality is seen. SPLEEN: No significant abnormality is seen. ADRENALS: No significant abnormality is seen. KIDNEYS: There is symmetric cortical medullary uptake and excretion from both kidneys with scattered small simple appearing thin-walled cysts redemonstrated bilaterally. Bladder is mildly distended. BOWEL: Oral contrast only reaches mid jejunal level in the left abdomen. Stomach is not suspiciously distended. There is contrast filled prominence of the duodenal sweep. Contrast-filled small bowel loo ps in the left upper to midabdomen are prominent up to 2.9 cm coronal image 65. There is gradual colbert sition into fluid-filled less prominent small bowel loops. There is small bowel feces sign in distal ileal loops in the right lower quadrant and upper pelvis. Small bowel is mildly dilated up to 3.3 cm. Scattered air-fluid levels throughout small bowel is present. There is nondistended fecal filled ter [place] ileum. Transition point noted coronal image 49 and axial image 55 without obvious mass. There i s poorly distended left and sigmoid colon to rectum. Fecal material is seen in better distended right colon. Air-fluid level is seen in transverse colon. UTERUS/ADNEXA: Uterus is surgically absent. LYMPH NODES: No greater than 1cm abdominal or pelvic lymph nodes are appreciated. OSSEOUS STRUCTURES: Healing fracture deformities of right superior and inferior pelvic rami are prese nt. There is healing fracture of the right sacrum with sclerosis noted OTHER: There is fairly severe atherosclerotic change of aorta extending into branch vessels with mult ifocal aneurysmal change redemonstrated measuring up to 3.2 cm in diameter axial image 30 IMPRESSION: Overall nonspecific bowel gas pattern. Cannot rule out partial distal small bowel obstruc tion as detailed above. Small bowel feces sign is noted involving distal ileum.
--- NOTE | 2018-06-29 15:19 | P.GSCN ---
<Feli Venegas - Last Filed: 06/29/18 15:11> History of Present Illness Consult date: 06/29/18 Reason for Consult: abdominal pain Requesting physician: Will Molina History of present illness: CHIEF COMPLAINT: Abdominal pain HISTORY OF PRESENT ILLNESS: 78-year-old female who is admitted to the hospital for COPD. General surgery was consulted for abdominal pain. Patient is a very poor historian. She is able to answer a few questions. Majority of HPI is obtained from nursing. Nursing reports patient has not had a bowel movement today, but has had one daily for the past 3 days. Apparently, yesterday afternoon the patient consumed a large amount of candy and high sugary foods that her family brought in. Shortly after, the patient began to complain of severe abdominal pain. No nausea or vomiting. WBC 17.9, up from 13.0. Patient has been on IV steroids which have been transitioned to oral today. PAST MEDICAL HISTORY: See list. PAST SURGICAL HISTORY: See list. MEDICATIONS: See list. ALLERGIES: See list. SOCIAL HISTORY: Denies illicit drug use. Patient is a former smoker. REVIEW OF ORGAN SYSTEMS: CONSTITUTIONAL: Denies fever or chills. HEENT: No troubles with vision or hearing. CARDIOVASCULAR: Denies chest pain or pressure. RESPIRATORY: No shortness of breath or pneumonia. GASTROINTESTINAL: Reports generalized abdominal pain. Denies nausea or vomiting. NEURO: No reports of stroke. PSYCH: No depression or suicidal ideation HEMATOLOGIC: No easy bruising or bleeding LYMPHATIC: The patient denies any lumps and bumps around the neck. GENITOURINARY: Denies any blood in urine or increased urinary frequency. MUSCULOSKELETAL: Denies back pain, stiffness or joint arthritis. SKIN: Denies history or rash or cellulitis. PHYSICAL EXAM: VITAL SIGNS: Reviewed GENERAL: Well-developed in no acute distress. HEENT: No sclera icterus. Extraocular movements grossly intact. Moist buccal mucosa. Head is atraumatic, normocephalic. Hears conversational speech. No nasal drainage. NECK: Supple without lymphadenopathy. CHEST: Non-labored respirations and equal bilateral excursions. CARDIOVASCULAR: Regular rate with regular rhythm. Palpable 2+ radial pulses. ABDOMEN: Soft. Very distended. Tenderness upon palpation of all 4 quadrants MUSCULOSKELETAL: No clubbing or cyanosis. NEUROLOGIC: No focal or lateralizing signs. Cranial nerves II through XII grossly intact. PSYCH: Alert and oriented x 2-3 SKIN: Well perfused. Good skin turgor. IMAGIN. Abdominal xray per radiologist dictation: possible underlying ileus. Follow- up as indicated if obstruction is suspected. ASSESSMENT: 1. Generalized abdominal pain, abdominal xray reveals possible ileus 2. Abdominal distention 3. Leukocytosis PLAN: CT abdomen/pelvis with contrast ordered. Patient may benefit from NG tube insertion for decompression. Further recommendations once Dr. Epps reviews CT and evaluates patient. Nurse practitioner note has been reviewed by physician. Signing provider agrees with the documented findings, assessment, and plan of care. Past Medical History Past Medical History: Asthma, Cancer, COPD, GERD/Reflux, Hearing Disorder / Deafness, Hyperlipidemia, Hypertension, Pneumonia, Thyroid Disorder Additional Past Medical History / Comment(s): 09-11-16- one SEIZURE from low sodium, hx SKIN CANCER- BASAL CELL, HEARING LOSS LT EAR, OSTEOPOROSIS, NODULE ON THYROID, hx migraines, diarrhea, constipation,abdominal pain, iron deficiency anemia, has scrape on rt arm that is bandaged History of Any Multi-Drug Resistant Organisms: None Reported Past Surgical History: Appendectomy, Heart Catheterization, Hysterectomy Additional Past Surgical History / Comment(s): LEFT CAROTID ENDARTERECTOMY, LISA CATARACTS, colonoscopy, EGD, brochoscopy Past Anesthesia/Blood Transfusion Reactions: Motion Sickness Smoking Status: Former smoker - Past Family History Mother Family Medical History: Seizure Disorder Additional Family Medical History / Comment(s): EPILEPTIC Father Family Medical History: Diabetes Mellitus Brother(s) Family Medical History: Cancer Son(s) Family Medical History: Deep Vein Thrombosis (DVT) Medications and Allergies Home Medications Medication Instructions Recorded Confirmed Type Aspirin 81 mg PO DAILY 11/12/13 06/22/18 History Cyclobenzaprine [Flexeril] 10 mg PO TID PRN 11/12/13 06/22/18 History Montelukast [Singulair] 10 mg PO HS 11/12/13 06/22/18 History Budesonide-Formot 160-4.5 Mcg 2 puff INHALATION RT-BID 01/15/14 06/22/18 History [Symbicort 160-4.5 Mcg Inhaler] Albuterol Sulfate [Proair Hfa] 2 puff INHALATION RT-QID PRN 03/28/14 06/22/18 History ALPRAZolam [Xanax] 0.25 mg PO DAILY PRN 02/13/16 06/22/18 History Atenolol 50 mg PO HS 02/13/16 06/22/18 History Denosumab [Prolia] 60 mg SQ Q180D 09/11/16 06/22/18 History Fluticasone Nasal [place] [Flonase 1 spray EA NOSTRIL DAILY 09/11/16 06/22/18 History Nasal [place]] Tiotropium 18 Mcg/Puff [Spiriva] 1 cap INHALATION RT-DAILY 09/11/16 06/22/18 History Esomeprazole Magnesium [NexIUM] 40 mg PO DAILY 03/28/17 06/22/18 History Albuterol Nebulized [Ventolin 2.5 mg INHALATION RT-QID 12/31/17 06/22/18 History Nebulized] Minocycline [Minocin] 50 mg PO DAILY 12/31/17 06/22/18 History Azelastine HCl [Astepro] 1 spray NASAL BID 06/22/18 06/22/18 History L.acidoph,Paracasei, B.lactis 1 cap PO DAILY 06/22/18 06/22/18 History [Probiotic] Losartan Potassium 50 mg PO DAILY 06/22/18 06/22/18 History Magnesium Oxide [Mag-Ox] 250 mg PO DAILY 06/22/18 06/22/18 History Mirabegron [Myrbetriq] 50 mg PO DAILY 06/22/18 06/22/18 History Simvastatin [Zocor] 40 mg PO HS 06/22/18 06/22/18 History Sucralfate [Carafate] 1 gram PO TID-W/MEALS 06/22/18 06/22/18 History Allergies Allergy/AdvReac Type Severity Reaction Status Date / Time bupropion HCl Allergy Severe Rash/Hives Verified 06/22/18 10:26 [From Wellbutrin] Penicillins Allergy Severe Rash/Hives Verified 06/22/18 10:26 Sulfa (Sulfonamide Allergy Rash/Hives Verified 06/22/18 10:26 Antibiotics) Surgical - Exam Vital Signs Temp Pulse Resp BP Pulse Ox 97.9 F 79 24 174/94 78 L 06/22/18 09:15 06/22/18 09:15 06/22/18 09:15 06/22/18 09:15 06/22/18 09:15 Results - Labs 06/29/18 05:54 06/29/18 05:54 Abnormal Lab Results - Last 24 Hours (Table) 06/28/18 06/28/18 06/29/18 Range/Units 16:15 19:41 05:46 WBC (3.8-10.6) k/uL RBC (3.80-5.40) m/uL Hgb (11.4-16.0) gm/dL Hct (34.0-46.0) % Neutrophils # (Manual) (1.3-7.7) k/uL Lymphocytes # (Manual) (1.0-4.8) k/uL Metamyelocytes # (Man) (0) k/uL Myelocytes # (Manual) (0) k/uL Sodium (137-145) mmol/L Chloride (98-107) mmol/L Carbon Dioxide (22-30) mmol/L BUN (7-17) mg/dL Glucose (74-99) mg/dL POC Glucose (mg/dL) 129 H 151 H 155 H (75-99) mg/dL Calcium (8.4-10.2) mg/dL 06/29/18 06/29/18 06/29/18 Range/Units 05:54 05:54 09:57 WBC 17.9 H (3.8-10.6) k/uL RBC 2.98 L (3.80-5.40) m/uL Hgb 9.1 L (11.4-16.0) gm/dL Hct 29.2 L (34.0-46.0) % Neutrophils # (Manual) 17.10 H (1.3-7.7) k/uL Lymphocytes # (Manual) 0.18 L (1.0-4.8) k/uL Metamyelocytes # (Man) 0.18 H (0) k/uL Myelocytes # (Manual) 0.18 H (0) k/uL Sodium 131 L (137-145) mmol/L Chloride 92 L (98-107) mmol/L Carbon Dioxide 34 H (22-30) mmol/L BUN 35 H (7-17) mg/dL Glucose 167 H (74-99) mg/dL POC Glucose (mg/dL) 206 H (75-99) mg/dL Calcium 7.7 L (8.4-10.2) mg/dL 06/29/18 Range/Units 11:32 WBC (3.8-10.6) k/uL RBC (3.80-5.40) m/uL Hgb (11.4-16.0) gm/dL Hct (34.0-46.0) % Neutrophils # (Manual) (1.3-7.7) k/uL Lymphocytes # (Manual) (1.0-4.8) k/uL Metamyelocytes # (Man) (0) k/uL Myelocytes # (Manual) (0) k/uL Sodium (137-145) mmol/L Chloride (98-107) mmol/L Carbon Dioxide (22-30) mmol/L BUN (7-17) mg/dL Glucose (74-99) mg/dL POC Glucose (mg/dL) 233 H (75-99) mg/dL Calcium (8.4-10.2) mg/dL Diabetes panel 06/29/18 Range/Units 05:54 Sodium 131 L (137-145) mmol/L Potassium 4.1 (3.5-5.1) mmol/L Chloride 92 L (98-107) mmol/L Carbon Dioxide 34 H (22-30) mmol/L BUN 35 H (7-17) mg/dL Creatinine 0.78 (0.52-1.04) mg/dL Glucose 167 H (74-99) mg/dL Calcium 7.7 L (8.4-10.2) mg/dL Calcium panel 06/29/18 Range/Units 05:54 Calcium 7.7 L (8.4-10.2) mg/dL Pituitary panel 06/29/18 Range/Units 05:54 Sodium 131 L (137-145) mmol/L Potassium 4.1 (3.5-5.1) mmol/L Chloride 92 L (98-107) mmol/L Carbon Dioxide 34 H (22-30) mmol/L BUN 35 H (7-17) mg/dL Creatinine 0.78 (0.52-1.04) mg/dL Glucose 167 H (74-99) mg/dL Calcium 7.7 L (8.4-10.2) mg/dL Adrenal panel 06/29/18 Range/Units 05:54 Sodium 131 L (137-145) mmol/L Potassium 4.1 (3.5-5.1) mmol/L Chloride 92 L (98-107) mmol/L Carbon Dioxide 34 H (22-30) mmol/L BUN 35 H (7-17) mg/dL Creatinine 0.78 (0.52-1.04) mg/dL Glucose 167 H (74-99) mg/dL Calcium 7.7 L (8.4-10.2) mg/dL Assessment and Plan (1) Abdominal pain Current Visit: Yes Status: Acute Code(s): R10.9 - UNSPECIFIED ABDOMINAL PAIN SNOMED Code(s): 15533367 (2) Acute exacerbation of chronic obstructive airways disease Current Visit: Yes Status: Acute Code(s): J44.1 - CHRONIC OBSTRUCTIVE PULMONARY DISEASE W (ACUTE) EXACERBATION SNOMED Code(s): 512011274 (3) Leukocytosis Current Visit: No Status: Acute Code(s): D72.829 - ELEVATED WHITE BLOOD CELL COUNT, UNSPECIFIED SNOMED Code(s): 628535767 (4) Abdominal distention Current Visit: Yes Status: Acute Code(s): R14.0 - ABDOMINAL DISTENSION ( GASEOUS) SNOMED Code(s): 22568862 (5) Ileus Current Visit: Yes Status: Acute Code(s): K56.7 - ILEUS, UNSPECIFIED SNOMED Code(s): 018352003 <Bronwyn Epps N - Last Filed: 06/29/18 22:36> Surgical - Exam Vital Signs Temp Pulse Resp BP Pulse Ox 97.9 F 79 24 174/94 78 L 06/22/18 09:15 06/22/18 09:15 06/22/18 09:15 06/22/18 09:15 06/22/18 09:15 Results - Labs 06/29/18 19:02 06/29/18 19:02 Abnormal Lab Results - Last 24 Hours (Table) 06/29/18 06/29/18 06/29/18 Range/Units 05:46 05:54 05:54 WBC 17.9 H (3.8-10.6) k/uL RBC 2.98 L (3.80-5.40) m/uL Hgb 9.1 L (11.4-16.0) gm/dL Hct 29.2 L (34.0-46.0) % Neutrophils # (Manual) 17.10 H (1.3-7.7) k/uL Lymphocytes # (Manual) 0.18 L (1.0-4.8) k/uL Metamyelocytes # (Man) 0.18 H (0) k/uL Myelocytes # (Manual) 0.18 H (0) k/uL ABG pH (7.35-7.45) ABG pCO2 (35-45) mmHg ABG pO2 (83-108) mmHg ABG HCO3 (21-25) mmol/L ABG Total CO2 (19-24) mmol/L ABG O2 Saturation (94-97) % Sodium 131 L (137-145) mmol/L Chloride 92 L (98-107) mmol/L Carbon Dioxide 34 H (22-30) mmol/L BUN 35 H (7-17) mg/dL Glucose 167 H (74-99) mg/dL POC Glucose (mg/dL) 155 H (75-99) mg/dL Plasma Lactic Acid Ravindra (0.7-2.0) mmol/L Calcium 7.7 L (8.4-10.2) mg/dL Amylase (30-110) U/L 06/29/18 06/29/18 06/29/18 Range/Units 09:57 11:32 15:20 WBC (3.8-10.6) k/uL RBC (3.80-5.40) m/uL Hgb (11.4-16.0) gm/dL Hct (34.0-46.0) % Neutrophils # (Manual) (1.3-7.7) k/uL Lymphocytes # (Manual) (1.0-4.8) k/uL Metamyelocytes # (Man) (0) k/uL Myelocytes # (Manual) (0) k/uL ABG pH (7.35-7.45) ABG pCO2 (35-45) mmHg ABG pO2 (83-108) mmHg ABG HCO3 (21-25) mmol/L ABG Total CO2 (19-24) mmol/L ABG O2 Saturation (94-97) % Sodium (137-145) mmol/L Chloride (98-107) mmol/L Carbon Dioxide (22-30) mmol/L BUN (7-17) mg/dL Glucose (74-99) mg/dL POC Glucose (mg/dL) 206 H 233 H 140 H (75-99) mg/dL Plasma Lactic Acid Ravindra (0.7-2.0) mmol/L Calcium (8.4-10.2) mg/dL Amylase (30-110) U/L 06/29/18 06/29/18 06/29/18 Range/Units 16:37 19:02 19:02 WBC 23.0 H (3.8-10.6) k/uL RBC 2.97 L (3.80-5.40) m/uL Hgb 9.3 L (11.4-16.0) gm/dL Hct 28.8 L (34.0-46.0) % Neutrophils # (Manual) 21.60 H (1.3-7.7) k/uL Lymphocytes # (Manual) 0.46 L (1.0-4.8) k/uL Metamyelocytes # (Man) 0.46 H (0) k/uL Myelocytes # (Manual) 0.23 H (0) k/uL ABG pH 7.48 H (7.35-7.45) ABG pCO2 (35-45) mmHg ABG pO2 114 H (83-108) mmHg ABG HCO3 31 H (21-25) mmol/L ABG Total CO2 32 H (19-24) mmol/L ABG O2 Saturation 99.5 H (94-97) % Sodium 129 L (137-145) mmol/L Chloride 91 L (98-107) mmol/L Carbon Dioxide 31 H (22-30) mmol/L BUN 41 H (7-17) mg/dL Glucose 165 H (74-99) mg/dL POC Glucose (mg/dL) (75-99) mg/dL Plasma Lactic Acid Ravindra (0.7-2.0) mmol/L Calcium 7.8 L (8.4-10.2) mg/dL Amylase 625 H* (30-110) U/L 06/29/18 06/29/18 06/29/18 Range/Units 19:02 20:36 21:50 WBC (3.8-10.6) k/uL RBC (3.80-5.40) m/uL Hgb (11.4-16.0) gm/dL Hct (34.0-46.0) % Neutrophils # (Manual) (1.3-7.7) k/uL Lymphocytes # (Manual) (1.0-4.8) k/uL Metamyelocytes # (Man) (0) k/uL Myelocytes # (Manual) (0) k/uL ABG pH 7.51 H (7.35-7.45) ABG pCO2 48 H (35-45) mmHg ABG pO2 51 L* >400 H (83-108) mmHg ABG HCO3 32 H 29 H (21-25) mmol/L ABG Total CO2 33 H 31 H (19-24) mmol/L ABG O2 Saturation 88.9 L 100.0 H (94-97) % Sodium (137-145) mmol/L Chloride (98-107) mmol/L Carbon Dioxide (22-30) mmol/L BUN (7-17) mg/dL Glucose (74-99) mg/dL POC Glucose (mg/dL) (75-99) mg/dL Plasma Lactic Acid Ravindra 2.5 H* (0.7-2.0) mmol/L Calcium (8.4-10.2) mg/dL Amylase (30-110) U/L Diabetes panel 06/29/18 06/29/18 Range/Units 05:54 19:02 Sodium 131 L 129 L (137-145) mmol/L Potassium 4.1 4.4 (3.5-5.1) mmol/L Chloride 92 L 91 L (98-107) mmol/L Carbon Dioxide 34 H 31 H (22-30) mmol/L BUN 35 H 41 H (7-17) mg/dL Creatinine 0.78 1.03 (0.52-1.04) mg/dL Glucose 167 H 165 H (74-99) mg/dL Calcium 7.7 L 7.8 L (8.4-10.2) mg/dL Calcium panel 06/29/18 06/29/18 Range/Units 05:54 19:02 Calcium 7.7 L 7.8 L (8.4-10.2) mg/dL Pituitary panel 06/29/18 06/29/18 Range/Units 05:54 19:02 Sodium 131 L 129 L (137-145) mmol/L Potassium 4.1 4.4 (3.5-5.1) mmol/L Chloride 92 L 91 L (98-107) mmol/L Carbon Dioxide 34 H 31 H (22-30) mmol/L BUN 35 H 41 H (7-17) mg/dL Creatinine 0.78 1.03 (0.52-1.04) mg/dL Glucose 167 H 165 H (74-99) mg/dL Calcium 7.7 L 7.8 L (8.4-10.2) mg/dL Adrenal panel 06/29/18 06/29/18 Range/Units 05:54 19:02 Sodium 131 L 129 L (137-145) mmol/L Potassium 4.1 4.4 (3.5-5.1) mmol/L Chloride 92 L 91 L (98-107) mmol/L Carbon Dioxide 34 H 31 H (22-30) mmol/L BUN 35 H 41 H (7-17) mg/dL Creatinine 0.78 1.03 (0.52-1.04) mg/dL Glucose 167 H 165 H (74-99) mg/dL Calcium 7.7 L 7.8 L (8.4-10.2) mg/dL Assessment and Plan Plan: Patient seen and evaluated and very confused. Patient has NGT placed. CT scan reviewed without pneumoperitoneum. Ileus vs partial small bowel obstruction noted. Recommend conservative management.
[2018-06-29 15:33] LABS: Glucose,Whole Blood 140 mg/dL (75-99)
--- NOTE | 2018-06-29 16:14 | P.PN ---
Subjective Progress Note Date: 06/29/18 Principal diagnosis: Acute exacerbation of severe oxygen dependent end-stage chronic obstructive pulmonary disease. This is a very pleasant 78-year-old white female follows with Dr. Melgoza, was admitted to the hospital on 06/22/2018 for acute exacerbation of severe chronic obstructive pulmonary disease. Chest x-ray showed chronic proximal changes, no definite acute abnormality was seen. She is receiving oral antibiotics, IV steroids, nebulized bronchodilators, Pulmicort and Perforomist. Does have a history of underlying stage III COPD with FEV1 50% of predicted. Patient was treated on an outpatient basis in the pulmonary clinic, with IM Depo-Medrol, prednisone burst and taper, and failed to improve. Patient is coming in with complaints of shortness of breath, chest congestion, coughing, wheezing and phlegm production. They she seen again in follow-up on selective care unit, still congested and bronchospastic, states she is feeling slightly better. Currently on 2 L per nasal cannula with a pulse ox of 94%, afebrile, hemodynamically stable. The patient is seen again today 06/28/2018 in follow-up on the selective care unit. She is currently sitting up in a chair at the bedside. She is awake and alert in no acute distress. Maintaining good O2 saturations in the high 90s on 2 L/m per nasal cannula. She's been afebrile. Hemodynamically stable. White count 13.0. Hemoglobin 9.0. Creatinine 0.87. Raza on DuoNeb inhalations, Pulmicort and Perforomist inhalations, IV Solu-Medrol and Singulair. The patient is seen today 06/29/2018 in follow-up on the selective care unit. She is somewhat obtunded this morning. She is arousing to verbal stimuli. She is oriented 3 at the moment. She denies any worsening shortness of breath off or congestion. Maintaining good O2 saturations in the 90s on 2 L/m per nasal cannula. She's afebrile. Apparently she had a lot of abdominal discomfort and was awake most of the night last night. An abdominal x-ray showed possible underlying ileus and possible obstruction. They could not rule out pneumoperitoneum. Computed tomography scan of the brain showed no acute intracranial process. Computed tomography scan of the abdomen revealed overall nonspecific bowel gas pattern. Again could not rule out partial distal small bowel obstruction. There is small bowel feces sign noted involving the distal ileum. Surgical services were consulted. She is currently nothing by mouth. Objective - Vital Signs Vital signs: Vital Signs Temp 97.2 F L 06/29/18 12:00 Pulse 100 06/29/18 12:44 Resp 20 06/29/18 12:00 BP 166/95 06/29/18 12:00 Pulse Ox 93 L 06/29/18 12:00 Intake & Output 06/28/18 06/29/18 06/29/18 18:59 06:59 18:59 Intake Total 480 Balance 480 Weight 61.6 kg 61.5 kg Intake: Oral 480 Other: Voiding Method Bedpan Bedpan # Voids 1 1 1 # Bowel Movements 1 - Exam GENERAL EXAM: Alert, pleasant, 78-year-old female, now having abdominal distention and discomfort.. On 2 L nasal cannula HEAD: Normocephalic/atraumatic. EYES: Normal reaction of pupils, equal size. Conjunctiva pink, sclera white. NOSE: Clear with pink turbinates. THROAT: No erythema or exudates. NECK: No masses, no JVD, no thyroid enlargement, no adenopathy. CHEST: No chest wall deformity. Symmetrical expansion. LUNGS: Equal air entry with diffuse wheezes and rhonchi. Patient has a wet congestive cough CVS: Regular rate and rhythm, normal S1 and S2, no gallops, no murmurs, no rubs ABDOMEN: Distended, tender No hepatosplenomegaly, normal bowel sounds, no guarding or rigidity. EXTREMITIES: No clubbing, no edema, no cyanosis, 2+ pulses and upper and lower extremities. MUSCULOSKELETAL: Muscle strength and tone normal. SPINE: No scoliosis or deformity SKIN: No rashes CENTRAL NERVOUS SYSTEM: Alert and oriented -3. No focal deficits, tone is normal in all 4 extremities. PSYCHIATRIC: Alert and oriented -3. Appropriate affect. Intact judgment and insight. - Labs CBC & Chem 7: 06/29/18 05:54 06/29/18 05:54 Labs: Abnormal Lab Results - Last 24 Hours (Table) 06/28/18 06/28/18 06/29/18 Range/Units 16:15 19:41 05:46 WBC (3.8-10.6) k/uL RBC (3.80-5.40) m/uL Hgb (11.4-16.0) gm/dL Hct (34.0-46.0) % Neutrophils # (Manual) (1.3-7.7) k/uL Lymphocytes # (Manual) (1.0-4.8) k/uL Metamyelocytes # (Man) (0) k/uL Myelocytes # (Manual) (0) k/uL Sodium (137-145) mmol/L Chloride (98-107) mmol/L Carbon Dioxide (22-30) mmol/L BUN (7-17) mg/dL Glucose (74-99) mg/dL POC Glucose (mg/dL) 129 H 151 H 155 H (75-99) mg/dL Calcium (8.4-10.2) mg/dL 06/29/18 06/29/18 06/29/18 Range/Units 05:54 05:54 09:57 WBC 17.9 H (3.8-10.6) k/uL RBC 2.98 L (3.80-5.40) m/uL Hgb 9.1 L (11.4-16.0) gm/dL Hct 29.2 L (34.0-46.0) % Neutrophils # (Manual) 17.10 H (1.3-7.7) k/uL Lymphocytes # (Manual) 0.18 L (1.0-4.8) k/uL Metamyelocytes # (Man) 0.18 H (0) k/uL Myelocytes # (Manual) 0.18 H (0) k/uL Sodium 131 L (137-145) mmol/L Chloride 92 L (98-107) mmol/L Carbon Dioxide 34 H (22-30) mmol/L BUN 35 H (7-17) mg/dL Glucose 167 H (74-99) mg/dL POC Glucose (mg/dL) 206 H (75-99) mg/dL Calcium 7.7 L (8.4-10.2) mg/dL 06/29/18 06/29/18 Range/Units 11:32 15:20 WBC (3.8-10.6) k/uL RBC (3.80-5.40) m/uL Hgb (11.4-16.0) gm/dL Hct (34.0-46.0) % Neutrophils # (Manual) (1.3-7.7) k/uL Lymphocytes # (Manual) (1.0-4.8) k/uL Metamyelocytes # (Man) (0) k/uL Myelocytes # (Manual) (0) k/uL Sodium (137-145) mmol/L Chloride (98-107) mmol/L Carbon Dioxide (22-30) mmol/L BUN (7-17) mg/dL Glucose (74-99) mg/dL POC Glucose (mg/dL) 233 H 140 H (75-99) mg/dL Calcium (8.4-10.2) mg/dL Assessment and Plan Assessment: Assessment: #1. Acute hypoxemic respiratory failure secondary to acute exacerbation of severe chronic obstructive pulmonary disease purulent tracheal bronchitis with failed outpatient treatment #2. History of severe stage III oxygen dependent COPD from significant chronic tobacco dependence. #3. New onset abdominal pain and distention, abdominal x-ray revealed possible underlying ileus and suspected obstruction. Computed tomography scan of the abdomen revealed overall nonspecific bowel gas pattern. Cannot rule out partial distal small bowel obstruction. Small bowel feces sign is noted involving the distal ileum. Currently nothing by mouth. #4. Hyperlipidemia #5. Episodes of pneumonia #6. Hypothyroidism #7. Seizure disorder #8. History of migraine cephalgia #9. Any constipation #10. Iron deficiency anemia Plan: The patient was seen and evaluated by Dr. Bassett. She is quite obtunded and weak. Computed tomography scan of the brain, abdomen and abdominal x-ray were all reviewed. Suspect possible small bowel obstruction. We'll also obtain arterial blood gases rule out any significant hypercapnia causing her altered mental status. We'll be transferred to the intensive care unit for further monitoring. Surgical service is consulted. We will continue to follow and make further recommendations based on her clinical status. I, the cosigning physician, performed a history & physical examination of the patient. Lungs sounds lateral wheezing, diminished. Maintaining good O2 saturations in the 90s on 2 L/m per nasal cannula. I discussed the assessment and plan of care with my nurse practitioner, Sharon Navarro. I attest to the above note as dictated by her.
[2018-06-29 16:41] LABS: ABG Base Excess 7.7 mmol/L; ABG HCO3 31 mmol/L (21-25); ABG Oxygen Saturation 99.5 % (94-97); ABG PCO2 41 mmHg (35-45); ABG PH 7.48 (7.35-7.45); ABG PO2 114 mmHg (83-108); ABG TCO2 32 mmol/L (19-24)
--- NOTE | 2018-06-29 18:11 | XR ---
EXAMINATION TYPE: XR chest 1V portable DATE OF EXAM: 06/29/2018 COMPARISON: 06/22/2018 HISTORY: NG tube placement TECHNIQUE: Single frontal view of the chest is obtained. FINDINGS: There is nasogastric tube that has the tip looped on itself in the gastric fundus. The tip is near the gastroesophageal junction.. Lungs are clear. There is no heart failure. Thoracic aorta i s atheromatous. IMPRESSION: No active cardiopulmonary disease. There is clearing of some mild infiltrate right lower lobe compared to last exam.
--- NOTE | 2018-06-29 18:30 | XR ---
EXAMINATION TYPE: XR abdomen 1V DATE OF EXAM: 06/29/2018 COMPARISON: Today HISTORY: Check tube placement TECHNIQUE: Single view AP upright FINDINGS: There is nasogastric tube with the tip probably in the fundus of the stomach. There are shirley e distended gas-filled loops of bowel in the upper abdomen. Lung bases are clear. There is no pleural effusion. IMPRESSION: Nasogastric tube appears in good position in the gastric fundus. Distended gas-filled Hamer el similar to last exam. No free air.
[2018-06-29 19:35] LABS: Calcium 7.8 mg/dL (8.4-10.2); Potassium 4.4 mmol/L (3.5-5.1)
[2018-06-29 19:46] LABS: HCT 28.8 % (34.0-46.0); HGB 9.3 gm/dL (11.4-16.0); MCH 31.4 pg (25.0-35.0); MCHC 32.4 g/dL (31.0-37.0); Mean Platelet Volume 6.7; Platelet Count 363 k/uL (150-450); RBC 2.97 m/uL (3.80-5.40)
[2018-06-29 20:39] LABS: ABG Base Excess 8.5 mmol/L; ABG HCO3 32 mmol/L (21-25); ABG Oxygen Saturation 88.9 % (94-97); ABG PCO2 40 mmHg (35-45); ABG PH 7.51 (7.35-7.45); ABG TCO2 33 mmol/L (19-24)
[2018-06-29 20:41] LABS: ABG PO2 51 mmHg (83-108)
[2018-06-29 20:46] LABS: Band Neutrophils % 13 %; Lymphocytes # (M) 0.46 k/uL (1.0-4.8); Metamyelocytes # (M) 0.46 k/uL (0); Metamyelocytes % 2 %; Monocytes # (M) 0.46 k/uL (0-1.0); Myelocytes # (M) 0.23 k/uL (0); Myelocytes % 1 %; Neutrophils % (M) 81 %; Nucleated Red Blood Cells 0 /100 WBC (0-0); Polychromasia Present; Total Cells Counted 200; Toxic Granulation Present; Toxic Vacuolation Present
[2018-06-29] MEDS ORDERED: ROCURONIUM BROMIDE 10 MG/ML 10 ML VIAL IV ONE (21:10)
[2018-06-29] MEDS ORDERED: PROPOFOL 10 MG/ML 20 ML VIAL IV ONE (21:10)
[2018-06-29] MEDS ORDERED: PHENYLEPHRINE-0.9% NACL SYG 1 MG/10 ML SYRINGE ONE (21:10)
[2018-06-29] MEDS: EMPTY BAG 1 BAG with PROPOFOL 1,000 MG IV SCH (21:30)
[2018-06-29 21:55] LABS: ABG Base Excess 4.6 mmol/L; ABG HCO3 29 mmol/L (21-25); ABG PCO2 48 mmHg (35-45); ABG PO2 >400 mmHg (83-108); ABG TCO2 31 mmol/L (19-24)
--- NOTE | 2018-06-29 22:30 | XR ---
EXAMINATION TYPE: XR chest 1V portable DATE OF EXAM: 06/29/2018 COMPARISON: Today HISTORY: Check tube placement TECHNIQUE: Single frontal view of the chest is obtained. FINDINGS: Endotracheal tube is 5 cm from the jamie. Lungs are clear. There is no heart failure. Tho racic aorta is atheromatous. Heart size is normal. There is nasogastric tube with the tip in the livier felicia fundus. IMPRESSION: No active cardiopulmonary disease. Endotracheal tube in fairly good position.
--- NOTE | 2018-06-29 22:37 | P.PN ---
Progress Note - Text Progress Note Date: 06/29/18 Patient seen and evaluated and very confused. Patient has NGT placed. CT scan reviewed without pneumoperitoneum. Ileus vs partial small bowel obstruction noted. Recommend conservative management.
[2018-06-29] MEDS: ATORVASTATIN 20 MG TAB PO SCH (23:02)
[2018-06-29] MEDS: MONTELUKAST 10 MG TAB PO SCH (23:02)
[2018-06-30] MEDS: SODIUM CHLORIDE 0.9% 1,000 ML IV SCH ×3 (00:05→22:05)
[2018-06-30] MEDS: CHLORHEXIDINE GLUCONATE 15 ML CUP MUCOUS MEM SCH ×3 (00:05→23:28)
[2018-06-30] MEDS: LEVOFLOXACIN 750MG-D5W PMX 750 MG in DEXTROSE/WATER 1 150ML.BAG IVPB SCH (00:06)
[2018-06-30 00:23] LABS: Glucose,Whole Blood 185 mg/dL (75-99)
--- NOTE | 2018-06-30 01:10 | PN ---
PROGRESS NOTE DATE OF SERVICE: 06/29/2018. PRESENTING COMPLAINT: Tired. INTERVAL HISTORY: This patient has advanced COPD exacerbation and pneumonia. This morning was a bit lethargic, complaining of more abdominal pain. I did order a CT scan of the brain this morning, that came back to be negative for any acute changes. Abdominal x-ray was suggestive of possible ileus. I did consult Dr. Epps this morning, who in turn did order a CT scan of the abdomen and pelvis. The patient had a good bowel movement yesterday and one the day before. The patient is somewhat more lethargic today. REVIEW OF SYSTEMS: Attempted for constitutional, cardiovascular, GI, pulmonary; relevant findings as above. CURRENT MEDICATIONS: Reviewed, that include steroids and nebulized bronchodilators. PHYSICAL EXAMINATION: Temperature 98.5, pulse 97, respiration 20, blood pressure 120/64, pulse ox 93 percent on 2 L. GENERAL APPEARANCE: This morning, lying in bed, somewhat more tired and lethargic but answering questions. EYES: Pupils equal. Conjunctivae normal. NECK: JVD not raised. Mass not palpable. Respiratory effort increased. LUNGS: Decreased breath sounds. Some wheezing. CARDIOVASCULAR: First and second sounds normal. No edema. ABDOMEN: Distended soft. Bowel sounds are present. No guarding or rigidity. Liver and spleen not palpable. PSYCHIATRY: The patient is more lethargic today, but answers occasional questions. NEUROLOGICAL: Pupils equal no facial asymmetry. Moving all 4 limbs. DERMATOLOGICAL: Diffuse bruising. INVESTIGATIONS: White count 17.9, hemoglobin 9.1, potassium 4.1 BUN 35, creatinine 0.78, bicarb 34. Accu-Cheks noted. CT scan of the brain showing chronic changes. Abdominal x-ray showing possible ileus. ASSESSMENT: 1. Possible ileus, multifactorial. 2. Acute severe chronic obstructive pulmonary disease exacerbation in an ex-smoker with some improvement, though overall chronic obstructive pulmonary disease is very advanced. 3. Acute hypoxic respiratory failure from chronic obstructive pulmonary disease. 4. Right lower lobe pneumonia suspect gram-negative organism. 5. Essential hypertension. 6. Hyperlipidemia. 7. Gastroesophageal reflux disease. 8. Left ear hard of hearing. 9. Thyroid nodule. 10.Troponin leak due to hemodynamic mismatch. 11.Medical debility. 12.Diffuse bruising. 13.Acute metabolic encephalopathy, multifactorial. PLAN: Dr. Epps was consulted earlier today. She did order a CT scan of the abdomen. Later that the patient was moved to the ICU. The patient had NG tube placed and was actually intubated. Patient's prognosis is not good due to multiple medical comorbidities and very advanced COPD. AMY / ALFIE: [id number] /
[2018-06-30] MEDS: methylPREDNISolone SOD SUCCI 125 MG/2 ML VIAL IV SCH ×4 (02:02→17:14)
[2018-06-30] MEDS: metroNIDAZOLE-NS PMX 500 MG in SALINE 1 100ML.BAG IVPB SCH ×4 (02:02→17:45)
[2018-06-30] MEDS: IPRATROPIUM-ALBUTEROL 3 ML NEB INHALATION SCH ×6 (03:12→23:43)
[2018-06-30 04:39] LABS: Glucose,Whole Blood 191 mg/dL (75-99)
[2018-06-30 04:42] LABS: ABG Base Excess 4.1 mmol/L; ABG HCO3 28 mmol/L (21-25); ABG PCO2 42 mmHg (35-45); ABG PH 7.44 (7.35-7.45); ABG PO2 94 mmHg (83-108); ABG TCO2 30 mmol/L (19-24)
[2018-06-30 04:51] LABS: Calcium 6.6 mg/dL (8.4-10.2); Potassium 4.2 mmol/L (3.5-5.1)
[2018-06-30] MEDS: INSULIN ASPART 100 UNIT/ML 1 ML 10 ML VIAL SQ SCH ×3 (05:06→19:55)
[2018-06-30] MEDS: NYSTATIN 100,000 UNIT/ML SUSP 500,000 UNIT/5 ML CUP PO SCH ×4 (05:11→22:07)
[2018-06-30] MEDS: EMPTY BAG 1 BAG with PROPOFOL 1,000 MG IV SCH (06:33)
[2018-06-30 06:51] LABS: HCT 23.5 % (34.0-46.0); MCH 31.1 pg (25.0-35.0); MCHC 31.4 g/dL (31.0-37.0); MCV 98.9 fL (80.0-100.0); Mean Platelet Volume 7.1; Platelet Count 288 k/uL (150-450); RBC 2.37 m/uL (3.80-5.40)
[2018-06-30 06:55] LABS: HGB 7.4 gm/dL (11.4-16.0)
[2018-06-30 07:16] LABS: Band Neutrophils % 24 %; Neutrophils % (M) 74 %; Nucleated Red Blood Cells 1 /100 WBC (0-0); Total Cells Counted 200
[2018-06-30] MEDS: BUDESONIDE 1 MG/2 ML NEBU INHALATION SCH ×2 (07:39→19:30)
[2018-06-30] MEDS: FORMOTEROL FUMARATE 20 MCG/2 ML NEBU INHALATION SCH ×2 (07:40→19:31)
--- NOTE | 2018-06-30 08:34 | XR ---
EXAMINATION TYPE: XR chest 1V portable DATE OF EXAM: 06/30/2018 COMPARISON: Prior chest x-ray 06/29/2018 HISTORY: Intubated TECHNIQUE: Single frontal view of the chest is obtained. FINDINGS: Endotracheal tube and NG tube are overlying appropriate positions. Sclerotic density of th e proximal left humerus likely represents healing fracture. Prominent lung volumes may be indicative of underlying COPD. The aorta is dense. Heart size is stable. Subsegmental atelectatic changes suspec berkley at the lung bases. No pneumothorax or pleural effusion. Pulmonary vascularity and neeta are stable . IMPRESSION: Findings are similar to prior exam.
[2018-06-30] MEDS ORDERED: predniSONE 20 MG TAB PO SCH (09:00)
[2018-06-30 10:01] LABS: Glucose,Whole Blood 76 mg/dL (75-99)
[2018-06-30] MEDS: PANTOPRAZOLE 40 MG/10 ML VIAL IVP SCH (11:00)
[2018-06-30] MEDS: ENOXAPARIN 40 MG/0.4 ML SYRINGE SQ SCH (11:11)
--- NOTE | 2018-06-30 11:34 | XR ---
Abdomen HISTORY: Abdomen distention Frontal view of the abdomen submitted and correlated to prior abdomen and CT abdomen dated 06/29/2017 NG tube is stable overlying appropriate position. There is contrast material present in the left side d abdomen within multiple bowel loops. Lung bases are clear. Distended loops of bowel are again noted . No evident pneumoperitoneum. IMPRESSION: There could be underlying ileus. Correlate for obstruction, ischemia, report relayed to Vijay Bassett telephonically at the time of interpretation at exam.
[2018-06-30 11:37] LABS: HCT 21.3 % (34.0-46.0); HGB 7.1 gm/dL (11.4-16.0); MCH 32.4 pg (25.0-35.0); MCHC 33.3 g/dL (31.0-37.0); MCV 97.3 fL (80.0-100.0); Mean Platelet Volume 6.8; Platelet Count 264 k/uL (150-450); RBC 2.19 m/uL (3.80-5.40); WBC 21.1 k/uL (3.8-10.6)
[2018-06-30 11:47] LABS: INR 1.2 (<1.2); Partial Thromboplastin Time 44.1 sec (22.0-30.0); Prothrombin Time 12.6 sec (9.0-12.0)
[2018-06-30 11:59] LABS: Band Neutrophils % 24 %; Lymphocytes # (M) 0.21 k/uL (1.0-4.8); Metamyelocytes # (M) 0.21 k/uL (0); Metamyelocytes % 1 %; Monocytes # (M) 0.42 k/uL (0-1.0); Neutrophils % (M) 73 %; Nucleated Red Blood Cells 0 /100 WBC (0-0); Total Cells Counted 200
[2018-06-30 12:03] LABS: Toxic Granulation Present
[2018-06-30 12:09] LABS: Glucose,Whole Blood 90 mg/dL (75-99)
--- NOTE | 2018-06-30 12:57 | CT ---
EXAMINATION TYPE: CT abdomen pelvis w con DATE OF EXAM: 06/30/2018 COMPARISON: 06/29/2018 HISTORY: 78 year-old female possible rectus sheath muscle hematoma. TECHNIQUE: Contiguous axial scanning of the abdomen and pelvis following administration of 80 ml Isov ue 300 IV contrast. Delayed images through the kidneys and coronal/sagittal reconstructions performe d. CT DLP: 779.7 mGycm Automated exposure control for dose reduction was used. FINDINGS: Heart normal size of the pericardial effusion. Moderate to severe atherosclerotic changes throughout the abdominal aorta and iliac arteries. Lobulated ectasia and aneurysms of the visualized lower thora cic aorta measuring up to 3.9 cm and of the infrarenal abdominal aorta at 3.2 cm. Possible moderate t o severe atherosclerotic narrowing at the aortic bifurcation. Prominent dependent opacity posterior right base and additional patchy densities at the left base, pr obably atelectasis. An NG tube is present. Contrast is seen being excreted from the kidneys on the initial series suggesting a delay from the co ntrast administered yesterday. There is also vicarious excretion of contrast seen within the gallblad [place]. Portal venous system is very small in caliber possibly collapsed. Redemonstrated severe atherosclerotic changes at the origin of both celiac axis and SMA. The previous possible occlusion of the celiac axis origin is not as apparent on the current study. However, is di fficult to exclude an occlusion of the proximal SMA. Persistent mottled intraluminal contents within right lower quadrant small bowel loops which measure up to 3.3 cm versus 3.1 cm, previously. Oral contrast has progressed to the mid small bowel level in the pelvis where loops measure up to 2.9 cm Cecum measures up to 7.7 cm now versus 6.5 cm, previously. Mild tracking free fluid extending from th e cecum and the mildly dilated right lower quadrant mottled small bowel loops with new small to moder ate pelvic ascites. No definite pneumatosis, no portal venous gas, and no free air. Redemonstrated thickening of the left rectus sheath spanning 8.2 cm craniocaudal dimension measuring 6.8 cm wide and 2.8 cm thick, not significantly changed from prior. Numerous hypodense lesions in the kidneys could represent cysts. Small areas of perfusion abnormality and early cortical infarcts are difficult to exclude suggest an setting of hypoperfusion. Some under lying cysts are present. Spleen and atrophic pancreas show no gross abnormality. Adrenal glands appear satisfactory. Alvarado catheter is present in the collapsed bladder. No abdominopelvic lymphadenopathy identified. Bones: No osseous destructive process. Osteopenia. Suspect healed right-sided sacral insufficiency fr acture IMPRESSION: 1. REDEMONSTRATED APPARENT SMA OCCLUSION. LIKELY SEVERE STENOSIS AT THE ORIGIN OF THE CELIAC AXIS. TH E SMV IS EXTREMELY DIMINUTIVE AND COLLAPSED. CORRELATE FOR POSSIBLE BOWEL HYPOPERFUSION. 2. MILDLY DILATED RIGHT LOWER QUADRANT SMALL BOWEL LOOPS WITH INTERNAL MOTTLED MATERIAL PERSIST. OVER ALL DILATATION IS STABLE TO SLIGHTLY INCREASED NOW 3.3 CM. THE CECUM MEASURES 7.7 CM VERSUS 6.5 CM, P REVIOUSLY. THERE IS NEW MILD FREE FLUID TRACKING DOWN FROM HERE COLLECTING IN THE PELVIS. GIVEN THE S EVERE ATHEROSCLEROTIC CHANGES AND THE FINDINGS MENTIONED ABOVE, EARLY BOWEL ISCHEMIA IS DIFFICULT TO EXCLUDE. CORRELATE WITH LACTIC ACID LEVELS. NO CARLIE PNEUMATOSIS OR FREE AIR. 3. CORRELATE FOR ACUTE RENAL FAILURE GIVEN VICARIOUS EXCRETION OF CONTRAST FROM THE BILIARY SYSTEM. 4. ADDITIONAL PATCHY HYPODENSITIES THROUGHOUT BOTH KIDNEYS COULD REPRESENT HYPOPERFUSION AND DEVELOPI NG RENAL INFARCTS. 5. REDEMONSTRATED LEFT RECTUS SHEATH HEMATOMA SPANNING 8.2 CM AND MEASURING 6.8 CM WIDE AND 2.8 CM TH ICK, NOT SIGNIFICANTLY CHANGED FROM YESTERDAY.
--- NOTE | 2018-06-30 13:30 | P.CONS ---
History of Present Illness - Reason for Consult Consult date: 06/30/18 Possible GI bleed anemia Requesting physician: Will Molina - Chief Complaint Shortness of breath - History of Present Illness 78-year-old female with a history of COPD admitted on 06/22/2018 with exacerbation of severe COPD purulent tracheobronchitis with failed outpatient treatment. Consult requested for possible GI bleed anemia. Patient's admission hemoglobin was 13.3 decreased to 9 range a few days ago and 7.4 this morning. Platelet 288. Nursing staff provided history secondary to patient's intubation status. INR 1.2. BUN on admission 21 increased to 41. According to the nurse patient was intubated last night. She is also being followed by surgery for possible ileus possible partial small bowel obstruction. Multiple attempts were made to insert a nasogastric tube with success however coffee-ground material developed shortly thereafter. Nursing/ she started having fresh blood dripped from her mouth this morning. Was receiving Lovenox presently on hold. Unsure if patient has a history of GI bleed. EGD colonoscopy December 2017 revealed minimal antral gastritis small sliding hiatal hernia colonoscopy within normal limits. No reports of hematochezia or melena. 06/29/2018 CT of the abdomen reported complete occlusion of the SMA with significant narrowing at the origin of celiac artery. 06/30/[address] of the abdomen and pelvis with contrast redemonstrated SMA occlusion likely severe stenosis at the origin of celiac axis. Possible bowel hypoperfusion. Dilated right lower quadrant small bowel loops. Early bowel ischemia could not be excluded; Gen. surgery following closely. Review of Systems Constitutional: Denies fever, chills, sweats, weight gain, or loss. HEENT: Negative for migraines, blurred vision or loss, earaches, drainage, tinnitus, oral mucosal lesions, dysphagia, or odynophagia. CARDIAC: Negative for chest pain, arrhythmias, or palpitation. RESPIRATORY: Admitted with shortness of breath, denies hemoptysis, cough, or sputum production. GI: See HPI for pertinent findings. : Negative for hematuria, urgency, frequency, polyuria, or dysuria. GYNc: Denies possibility of . Negative vaginal discharge. MUSCULOSKELETAL: Negative for muscle aches, swelling, arthritis, and arthralgias. NEUROLOGIC: Negative for stroke or TIA. ENDOCRINE: Negative for thyroid problems. SKIN: Negative for rash or itching. PSYCHIATRIC: Negative history for depression and anxiety ROS unobtainable: due to endotracheal tube Past Medical History Past Medical History: Asthma, Cancer, COPD, GERD/Reflux, Hearing Disorder / Deafness, Hyperlipidemia, Hypertension, Pneumonia, Thyroid Disorder Additional Past Medical History / Comment(s): 09-11-16- one SEIZURE from low sodium, hx SKIN CANCER- BASAL CELL, HEARING LOSS LT EAR, OSTEOPOROSIS, NODULE ON THYROID, hx migraines, diarrhea, constipation,abdominal pain, iron deficiency anemia, has scrape on rt arm that is bandaged History of Any Multi-Drug Resistant Organisms: None Reported Past Surgical History: Appendectomy, Heart Catheterization, Hysterectomy Additional Past Surgical History / Comment(s): LEFT CAROTID ENDARTERECTOMY, LISA CATARACTS, colonoscopy, EGD, brochoscopy Past Anesthesia/Blood Transfusion Reactions: Motion Sickness Smoking Status: Former smoker - Past Family History Mother Family Medical History: Seizure Disorder Additional Family Medical History / Comment(s): EPILEPTIC Father Family Medical History: Diabetes Mellitus Brother(s) Family Medical History: Cancer Son(s) Family Medical History: Deep Vein Thrombosis (DVT) Medications and Allergies Home Medications Medication Instructions Recorded Confirmed Type Aspirin 81 mg PO DAILY 11/12/13 06/22/18 History Cyclobenzaprine [Flexeril] 10 mg PO TID PRN 11/12/13 06/22/18 History Montelukast [Singulair] 10 mg PO HS 11/12/13 06/22/18 History Budesonide-Formot 160-4.5 Mcg 2 puff INHALATION RT-BID 01/15/14 06/22/18 History [Symbicort 160-4.5 Mcg Inhaler] Albuterol Sulfate [Proair Hfa] 2 puff INHALATION RT-QID PRN 03/28/14 06/22/18 History ALPRAZolam [Xanax] 0.25 mg PO DAILY PRN 02/13/16 06/22/18 History Atenolol 50 mg PO HS 02/13/16 06/22/18 History Denosumab [Prolia] 60 mg SQ Q180D 09/11/16 06/22/18 History Fluticasone Nasal [place] [Flonase 1 spray EA NOSTRIL DAILY 09/11/16 06/22/18 History Nasal [place]] Tiotropium 18 Mcg/Puff [Spiriva] 1 cap INHALATION RT-DAILY 09/11/16 06/22/18 History Esomeprazole Magnesium [NexIUM] 40 mg PO DAILY 03/28/17 06/22/18 History Albuterol Nebulized [Ventolin 2.5 mg INHALATION RT-QID 12/31/17 06/22/18 History Nebulized] Minocycline [Minocin] 50 mg PO DAILY 12/31/17 06/22/18 History Azelastine HCl [Astepro] 1 spray NASAL BID 06/22/18 06/22/18 History L.acidoph,Paracasei, B.lactis 1 cap PO DAILY 06/22/18 06/22/18 History [Probiotic] Losartan Potassium 50 mg PO DAILY 06/22/18 06/22/18 History Magnesium Oxide [Mag-Ox] 250 mg PO DAILY 06/22/18 06/22/18 History Mirabegron [Myrbetriq] 50 mg PO DAILY 06/22/18 06/22/18 History Simvastatin [Zocor] 40 mg PO HS 06/22/18 06/22/18 History Sucralfate [Carafate] 1 gram PO TID-W/MEALS 06/22/18 06/22/18 History Allergies Allergy/AdvReac Type Severity Reaction Status Date / Time bupropion HCl Allergy Severe Rash/Hives Verified 06/22/18 10:26 [From Wellbutrin] Penicillins Allergy Severe Rash/Hives Verified 06/22/18 10:26 Sulfa (Sulfonamide Allergy Rash/Hives Verified 06/22/18 10:26 Antibiotics) Physical Exam Vitals: Vital Signs Temp Pulse Resp BP Pulse Ox 06/30/18 11:30 75 06/30/18 11:10 75 06/30/18 08:07 76 06/30/18 08:00 76 06/30/18 07:59 76 06/30/18 07:39 79 06/30/18 06:30 80 18 50/31 86 L 06/30/18 06:00 81 25 H 78/52 91 L 06/30/18 05:30 80 24 78/52 87 L 06/30/18 05:00 82 21 89 L 06/30/18 04:30 97.1 F L 80 19 87 L 06/30/18 04:00 97.4 F L 80 17 101/59 82 L 06/30/18 03:30 79 19 78 L 06/30/18 03:23 80 06/30/18 03:18 80 06/30/18 03:00 79 18 90 L 06/30/18 02:30 83 18 89 L 06/30/18 02:00 82 18 93 L 06/30/18 01:30 81 17 90 L 06/30/18 01:00 85 16 95 06/30/18 00:30 86 15 98 06/30/18 00:00 87 16 99/56 86 L 06/29/18 23:49 86 06/29/18 23:39 87 06/29/18 23:30 88 16 103/68 100 06/29/18 23:00 91 16 101/69 100 06/29/18 22:30 95 16 104/75 06/29/18 22:00 93 16 125/67 89 L 06/29/18 21:30 90 16 95/54 95 06/29/18 21:00 26 H 117/95 81 L 06/29/18 20:55 87 06/29/18 20:44 90 06/29/18 20:30 93 28 H 104/80 93 L 06/29/18 20:00 98.2 F 21 134/74 94 L 06/29/18 19:30 90 28 H 115/88 97 06/29/18 19:00 91 23 123/65 91 L 06/29/18 18:30 89 21 121/59 93 L 06/29/18 18:00 120 H 22 113/45 93 L 06/29/18 17:30 105 H 22 133/100 06/29/18 17:00 93 20 143/90 99 06/29/18 16:59 99 06/29/18 16:58 94 06/29/18 16:52 93 06/29/18 16:30 98 24 145/92 92 L 06/29/18 16:00 98.0 F 22 129/109 92 L 06/29/18 15:30 91 26 H 119/59 79 L Intake and Output 06/29/18 06/30/18 06/30/18 22:59 06:59 14:59 Intake Total 9030.287 6012.837 Output Total 940 243 Balance 919.789 9962.837 Intake: IV 1100 1600 Sodium Chloride 0.9% 1, 1100 1600 000 ml @ 100 mls/hr IV . Q10H KEVON Rx#:[id number] Intake, IV Titration 1.538 513.837 Amount Empty Bag 1 bag @ 10 MCG/ 1.538 63.837 KG/MIN 3.69 mls/hr IV . Q24H KEVON with Propofol 1, 000 mg Rx#:[id number] Levofloxacin 750Mg-D5w 150 Pmx 750 mg In Dextrose/ Water 1 150ml.bag @ 100 mls/hr IVPB Q48H KEVON Rx#: [id number] metroNIDAZOLE-NS PMX 500 300 mg In Saline 1 100ml.bag @ 100 mls/hr IVPB Q6HR KEVON Rx#:[id number] Output: Urine 940 243 Other: Voiding Method Bedpan Indwelling Catheter Indwelling Catheter Weight 61.5 kg ABP, PAP, CO, CI - Last 8 Hours Arterial Blood Pressure 108/54 Arterial Blood Pressure 94/73 Arterial Blood Pressure 120/60 General appearance: The patient is intubated sedated. HET: Head is normocephalic and atraumatic. Pupils are equal and reactive. Oropharynx is clear without lesions. NG tube with coffee-ground material Endotracheal tube intact with remnants of old blood around mouth. Neck: Supple without lymphadenopathy. Trachea midline. Heart: S1 S2. Regular rate and rhythm. Lungs: No crackles or wheezes are heard. Abdomen: Soft, nontender, nondistended with bowel sounds. No peritoneal signs. No palpable organomegaly or masses. Extremities: Ecchymosis bilateral upper arms. Radial and pedal pulses are 2/4 bilaterally. Neurological: Intubated sedated unable to assess. Results CBC & Chem 7: 06/30/18 14:45 06/30/18 04:23 Labs: Abnormal Lab Results - Last 24 Hours (Table) 06/29/18 06/29/18 06/29/18 Range/Units 15:20 16:37 19:02 WBC 23.0 H (3.8-10.6) k/uL RBC 2.97 L (3.80-5.40) m/uL Hgb 9.3 L (11.4-16.0) gm/dL Hct 28.8 L (34.0-46.0) % Neutrophils # (Manual) 21.60 H (1.3-7.7) k/uL Lymphocytes # (Manual) 0.46 L (1.0-4.8) k/uL Metamyelocytes # (Man) 0.46 H (0) k/uL Myelocytes # (Manual) 0.23 H (0) k/uL Nucleated RBCs (0-0) /100 WBC PT (9.0-12.0) sec INR (<1.2) APTT (22.0-30.0) sec ABG pH 7.48 H (7.35-7.45) ABG pCO2 (35-45) mmHg ABG pO2 114 H (83-108) mmHg ABG HCO3 31 H (21-25) mmol/L ABG Total CO2 32 H (19-24) mmol/L ABG O2 Saturation 99.5 H (94-97) % ABG Lactic Acid (0.5-1.6) mmol/L Sodium (137-145) mmol/L Chloride (98-107) mmol/L Carbon Dioxide (22-30) mmol/L BUN (7-17) mg/dL Creatinine (0.52-1.04) mg/dL Glucose (74-99) mg/dL POC Glucose (mg/dL) 140 H (75-99) mg/dL Plasma Lactic Acid Ravindra (0.7-2.0) mmol/L Calcium (8.4-10.2) mg/dL Amylase (30-110) U/L 06/29/18 06/29/18 06/29/18 Range/Units 19:02 19:02 20:36 WBC (3.8-10.6) k/uL RBC (3.80-5.40) m/uL Hgb (11.4-16.0) gm/dL Hct (34.0-46.0) % Neutrophils # (Manual) (1.3-7.7) k/uL Lymphocytes # (Manual) (1.0-4.8) k/uL Metamyelocytes # (Man) (0) k/uL Myelocytes # (Manual) (0) k/uL Nucleated RBCs (0-0) /100 WBC PT (9.0-12.0) sec INR (<1.2) APTT (22.0-30.0) sec ABG pH 7.51 H (7.35-7.45) ABG pCO2 (35-45) mmHg ABG pO2 51 L* (83-108) mmHg ABG HCO3 32 H (21-25) mmol/L ABG Total CO2 33 H (19-24) mmol/L ABG O2 Saturation 88.9 L (94-97) % ABG Lactic Acid (0.5-1.6) mmol/L Sodium 129 L (137-145) mmol/L Chloride 91 L (98-107) mmol/L Carbon Dioxide 31 H (22-30) mmol/L BUN 41 H (7-17) mg/dL Creatinine (0.52-1.04) mg/dL Glucose 165 H (74-99) mg/dL POC Glucose (mg/dL) (75-99) mg/dL Plasma Lactic Acid Ravindra 2.5 H* (0.7-2.0) mmol/L Calcium 7.8 L (8.4-10.2) mg/dL Amylase 625 H* (30-110) U/L 06/29/18 06/29/18 06/30/18 Range/Units 21:50 23:52 04:23 WBC (3.8-10.6) k/uL RBC (3.80-5.40) m/uL Hgb (11.4-16.0) gm/dL Hct (34.0-46.0) % Neutrophils # (Manual) (1.3-7.7) k/uL Lymphocytes # (Manual) (1.0-4.8) k/uL Metamyelocytes # (Man) (0) k/uL Myelocytes # (Manual) (0) k/uL Nucleated RBCs (0-0) /100 WBC PT (9.0-12.0) sec INR (<1.2) APTT (22.0-30.0) sec ABG pH (7.35-7.45) ABG pCO2 48 H (35-45) mmHg ABG pO2 >400 H (83-108) mmHg ABG HCO3 29 H (21-25) mmol/L ABG Total CO2 31 H (19-24) mmol/L ABG O2 Saturation 100.0 H (94-97) % ABG Lactic Acid (0.5-1.6) mmol/L Sodium 132 L (137-145) mmol/L Chloride (98-107) mmol/L Carbon Dioxide (22-30) mmol/L BUN 41 H (7-17) mg/dL Creatinine 1.11 H (0.52-1.04) mg/dL Glucose 173 H (74-99) mg/dL POC Glucose (mg/dL) 185 H (75-99) mg/dL Plasma Lactic Acid Ravindra (0.7-2.0) mmol/L Calcium 6.6 L (8.4-10.2) mg/dL Amylase (30-110) U/L 06/30/18 06/30/18 06/30/18 Range/Units 04:23 04:23 04:40 WBC 20.0 H (3.8-10.6) k/uL RBC 2.37 L (3.80-5.40) m/uL Hgb 7.4 L D (11.4-16.0) gm/dL Hct 23.5 L (34.0-46.0) % Neutrophils # (Manual) 19.60 H (1.3-7.7) k/uL Lymphocytes # (Manual) 0.20 L (1.0-4.8) k/uL Metamyelocytes # (Man) (0) k/uL Myelocytes # (Manual) (0) k/uL Nucleated RBCs 1 H (0-0) /100 WBC PT (9.0-12.0) sec INR (<1.2) APTT (22.0-30.0) sec ABG pH (7.35-7.45) ABG pCO2 (35-45) mmHg ABG pO2 (83-108) mmHg ABG HCO3 28 H (21-25) mmol/L ABG Total CO2 30 H (19-24) mmol/L ABG O2 Saturation 98.0 H (94-97) % ABG Lactic Acid (0.5-1.6) mmol/L Sodium (137-145) mmol/L Chloride (98-107) mmol/L Carbon Dioxide (22-30) mmol/L BUN (7-17) mg/dL Creatinine (0.52-1.04) mg/dL Glucose (74-99) mg/dL POC Glucose (mg/dL) 191 H (75-99) mg/dL Plasma Lactic Acid Ravindra (0.7-2.0) mmol/L Calcium (8.4-10.2) mg/dL Amylase (30-110) U/L 06/30/18 06/30/18 06/30/18 Range/Units 08:10 11:20 11:20 WBC 21.1 H (3.8-10.6) k/uL RBC 2.19 L (3.80-5.40) m/uL Hgb 7.1 L (11.4-16.0) gm/dL Hct 21.3 L (34.0-46.0) % Neutrophils # (Manual) 20.40 H (1.3-7.7) k/uL Lymphocytes # (Manual) 0.21 L (1.0-4.8) k/uL Metamyelocytes # (Man) 0.21 H (0) k/uL Myelocytes # (Manual) (0) k/uL Nucleated RBCs (0-0) /100 WBC PT 12.6 H (9.0-12.0) sec INR 1.2 H (<1.2) APTT 44.1 H (22.0-30.0) sec ABG pH (7.35-7.45) ABG pCO2 (35-45) mmHg ABG pO2 (83-108) mmHg ABG HCO3 (21-25) mmol/L ABG Total CO2 (19-24) mmol/L ABG O2 Saturation (94-97) % ABG Lactic Acid 2.0 H (0.5-1.6) mmol/L Sodium (137-145) mmol/L Chloride (98-107) mmol/L Carbon Dioxide (22-30) mmol/L BUN (7-17) mg/dL Creatinine (0.52-1.04) mg/dL Glucose (74-99) mg/dL POC Glucose (mg/dL) (75-99) mg/dL Plasma Lactic Acid Ravindra (0.7-2.0) mmol/L Calcium (8.4-10.2) mg/dL Amylase (30-110) U/L Microbiology - Last 24 Hours (Table) 06/30/18 03:15 Urine Culture - Preliminary Urine,Catheterized CT scan - abdomen: report reviewed (Dr. Rodriguez) Assessment and Plan (1) GI bleed Narrative/Plan: 78-year-old female admitted with severe exacerbation of COPD with reports of abdominal pain drop in hemoglobin status post intubation and multiple attempts nasogastric tube with coffee-ground bilious material. Additionally patient is being followed closely by general surgery for partial small bowel obstruction with CT findings indicating SMA occlusion possible bowel ischemia. Etiology of anemia is multifactorial possible component of NG tube trauma underlying peptic ulcer disease bleeding AVM, underlying gastric ischemia blood loss from bowel ischemia cannot be excluded. Current Visit: Yes Status: Acute Code(s): K92.2 - GASTROINTESTINAL HEMORRHAGE, UNSPECIFIED SNOMED Code(s): 08738558 (2) Acute blood loss anemia Current Visit: Yes Status: Acute Code(s): D62 - ACUTE POSTHEMORRHAGIC ANEMIA SNOMED Code(s): 553421073 (3) Acute exacerbation of chronic obstructive airways disease Current Visit: Yes Status: Acute Code(s): J44.1 - CHRONIC OBSTRUCTIVE PULMONARY DISEASE W (ACUTE) EXACERBATION SNOMED Code(s): 413013614 Plan: 1. Overall condition is very guarded and serious in light of CT findings of SMA occlusion risk for bowel ischemia 2. Continue monitor CBC closely consideration for bedside EGD contingent on clinical course. 3. Continue protonix 40 mg twice daily. General surgery following closely. Thank you for this kind referral and the opportunity to participate in the care of your patient. This consultation was discussed with Dr. Rodriguez. The impression and plan of care have been directed as dictated.
[2018-06-30] MEDS: DEXTROSE 5% IN WATER 1,000 ML IV SCH (14:29)
[2018-06-30 15:01] LABS: Hypochromasia Slight; MCH 31.6 pg (25.0-35.0); MCHC 32.2 g/dL (31.0-37.0); MCV 98.4 fL (80.0-100.0); Mean Platelet Volume 6.9; Platelet Count 223 k/uL (150-450); RBC 1.94 m/uL (3.80-5.40); WBC 18.6 k/uL (3.8-10.6)
[2018-06-30 15:04] LABS: HGB 6.1 gm/dL (11.4-16.0)
[2018-06-30 15:05] LABS: HCT 19.1 % (34.0-46.0)
[2018-06-30 15:22] LABS: Band Neutrophils % 22 %; Metamyelocytes # (M) 0.74 k/uL (0); Metamyelocytes % 4 %; Monocytes # (M) 0.19 k/uL (0-1.0); Myelocytes # (M) 0.19 k/uL (0); Myelocytes % 1 %; Neutrophils % (M) 74 %; Nucleated Red Blood Cells 0 /100 WBC (0-0); Total Cells Counted 200; Toxic Granulation Present
--- NOTE | 2018-06-30 15:35 | XR ---
EXAMINATION TYPE: XR chest 1V portable DATE OF EXAM: 06/30/2018 COMPARISON: Prior chest x-ray 06/30/2018 HISTORY: Status post central venous catheter placement TECHNIQUE: Single frontal view of the chest is obtained. FINDINGS: Patient is rotated. Left subclavian central venous catheter has been placed in the interva l and the distal tip is at the cavoatrial junction level. There is no evident pneumothorax or pleural effusion. No other interval change. IMPRESSION: No evident complication status post central venous catheter placement.
--- NOTE | 2018-06-30 17:12 | P.PN ---
Subjective Progress Note Date: 06/30/18 On 06/30/2008 Seeing this patient for a follow-up. As mentioned earlier, the patient has advanced COPD and she was Hospital as for an acute COPD exacerbation. Subsequently she started having abdominal distention and pain and she started having increased shortness of breath and respiratory distress and diminished level of consciousness. She was having diffuse abdominal pain along with distention. Based on that, the patient got transferred to the intensive care unit. Initial CAT scan of the abdomen was done yesterday and was consistent with small bowel obstruction. The patient was evaluated by the surgical team and she was not found to be a surgical candidate and the treatment was essentially conservative medical treatment. In the ICU, I was able to insert a NG tube and output was minimal initially. I cover this patient with broad-spectrum antibiotics. I started on IV fluids. Overnight the patient became progressively more short of breath and uncomfortable and that point I decided to intubate the patient presented a mechanical ventilator. As such, the patient was intubated and this morning she is on assist control VC plus mode of ventilation with tidal volume of 450 and FiO2 of 40% with a PEEP of 5 and rate of 16. Hemodynamically she is stable. No hypotension. She is on normal saline infusion at the rate of 100 mL an hour. She has not required any pressors. The blood gases from today showed a pH of 7.44 with a pCO2 of 42 and pO2 of 94 and this was on FiO2 of 40%. Chest x-ray showed likely the indomethacin at 50 was in a good location. The NG tube was also appropriate located in the stomach. She is covered with a combination of Levaquin and Flagyl. She is sedated with Diprivan and she is calm and comfortable. Overnight the patient did not have any significant issues and she continued to be hemodynamically stable producing adequate amount of urine output. This morning, her abdomen remained distended and she was gum rolling machine tender upon palpation. At the same time, the patient was noted to have coffee-ground material coming out from her NG tube and the total amount was in order of 400- 500 mL. There was also subsequent drop in hemoglobin initially down to 9.3 and later on down to 6.1. Based on all this findings, repeat the CAT scan of the abdomen and I discussed the findings with the radiologist's. 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 There was mottling of the intraluminal contents within the right lower quadrant small bowel and oral contraceptive progress to the mid small bowel level in the pelvis where of the loops measures up to 2.9 cm in size. The cecum measures 7.7 versus 6.5 cm in size on previous evaluation. There was mild plaquing of free fluid extending from the cecum and the mild dilatation of the right lower quadrant mottled small bowel loops with new small to moderate-sized pelvic ascites. There was demonstration of the left rectus sheath hematoma measuring 8.2 cm in size which is not significant change compared to the previous study. As such, there is a consideration for a vascular ischemic involvement of the bowel as effusion of the SMA is suspected. There is also consideration of a stenosis at the level of the celiac axis and a SIMV was also found to be extremely diminutive and collapsed. Strongly suspected bowel hypoperfusion based on the radius evaluation. The patient's white cell count is at 18. The patient has dropped his serum bicarb from 36 down to 27 this may be at a divorce stenosis for this patient. This plasma lactic acid level was at 2.5. Amylase and lipase are within normal limits. Correlation profile is within normal limits. Clinically the patient is sedated with Diprivan and the patient is calm and comfortable. She is interested a mechanical ventilator. Objective - Vital Signs Vital signs: Vital Signs Temp 97.8 F 06/30/18 12:00 Pulse 68 06/30/18 15:24 Resp 16 06/30/18 15:20 BP 92/56 06/30/18 11:00 Pulse Ox 93 L 06/30/18 14:00 Intake & Output 06/29/18 06/30/18 06/30/18 18:59 06:59 18:59 Intake Total 3215.375 600 Output Total 1183 35 Balance 2032.375 565 Weight 61.5 kg Intake: IV 2700 600 Sodium Chloride 0.9% 1, 2700 500 000 ml @ 100 mls/hr IV . Q10H [facility] Rx#:[id number] metroNIDAZOLE-NS PMX 500 100 mg In Saline 1 100ml.bag @ 100 mls/hr IVPB Q6HR [facility] Rx#:[id number] Intake, IV Titration 515.375 Amount Empty Bag 1 bag @ 10 MCG/ 65.375 KG/MIN 3.69 mls/hr IV . Q24H [facility] with Propofol 1, 000 mg Rx#:[id number] Levofloxacin 750Mg-D5w 150 Pmx 750 mg In Dextrose/ Water 1 150ml.bag @ 100 mls/hr IVPB Q48H [facility] Rx#: [id number] metroNIDAZOLE-NS PMX 500 300 mg In Saline 1 100ml.bag @ 100 mls/hr IVPB Q6HR [facility] Rx#:[id number] Output: Urine 1183 35 Other: Voiding Method Bedpan Indwelling Catheter # Voids 1 ABP, PAP, CO, CI - Last Documented Arterial Blood Pressure 91/55 - Exam GENERAL EXAM: The patient is sedated and the patient is calm and comfortable on a mechanical ventilator. The patient has an orogastric and orotracheal tube in place. The patient has some coffee-ground material collecting from the NG tube. HEAD: Normocephalic/atraumatic. EYES: Normal reaction of pupils, equal size. Conjunctiva pink, sclera white. NOSE: Clear with pink turbinates. THROAT: No erythema or exudates. NECK: No masses, no JVD, no thyroid enlargement, no adenopathy. CHEST: No chest wall deformity. Symmetrical expansion. LUNGS: Equal air entry with diffuse wheezes and rhonchi. Patient has a wet congestive cough CVS: Regular rate and rhythm, normal S1 and S2, no gallops, no murmurs, no rubs ABDOMEN: Distended, tender No hepatosplenomegaly, and the bowel sounds are significantly diminished at this point in time. No rebound tenderness. There may be some limited ascites. EXTREMITIES: No clubbing, no edema, no cyanosis, 1+ pulses and upper and lower extremities. MUSCULOSKELETAL: Muscle strength and tone normal. SPINE: No scoliosis or deformity SKIN: No rashes, the patient has significant skin ecchymotic patches and bruising that has been present for a long period of time. CENTRAL NERVOUS SYSTEM: Alert and oriented -3. No focal deficits, tone is normal in all 4 extremities. PSYCHIATRIC: Alert and oriented -3. Appropriate affect. Intact judgment and insight. - Labs CBC & Chem 7: 06/30/18 14:45 06/30/18 04:23 Labs: Abnormal Lab Results - Last 24 Hours (Table) 06/29/18 06/29/18 06/29/18 Range/Units 19:02 19:02 19:02 WBC 23.0 H (3.8-10.6) k/uL RBC 2.97 L (3.80-5.40) m/uL Hgb 9.3 L (11.4-16.0) gm/dL Hct 28.8 L (34.0-46.0) % Neutrophils # (Manual) 21.60 H (1.3-7.7) k/uL Lymphocytes # (Manual) 0.46 L (1.0-4.8) k/uL Metamyelocytes # (Man) 0.46 H (0) k/uL Myelocytes # (Manual) 0.23 H (0) k/uL Nucleated RBCs (0-0) /100 WBC PT (9.0-12.0) sec INR (<1.2) APTT (22.0-30.0) sec ABG pH (7.35-7.45) ABG pCO2 (35-45) mmHg ABG pO2 (83-108) mmHg ABG HCO3 (21-25) mmol/L ABG Total CO2 (19-24) mmol/L ABG O2 Saturation (94-97) % ABG Lactic Acid (0.5-1.6) mmol/L Sodium 129 L (137-145) mmol/L Chloride 91 L (98-107) mmol/L Carbon Dioxide 31 H (22-30) mmol/L BUN 41 H (7-17) mg/dL Creatinine (0.52-1.04) mg/dL Glucose 165 H (74-99) mg/dL POC Glucose (mg/dL) (75-99) mg/dL Plasma Lactic Acid Ravindra 2.5 H* (0.7-2.0) mmol/L Calcium 7.8 L (8.4-10.2) mg/dL Amylase 625 H* (30-110) U/L Crossmatch 06/29/18 06/29/18 06/29/18 Range/Units 20:36 21:50 23:52 WBC (3.8-10.6) k/uL RBC (3.80-5.40) m/uL Hgb (11.4-16.0) gm/dL Hct (34.0-46.0) % Neutrophils # (Manual) (1.3-7.7) k/uL Lymphocytes # (Manual) (1.0-4.8) k/uL Metamyelocytes # (Man) (0) k/uL Myelocytes # (Manual) (0) k/uL Nucleated RBCs (0-0) /100 WBC PT (9.0-12.0) sec INR (<1.2) APTT (22.0-30.0) sec ABG pH 7.51 H (7.35-7.45) ABG pCO2 48 H (35-45) mmHg ABG pO2 51 L* >400 H (83-108) mmHg ABG HCO3 32 H 29 H (21-25) mmol/L ABG Total CO2 33 H 31 H (19-24) mmol/L ABG O2 Saturation 88.9 L 100.0 H (94-97) % ABG Lactic Acid (0.5-1.6) mmol/L Sodium (137-145) mmol/L Chloride (98-107) mmol/L Carbon Dioxide (22-30) mmol/L BUN (7-17) mg/dL Creatinine (0.52-1.04) mg/dL Glucose (74-99) mg/dL POC Glucose (mg/dL) 185 H (75-99) mg/dL Plasma Lactic Acid Ravindra (0.7-2.0) mmol/L Calcium (8.4-10.2) mg/dL Amylase (30-110) U/L Crossmatch 06/30/18 06/30/18 06/30/18 Range/Units 04:23 04:23 04:23 WBC 20.0 H (3.8-10.6) k/uL RBC 2.37 L (3.80-5.40) m/uL Hgb 7.4 L D (11.4-16.0) gm/dL Hct 23.5 L (34.0-46.0) % Neutrophils # (Manual) 19.60 H (1.3-7.7) k/uL Lymphocytes # (Manual) 0.20 L (1.0-4.8) k/uL Metamyelocytes # (Man) (0) k/uL Myelocytes # (Manual) (0) k/uL Nucleated RBCs 1 H (0-0) /100 WBC PT (9.0-12.0) sec INR (<1.2) APTT (22.0-30.0) sec ABG pH (7.35-7.45) ABG pCO2 (35-45) mmHg ABG pO2 (83-108) mmHg ABG HCO3 (21-25) mmol/L ABG Total CO2 (19-24) mmol/L ABG O2 Saturation (94-97) % ABG Lactic Acid (0.5-1.6) mmol/L Sodium 132 L (137-145) mmol/L Chloride (98-107) mmol/L Carbon Dioxide (22-30) mmol/L BUN 41 H (7-17) mg/dL Creatinine 1.11 H (0.52-1.04) mg/dL Glucose 173 H (74-99) mg/dL POC Glucose (mg/dL) 191 H (75-99) mg/dL Plasma Lactic Acid Ravindra (0.7-2.0) mmol/L Calcium 6.6 L (8.4-10.2) mg/dL Amylase (30-110) U/L Crossmatch 06/30/18 06/30/18 06/30/18 Range/Units 04:40 08:10 11:20 WBC 21.1 H (3.8-10.6) k/uL RBC 2.19 L (3.80-5.40) m/uL Hgb 7.1 L (11.4-16.0) gm/dL Hct 21.3 L (34.0-46.0) % Neutrophils # (Manual) 20.40 H (1.3-7.7) k/uL Lymphocytes # (Manual) 0.21 L (1.0-4.8) k/uL Metamyelocytes # (Man) 0.21 H (0) k/uL Myelocytes # (Manual) (0) k/uL Nucleated RBCs (0-0) /100 WBC PT (9.0-12.0) sec INR (<1.2) APTT (22.0-30.0) sec ABG pH (7.35-7.45) ABG pCO2 (35-45) mmHg ABG pO2 (83-108) mmHg ABG HCO3 28 H (21-25) mmol/L ABG Total CO2 30 H (19-24) mmol/L ABG O2 Saturation 98.0 H (94-97) % ABG Lactic Acid 2.0 H (0.5-1.6) mmol/L Sodium (137-145) mmol/L Chloride (98-107) mmol/L Carbon Dioxide (22-30) mmol/L BUN (7-17) mg/dL Creatinine (0.52-1.04) mg/dL Glucose (74-99) mg/dL POC Glucose (mg/dL) (75-99) mg/dL Plasma Lactic Acid Ravindra (0.7-2.0) mmol/L Calcium (8.4-10.2) mg/dL Amylase (30-110) U/L Crossmatch 06/30/18 06/30/18 06/30/18 Range/Units 11:20 14:45 15:10 WBC 18.6 H (3.8-10.6) k/uL RBC 1.94 L (3.80-5.40) m/uL Hgb 6.1 L* (11.4-16.0) gm/dL Hct 19.1 L* (34.0-46.0) % Neutrophils # (Manual) 17.80 H (1.3-7.7) k/uL Lymphocytes # (Manual) (1.0-4.8) k/uL Metamyelocytes # (Man) 0.74 H (0) k/uL Myelocytes # (Manual) 0.19 H (0) k/uL Nucleated RBCs (0-0) /100 WBC PT 12.6 H (9.0-12.0) sec INR 1.2 H (<1.2) APTT 44.1 H (22.0-30.0) sec ABG pH (7.35-7.45) ABG pCO2 (35-45) mmHg ABG pO2 (83-108) mmHg ABG HCO3 (21-25) mmol/L ABG Total CO2 (19-24) mmol/L ABG O2 Saturation (94-97) % ABG Lactic Acid (0.5-1.6) mmol/L Sodium (137-145) mmol/L Chloride (98-107) mmol/L Carbon Dioxide (22-30) mmol/L BUN (7-17) mg/dL Creatinine (0.52-1.04) mg/dL Glucose (74-99) mg/dL POC Glucose (mg/dL) (75-99) mg/dL Plasma Lactic Acid Ravindra (0.7-2.0) mmol/L Calcium (8.4-10.2) mg/dL Amylase (30-110) U/L Crossmatch See Detail Microbiology - Last 24 Hours (Table) 06/30/18 03:15 Urine Culture - Preliminary Urine,Catheterized Assessment and Plan Plan: Assessment 1 acute abdominal distention along with CAT scan findings consistent with small bowel obstruction and possible bowel ischemia related to underlying vascular insufficiency and hypoperfusion. 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 2 upper GI bleed with coffee-ground drainage from the NG tube 3 acute respiratory failure, hypoxic, intubated on a mechanical ventilator. 4 acute blood loss anemia with drop in hemoglobin down to 6.1 5 mild lactic acidosis 6 leukocytosis 7 advanced COPD with multiple has position the past for COPD exacerbation patient has required steroids on a regular basis for episodes of COPD exacerbation 8 hypothyroidism 9 hyperlipidemia 10 seizure disorder 11 chronic constipation chronic Estratest or problems probably later to chronic mesenteric ischemia Plan I will discussion with the patient's family. I met her and her children and several other family members. I offered changing this patient to a tertiary care center where she may have another surgical evaluation regarding abdominal findings. The patient carries a very high surgical risk showed surgery is performed based on her very poor baseline performance and functional status and based on the fact that she may require a complex surgery that she may not tolerate. The family opted not to transfer the patient and they wanted me to proceed with conservative medical management. They understood that this may potentially be unsuccessful and she May ultimately not survive this episode. Atelectatic discussion with decided to keep this patient here and continue our treatment medically. We'll continue mechanical ventilator and vent support. The necessary vent changes will be done. Continue IV fluids. A triple lumen catheter was inserted. She'll be given at units of packed RBC. Continue IV Protonix. Keep the patient nothing by mouth for now. Cover with a combination of Levaquin and Flagyl. Monitor abdominal findings and consult with general surgery and gastroenterology. Condition is critical. She carries a high mortality risk based on above-mentioned, basis. We'll continue to follow. This critically care evaluation was done and more than 40 minutes. Time with Patient: Greater than 30
[2018-06-30 17:32] LABS: Glucose,Whole Blood 136 mg/dL (75-99)
[2018-06-30] MEDS ORDERED: NOREPINEPHRINE 16 MG in SODIUM CHLORIDE 0.9% 250 ML IV SCH (18:15)
[2018-06-30] MEDS: PROPOFOL 1,000 MG in EMPTY BAG 1 BAG IV SCH (19:58)
--- NOTE | 2018-06-30 20:57 | P.PN ---
Subjective Progress Note Date: 06/30/18 CHIEF COMPLAINT: Ileus HISTORY OF PRESENT ILLNESS: The patient is a 78-year-old female who initially presented with acute on chronic exacerbation of COPD. She then developed ileus and had acute blood loss anemia. She was transferred to intensive care unit. At the time of my evaluation the patient is now intubated. 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 The patient is on full ventilatory support and sedated. Per discussion with nursing , patient is now comfort measures with withdrawal of care tomorrow. Discussion with process camera operator to family confirms patient is too high risk for mortality and will likely not survive any surgical intervention. PHYSICAL EXAM: VITAL SIGNS: Reviewed GENERAL: Well-developed intubated and sedated HEENT: No sclera icterus. Head is atraumatic, normocephalic. Sanguinous drainage around NG tube NECK: Supple without lymphadenopathy. CHEST: Non-labored respirations and equal bilateral excursions. On full ventilatory support CARDIOVASCULAR: Palpable 2+ radial pulses. Irregular rate and irregular rhythm ABDOMEN: Soft. No gross peritonitis. MUSCULOSKELETAL: No clubbing. Cyanosis along lower extremities. Mottling of the bilateral upper extremities distal to forearm NEUROLOGIC: Limited as patient is on full ventilatory support and sedated PSYCH: Limited as patient is full ventilatory support and sedated SKIN: Poorly perfused. Poor skin turgor. LABS: Reviewed STUDIES: Reviewed ASSESSMENT: 1. Ileus with chronic bowel ischemia 2. Acute blood loss anemia with retrocecal hematoma PLAN: 1. Overall, patient's prognosis is very poor. 2. I am in agreement with process camera operator as patient is high risk for mortality for any surgical intervention. 3. Agree with comfort measures as concurrent rectus sheath hematoma with profound poor vascular perfusion leads to very high mortality 4. Will sign off as patient is now comfort measures Critical care time 22 minutes Objective - Vital Signs Vital signs: Vital Signs Temp 93.8 F L 06/30/18 18:40 Pulse 65 06/30/18 19:30 Resp 20 06/30/18 19:30 BP 88/58 06/30/18 19:30 Pulse Ox 94 L 06/30/18 19:30 Intake & Output 06/30/18 06/30/18 07/01/18 06:59 18:59 06:59 Intake Total 3215.375 1400 410.312 Output Total 1183 175 20 Balance 2032.375 1225 390.312 Weight 61.5 kg Intake: IV 2700 1400 100 Dextrose 5% in Water 1, 700 100 000 ml @ 100 mls/hr IV . Q10H [facility] Rx#:[id number] Sodium Chloride 0.9% 1, 2700 500 000 ml @ 100 mls/hr IV . Q10H [facility] Rx#:[id number] metroNIDAZOLE-NS PMX 500 200 mg In Saline 1 100ml.bag @ 100 mls/hr IVPB Q6HR [facility] Rx#:[id number] Intake, IV Titration 515.375 0.312 Amount Empty Bag 1 bag @ 10 MCG/ 65.375 KG/MIN 3.69 mls/hr IV . Q24H [facility] with Propofol 1, 000 mg Rx#:[id number] Levofloxacin 750Mg-D5w 150 Pmx 750 mg In Dextrose/ Water 1 150ml.bag @ 100 mls/hr IVPB Q48H [facility] Rx#: [id number] Norepinephrine 16 mg In 0.312 Sodium Chloride 0.9% 250 ml @ Titrate IV .Q0M [facility] Rx#:[id number] metroNIDAZOLE-NS PMX 500 300 mg In Saline 1 100ml.bag @ 100 mls/hr IVPB Q6HR [facility] Rx#:[id number] Blood Product 0 310 Rc Pheresis 2 As3 Unit 0 310 [id number] Output: Urine 1183 175 20 Other: Voiding Method Indwelling Catheter Indwelling Catheter ABP, PAP, CO, CI - Last Documented Arterial Blood Pressure 91/47 - Labs CBC & Chem 7: 06/30/18 14:45 06/30/18 04:23 Labs: Abnormal Lab Results - Last 24 Hours (Table) 06/29/18 06/29/18 06/30/18 Range/Units 21:50 23:52 04:23 WBC (3.8-10.6) k/uL RBC (3.80-5.40) m/uL Hgb (11.4-16.0) gm/dL Hct (34.0-46.0) % Neutrophils # (Manual) (1.3-7.7) k/uL Lymphocytes # (Manual) (1.0-4.8) k/uL Metamyelocytes # (Man) (0) k/uL Myelocytes # (Manual) (0) k/uL Nucleated RBCs (0-0) /100 WBC PT (9.0-12.0) sec INR (<1.2) APTT (22.0-30.0) sec ABG pCO2 48 H (35-45) mmHg ABG pO2 >400 H (83-108) mmHg ABG HCO3 29 H (21-25) mmol/L ABG Total CO2 31 H (19-24) mmol/L ABG O2 Saturation 100.0 H (94-97) % ABG Lactic Acid (0.5-1.6) mmol/L Sodium 132 L (137-145) mmol/L BUN 41 H (7-17) mg/dL Creatinine 1.11 H (0.52-1.04) mg/dL Glucose 173 H (74-99) mg/dL POC Glucose (mg/dL) 185 H (75-99) mg/dL Calcium 6.6 L (8.4-10.2) mg/dL Crossmatch 06/30/18 06/30/18 06/30/18 Range/Units 04:23 04:23 04:40 WBC 20.0 H (3.8-10.6) k/uL RBC 2.37 L (3.80-5.40) m/uL Hgb 7.4 L D (11.4-16.0) gm/dL Hct 23.5 L (34.0-46.0) % Neutrophils # (Manual) 19.60 H (1.3-7.7) k/uL Lymphocytes # (Manual) 0.20 L (1.0-4.8) k/uL Metamyelocytes # (Man) (0) k/uL Myelocytes # (Manual) (0) k/uL Nucleated RBCs 1 H (0-0) /100 WBC PT (9.0-12.0) sec INR (<1.2) APTT (22.0-30.0) sec ABG pCO2 (35-45) mmHg ABG pO2 (83-108) mmHg ABG HCO3 28 H (21-25) mmol/L ABG Total CO2 30 H (19-24) mmol/L ABG O2 Saturation 98.0 H (94-97) % ABG Lactic Acid (0.5-1.6) mmol/L Sodium (137-145) mmol/L BUN (7-17) mg/dL Creatinine (0.52-1.04) mg/dL Glucose (74-99) mg/dL POC Glucose (mg/dL) 191 H (75-99) mg/dL Calcium (8.4-10.2) mg/dL Crossmatch 06/30/18 06/30/18 06/30/18 Range/Units 08:10 11:20 11:20 WBC 21.1 H (3.8-10.6) k/uL RBC 2.19 L (3.80-5.40) m/uL Hgb 7.1 L (11.4-16.0) gm/dL Hct 21.3 L (34.0-46.0) % Neutrophils # (Manual) 20.40 H (1.3-7.7) k/uL Lymphocytes # (Manual) 0.21 L (1.0-4.8) k/uL Metamyelocytes # (Man) 0.21 H (0) k/uL Myelocytes # (Manual) (0) k/uL Nucleated RBCs (0-0) /100 WBC PT 12.6 H (9.0-12.0) sec INR 1.2 H (<1.2) APTT 44.1 H (22.0-30.0) sec ABG pCO2 (35-45) mmHg ABG pO2 (83-108) mmHg ABG HCO3 (21-25) mmol/L ABG Total CO2 (19-24) mmol/L ABG O2 Saturation (94-97) % ABG Lactic Acid 2.0 H (0.5-1.6) mmol/L Sodium (137-145) mmol/L BUN (7-17) mg/dL Creatinine (0.52-1.04) mg/dL Glucose (74-99) mg/dL POC Glucose (mg/dL) (75-99) mg/dL Calcium (8.4-10.2) mg/dL Crossmatch 06/30/18 06/30/18 06/30/18 Range/Units 14:45 15:10 17:21 WBC 18.6 H (3.8-10.6) k/uL RBC 1.94 L (3.80-5.40) m/uL Hgb 6.1 L* (11.4-16.0) gm/dL Hct 19.1 L* (34.0-46.0) % Neutrophils # (Manual) 17.80 H (1.3-7.7) k/uL Lymphocytes # (Manual) (1.0-4.8) k/uL Metamyelocytes # (Man) 0.74 H (0) k/uL Myelocytes # (Manual) 0.19 H (0) k/uL Nucleated RBCs (0-0) /100 WBC PT (9.0-12.0) sec INR (<1.2) APTT (22.0-30.0) sec ABG pCO2 (35-45) mmHg ABG pO2 (83-108) mmHg ABG HCO3 (21-25) mmol/L ABG Total CO2 (19-24) mmol/L ABG O2 Saturation (94-97) % ABG Lactic Acid (0.5-1.6) mmol/L Sodium (137-145) mmol/L BUN (7-17) mg/dL Creatinine (0.52-1.04) mg/dL Glucose (74-99) mg/dL POC Glucose (mg/dL) 136 H (75-99) mg/dL Calcium (8.4-10.2) mg/dL Crossmatch See Detail Microbiology - Last 24 Hours (Table) 06/30/18 03:15 Urine Culture - Preliminary Urine,Catheterized - Imaging and Cardiology CT scan - abdomen: report reviewed, image reviewed CT scan - pelvis: report reviewed, image reviewed (Reviewed confirming increased rectus sheath hematoma of the left abdominal wall. Limited contrast to celiac plexus) Assessment and Plan (1) Nontraumatic rectus hematoma Current Visit: Yes Status: Acute Code(s): M79.81 - NONTRAUMATIC HEMATOMA OF SOFT TISSUE SNOMED Code(s): 582706777 (2) Acute respiratory distress syndrome Current Visit: Yes Status: Acute Code(s): J80 - ACUTE RESPIRATORY DISTRESS SYNDROME SNOMED Code(s): 21180547 (3) Acute blood loss anemia Current Visit: Yes Status: Acute Code(s): D62 - ACUTE POSTHEMORRHAGIC ANEMIA SNOMED Code(s): 289320969 (4) Acute exacerbation of chronic obstructive airways disease Current Visit: Yes Status: Acute Code(s): J44.1 - CHRONIC OBSTRUCTIVE PULMONARY DISEASE W (ACUTE) EXACERBATION SNOMED Code(s): 161724540 (5) Acute respiratory failure with hypoxemia Current Visit: Yes Status: Acute Code(s): J96.01 - ACUTE RESPIRATORY FAILURE WITH HYPOXIA SNOMED Code(s): 766092243 (6) GI bleed Current Visit: Yes Status: Acute Code(s): K92.2 - GASTROINTESTINAL HEMORRHAGE, UNSPECIFIED SNOMED Code(s): 48836194
--- NOTE | 2018-06-30 23:35 | PN ---
PROGRESS NOTE DATE OF SERVICE: 06/30/2018. PRESENTING COMPLAINT: Lethargic. INTERVAL HISTORY: This patient initially admitted with COPD exacerbation, pneumonia, then yesterday became lethargic, more abdominal pain with some ileus. The patient was transferred to the ICU. Earlier the patient did have a CT scan of the abdomen suggestive of possibly is superior mesenteric artery occlusion and bowel ischemia with possible bleeding. The patient has an NG tube that was placed, had some blood also come out of the same. Not doing too well. The patient was earlier intubated. REVIEW OF SYSTEMS: Cannot be done as patient is rather lethargic. CURRENT MEDICATIONS: Reviewed, they include IV antibiotics, IV Solu-Medrol, Levophed, propofol. PHYSICAL EXAMINATION: Temperature 91.4, pulse 71, respiration 20, blood pressure 101/48, pulse ox 100 percent on ventilator. GENERAL APPEARANCE: Lying in bed, intubated. NG tube in place and ET tube. EYES: Pupils equal. Conjunctivae pale. NECK: JVD unable to assess. Mass not palpable. RESPIRATORY: Decreased breath sounds. Respiratory effort increased. CARDIOVASCULAR: 1st and 2nd heart sounds normal. Minimal edema. ABDOMEN: Distended, soft. Bowel sounds are sluggish. No guarding or rigidity. PSYCHIATRY: Unable to assess. DERMATOLOGIC: Diffuse bruising. INVESTIGATIONS: CT scan of the abdomen results are noted. White count 8.6, hemoglobin 6.1. ASSESSMENT: 1. 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 2. Ileus secondary to above. 3. Acute severe chronic obstructive pulmonary disease exacerbation in an ex-smoker, worsening. 4. Acute hypoxic respiratory failure from chronic obstructive pulmonary disease, now patient is intubated with ventilator support. 5. Right lower lobe pneumonia, on presentation. 6. Hypotensive shock requiring pressure support. 7. Hyperlipidemia. 8. Gastroesophageal reflux disease. 9. Left ear hard of hearing. 10.Thyroid nodule. 11.Medical debility. 12.Diffuse bruising. 13.Acute metabolic encephalopathy, multifactorial. 14.Acute blood loss anemia, probably from GI bleed. PLAN: The patient is doing poorly in the ICU, on pressor support and intubated. I did speak to patient's twice, also once in the evening, did describe that the patient's prognosis is not good. Also spoke to Dr. Bassett earlier in the day. Dr. Bassett also met with several family members this afternoon. Family is now leading strongly towards comfort care. The patient's prognosis is very poor with minimal chance of recovery and if she does recover her baseline is very poor, especially in regards to pulmonary status. Total time spent today was about 50 minutes with over half an hour of discussion. AMY / THOMASN: [id number] /
[2018-07-01] MEDS: metroNIDAZOLE-NS PMX 500 MG in SALINE 1 100ML.BAG IVPB SCH ×5 (00:01→23:59)
[2018-07-01] MEDS: methylPREDNISolone SOD SUCCI 125 MG/2 ML VIAL IV SCH ×5 (00:01→23:59)
[2018-07-01] MEDS: INSULIN ASPART 100 UNIT/ML 1 ML 10 ML VIAL SQ SCH ×5 (00:02→23:59)
[2018-07-01] MEDS: DEXTROSE 5% IN WATER 1,000 ML IV SCH ×2 (00:09→06:05)
--- NOTE | 2018-07-01 00:55 | PCN ---
PROCEDURE NOTE TRIPLE LUMEN CATHETER PLACEMENT: Indication: Hemodynamic monitoring/Intravenous access. PREOP DIAGNOSIS: Acute respiratory failure. POSTOP DIAGNOSIS: Acute respiratory failure. A time-out was completed verifying correct patient, procedure, site, positioning, and implant(s) or special equipment if applicable. The patient was placed in a dependent position appropriate for triple lumen catheter placement based on the vein to be cannulated. The patient's left shoulder was prepped and draped in sterile fashion. 1% Lidocaine was used to anesthetize the surrounding skin area. A triple lumen 9F Cordis catheter was introduced into the subclavian vein using Seldinger technique. The catheter was threaded smoothly over the guide wire and appropriate blood return was obtained. Each lumen of the catheter was evacuated of air and flushed with sterile saline. The catheter was then sutured in place to the skin and a sterile dressing applied. Perfusion to the extremity distal to the point of catheter insertion was checked and found to be adequate. No bedside complications or bleeding. MMODL / IJN: [id number] /
[2018-07-01] MEDS: PROPOFOL 1,000 MG in EMPTY BAG 1 BAG IV SCH ×4 (01:49→21:54)
[2018-07-01] MEDS: IPRATROPIUM-ALBUTEROL 3 ML NEB INHALATION SCH ×6 (03:09→23:30)
[2018-07-01 04:08] LABS: ABG Base Excess -5.4 mmol/L; ABG HCO3 20 mmol/L (21-25); ABG Oxygen Saturation 96.5 % (94-97); ABG PCO2 35 mmHg (35-45); ABG PH 7.37 (7.35-7.45); ABG PO2 80 mmHg (83-108); ABG TCO2 21 mmol/L (19-24)
[2018-07-01 05:46] LABS: Glucose,Whole Blood 304 mg/dL (75-99)
[2018-07-01 05:46] LABS: Glucose,Whole Blood 296 mg/dL (75-99)
[2018-07-01 06:01] LABS: Glucose,Whole Blood 269 mg/dL (75-99)
[2018-07-01] MEDS: BUDESONIDE 1 MG/2 ML NEBU INHALATION SCH ×2 (06:13→19:39)
[2018-07-01] MEDS: FORMOTEROL FUMARATE 20 MCG/2 ML NEBU INHALATION SCH ×2 (06:13→19:39)
[2018-07-01] MEDS: NYSTATIN 100,000 UNIT/ML SUSP 500,000 UNIT/5 ML CUP PO SCH ×5 (09:00→21:53)
[2018-07-01 09:28] LABS: HCT 32.2 % (34.0-46.0); MCH 30.5 pg (25.0-35.0); MCHC 32.8 g/dL (31.0-37.0); Mean Platelet Volume 7.1; Platelet Count 197 k/uL (150-450); RBC 3.46 m/uL (3.80-5.40); RDW 15.6 % (11.5-15.5); WBC 26.1 k/uL (3.8-10.6)
[2018-07-01 09:30] LABS: Albumin 1.3 g/dL (3.5-5.0); HGB 10.6 gm/dL (11.4-16.0); Total Bilirubin 0.8 mg/dL (0.2-1.3); Total Protein 2.6 g/dL (6.3-8.2)
--- NOTE | 2018-07-01 09:37 | XR ---
EXAMINATION TYPE: XR chest 1V portable DATE OF EXAM: 07/01/2018 COMPARISON: 06/30/2018 HISTORY: Shortness of breath TECHNIQUE: Single frontal view of the chest is obtained. FINDINGS: ET tube, NG tube and central line stable. Subsegmental changes at the right lung base. No overt failure. Previous trauma left humerus. Atherosclerotic change aorta. Heart size stable. Central line is seen with tip at the cavoatrial junction. No sizable pneumothorax. IMPRESSION: 1. Right basilar atelectasis or infiltrate with tiny effusion. 2. There are numerous prominent small bowel loops in the abdomen
--- NOTE | 2018-07-01 09:43 | XR ---
EXAMINATION TYPE: XR abdomen 1V DATE OF EXAM: 07/01/2018 COMPARISON: 06/30/2018 HISTORY: Pain TECHNIQUE: One view abdominal series FINDINGS: Posttraumatic change change involving the right hemipelvis. Arthropathy of the hips. Vascular calcifi cations. Degenerative change of the spine. There are numerous dilated bowel loops in a nonspecific pa ttern. NG tube is seen at the level the gastric fundus. Right basilar atelectasis or infiltrate. IMPRESSION: 1. Dilated bowel loops correlate for partial obstruction or ileus. There are numerous persistent dila berkley small bowel bowel loops.
[2018-07-01 09:50] LABS: Calcium 3.7 mg/dL (8.4-10.2)
[2018-07-01 09:58] LABS: Band Neutrophils % 14 %; Lymphocytes # (M) 0.52 k/uL (1.0-4.8); Metamyelocytes # (M) 1.04 k/uL (0); Metamyelocytes % 4 %; Myelocytes # (M) 0.26 k/uL (0); Myelocytes % 1 %; Neutrophils % (M) 81 %; Nucleated Red Blood Cells 0 /100 WBC (0-0); Total Cells Counted 200; Toxic Granulation Present
[2018-07-01] MEDS: CHLORHEXIDINE GLUCONATE 15 ML CUP MUCOUS MEM SCH ×2 (10:57→21:53)
[2018-07-01] MEDS: SODIUM CHLORIDE 0.9% 1,000 ML IV SCH ×2 (10:57→18:21)
[2018-07-01] MEDS: ENOXAPARIN 40 MG/0.4 ML SYRINGE SQ SCH (10:58)
[2018-07-01] MEDS: PANTOPRAZOLE 40 MG/10 ML VIAL IVP SCH (10:58)
[2018-07-01] MEDS ORDERED: Potassium Replacement Protocol 1 EACH MISC MISCELLANE PRN (11:13)
[2018-07-01 11:49] VITALS: BMI 26.9
[2018-07-01 12:14] LABS: Glucose,Whole Blood 217 mg/dL (75-99)
[2018-07-01] MEDS: POTASSIUM CHLORIDE 20 MEQ in WATER FOR INJECTION 1 100ML.BAG IVPB SCH ×3 (12:18→16:30)
[2018-07-01 13:23] LABS: Ionized Calcium 3.5 mg/dL (4.5-5.3)
[2018-07-01 13:32] LABS: Phosphorus 4.3 mg/dL (2.5-4.5)
[2018-07-01 13:43] LABS: Magnesium 5.5 mg/dL (1.6-2.3)
[2018-07-01] MEDS ORDERED: CALCIUM GLUCONATE 2,000 MG in SODIUM CHLORIDE 0.9% 100 ML IVPB ONE (14:13)
[2018-07-01] MEDS ORDERED: WATER FOR INJECTION, STERILE 1,000 ML with SODIUM ACETATE 150 MEQ IV SCH ×2 (14:15)
--- NOTE | 2018-07-01 14:16 | P.PN ---
Subjective Progress Note Date: 07/01/18 On 07/01/2018 I'm seeing this patient for a follow-up. This morning the patient is sedated with Diprivan and she is calm and comfortable symptoms of the mechanical ventilator. The patient is an assist-control mode of ventilation with a tidal volume of 400 with an FiO2 of 40% and PEEP of 5 and respiratory rate of 16. Chest x-ray shows adequate expansion of both lungs and ET tube is in a good location. No consolidation. No airspace disease. Blood gases from this morning showed a pH of 7.37 with a pCO2 of 35 and pO2 of 80. Meanwhile, the patient is not producing any significant orotracheal secretions. She is synchronous with the mechanical ventilator. No fever or chills. Hemodynamically, the patient is stable on 3 mics of norepinephrine infusion. The neck fluid balance is been +2 L for yesterday another 3 L for today. The patient is currently on a normal saline infusion at the rate of 50 mL an hour. Based on the evolving metabolic alkalosis that is seen on her blood work, I'm going to switch this patient a bicarb infusion for the next 24 hours. NG tube is in place. Output is minimal and upper GI bleed has subsided. The patient drop in hemoglobin down to 6.1 yesterday and she received a total of 2 units of packed RBC and the subsequent hemoglobin from today is at 10.6. From the GI standpoint, the patient's abdomen is less distended compared to yesterday. No appreciated tenderness on today's evaluation. Bowel sounds are hypoactive. No bowel activity has been noted. The patient will be started on TPN for nutritional support today. Her white cell count is at 26. The lactic acid level is at 2.5. The serum calcium is dropped down to 3.7 with an ionized level of 3.5. This low calcium level will be replaced. She is in a shock liver and AST is up to 1079 and ALTs at 1136 with an alkaline phosphatase of 153. Serum albumin is down to 1.3. The lipase and amylase from yesterday were within normal limits. Objective - Vital Signs Vital signs: Vital Signs Temp 98.7 F 07/01/18 12:00 Pulse 78 07/01/18 13:30 Resp 19 07/01/18 13:30 BP 96/59 01/18/19 09:00 Pulse Ox 99 07/01/18 13:30 Intake & Output 06/30/18 07/01/18 07/01/18 18:59 06:59 18:59 Intake Total 1400 2206.658 830.072 Output Total 175 430 350 Balance 1225 1776.658 480.072 Weight 68.9 kg 68.9 kg Intake: IV 1400 1500 650 Dextrose 5% in Water 1, 700 1300 300 000 ml @ 100 mls/hr IV . Q10H [facility] Rx#:[id number] Normal Saline 150 Sodium Chloride 0.9% 1, 500 000 ml @ 100 mls/hr IV . Q10H [facility] Rx#:[id number] metroNIDAZOLE-NS PMX 500 200 200 200 mg In Saline 1 100ml.bag @ 100 mls/hr IVPB Q6HR [facility] Rx#:[id number] Intake, IV Titration 86.658 180.072 Amount Norepinephrine 16 mg In 0.312 Sodium Chloride 0.9% 250 ml @ Titrate IV .Q0M [facility] Rx#:[id number] Propofol 1,000 mg In 86.346 180.072 Empty Bag 1 bag @ Titrate IV .Q0M [facility] Rx#: [id number] Blood Product 0 620 Rc As-1 Unit 310 [id number] Rc Pheresis 2 As3 Unit 0 310 [id number] Output: Urine 175 430 350 Other: Voiding Method Indwelling Catheter Indwelling Catheter Indwelling Catheter ABP, PAP, CO, CI - Last Documented Arterial Blood Pressure 105/53 - Exam GENERAL EXAM: The patient is sedated and the patient is calm and comfortable on a mechanical ventilator. The patient has an orogastric and orotracheal tube in place. The patient has some coffee-ground material collecting from the NG tube. The output from the NG tube has dropped considerably since yesterday and the total amount of output over the past 8 hours his been in the order of 20 mL. HEAD: Normocephalic/atraumatic. EYES: Normal reaction of pupils, equal size. Conjunctiva pink, sclera white. NOSE: Clear with pink turbinates. THROAT: No erythema or exudates. NECK: No masses, no JVD, no thyroid enlargement, no adenopathy. CHEST: No chest wall deformity. Symmetrical expansion. LUNGS: Equal air entry with scattered expiratory wheezes bilaterally Cardiac exam revealed the PMI to be normally situated and sized. The rhythm was regular and no extrasystoles were noted during several minutes of auscultation. The first and second heart sounds were normal and physiologic splitting of the second heart sound was noted. There were no murmurs, rubs, clicks, or gallops. ABDOMEN: Distended, nontender non tender No hepatosplenomegaly, and the bowel sounds are significantly diminished at this point in time. No rebound tenderness. There may be some limited ascites. EXTREMITIES: No clubbing, there is considerable amount of edema both in upper and lower extremities and there is +1-2 pitting edema, no cyanosis, 1+ pulses and upper and lower extremities. MUSCULOSKELETAL: Muscle strength and tone normal. SPINE: No scoliosis or deformity SKIN: No rashes, the patient has significant skin ecchymotic patches and bruising that has been present for a long period of time. CENTRAL NERVOUS SYSTEM: The patient is sedated. No sedation holiday was given today. An accurate neurologic exam cannot be performed on today's evaluation. PSYCHIATRIC: Cannot be obtained as the patient is currently intubated on mechanical ventilator - Labs CBC & Chem 7: 07/01/18 09:05 07/01/18 09:05 Labs: Abnormal Lab Results - Last 24 Hours (Table) 06/30/18 06/30/18 06/30/18 Range/Units 14:45 15:10 17:21 WBC 18.6 H (3.8-10.6) k/uL RBC 1.94 L (3.80-5.40) m/uL Hgb 6.1 L* (11.4-16.0) gm/dL Hct 19.1 L* (34.0-46.0) % RDW (11.5-15.5) % Neutrophils # (Manual) 17.80 H (1.3-7.7) k/uL Lymphocytes # (Manual) (1.0-4.8) k/uL Metamyelocytes # (Man) 0.74 H (0) k/uL Myelocytes # (Manual) 0.19 H (0) k/uL ABG pO2 (83-108) mmHg ABG HCO3 (21-25) mmol/L Sodium (137-145) mmol/L Potassium (3.5-5.1) mmol/L Chloride (98-107) mmol/L Carbon Dioxide (22-30) mmol/L BUN (7-17) mg/dL Creatinine (0.52-1.04) mg/dL Glucose (74-99) mg/dL POC Glucose (mg/dL) 136 H (75-99) mg/dL Calcium (8.4-10.2) mg/dL Ionized Calcium Gretchen (4.5-5.3) mg/dL Magnesium (1.6-2.3) mg/dL AST (14-36) U/L ALT (9-52) U/L Alkaline Phosphatase (38-126) U/L Total Protein (6.3-8.2) g/dL Albumin (3.5-5.0) g/dL Triglycerides (<150) mg/dL Crossmatch See Detail 06/30/18 06/30/18 07/01/18 Range/Units 23:48 23:52 04:05 WBC (3.8-10.6) k/uL RBC (3.80-5.40) m/uL Hgb (11.4-16.0) gm/dL Hct (34.0-46.0) % RDW (11.5-15.5) % Neutrophils # (Manual) (1.3-7.7) k/uL Lymphocytes # (Manual) (1.0-4.8) k/uL Metamyelocytes # (Man) (0) k/uL Myelocytes # (Manual) (0) k/uL ABG pO2 80 L (83-108) mmHg ABG HCO3 20 L (21-25) mmol/L Sodium (137-145) mmol/L Potassium (3.5-5.1) mmol/L Chloride (98-107) mmol/L Carbon Dioxide (22-30) mmol/L BUN (7-17) mg/dL Creatinine (0.52-1.04) mg/dL Glucose (74-99) mg/dL POC Glucose (mg/dL) 296 H 304 H (75-99) mg/dL Calcium (8.4-10.2) mg/dL Ionized Calcium Gretchen (4.5-5.3) mg/dL Magnesium (1.6-2.3) mg/dL AST (14-36) U/L ALT (9-52) U/L Alkaline Phosphatase (38-126) U/L Total Protein (6.3-8.2) g/dL Albumin (3.5-5.0) g/dL Triglycerides (<150) mg/dL Crossmatch 07/01/18 07/01/18 07/01/18 Range/Units 05:49 09:05 09:05 WBC 26.1 H (3.8-10.6) k/uL RBC 3.46 L (3.80-5.40) m/uL Hgb 10.6 L D (11.4-16.0) gm/dL Hct 32.2 L (34.0-46.0) % RDW 15.6 H (11.5-15.5) % Neutrophils # (Manual) 24.70 H (1.3-7.7) k/uL Lymphocytes # (Manual) 0.52 L (1.0-4.8) k/uL Metamyelocytes # (Man) 1.04 H (0) k/uL Myelocytes # (Manual) 0.26 H (0) k/uL ABG pO2 (83-108) mmHg ABG HCO3 (21-25) mmol/L Sodium 132 L (137-145) mmol/L Potassium 3.0 L (3.5-5.1) mmol/L Chloride 113 H (98-107) mmol/L Carbon Dioxide 16 L (22-30) mmol/L BUN 36 H (7-17) mg/dL Creatinine 1.05 H (0.52-1.04) mg/dL Glucose 180 H (74-99) mg/dL POC Glucose (mg/dL) 269 H (75-99) mg/dL Calcium 3.7 L* (8.4-10.2) mg/dL Ionized Calcium Gretchen (4.5-5.3) mg/dL Magnesium (1.6-2.3) mg/dL AST 1079 H (14-36) U/L ALT 1136 H (9-52) U/L Alkaline Phosphatase 153 H (38-126) U/L Total Protein 2.6 L (6.3-8.2) g/dL Albumin 1.3 L (3.5-5.0) g/dL Triglycerides (<150) mg/dL Crossmatch 07/01/18 07/01/18 Range/Units 12:02 12:40 WBC (3.8-10.6) k/uL RBC (3.80-5.40) m/uL Hgb (11.4-16.0) gm/dL Hct (34.0-46.0) % RDW (11.5-15.5) % Neutrophils # (Manual) (1.3-7.7) k/uL Lymphocytes # (Manual) (1.0-4.8) k/uL Metamyelocytes # (Man) (0) k/uL Myelocytes # (Manual) (0) k/uL ABG pO2 (83-108) mmHg ABG HCO3 (21-25) mmol/L Sodium (137-145) mmol/L Potassium (3.5-5.1) mmol/L Chloride (98-107) mmol/L Carbon Dioxide (22-30) mmol/L BUN (7-17) mg/dL Creatinine (0.52-1.04) mg/dL Glucose (74-99) mg/dL POC Glucose (mg/dL) 217 H (75-99) mg/dL Calcium (8.4-10.2) mg/dL Ionized Calcium Gretchen 3.5 L* (4.5-5.3) mg/dL Magnesium 5.5 H* (1.6-2.3) mg/dL AST (14-36) U/L ALT (9-52) U/L Alkaline Phosphatase (38-126) U/L Total Protein (6.3-8.2) g/dL Albumin (3.5-5.0) g/dL Triglycerides 348 H (<150) mg/dL Crossmatch Microbiology - Last 24 Hours (Table) 06/30/18 03:15 Urine Culture - Final Urine,Catheterized 06/29/18 23:50 Blood Culture - Preliminary Blood No Growth after 24 hours Assessment and Plan Plan: Assessment 1 acute abdominal distention along with CAT scan findings consistent with small bowel obstruction and possible bowel ischemia related to underlying vascular insufficiency and hypoperfusion. 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 On today's evaluation, the abdomen is still distended although nontender. Lactic acid level is at 2.5. NG tube is in place and there is no evidence of any ongoing upper GI bleed. LFTs are abnormal consistent with shock liver. The patient remains nothing by mouth. 2 upper GI bleed with coffee-ground drainage from the NG tube, currently inactive in stable and the patient is currently on IV Protonix 3 acute respiratory failure, hypoxic, intubated on a mechanical ventilator. Blood gases was noted. The vent settings were noted. Chest x-ray shows no acute abnormalities 4 acute blood loss anemia with drop in hemoglobin down to 6.1 and the patient received 2 units of packed RBCs and the hemoglobin is up to 10. 5 mild lactic acidosis, lactic acid level is at 2.5 6 leukocytosis, evolving leukocytosis with a white cell count of 26 7 advanced COPD with multiple has position the past for COPD exacerbation patient has required steroids on a regular basis for episodes of COPD exacerbation 8 hypothyroidism 9 hyperlipidemia 10 seizure disorder 11 chronic constipation chronic GI problems probably later to chronic mesenteric ischemia Plan I met the family again and I had an extensive discussion with them and explained to them her progress. There are some setbacks is noted today including the evolving leukocytosis and the shock liver. Nevertheless, there is no signs of any major hemodynamic collapse or instability and the patient is still stable on a few mics of levo fed for blood pressure support. We'll continue the current antibiotic coverage including MRSA Levaquin and Flagyl. Was switched IV fluids to D5 Bicarb at the Rate of 50 an Hour. Initiate TPN. Monitor LFTs. Monitor the white cell count. Continue bronchodilators. Continue systemic steroids. Replace the potassium level and the patient will be given 2 g of calcium gluconate. Condition is critical. Not a surgical candidate per our surgical evaluation and consultation. She will be essentially medical and conservative. Patient's overall performance and functional status is poor. She may not be able to handle any significant surgical interventions. We decided with the family to proceed with the treatment for another 24-48 hours and assess her progress and make further recommendations based on her underlying condition. Critically care evaluation was done more than 30 minutes. Time with Patient: Greater than 30
[2018-07-01] MEDS ORDERED: MVI, ADULT NO.4 WITH VIT K 10 ML, TRACE (CONC-1ML/DOSE) 1 ML, POTASSIUM CHLORIDE 40 MEQ... IV SCH ×5 (14:30)
[2018-07-01 17:26] LABS: Glucose,Whole Blood 222 mg/dL (75-99)
[2018-07-01] MEDS ORDERED: ARTIFICIAL TEARS-HYPROMELLOSE DROPS 15 ML BTL BOTH EYES PRN (18:21)
--- NOTE | 2018-07-01 22:05 | PN ---
PROGRESS NOTE DATE OF SERVICE: 07/01/2018 PRESENTING COMPLAINT: Intubated. INTERVAL HISTORY: Patient initially admitted with COPD exacerbation, pneumonia, and patient developed ileus and became encephalopathic, moved to the ICU, had to be intubated. Patient then developed what appears to be a superior mesenteric artery occlusion, ischemic bowel, GI bleed. NG tube remains in place. Patient also was transfused blood. Remains on the ventilator with FiO2 of 40 and a PEEP of 5. Patient's drips include Levophed at 3 mcg and propofol at 40 mcg. TPN was started earlier today. NG tube remains in place. Over last evening's shift -- that is, over last night -- a good amount of coffee-ground was obtained, less on the daytime shift. Patient's family is at the bedside, including her . REVIEW OF SYSTEMS: Patient is intubated. CURRENT MEDICATIONS: Reviewed. They include: 1. IV Levophed. 2. Propofol. 3. IV Solu-Medrol. 4. IV Levaquin. 5. TPN. PHYSICAL EXAMINATION: Temperature 97.5, pulse 85, respiration 21, blood pressure 99/63, pulse ox 100% on ventilator. GENERAL APPEARANCE: Lying in bed, sedated. EYES: Pupils equal. Conjunctivae pale. HEENT: External appearance of nose and ears normal. Oral cavity dry. NG tube in place. ET tube in place. NECK: JVD unable to assess. Mass not palpable. RESPIRATORY: Effort increased. LUNGS: Decreased breath sounds. CARDIOVASCULAR: First and second sounds normal. No edema. ABDOMEN: Soft, non-tender. Bowel sounds are sluggish. No guarding or rigidity. PSYCHIATRY: Unable to assess. DERMATOLOGICAL: Diffuse bruising. NEUROLOGICAL: Patient is sedated. INVESTIGATIONS: White count 26.1, hemoglobin 10.6, potassium 3, BUN 36, creatinine 1.05, AST 1079, ALT 1136. ASSESSMENT: 1. 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 2. Acute upper gastrointestinal bleed with coffee-ground emesis from above. 3. Ileus secondary to above. 4. Acute severe chronic obstructive pulmonary disease exacerbation in an ex-smoker. 5. Acute hypoxic respiratory failure from chronic obstructive pulmonary disease. Now patient is intubated on ventilator support. 6. Right lower lobe pneumonia on presentation. 7. Hypertensive shock requiring pressure support. 8. Hyperlipidemia. 9. Gastroesophageal reflux disease. 10.Left ear hard of hearing. 11.Thyroid nodule. 12.Medical debility. 13.Diffuse bruising. 14.Acute metabolic encephalopathy, multifactorial. 15.Acute blood loss anemia from gastrointestinal bleed requiring 2 units of blood. PLAN: Continue current medication and treatment plan. Patient remains on pressor support, intubated. at the bedside. Did not have any questions earlier today. Other family members are present. Prognosis remains poor; even if she was to pull through this, her overall pulmonary function is very poor. Patient remains critically ill. MMODL / IJN: [id number] /
[2018-07-01 23:48] LABS: Glucose,Whole Blood 231 mg/dL (75-99)
[2018-07-01] MEDS: LEVOFLOXACIN 750MG-D5W PMX 750 MG in DEXTROSE/WATER 1 150ML.BAG IVPB SCH (23:59)
[2018-07-02] MEDS ORDERED: SODIUM BICARBONATE 150 MEQ in DEXTROSE 5% IN WATER 1,000 ML IV SCH ×2
[2018-07-02] MEDS: PROPOFOL 1,000 MG in EMPTY BAG 1 BAG IV SCH ×2 (01:36→08:17)
[2018-07-02] MEDS: IPRATROPIUM-ALBUTEROL 3 ML NEB INHALATION SCH ×3 (03:34→10:50)
[2018-07-02 04:54] LABS: ABG Base Excess -2.9 mmol/L; ABG HCO3 23 mmol/L (21-25); ABG PCO2 39 mmHg (35-45); ABG PH 7.37 (7.35-7.45); ABG PO2 96 mmHg (83-108); ABG TCO2 24 mmol/L (19-24)
[2018-07-02 05:26] LABS: HCT 31.5 % (34.0-46.0); HGB 10.2 gm/dL (11.4-16.0); MCHC 32.3 g/dL (31.0-37.0); MCV 93.1 fL (80.0-100.0); Mean Platelet Volume 7.4; Platelet Count 163 k/uL (150-450); RBC 3.39 m/uL (3.80-5.40); RDW 15.8 % (11.5-15.5); WBC 19.4 k/uL (3.8-10.6)
[2018-07-02 05:38] LABS: Calcium 6.7 mg/dL (8.4-10.2); Magnesium 4.9 mg/dL (1.6-2.3); Phosphorus 2.7 mg/dL (2.5-4.5); Potassium 5.1 mmol/L (3.5-5.1)
[2018-07-02 05:46] LABS: Glucose,Whole Blood 250 mg/dL (75-99)
[2018-07-02] MEDS: metroNIDAZOLE-NS PMX 500 MG in SALINE 1 100ML.BAG IVPB SCH ×2 (06:12→12:06)
[2018-07-02] MEDS: methylPREDNISolone SOD SUCCI 125 MG/2 ML VIAL IV SCH ×2 (06:12→12:05)
[2018-07-02] MEDS: INSULIN ASPART 100 UNIT/ML 1 ML 10 ML VIAL SQ SCH ×2 (06:13→12:06)
[2018-07-02] MEDS: SODIUM CHLORIDE 0.9% 1,000 ML IV SCH ×2 (06:13→08:08)
--- NOTE | 2018-07-02 06:15 | XR ---
EXAMINATION TYPE: XR chest 1V portable DATE OF EXAM: 07/02/2018 HISTORY: intubated. REFERENCE: Previous study dated 07/01/2018. FINDINGS: The patient's ET tube, NG tube and left subclavian catheter remain in place, unchanged in a ppearance. There continues to be bibasilar atelectasis. Heart size is within normal limits. I could not exclude a small left effusion. IMPRESSION: CONTINUING BIBASILAR ATELECTASIS.
--- NOTE | 2018-07-02 06:17 | XR ---
EXAMINATION TYPE: XR abdomen 1V , ONE VIEW DATE OF EXAM ORDERED: 07/02/2018 HISTORY: ABD distension. COMPARISON: Previous study dated 07/01/2018. FINDINGS: Limited views of the abdomen show dilated loops of bowel. This includes both large bowel a nd small bowel. No gross free air is seen. No unusual calcifications are seen. IMPRESSION: ILEUS VERSUS PARTIAL BOWEL OBSTRUCTION.
[2018-07-02] MEDS: FORMOTEROL FUMARATE 20 MCG/2 ML NEBU INHALATION SCH (07:15)
[2018-07-02] MEDS: BUDESONIDE 1 MG/2 ML NEBU INHALATION SCH (07:15)
[2018-07-02] MEDS ORDERED: 1: MVI, ADULT NO.4 WITH VIT K 10 ML, TRACE (CONC-1ML/DOSE) 1 ML, POTASSIUM CHLORIDE 40 M IV SCH ×5 (08:00)
[2018-07-02] MEDS: PANTOPRAZOLE 40 MG/10 ML VIAL IVP SCH (08:18)
[2018-07-02] MEDS: CHLORHEXIDINE GLUCONATE 15 ML CUP MUCOUS MEM SCH (08:19)
[2018-07-02] MEDS: NYSTATIN 100,000 UNIT/ML SUSP 500,000 UNIT/5 ML CUP PO SCH (08:55)
[2018-07-02 12:01] LABS: Glucose,Whole Blood 255 mg/dL (75-99)
--- NOTE | 2018-07-02 12:02 | P.PN ---
Subjective Progress Note Date: 07/02/18 Principal diagnosis: Acute exacerbation of severe oxygen dependent end-stage chronic obstructive pulmonary disease. Patient is seen today in 07/02/2018 in follow-up in the intensive care unit. She remains intubated on the mechanical ventilator on assist control assist control at a rate of 16, tidal volume 400, FiO2 40% and a PEEP of 5. Morning blood gases revealed a PaO2 of 96, pCO2 of 39, pH 7.37. Chest x-ray reveals continued bibasilar atelectasis. Stable. She is currently sedated on propofol at 40 mcg/kg/m. 0.9 normal saline at 50 MLS per hour. Being nourished with TPN and lipids. She is currently afebrile. Slightly tachycardic. Off pressors. Abdomen remains distended. Absent bowel sounds. Abdominal x-ray continues to show dilated loops of bowel including both the small and large bowels. Ileus versus partial obstruction considered. Urine output adequate. Blood culture reveals no growth. Urine culture no growth. White count 19.4. Hemoglobin at 10.2. Bicarb 21. Creatinine 1.16. She remains on bronchodilators, IV Solu-Medrol, Levaquin. Objective - Vital Signs Vital signs: Vital Signs Temp 98.7 F 07/02/18 08:00 Pulse 102 H 07/02/18 11:03 Resp 19 07/02/18 11:00 BP 90/55 07/02/18 11:00 Pulse Ox 100 07/02/18 11:00 Intake & Output 07/01/18 07/02/18 07/02/18 18:59 06:59 18:59 Intake Total 7238.812 4750.612 603.225 Output Total 1000 2125 310 Balance 280.072 -420.388 293.225 Weight 68.9 kg 70.9 kg Intake: IV 1100 1550 400 Dextrose 5% in Water 1, 300 000 ml @ 100 mls/hr IV . Q10H [facility] Rx#:[id number] Levofloxacin 750Mg-D5w 150 Pmx 750 mg In Dextrose/ Water 1 150ml.bag @ 100 mls/hr IVPB Q48H [facility] Rx#: [id number] Normal Saline 200 TPN 200 650 200 metroNIDAZOLE-NS PMX 500 200 100 mg In Saline 1 100ml.bag @ 100 mls/hr IVPB Q6HR [facility] Rx#:[id number] sodium acetate 200 650 200 Intake, IV Titration 180.072 154.612 203.225 Amount Norepinephrine 16 mg In 104.579 Sodium Chloride 0.9% 250 ml @ Titrate IV .Q0M [facility] Rx#:[id number] Propofol 1,000 mg In 180.072 154.612 98.646 Empty Bag 1 bag @ Titrate IV .Q0M [facility] Rx#: [id number] Output: Urine 1000 2125 310 Other: Voiding Method Indwelling Catheter Indwelling Catheter Indwelling Catheter ABP, PAP, CO, CI - Last Documented Arterial Blood Pressure 140/52 - Exam GENERAL EXAM: The patient is sedated and appears calm and comfortable on a mechanical ventilator. The patient has an orogastric and orotracheal tube in place. HEAD: Normocephalic/atraumatic. EYES: Normal reaction of pupils, equal size. Conjunctiva pink, sclera white. NOSE: Clear with pink turbinates. THROAT: No erythema or exudates. NECK: No masses, no JVD, no thyroid enlargement, no adenopathy. CHEST: No chest wall deformity. Symmetrical expansion. LUNGS: Equal air entry with scattered expiratory wheezes bilaterally Cardiac exam revealed the PMI to be normally situated and sized. The rhythm was regular and no extrasystoles were noted during several minutes of auscultation. There were no murmurs, rubs, clicks, or gallops. ABDOMEN: Distended, nontender non tender No hepatosplenomegaly, and the bowel sounds are significantly diminished at this point in time. No rebound tenderness. There may be some limited ascites. EXTREMITIES: No clubbing, there is considerable amount of edema both in upper and lower extremities and there is +1-2 pitting edema, no cyanosis, 1+ pulses and upper and lower extremities. MUSCULOSKELETAL: Muscle strength and tone normal. SPINE: No scoliosis or deformity SKIN: No rashes, the patient has significant skin ecchymotic patches and bruising that has been present for a long period of time. CENTRAL NERVOUS SYSTEM: The patient is sedated. No sedation holiday was given today. An accurate neurologic exam cannot be performed on today's evaluation. PSYCHIATRIC: Cannot be obtained as the patient is currently intubated on mechanical ventilator - Labs CBC & Chem 7: 07/02/18 05:00 07/02/18 05:00 Labs: Abnormal Lab Results - Last 24 Hours (Table) 07/01/18 07/01/18 07/01/18 Range/Units 12:02 12:40 17:15 WBC (3.8-10.6) k/uL RBC (3.80-5.40) m/uL Hgb (11.4-16.0) gm/dL Hct (34.0-46.0) % RDW (11.5-15.5) % ABG O2 Saturation (94-97) % Sodium (137-145) mmol/L Potassium (3.5-5.1) mmol/L Carbon Dioxide (22-30) mmol/L BUN (7-17) mg/dL Creatinine (0.52-1.04) mg/dL Glucose (74-99) mg/dL POC Glucose (mg/dL) 217 H 222 H (75-99) mg/dL Calcium (8.4-10.2) mg/dL Ionized Calcium Gretchen 3.5 L* (4.5-5.3) mg/dL Magnesium 5.5 H* (1.6-2.3) mg/dL Triglycerides 348 H (<150) mg/dL 07/01/18 07/01/18 07/02/18 Range/Units 20:55 23:38 04:52 WBC (3.8-10.6) k/uL RBC (3.80-5.40) m/uL Hgb (11.4-16.0) gm/dL Hct (34.0-46.0) % RDW (11.5-15.5) % ABG O2 Saturation 98.0 H (94-97) % Sodium (137-145) mmol/L Potassium 5.4 H (3.5-5.1) mmol/L Carbon Dioxide (22-30) mmol/L BUN (7-17) mg/dL Creatinine (0.52-1.04) mg/dL Glucose (74-99) mg/dL POC Glucose (mg/dL) 231 H (75-99) mg/dL Calcium (8.4-10.2) mg/dL Ionized Calcium Gretchen (4.5-5.3) mg/dL Magnesium (1.6-2.3) mg/dL Triglycerides (<150) mg/dL 07/02/18 07/02/18 07/02/18 Range/Units 05:00 05:00 05:35 WBC 19.4 H (3.8-10.6) k/uL RBC 3.39 L (3.80-5.40) m/uL Hgb 10.2 L (11.4-16.0) gm/dL Hct 31.5 L (34.0-46.0) % RDW 15.8 H (11.5-15.5) % ABG O2 Saturation (94-97) % Sodium 132 L (137-145) mmol/L Potassium (3.5-5.1) mmol/L Carbon Dioxide 21 L (22-30) mmol/L BUN 46 H (7-17) mg/dL Creatinine 1.16 H (0.52-1.04) mg/dL Glucose 231 H (74-99) mg/dL POC Glucose (mg/dL) 250 H (75-99) mg/dL Calcium 6.7 L (8.4-10.2) mg/dL Ionized Calcium Gretchen (4.5-5.3) mg/dL Magnesium 4.9 H (1.6-2.3) mg/dL Triglycerides (<150) mg/dL Microbiology - Last 24 Hours (Table) 06/29/18 23:50 Blood Culture - Preliminary Blood No Growth after 48 hours 06/30/18 03:15 Urine Culture - Final Urine,Catheterized Assessment and Plan Assessment: Assessment: #1. Acute abdominal distention along with CAT scan findings consistent with small bowel obstruction and possible bowel ischemia related to underlying vascular insufficiency and hypoperfusion. 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 On today's evaluation, the abdomen is still distended although nontender. Lactic acid level is at 2.5. NG tube is in place and there is no evidence of any ongoing upper GI bleed. LFTs are abnormal consistent with shock liver. The patient remains nothing by mouth. #2. Acute hypoxemic respiratory failure requiring intubation and mechanical ventilatory support. History of severe stage III oxygen dependent COPD from significant chronic tobacco dependence. #3. Acute blood loss anemia. Status post 2 units packed red blood cells. #4. Hyperlipidemia #5. Episodes of pneumonia #6. Hypothyroidism #7. Seizure disorder #8. History of migraine cephalgia #9. Any constipation #10. Iron deficiency anemia Plan: The patient was seen and evaluated by Dr. Bassett. He had another extended conversation with the patient's family. They are leaning towards comfort care at this point. Further family will be arriving. Once everyone is ready we will withdraw life support per their request. I, the cosigning physician, performed a history & physical examination of the patient. Lungs sounds bilateral wheezing, diminished. Maintaining good O2 saturations in the 90s on 50% FiO2 on mechanical ventilator. I discussed the assessment and plan of care with my nurse practitioner, Sharon Navarro. I attest to the above note as dictated by her. Time with Patient: Greater than 30
[2018-07-02 12:46] VITALS: TEMP 98.3
[2018-07-02] MEDS ORDERED: MORPHINE SULFATE 2 MG/ML SYRINGE IV PRN (13:08)
[2018-07-02] MEDS ORDERED: LORazepam 2 MG/ML INJ IV PRN (13:08)
[2018-07-02] MEDS ORDERED: ATROPINE OPHTH SOLN 1% 5ML BTL SUBLINGUAL PRN (13:08)
[2018-07-02] MEDS ORDERED: MORPHINE SULFATE 4 MG/ML SYRINGE IV PRN (13:08)
[2018-07-02] MEDS ORDERED: SCOPOLAMINE 1.5MG/72HR PATCH TRANSDERM SCH (13:30)
[2018-07-02] MEDS: MORPHINE SULFATE (100 MG/2 ML) 100 MG in SODIUM CHLORIDE 0.9% 100 ML IV SCH (14:56)
[2018-07-02 21:05] VITALS: BP 101/60
--- NOTE | 2018-07-03 07:31 | PN ---
PROGRESS NOTE DATE OF SERVICE: 07/02/2018 PRESENTING COMPLAINT: Comfort care. INTERVAL HISTORY: This patient has advanced end-stage COPD with multiple problems, is under comfort care, getting a morphine drip. A couple of family members at the bedside. The patient is breathing slowly. EXAMINATION: Pulse 100, respiration 5-6, blood pressure 82/54. ASSESSMENT: 1. End-stage chronic obstructive pulmonary disease. 2. Multiple other medical problems. PLAN: The patient is on comfort measures on IV morphine drip in the ICU. MMODL / IJN: [id number] /
[2018-07-03 08:52] VITALS: PULSE 87; RESP 7
[2018-07-03] MEDS: MORPHINE SULFATE (100 MG/2 ML) 100 MG in SODIUM CHLORIDE 0.9% 100 ML IV SCH (10:21)
--- NOTE | 2018-07-04 01:08 | DS ---
DISCHARGE SUMMARY DATE OF ADMISSION: June 22, 2018. DATE PATIENT : July 03, 2018. CAUSE OF : Chronic obstructive pulmonary disease. OTHER MEDICAL PROBLEMS: 1. 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 2. Acute ileus from above. 3. Acute hypoxic respiratory from chronic obstructive pulmonary disease. The patient intubated, requiring ventilator support. 4. Right lobe pneumonia, on presentation. 5. Hypertensive shock requiring pressor support. 6. Hyperlipidemia. 7. Gastroesophageal reflux disease. 8. Left ear hard of hearing. 9. Thyroid nodule. 10.Medical debility. 11.Diffuse bruising. 12.Acute metabolic encephalopathy, multifactorial. 13.Acute blood loss anemia probably from gastrointestinal bleed. CONSULTATIONS: Dr. Bassett and colleagues from Pulmonary; Dr. Epps from General surgery; Dr. Rodriguez from Gastroenterology; Dr. Vidhya Kimble from Cardiology. HOSPITAL COURSE: This very pleasant, but unfortunate lady who presented with shortness of breath, found to have pneumonia and COPD exacerbation, never really picked up. The patient has had chronic abdominal pain. The pain started getting worse. Patient went into an ileus and had a GI bleed felt to be from SMA artery ischemia as evidenced by the CT scan. The patient continued to struggle to improve. Her family finally decided to make her comfort care and patient succumbed to the underlying conditions. Copy to Dr. Yefri Melgoza. AMY / ALFIE: [id number] /
== END 2018-07-03 17:16 | disposition expired | DRG 208 ==
LOC: EC 09:09 → 3SCARD 12:05 → 2SICU 06-29 15:26
PROVIDERS: ADMIT Hospitalist; ATTEND Hospitalist
PROC: 30233N1 Transfusion of Nonautologous Red Blood Cells into Peripheral Vein, Percutaneous Approach (ICD-10-PCS; principal; 2018-06-30)
PROC: 02HV33Z Insertion of Infusion Device into Superior Vena Cava, Percutaneous Approach (ICD-10-PCS; principal; 2018-06-30)
PROC: 5A1945Z Respiratory Ventilation, 24-96 Consecutive Hours (ICD-10-PCS; principal; 2018-06-30)
PROC: 0BH18EZ Insertion of Endotracheal Airway into Trachea, Via Natural or Artificial Opening Endoscopic (ICD-10-PCS; principal; 2018-06-30)
DX: J15.6 Pneumonia due to other Gram-negative bacteria (principal); G93.41 Metabolic encephalopathy; J96.01 Acute respiratory failure with hypoxia; K72.00 Acute and subacute hepatic failure without coma; D62 Acute posthemorrhagic anemia; E87.4 Mixed disorder of acid-base balance; J44.0 Chronic obstructive pulmonary disease with (acute) lower respiratory infection; J44.1 Chronic obstructive pulmonary disease with (acute) exacerbation; J98.11 Atelectasis; K55.1 Chronic vascular disorders of intestine; R18.8 Other ascites; R57.9 Shock, unspecified; K92.2 Gastrointestinal hemorrhage, unspecified; D50.9 Iron deficiency anemia, unspecified; E03.9 Hypothyroidism, unspecified; E04.1 Nontoxic single thyroid nodule; E78.5 Hyperlipidemia, unspecified; G40.909 Epilepsy, unspecified, not intractable, without status epilepticus; G43.909 Migraine, unspecified, not intractable, without status migrainosus; H91.92 Unspecified hearing loss, left ear; I11.0 Hypertensive heart disease with heart failure; Z66 Do not resuscitate; Z51.5 Encounter for palliative care; I50.9 Heart failure, unspecified; I65.29 Occlusion and stenosis of unspecified carotid artery; I73.9 Peripheral vascular disease, unspecified; K21.9 Gastro-esophageal reflux disease without esophagitis; M81.0 Age-related osteoporosis without current pathological fracture; S30.1XXA Contusion of abdominal wall, initial encounter; Z79.51 Long term (current) use of inhaled steroids; Z79.82 Long term (current) use of aspirin; Z79.899 Other long term (current) drug therapy; Z82.0 Family history of epilepsy and other diseases of the nervous system; Z83.3 Family history of diabetes mellitus; Z85.828 Personal history of other malignant neoplasm of skin; Z87.01 Personal history of pneumonia (recurrent); Z87.891 Personal history of nicotine dependence; Z90.710 Acquired absence of both cervix and uterus; Z99.81 Dependence on supplemental oxygen; Z88.2 Allergy status to sulfonamides; Z88.8 Allergy status to other drugs, medicaments and biological substances; Z91.010 Allergy to peanuts; Z98.42 Cataract extraction status, left eye; Z98.41 Cataract extraction status, right eye; K58.1 Irritable bowel syndrome with constipation
CPT/HCPCS: 36415; 36600; 70450; 71045; 74018; 74019; 74177; 80048; 80053; 82150; 82330; 82550; 82553; 82805; 83605; 83690; 83735; 83880; 84100; 84132; 84478; 84484; 85025; 85027; 85610; 85730; 86850; 86900; 86901; 86920; 87040; 87086; 93005; 93306; 94002; 94003; 94640; 94660; 94667; 94760; 96374; 96375; 99291